=== PATIENT | male | born 1945 | race Caucasian/White ===

== ENCOUNTER → 2018-02-26 17:19 | Outpatient (CLI) | payer MEDICARE, BC, SELFPAY ==
[2018-02-26 18:00] LABS: Hematocrit 44.8 % (40-54); Hemoglobin 15.3 g/dl (13.0-16.5); Mean Corp Hgb Conc 34.2 g/gl (32-36); Mean Corpuscular Hgb 32.6 pg (27.0-32.0); Mean Corpuscular Volume 95.5 fL (80-94); Mean Platelet Vol. 9.7 fl (6.2-12.0); Platelet Count 192 K/mm3 (150-450); RBC Distribution Width CV 14.2 % (11.6-14.6); RBC Distribution Width SD 48.8 fl (35.1-43.9); Red Blood Count 4.69 M/mm3 (4.6-6.2); White Blood Count 5.7 K/mm3 (4.4-11.0)
[2018-02-26 18:30] LABS: Anion Gap 5 (5-15); BUN 16 mg/dL (7-18); BUN/Creat Ratio 15.5 RATIO (10-20); Calcium,Total 8.9 mg/dL (8.5-10.1); Chloride 107 mmol/L (98-107); Creatinine, Serum 1.03 mg/dL (0.70-1.30); EST Glomerular Filtration Rate 75 mL/min (>60); Est Glom Filt Rate - Afr Amer 91 mL/min (>60); Glucose 87 mg/dL (74-106); PSA,Total - Annual Screen 2.15 ng/mL (0.00-4.00); Potassium 4.1 mmol/L (3.5-5.1); Sodium Level 143 mmol/L (136-145); Thyroid Stim Hormone (TSH) 0.89 uIU/mL (0.358-3.74); Vitamin D,25 Hydroxy 30.8 ng/mL (29.95-100.01)
[2018-02-27 09:29] LABS: Absolute Lymphocyte Count 2.03 X10^3/ul (0.83-4.51); Absolute Neutrophil Count 2.9 X10^3/uL (2.0-7.7); Basophil# 0.07 X10^3/uL; Basophil% 1.2 % (0-1); Eosinophil# 0.24 X10^3/uL; Eosinophils% 4.1 % (0-5); Lymphocyte # 2.03 X10^3/ul (4.0); Lymphocyte % 34.9 % (19-41); Monocyte# 0.57 X10^3/uL; Monocyte% 9.8 % (0-10); Neutrophil # 2.89 X10^3/uL (2.7-7.7); Neutrophil % 49.7 % (47-70); POSITIVE COUNT NO; POSITIVE DIFFERENTIAL NO; POSITIVE MORPHOLOGY NO
[2018-02-27 09:38] LABS: ALB/GLOB Ratio 1.1 RATIO (0.9-2.4); AST(SGOT) 33 U/L (15-37); Alanine Aminotransfer ALT/SGPT 52 U/L (16-61); Alkaline Phosphatase 58 U/L (45-117); Globulin 3.5 g/dL (2.2-4.2); Protein, Total 7.5 g/dL (6.4-8.2)
[2018-02-28 11:33] LABS: Hep C Antibodies <0.1 s/co ratio (0.0-0.9)
== END ==
PROVIDERS: Family Provider Family Medicine Geriatric Medicine; PCP Family Medicine Geriatric Medicine; Visit Provider Family Medicine Geriatric Medicine
DX: E03.9 Hypothyroidism, unspecified (principal); E55.9 Vitamin D deficiency, unspecified; Z12.5 Encounter for screening for malignant neoplasm of prostate; Z13.89 Encounter for screening for other disorder
CPT/HCPCS: 36415; 80048; 82040; 82247; 82306; 84075; 84153; 84156; 84443; 84450; 84460; 85025; 85027; 86803; G0103

== ENCOUNTER → 2018-03-14 08:11 | Outpatient (CLI) | payer MEDICARE, BC, SELFPAY ==
--- NOTE | 2018-03-14 08:25 | AAAS_ITS ---
Reason For Study: AAA screening Aorta Measurements Aorta Doppler Measurements Proximal aorta measures2.1 x 2.2cm. in cross- Peak systolic flow velocities within the proximal sectional axis. aorta measure 85.7 cm/sec. Proximal aorta measures2.2cm. in longitudinal Peak systolic flow velocities within the mid axis. aorta measure 73.0 cm/sec. Mid aorta measures2.1 x 1.8cm. in cross-sectionalPeak systolic flow velocities within the distal axis. aorta measure 85.7 cm/sec. Mid aorta measures1.9cm. in longitudinal axis. Distal aorta measures1.5 x 1.7cm. in cross- sectional axis. Distal aorta measures1.7cm. in longitudinal axis. Left Iliac Artery Left iliac artery measures 1.1 cm. in the longitudinal axis. Left iliac artery measures 1.1 x 1.1 cm. in the cross-sectional axis. Peak systolic velocity in the left iliac artery measures 87.6 cm/sec. Right Iliac Artery Right iliac artery measures 1.1 cm. in the longitudinal axis. Right iliac artery measures 1.2 x 1.1 cm. in the cross-sectional axis. Peak systolic velocity in the right iliac artery measures 114.0 cm/sec. Procedure Aorta IVC Iliac vasculature or bypass grafts [id number]. Exam performed in department. Interpretation Summary The dimensions of the intra-abdominal aorta are normal, without evidence of aneurysmal dilatation. The iliac arteries are also normal in size bilaterally. The intra-abdominal aorta and iliac arteries are patent, demonstrating normal, pulsatile arterial flow and normal peak systolic velocities. Ordering Physician: Dany Flanagan Referring Physician: Dany Flanagan Chi Performed By: Lisha Rossi RVT
[2018-03-14 10:26] LABS: Follicle Stimulating Hormone 5.6 mIU/mL; Luteinizing Hormone 1.2 mIU/mL; Prolactin 16.2 ng/mL; T4 Free Direct 0.78 ng/dL (0.76-1.46); Thyroid Stim Hormone (TSH) 0.68 uIU/mL (0.358-3.74)
== END ==
PROVIDERS: Nurse Practitioner; Family Provider Family Medicine Geriatric Medicine; PCP Family Medicine Geriatric Medicine; Visit Provider Family Medicine Geriatric Medicine
DX: I71.4 Abdominal aortic aneurysm, without rupture (principal); E03.9 Hypothyroidism, unspecified; E23.7 Disorder of pituitary gland, unspecified
CPT/HCPCS: 36415; 76706; 83001; 83002; 84146; 84403; 84439; 84443; 84481

== ENCOUNTER → 2018-08-10 12:14 | Outpatient (CLI) | payer MEDICARE, BC, SELFPAY ==
[2018-08-10 12:42] LABS: Absolute Lymphocyte Count 1.72 X10^3/ul (0.83-4.51); Absolute Neutrophil Count 2.1 X10^3/uL (2.0-7.7); Basophil# 0.04 X10^3/uL; Basophil% 0.8 % (0-1); Eosinophil# 0.23 X10^3/uL; Eosinophils% 4.7 % (0-5); Hematocrit 44.2 % (40-54); Hemoglobin 14.7 g/dl (13.0-16.5); Lymphocyte # 1.72 X10^3/ul (4.0); Lymphocyte % 35.2 % (19-41); Mean Corp Hgb Conc 33.3 g/gl (32-36); Mean Corpuscular Hgb 32.7 pg (27.0-32.0); Mean Corpuscular Volume 98.4 fL (80-94); Mean Platelet Vol. 9.5 fl (6.2-12.0); Monocyte# 0.77 X10^3/uL; Monocyte% 15.8 % (0-10); Neutrophil # 2.11 X10^3/uL (2.7-7.7); Neutrophil % 43.3 % (47-70); Platelet Count 172 K/mm3 (150-450); RBC Distribution Width CV 14.5 % (11.6-14.6); RBC Distribution Width SD 52.1 fl (35.1-43.9); Red Blood Count 4.49 M/mm3 (4.6-6.2); White Blood Count 4.9 K/mm3 (4.4-11.0)
[2018-08-10 12:44] LABS: POSITIVE COUNT NO; POSITIVE DIFFERENTIAL NO; POSITIVE MORPHOLOGY NO
[2018-08-10 12:55] LABS: Anion Gap 3 (5-15); BUN 18 mg/dL (7-18); BUN/Creat Ratio 14.5 RATIO (10-20); Calcium,Total 8.5 mg/dL (8.5-10.1); Chloride 109 mmol/L (98-107); Creatinine, Serum 1.24 mg/dL (0.70-1.30); EST Glomerular Filtration Rate 61 mL/min (>60); Est Glom Filt Rate - Afr Amer 73 mL/min (>60); Glucose 88 mg/dL (74-106); Potassium 4.7 mmol/L (3.5-5.1); Sodium Level 141 mmol/L (136-145)
[2018-08-10 12:58] LABS: Lactic Acid 0.6 mmol/L (0.4-2.0)
== END ==
PROVIDERS: Family Provider Family Medicine Geriatric Medicine; PCP Family Medicine Geriatric Medicine; Referring Provider Family Medicine Geriatric Medicine; Visit Provider Family Medicine Geriatric Medicine
DX: A41.9 Sepsis, unspecified organism (principal)
CPT/HCPCS: 36415; 80048; 83605; 85025

== ENCOUNTER → 2018-10-04 14:46 | Outpatient (CLI) | payer MEDICARE, BC, SELFPAY ==
[2017-09-27 15:20] VITALS: BMI 31.0
[2018-10-04 16:21] LABS: Absolute Lymphocyte Count 2.03 X10^3/ul (0.83-4.51); Absolute Neutrophil Count 2.7 X10^3/uL (2.0-7.7); Basophil# 0.04 X10^3/uL; Basophil% 0.7 % (0-1); Eosinophil# 0.16 X10^3/uL; Hemoglobin 15.1 g/dl (13.0-16.5); Lymphocyte # 2.03 X10^3/ul (4.0); Lymphocyte % 37.9 % (19-41); Mean Corp Hgb Conc 33.6 g/gl (32-36); Mean Corpuscular Hgb 33.6 pg (27.0-32.0); Mean Corpuscular Volume 100.2 fL (80-94); Mean Platelet Vol. 10.1 fl (6.2-12.0); Monocyte# 0.43 X10^3/uL; Neutrophil # 2.68 X10^3/uL (2.7-7.7); Neutrophil % 50.2 % (47-70); Platelet Count 235 K/mm3 (150-450); RBC Distribution Width CV 14.9 % (11.6-14.6); RBC Distribution Width SD 53.9 fl (35.1-43.9); Red Blood Count 4.49 M/mm3 (4.6-6.2); White Blood Count 5.4 K/mm3 (4.4-11.0)
[2018-10-04 16:24] LABS: POSITIVE COUNT NO; POSITIVE DIFFERENTIAL NO; POSITIVE MORPHOLOGY NO
[2018-10-04 16:52] LABS: Vitamin D,25 Hydroxy 30.4 ng/mL (29.95-100.01)
[2018-10-04 16:54] LABS: ALB/GLOB Ratio 1.1 RATIO (0.9-2.4); AST(SGOT) 31 U/L (15-37); Alanine Aminotransfer ALT/SGPT 56 U/L (16-61); Albumin, Serum 3.8 g/dL (3.2-5.0); Alkaline Phosphatase 57 U/L (45-117); Anion Gap 7 (5-15); BUN 14 mg/dL (7-18); BUN/Creat Ratio 12.6 RATIO (10-20); Calcium,Total 8.4 mg/dL (8.5-10.1); Chloride 106 mmol/L (98-107); Creatinine, Serum 1.11 mg/dL (0.70-1.30); EST Glomerular Filtration Rate 69 mL/min (>60); Est Glom Filt Rate - Afr Amer 83 mL/min (>60); Globulin 3.4 g/dL (2.2-4.2); Glucose 63 mg/dL (74-106); Potassium 3.9 mmol/L (3.5-5.1); Protein, Total 7.2 g/dL (6.4-8.2); Sodium Level 145 mmol/L (136-145); Thyroid Stim Hormone (TSH) 0.79 uIU/mL (0.358-3.74)
--- OUTSIDE RECORDS SUMMARY | 2018-11-20 12:03 | XMS RPT_ITS ---
:1945 Author Organization [place] Care Team Providers Name Role Phone KETAN FOX MD Attending Unavailable KETAN FOX MD Primary Care Unavailable LAUREN LINDER Attending Unavailable JACINTO CARRION Referring Unavailable PEEREBOOMJACINTO Referring Unavailable PEERJACINTO OLIVEIRA Attending Unavailable PEERJACINTO OLIVEIRA Referring Unavailable PEERJACINTO OLIVEIRA Referring Unavailable PEERJACINTO OLIVEIRA Referring Unavailable PEERJACINTO OLIVEIRA Attending Unavailable PEEREBOOMJACINTO Referring Unavailable Panchito, Dany Chi Attending Unavailable Panchito, Dany Chi Primary Care Unavailable Panchito, Dany Chi Attending Unavailable Panchito, Dany Chi Referring Unavailable Panchito, Dany Chi Primary Care Unavailable Krissy Montiel RN LAB-Mig[facility] Attending Unavailable Ketan Fox Referring Unavailable Ketan Fox Primary Care Unavailable Panchito, Dany Chi Attending Unavailable Panchito, Dany Chi Referring Unavailable Panchito, Dany Chi Primary Care Unavailable Shook, Krissy J RN LAB-C Attending Unavailable Ketan Fox Referring Unavailable Panchito, Dany Chi Attending Unavailable Panchito, Dany Chi Referring Unavailable Panchito, Dany Chi Primary Care Unavailable Krissy Montiel Consulting Unavailable PROBLEMS PROBLEMS DATE TYPE CONDITION / CODE ATTENDING STATUS SOURCE 10/10/2018 Active Other non-follicular NA Active [place] lymphoma, Clinic Main unspecified site / [place] C83.80(ICD-10) Repository 08/10/2018 Unknown A41.9 - Sepsis, Panchito, Dany Chi Active [place] unspecified organism Community / A41.9(ICD-10) Hospital Repository 11/15/2017 Active Other specified NA Active [facility] types of non-hodgkin Clinic Main lymphoma, extranodal [place] and solid organ Repository sites / C85.89(ICD-10) 04/03/2018 Active Unknown / LYSMATHIEUDLAUREN D Active [facility] UNK(Unknown) Clinic Main [place] Repository 02/26/2018 Unknown E03.9 - Panchito, Dany Chi Active [facility] Hypothyroidism, Community unspecified / Hospital E03.9(ICD-10) Repository 02/26/2018 Unknown E55.9 - Vitamin D Panchito, Dany Chi Active [place] deficiency, Community unspecified / Hospital E55.9(ICD-10) Repository 02/26/2018 Unknown Z12.5 - Encounter Panchito, Dany Chi Active [facility] for screening for Community malignant neoplasm Hospital of prostate / Repository Z12.5(ICD-10) 02/26/2018 Unknown Z13.89 - Encounter Panchito, Dany Chi Active [place] for screening for Community other disorder / Hospital Z13.89(ICD-10) Repository 02/05/2018 Admitting Mixed hyperlipidemia DOMINIQUE KAUR, Active [facility] Diagnosis / E78.2(ICD-10) [facility]. [facility] Repository PROCEDURES PROCEDURES No Procedure Records FoundRESULTS RESULTS PROGRESS Observed: 10/11/2018 Status: COMPLETED Source: [place] 9:40 AM [facility] REPOSITORY HNO ID: [id number] Author: Jacinto Carrion Service: (none) Author Type: Physician Type: Progress Notes Filed: 10/13/2018 8:36 PM Note Text: [facility] CLINICAL NOTE [facility] Solid Tumor Oncology PATIENT NAME: Jae Rivers [facility] NO.: [id number] ATTENDING PHYSICIAN: Jacinto Carrion MD DATE OF SERVICE: October 11, 2018 DIAGNOSIS: Primary INSOLE COVERER lymphoma HISTORY OF PRESENT ILLNESS: Jan 2014: Developed trouble with blurry vision, CLAROS, trouble walking. MRI multiple enhancing lesions. Biopsy- diffuse large B-cell non-Hodgkins lymphoma. LP - WBC 94, Protein 352. Flow non-diagnostic. Testicular US negative. Slit lamp exam negative. Enrolled on RTOG 1114 A Phase II Randomized Study of Rituximab, Procarbazine, Methotrexate, Vincristine AND Cytarabine (R-MPV-C) With AND Without Low-Dose Whole-Brain Radiotherapy (WBRT) for Primary Central Nervous System Lymphoma. Randomized to R-MPV-C + WBRT arm Sep 2014: Completed all protocol therapy. CURRENT TREATMENT: RTOG 1114 A Phase II Randomized Study of Rituximab, Procarbazine, Methotrexate, Vincristine AND Cytarabine With AND Without Low-Dose Whole-Brain Radiotherapy (WBRT) for Primary Central Nervous System Lymphoma. Randomized to WBRT arm. s/p R-MPV-C and WBRT. SUBJECTIVE: February 13, 2014 - The patient reports resolution of CLAROS; worsening of cognition, gait problems, language deficit, poor memory, dizziness with mostly unsteadiness and smaller vertigo component, as well as blurry vision but no double vision. Patient denies weakness, numbness, difficulty using arms, syncope, seizures, speech difficulty, memory loss, vision difficulty March 18, 2014 - Here for cycle 2a. Mr. Arellano was in house for 4 weeks beginning with cycle 1a which was complicated by hydrocephalus with progressive obtundation requiring ventriculostomy, intubation after which he recovered and left the hospital after a stay in acute rehab. Feels a lot better. Getting around with walker. April 01, 2014 - Here for cycle 2B. His speech continues to improve, as has his double vision symptoms. He no longer has nausea and remains seizure free. He continues to have poor short term memory. His gait remains an issue. It is improved and he participated in physical therapy recently, but he still requires a walker. April 29, 2014 - Here for cycle 3B. Vision less blurry (compared to 2 weeks ago) when watching TV. Stopped using walker 2 weeks ago; stopped using cane 3 days ago. May 13, 2014 - Here for cycle 4A. Reports anxiety while in the hospital for chemotherapy which he attributes to having roommates that were awake at night. Reports improving blurry vision and stable short memory deficit. No nausea, no vomiting, no diarrhea, good appetite. No fever. May 27, 2014 - Here for cycle 4B. No new symptoms. Still somewhat unsteady on his feet. Seeing his PCP for anxiety/depression. June 10, 2014 - Here for f/u. Still has imbalance, short term memory loss and blurry vision. Vision precludes driving but otherwise does not interfere with function. August 12, 2014 - Here for cycle 1 of 2 consolidation cycles of cytarabine. He reports that he finished RT 06/24/2014 to 07/10/2014 with 2340 cGy in 13 fx of 180 cGy/fx were delivered with 6 MV photons via 2 lateral parallel opposed yancey prescribed to the midplane. He reports that his blurry vision is worse, with binocular feature, but denies diplopia. He was tried steroid on the third week of RT, with some improvement on day one, but worsened then, even if he was still on steroid. He has been tapered off decadron. He denies headache, nausea, vomiting, hemiparesis, seizure when he was on and off steroid. He was seen a logistics administrator who cleared refractive issue. September 08, 2014 - Here for cycle 2 of 2 consolidation cycles of cytarabine. No change in vision; got better after chemo but worse after RT Each eye has clear vision but together blurry but no diplopia. Tried to drive but veered off to right (also does this when walking). October 08, 2014 - Here for f/u. In midst of getting definitive repair of intermittent drainage from scalp wound. Also needs hernia repair.Vision is staying stable for now. 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 November - Doing a lot better, appetite significantly improved. No weight loss,fevers,chills or night sweats. Patient has bilateral blurring of vision and has seen opthalmology, no recent deterioration in vision. Has seen infectious diseases yesterday 12/01 and had MRI head for persistent incision site infection. Completed 10 days of oral antibiotics per patient. February 11, 2015 - Here for f/u. Vision unchanged and remains his main complaint. Vision is fine if he closes 1 eye and also if he keeps a plane between his eyes - e.g., with his hand outstretched between his eyes. Otherwise feels fine. Right leg slightly weak (as it has been). Short term memory loss. April 14, 2015 - Here for f/u. Vision unchanged. Went fishing in [place]. Some gait imbalance. short term memory loss - couldn't recall name of his granddaughter. June 11, 2015 - Here for f/u. He has less gait imbalance and has some improvement in memory. August 04, 2015 - Here for f/u. Doing well and states cognition is improving. 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 Having a grandchild in Nov 2015. Sep 28, 2015 - Here for f/up. Doing well and has no new symptoms since the last time he was here. December 01, 2015 - Here for follow up. Diplopia unchanged. His eyes do not track together and it creates gait imbalance for him. Has seen Dr. Stinson in the past but no obvious solution for this problem. February 03, 2016 - Here for follow up. Doing well. Vision unchanged. Balance still somewhat off and short term memory is still a bit off but he functions well per his . April 04, 2016 - Patient states he is doing well and [facility]. He has some chronic c/o visual acuity difficulty but states blurred vision not diplopia if not looking at certain distance when focus clear and continued RHH. He also has some continued balance difficulty and some RLE weakness/coornidation difficulty which is more pronounced with fatigue. He has some STM difficulty and his taste has been a little off since treatment and he has some fatigue and was looking to start low dose testosterone is not contraindicated by study protocol. 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 He presents today with his for f/u. April - Doing well. No complaints. July 05, 2016 - Feels quite well. Still has mild imbalance with some dragging on right side. He is starting PT tomorrow. August 29, 2016 - Still has diplopia but otherwise feeling well. They are going to [place], [place] ([place] [facility]) thru late Sep then back for [place] here with ~ 20 family members. October 13, 2016 - No changes since last visit. Diplopia unchanged. They are leaving for [place], [place] next week for 2-3 months. April 17, 2017 - More stamina and improved processing in conversation since last visit. Short term memory is stable. Has prism glasses which unfortunately have not provided substantial improvement in vision. April 17, 2018 - Feels well; active. October 11, 2018 - Here for follow up. Since ~ Jun 2018, has had confusion, urinary incontinence, difficulty reading/comprehending, word finding difficulty, trouble remembering names (e.g., grandchildren's names), gait imbalance with multiple falls. His primary physician started Aricept last week but took only 1 dose pending today's visit. He takes a 1-hour nap in afternoon with improvement in symptoms afterwards. PAST MEDICAL HISTORY Diagnosis Date - Abdominal pain - Brain lesion - Cancer (HCC) PCNS lymphoma - Elevated cholesterol - Hypothyroidism - Right inguinal hernia - Screening for malignant neoplasm of colon 06/08/2015 PAST SURGICAL HISTORY Procedure Laterality Date - COLONS W/REM POLYP HT BX 06/08/2015 Repeat 2018 - CT BRAIN BIOPSY W/O INPAT 03/05 - LAP REPAIR INTIAL INGUINAL HERNIA 05/16/12 left - LAP REPAIR INTIAL INGUINAL HERNIA 11/21/14 [facility] - PICC LINE INSERT/CONSULT 03/19/2014 - PICC LINE INSERT/CONSULT 04/01/2014 - PORTOCATH PLACEMENT 04/01 - GROOVER AND STRIPER OPERATOR SHUNT LIGATION/UNLIGATION 03/05 Current Outpatient Prescriptions: atorvastatin (LIPITOR) 10 mg tablet Take 10 mg by mouth once daily. Disp: Rfl: Cholecalciferol, Vitamin D3, (VITAMIN D-3) 2,000 unit cap Take 2,000 Units by mouth once daily. Disp: Rfl: FLUTICASONE PROPIONATE (FLONASE NASAL) Use 1 [place] in the nose. Disp: Rfl: GLYCOSAMINOGLYCANS,MIXED,BULK, MISC Disp: Rfl: LACTOBACILLUS ACIDOPHILUS (ACIDOPHILUS ORAL) Take by mouth once daily. Disp: Rfl: levothyroxine (SYNTHROID) 50 mcg tablet Take 1 tablet by mouth once daily. Disp: 30 tablet Rfl: 0 multivitamin tablet Take 1 tablet by mouth once daily. Disp: Rfl: [place]-3 Fatty Acids-Vitamin E (FISH OIL) 1,000 mg cap Take 1 capsule by mouth once daily. Disp: Rfl: sertraline (ZOLOFT) 25 mg tablet Take 25 mg by mouth once daily. Disp: Rfl: testosterone (AXIRON) 30 mg/actuation (1.5 mL) slpm APPLY 30 MG DIRECTED ONCE DAILY Disp: 1 Bottle Rfl: 5 vit A/vit C/vit E/zinc/copper (PRESERVISION AREDS ORAL) Take by mouth once daily. Disp: Rfl: VIT C/JESUS AC/LUT/COPPER/ZNOX (PRESERVISION LUTEIN ORAL) Take 1 capsule by mouth once daily. Disp: Rfl: donepezil (ARICEPT) 5 mg tablet Take 5 mg by mouth daily at bedtime. Disp: Rfl: 3 oxybutynin (DITROPAN) 5 mg tablet Take 5 mg by mouth twice daily. Disp: Rfl: 11 No current facility-administered medications for this visit. ALLERGIES No Known Allergies SOCIAL HISTORY: [place]: [place] Marital: Children: 3 Occupation: retired Accompanied today by: spouse, son Tobacco: former smoker, quit in 1984 Alcohol: social FAMILY HISTORY: No history of cancer in first degree relatives PHYSICAL EXAMINATION: Patient is in no distress. Sclerae and conjunctivae are clear. Oropharynx is normal. There is no cervical or supraclavicular lymphadenopathy. Heart is regular. Lungs are clear. Abdomen is soft and nontender. Extremities have no edema. Mental status: alert, engaged although speech output less than on prior visits Gait: steppage gait, wide based; tandem not tested Speech: fluent. Visual yancey: Left homonymous hemianopsia Cranial Nerves: 2-12 intact. Motor right: 5/5 deltoid, 5/5 handgrips, 5/5 psoas, 5/5 dorsiflexors left: 5/5 deltoid, 5/5 handgrips, 5/5 psoas, 5/5 dorsiflexors Sensation: normal to light touch Deep tendon reflexes: 1+ in the biceps and patellar deep tendons Rapid alternating movements: Rt: normal; Lt: normal Hyuypv-haoy-llygna: Rt: normal; Lt: normal Rapid finger movements: Rt: normal; Lt: normal IMAGING - MRI BRAIN: Stable with extensive, confluent increased T2 and FLAIR signal is present in the supratentorial white matter which is nonspecific but likely represents extensive chronic microvascular ischemia. 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 Recommend continued Aricept; neurocog rehab with speech therapy locally, PT/OT. PLAN (October 11, 2018): 1. F/U on RTOG 1114 A Phase II Randomized Study of Rituximab, Methotrexate, Vincristine AND Cytarabine With AND Without Low-Dose Whole-Brain Radiotherapy (WBRT) for Primary Central Nervous System Lymphoma in 6 months with a new MRI per protocol 2. F/U ophthalmology in [place] for monitoring of vitreous q6 months 3. Speech/cognitive rehab 4. [place] [id number] cc: Ketan Fox III, MD - Edy Gamboa MD - [place] [facility], Giacomo Banegas MD, PhD - [facility] CNOV Observed: 10/11/2018 Status: COMPLETED Source: [place] 9:40 AM [facility] REPOSITORY Office Visit (NSCAMN) JAE ARELLANO ([id number]) 1945 M Date Time Provider Department 10/11/18 9:40 AM [facility] During your visit today, we recorded the following information about you: Temperature Pulse Respiration Blood pressure 97.6 degrees 65/minute 18/minute 128/74 Weight Height 99.7 kg 1.81 m Jacinto Carrion MD 10/13/2018 8:36 PM Signed [facility] CLINICAL NOTE [facility] Solid Tumor Oncology PATIENT NAME: Jae Arellano [facility] NO.: [id number] ATTENDING PHYSICIAN: Jacinto Carrion MD DATE OF SERVICE: October 11, 2018 DIAGNOSIS: Primary INSOLE COVERER lymphoma HISTORY OF PRESENT ILLNESS: Jan 2014: Developed trouble with blurry vision, CLAROS, trouble walking. MRI multiple enhancing lesions. 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 LP - WBC 94, Protein 352. Flow non-diagnostic. Testicular US negative. Slit lamp exam negative. Enrolled on RTOG 1114 A Phase II Randomized Study of Rituximab, Procarbazine, Methotrexate, Vincristine AND Cytarabine (R-MPV-C) With AND Without Low-Dose Whole-Brain Radiotherapy (WBRT) for Primary Central Nervous System Lymphoma. Randomized to R-MPV-C + WBRT arm Sep 2014: Completed all protocol therapy. CURRENT TREATMENT: RTOG 1114 A Phase II Randomized Study of Rituximab, Procarbazine, Methotrexate, Vincristine AND Cytarabine With AND Without Low-Dose Whole-Brain Radiotherapy (WBRT) for Primary Central Nervous System Lymphoma. Randomized to WBRT arm. s/p R-MPV-C and WBRT. SUBJECTIVE: February 13, 2014 - The patient reports resolution of CLAROS; worsening of cognition, gait problems, language deficit, poor memory, dizziness with mostly unsteadiness and smaller vertigo component, as well as blurry vision but no double vision. Patient denies weakness, numbness, difficulty using arms, syncope, seizures, speech difficulty, memory loss, vision difficulty March 18, 2014 - Here for cycle 2a. Mr. Arellano was in house for 4 weeks beginning with cycle 1a which was complicated by hydrocephalus with progressive obtundation requiring ventriculostomy, intubation after which he recovered and left the hospital after a stay in acute rehab. Feels a lot better. Getting around with walker. April 01, 2014 - Here for cycle 2B. His speech continues to improve, as has his double vision symptoms. He no longer has nausea and remains seizure free. He continues to have poor short term memory. His gait remains an issue. It is improved and he participated in physical therapy recently, but he still requires a walker. April 29, 2014 - Here for cycle 3B. Vision less blurry (compared to 2 weeks ago) when watching TV. Stopped using walker 2 weeks ago; stopped using cane 3 days ago. May 13, 2014 - Here for cycle 4A. Reports anxiety while in the hospital for chemotherapy which he attributes to having roommates that were awake at night. Reports improving blurry vision and stable short memory deficit. No nausea, no vomiting, no diarrhea, good appetite. No fever. May 27, 2014 - Here for cycle 4B. No new symptoms. Still somewhat unsteady on his feet. Seeing his PCP for anxiety/depression. June 10, 2014 - Here for f/u. Still has imbalance, short term memory loss and blurry vision. Vision precludes driving but otherwise does not interfere with function. August 12, 2014 - Here for cycle 1 of 2 consolidation cycles of cytarabine. He reports that he finished RT 06/24/2014 to 07/10/2014 with 2340 cGy in 13 fx of 180 cGy/fx were delivered with 6 MV photons via 2 lateral parallel opposed yancey prescribed to the midplane. He reports that his blurry vision is worse, with binocular feature, but denies diplopia. He was tried steroid on the third week of RT, with some improvement on day one, but worsened then, even if he was still on steroid. He has been tapered off decadron. He denies headache, nausea, vomiting, hemiparesis, seizure when he was on and off steroid. He was seen a logistics administrator who cleared refractive issue. September 08, 2014 - Here for cycle 2 of 2 consolidation cycles of cytarabine. No change in vision; got better after chemo but worse after RT Each eye has clear vision but together blurry but no diplopia. Tried to drive but veered off to right (also does this when walking). October 08, 2014 - Here for f/u. In midst of getting definitive repair of intermittent drainage from scalp wound. Also needs hernia repair.Vision is staying stable for now. 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 November - Doing a lot better, appetite significantly improved. No weight loss,fevers,chills or night sweats. Patient has bilateral blurring of vision and has seen opthalmology, no recent deterioration in vision. Has seen infectious diseases yesterday 12/01 and had MRI head for persistent incision site infection. Completed 10 days of oral antibiotics per patient. February 11, 2015 - Here for f/u. Vision unchanged and remains his main complaint. Vision is fine if he closes 1 eye and also if he keeps a plane between his eyes - e.g., with his hand outstretched between his eyes. Otherwise feels fine. Right leg slightly weak (as it has been). Short term memory loss. April 14, 2015 - Here for f/u. Vision unchanged. Went fishing in [place]. Some gait imbalance. short term memory loss - couldn't recall name of his granddaughter. June 11, 2015 - Here for f/u. He has less gait imbalance and has some improvement in memory. August 04, 2015 - Here for f/u. Doing well and states cognition is improving. 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 Having a grandchild in Nov 2015. Sep 28, 2015 - Here for f/up. Doing well and has no new symptoms since the last time he was here. December 01, 2015 - Here for follow up. Diplopia unchanged. His eyes do not track together and it creates gait imbalance for him. Has seen Dr. Stinson in the past but no obvious solution for this problem. February 03, 2016 - Here for follow up. Doing well. Vision unchanged. Balance still somewhat off and short term memory is still a bit off but he functions well per his . April 04, 2016 - Patient states he is doing well and [facility]. He has some chronic c/o visual acuity difficulty but states blurred vision not diplopia if not looking at certain distance when focus clear and continued RHH. He also has some continued balance difficulty and some RLE weakness/coornidation difficulty which is more pronounced with fatigue. He has some STM difficulty and his taste has been a little off since treatment and he has some fatigue and was looking to start low dose testosterone is not contraindicated by study protocol. 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 He presents today with his for f/u. April - Doing well. No complaints. July 05, 2016 - Feels quite well. Still has mild imbalance with some dragging on right side. He is starting PT tomorrow. August 29, 2016 - Still has diplopia but otherwise feeling well. They are going to [place], [place] ([place] [facility]) thru late Sep then back for [place] here with ~ 20 family members. October 13, 2016 - No changes since last visit. Diplopia unchanged. They are leaving for [place], [place] next week for 2-3 months. April 17, 2017 - More stamina and improved processing in conversation since last visit. Short term memory is stable. Has prism glasses which unfortunately have not provided substantial improvement in vision. April 17, 2018 - Feels well; active. October 11, 2018 - Here for follow up. Since ~ Jun 2018, has had confusion, urinary incontinence, difficulty reading/comprehending, word finding difficulty, trouble remembering names (e.g., grandchildren's names), gait imbalance with multiple falls. His primary physician started Aricept last week but took only 1 dose pending today's visit. He takes a 1-hour nap in afternoon with improvement in symptoms afterwards. PAST MEDICAL HISTORY Diagnosis Date - Abdominal pain - Brain lesion - Cancer (HCC) PCNS lymphoma - Elevated cholesterol - Hypothyroidism - Right inguinal hernia - Screening for malignant neoplasm of colon 06/08/2015 PAST SURGICAL HISTORY Procedure Laterality Date - COLONS W/REM POLYP HT BX 06/08/2015 Repeat 2018 - CT BRAIN BIOPSY W/O INPAT 03/05 - LAP REPAIR INTIAL INGUINAL HERNIA 05/16/12 left - LAP REPAIR INTIAL INGUINAL HERNIA 11/21/14 [facility] - PICC LINE INSERT/CONSULT 03/19/2014 - PICC LINE INSERT/CONSULT 04/01/2014 - PORTOCATH PLACEMENT 04/01 - GROOVER AND STRIPER OPERATOR SHUNT LIGATION/UNLIGATION 03/05 Current Outpatient Prescriptions: atorvastatin (LIPITOR) 10 mg tablet Take 10 mg by mouth once daily. Disp: Rfl: Cholecalciferol, Vitamin D3, (VITAMIN D-3) 2,000 unit cap Take 2,000 Units by mouth once daily. Disp: Rfl: FLUTICASONE PROPIONATE (FLONASE NASAL) Use 1 [place] in the nose. Disp: Rfl: GLYCOSAMINOGLYCANS,MIXED,BULK, MISC Disp: Rfl: LACTOBACILLUS ACIDOPHILUS (ACIDOPHILUS ORAL) Take by mouth once daily. Disp: Rfl: levothyroxine (SYNTHROID) 50 mcg tablet Take 1 tablet by mouth once daily. Disp: 30 tablet Rfl: 0 multivitamin tablet Take 1 tablet by mouth once daily. Disp: Rfl: Clements-3 Fatty Acids-Vitamin E (FISH OIL) 1,000 mg cap Take 1 capsule by mouth once daily. Disp: Rfl: sertraline (ZOLOFT) 25 mg tablet Take 25 mg by mouth once daily. Disp: Rfl: testosterone (AXIRON) 30 mg/actuation (1.5 mL) slpm APPLY 30 MG DIRECTED ONCE DAILY Disp: 1 Bottle Rfl: 5 vit A/vit C/vit E/zinc/copper (PRESERVISION AREDS ORAL) Take by mouth once daily. Disp: Rfl: VIT C/JESUS AC/LUT/COPPER/ZNOX (PRESERVISION LUTEIN ORAL) Take 1 capsule by mouth once daily. Disp: Rfl: donepezil (ARICEPT) 5 mg tablet Take 5 mg by mouth daily at bedtime. Disp: Rfl: 3 oxybutynin (DITROPAN) 5 mg tablet Take 5 mg by mouth twice daily. Disp: Rfl: 11 No current facility-administered medications for this visit. ALLERGIES No Known Allergies SOCIAL HISTORY: [place]: [place] Marital: Children: 3 Occupation: retired Accompanied today by: spouse, son Tobacco: former smoker, quit in 1984 Alcohol: social FAMILY HISTORY: No history of cancer in first degree relatives PHYSICAL EXAMINATION: Patient is in no distress. Sclerae and conjunctivae are clear. Oropharynx is normal. There is no cervical or supraclavicular lymphadenopathy. Heart is regular. Lungs are clear. Abdomen is soft and nontender. Extremities have no edema. Mental status: alert, engaged although speech output less than on prior visits Gait: steppage gait, wide based; tandem not tested Speech: fluent. Visual yancey: Left homonymous hemianopsia Cranial Nerves: 2-12 intact. Motor right: 5/5 deltoid, 5/5 handgrips, 5/5 psoas, 5/5 dorsiflexors left: 5/5 deltoid, 5/5 handgrips, 5/5 psoas, 5/5 dorsiflexors Sensation: normal to light touch Deep tendon reflexes: 1+ in the biceps and patellar deep tendons Rapid alternating movements: Rt: normal; Lt: normal Rclbic-ahts-fdehvc: Rt: normal; Lt: normal Rapid finger movements: Rt: normal; Lt: normal IMAGING - MRI BRAIN: Stable with extensive, confluent increased T2 and FLAIR signal is present in the supratentorial white matter which is nonspecific but likely represents extensive chronic microvascular ischemia. 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 Recommend continued Aricept; neurocog rehab with speech therapy locally, PT/OT. PLAN (October 11, 2018): 1. F/U on RTOG 1114 A Phase II Randomized Study of Rituximab, Methotrexate, Vincristine AND Cytarabine With AND Without Low-Dose Whole- Brain Radiotherapy (WBRT) for Primary Central Nervous System Lymphoma in 6 months with a new MRI per protocol 2. F/U ophthalmology in [place] for monitoring of vitreous q6 months 3. Speech/cognitive rehab 4. [place] [id number] cc: Ketan Fox III, MD - Edy Gamboa MD - [facility], Giacomo Banegas MD, PhD - [facility] Glory Cardona Ma 10/11/2018 10:06 AM Signed Additional intake questions: Has the patient had nausea, vomiting, diarrhea, constipation, fatigue for > 1 week? None of the above Does the patient have a decreased appetite? No Does patient want to see a Novelty Printing Machine Operator? No (yes to any of above refer patient to schedulers for dietitian appointment) ) Does patient have any new or increased numbness or tingling of extremities? No Is patient interested in fertility information? No Does patient need any prescription refills? No Electronically Signed By: Glory Cardona Ma Referring Provider: JACINTO CARRION [[id number]] Allergies As of Date: 10/11/2018 (No Known Allergies) Date Reviewed: 04/17/2018 Reviewed by: Rachel (Rodney) RODNEY Funze - Fully Assessed Reason for Visit: Established Patient [175] Primary Visit Diagnosis:Primary INSOLE COVERER lymphoma (HCC) [C85.89] Prescriptions as of 10/11/2018 Sig: ATORVASTATIN 10 MG TABLET Take 10 mg by mouth once chel* CHOLECALCIFEROL (VITAMIN D3) * Take 2,000 Units by mouth onc* FLONASE NASAL Use 1 [place] in the nose. GLYCOSAMINOGLYCANS,MIXED(BULK* ACIDOPHILUS ORAL Take by mouth once daily. LEVOTHYROXINE 50 MCG TABLET Take 1 tablet by mouth once d* MULTIVITAMIN TABLET Take 1 tablet by mouth once d* OMEGA-3 FATTY ACIDS-VITAMIN E* Take 1 capsule by mouth once * SERTRALINE 25 MG TABLET Take 25 mg by mouth once chel* TESTOSTERONE 30 MG/ACTUATION * APPLY 30 MG DIRECTED ONCE * PRESERVISION AREDS ORAL Take by mouth once daily. PRESERVISION LUTEIN ORAL Take 1 capsule by mouth once * DONEPEZIL 5 MG TABLET Take 5 mg by mouth daily at b* OXYBUTYNIN CHLORIDE 5 MG TABL* Take 5 mg by mouth twice chel* Problem List As Of Date 10/11/2018 Noted Resolved Left inguinal hernia [K40.90] INVALID FOR* Nonexudative senile macular degeneration of ret*INVALID FOR*03/03/2017 INSOLE COVERER lymphoma ([facility]) [C85.89] INVALID FOR* More... SUMMARY [V999.95] INVALID FOR* More... More... DVT prophylaxis [NLC4306] INVALID FOR* More... More... More... Respiratory failure (HCC) [J96.90] INVALID FOR* More... Hyponatremia [E87.1] INVALID FOR* More... At risk for seizures [Z91.89] INVALID FOR* More... Hypothyroidism [E03.9] INVALID FOR* More... 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 None of the above Does the patient have a decreased appetite? No Does patient want to see a Novelty Printing Machine Operator? No (yes to any of above refer patient to schedulers for dietitian appointment) ) Does patient have any new or increased numbness or tingling of extremities? No Is patient interested in fertility information? No Does patient need any prescription refills? No Electronically Signed By: Glory Cardona Ma Medications Discontinued During This Encounter aspirin, enteric coated (ASPIRIN LOW* 10/11/2018 Class: Historical Med Route: ORAL Sig: Take 81 mg by mouth once daily. Disc: Reason for discontinue is not on file. glucosamine/chondr brown A sod (OSTEO B* 10/11/2018 Class: Historical Med Route: ORAL Sig: Take by mouth once daily. Disc: Reason for discontinue is not on file. senna-docusate 8.6-50 mg per tablet 60 t* 1 04/04/2014 10/11/2018 Class: Print RX Route: ORAL Sig: Take 1-2 tablets by mouth twice daily. Disc: Reason for discontinue is not on file. iv contrast (will be provided with r* 1 Ea* 0 08/16/2018 10/11/2018 Class: In Office Sig: MRI Brain Inject, intravenously, once for 1 dose.No IV access, insert saline lock prior to beginning of sedation, infusion, injection of imaging exam.Discontinue saline lock post exam. If Pt. has a central line or IVAD, may access for administration according to line specific nursing protocol.Once exam is complete flush line and de-access according to line specific nursing protocol in the MR contrast administration guidelines link Disc: Reason for discontinue is not on file. Follow-up and Disposition History Recorded Letter Text Jacinto Carroin M.D. credit cashier [facility] Brain Tumor AND Neuro-Oncology Department [place] [address] Office: [phone]; Appointments: [phone] or [phone] E-mail: [email or web address] October 11, 2018 Jae JOHNSON 1945 Diagnosis: Primary central nervous system lymphoma (PCNSL) and Leukoencephalopathy PT/OT Please evaluate and treat Jacinto Carrion MD Letter Text Jacinto Carrion M.D. credit cashier [facility] Brain Tumor AND Neuro-Oncology Department [place] [address] Office: [phone]; Appointments: [phone] or [phone] E-mail: October 11, 2018 Jae Arellano 1945 Diagnosis: Primary central nervous system lymphoma (PCNSL) and Leukoencephalopathy Cognitive Rehab Please evaluate and treat Jacinto Carrion MD Letter Text Jacinto Carrion M.D. credit cashier [facility] Brain Tumor AND Neuro-Oncology Department [place] [address] Office: [phone]; Appointments: [phone] or [phone] E-mail: [email or web address] October 11, 2018 Jae Arellano 1945 Diagnosis: Primary central nervous system lymphoma (PCNSL) and Leukoencephalopathy Speech therapy for cognitive rehab and word finding difficulty Please evaluate and treat Jacinto Carrion MD Letter Text Jacinto Carrion MD [address] [place] [address] October 13, 2018 Re: Jae Arellano : 1945 Thank you for the opportunity to participate in the care of your patient Jae Arellano, who I saw at [facility] on 10/11/2018. My Assessment and Plan are as follows: [facility] CLINICAL NOTE [facility] Tumor [facility] Neuro-On[facility] Center Solid Tumor Oncology PATIENT NAME: Jae Arellano CLINIC NO.: [id number] ATTENDING PHYSICIAN: Jacinto Carrion MD DATE OF SERVICE: October 11, 2018 DIAGNOSIS: Primary INSOLE COVERER lymphoma HISTORY OF PRESENT ILLNESS: Jan 2014: Developed trouble with blurry vision, CLAROS, trouble walking. MRI multiple enhancing lesions. Biopsy- diffuse large B-cell non-Hodgkins lymphoma. LP - WBC 94, Protein 352. Flow non-diagnostic. Testicular US negative. Slit lamp exam negative. Enrolled on RTOG 1114 A Phase II Randomized Study of Rituximab, Procarbazine, Methotrexate, Vincristine AND Cytarabine (R-MPV-C) With AND Without Low-Dose Whole-Brain Radiotherapy (WBRT) for Primary Central Nervous System Lymphoma. Randomized to R-MPV-C + WBRT arm Sep 2014: Completed all protocol therapy. CURRENT TREATMENT: RTOG 1114 A Phase II Randomized Study of Rituximab, Procarbazine, Methotrexate, Vincristine AND Cytarabine With AND Without Low-Dose Whole-Brain Radiotherapy (WBRT) for Primary Central Nervous System Lymphoma. Randomized to WBRT arm. s/p R-MPV-C and WBRT. SUBJECTIVE: February 13, 2014 - The patient reports resolution of CLAROS; worsening of cognition, gait problems, language deficit, poor memory, dizziness with mostly unsteadiness and smaller vertigo component, as well as blurry vision but no double vision. Patient denies weakness, numbness, difficulty using arms, syncope, seizures, speech difficulty, memory loss, vision difficulty March 18, 2014 - Here for cycle 2a. Mr. Arellano was in house for 4 weeks beginning with cycle 1a which was complicated by hydrocephalus with progressive obtundation requiring ventriculostomy, intubation after which he recovered and left the hospital after a stay in acute rehab. Feels a lot better. Getting around with walker. April 01, 2014 - Here for cycle 2B. His speech continues to improve, as has his double vision symptoms. He no longer has nausea and remains seizure free. He continues to have poor short term memory. His gait remains an issue. It is improved and he participated in physical therapy recently, but he still requires a walker. April 29, 2014 - Here for cycle 3B. Vision less blurry (compared to 2 weeks ago) when watching TV. Stopped using walker 2 weeks ago; stopped using cane 3 days ago. May 13, 2014 - Here for cycle 4A. Reports anxiety while in the hospital for chemotherapy which he attributes to having roommates that were awake at night. Reports improving blurry vision and stable short memory deficit. No nausea, no vomiting, no diarrhea, good appetite. No fever. May 27, 2014 - Here for cycle 4B. No new symptoms. Still somewhat unsteady on his feet. Seeing his PCP for anxiety/depression. June 10, 2014 - Here for f/u. Still has imbalance, short term memory loss and blurry vision. Vision precludes driving but otherwise does not interfere with function. August 12, 2014 - Here for cycle 1 of 2 consolidation cycles of cytarabine. He reports that he finished RT 06/24/2014 to 07/10/2014 with 2340 cGy in 13 fx of 180 cGy/fx were delivered with 6 MV photons via 2 lateral parallel opposed yancey prescribed to the midplane. He reports that his blurry vision is worse, with binocular feature, but denies diplopia. He was tried steroid on the third week of RT, with some improvement on day one, but worsened then, even if he was still on steroid. He has been tapered off decadron. He denies headache, nausea, vomiting, hemiparesis, seizure when he was on and off steroid. He was seen a logistics administrator who cleared refractive issue. September 08, 2014 - Here for cycle 2 of 2 consolidation cycles of cytarabine. No change in vision; got better after chemo but worse after RT Each eye has clear vision but together blurry but no diplopia. Tried to drive but veered off to right (also does this when walking). October 08, 2014 - Here for f/u. In midst of getting definitive repair of intermittent drainage from scalp wound. Also needs hernia repair.Vision is staying stable for now. 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 November - Doing a lot better, appetite significantly improved. No weight loss,fevers,chills or night sweats. Patient has bilateral blurring of vision and has seen opthalmology, no recent deterioration in vision. Has seen infectious diseases yesterday 12/01 and had MRI head for persistent incision site infection. Completed 10 days of oral antibiotics per patient. February 11, 2015 - Here for f/u. Vision unchanged and remains his main complaint. Vision is fine if he closes 1 eye and also if he keeps a plane between his eyes - e.g., with his hand outstretched between his eyes. Otherwise feels fine. Right leg slightly weak (as it has been). Short term memory loss. April 14, 2015 - Here for f/u. Vision unchanged. Went fishing in [place]. Some gait imbalance. short term memory loss - couldn't recall name of his granddaughter. June 11, 2015 - Here for f/u. He has less gait imbalance and has some improvement in memory. August 04, 2015 - Here for f/u. Doing well and states cognition is improving. 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 Having a grandchild in Nov 2015. Sep 28, 2015 - Here for f/up. Doing well and has no new symptoms since the last time he was here. December 01, 2015 - Here for follow up. Diplopia unchanged. His eyes do not track together and it creates gait imbalance for him. Has seen Dr. Stinson in the past but no obvious solution for this problem. February 03, 2016 - Here for follow up. Doing well. Vision unchanged. Balance still somewhat off and short term memory is still a bit off but he functions well per his . April 04, 2016 - Patient states he is doing well and [facility]. He has some chronic c/o visual acuity difficulty but states blurred vision not diplopia if not looking at certain distance when focus clear and continued RHH. He also has some continued balance difficulty and some RLE weakness/coornidation difficulty which is more pronounced with fatigue. He has some STM difficulty and his taste has been a little off since treatment and he has some fatigue and was looking to start low dose testosterone is not contraindicated by study protocol. 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 He presents today with his for f/u. April - Doing well. No complaints. July 05, 2016 - Feels quite well. Still has mild imbalance with some dragging on right side. He is starting PT tomorrow. August 29, 2016 - Still has diplopia but otherwise feeling well. They are going to [place], [place] ([place]) thru late Sep then back for [place] here with ~ 20 family members. October 13, 2016 - No changes since last visit. Diplopia unchanged. They are leaving for [place], [place] next week for 2-3 months. April 17, 2017 - More stamina and improved processing in conversation since last visit. Short term memory is stable. Has prism glasses which unfortunately have not provided substantial improvement in vision. April 17, 2018 - Feels well; active. October 11, 2018 - Here for follow up. Since ~ Jun 2018, has had confusion, urinary incontinence, difficulty reading/comprehending, word finding difficulty, trouble remembering names (e.g., grandchildren's names), gait imbalance with multiple falls. His primary physician started Aricept last week but took only 1 dose pending today's visit. He takes a 1-hour nap in afternoon with improvement in symptoms afterwards. PAST MEDICAL HISTORY Diagnosis Date - Abdominal pain - Brain lesion - Cancer (HCC) PCNS lymphoma - Elevated cholesterol - Hypothyroidism - Right inguinal hernia - Screening for malignant neoplasm of colon 06/08/2015 PAST SURGICAL HISTORY Procedure Laterality Date - COLONS W/REM POLYP HT BX 06/08/2015 Repeat 2018 - CT BRAIN BIOPSY W/O INPAT 03/05 - LAP REPAIR INTIAL INGUINAL HERNIA 05/16/12 left - LAP REPAIR INTIAL INGUINAL HERNIA 11/21/14 [facility] - PICC LINE INSERT/CONSULT 03/19/2014 - PICC LINE INSERT/CONSULT 04/01/2014 - PORTOCATH PLACEMENT 04/01 - GROOVER AND STRIPER OPERATOR SHUNT LIGATION/UNLIGATION 03/05 Current Outpatient Prescriptions: atorvastatin (LIPITOR) 10 mg tablet Take 10 mg by mouth once daily. Disp: Rfl: Cholecalciferol, Vitamin D3, (VITAMIN D-3) 2,000 unit cap Take 2,000 Units by mouth once daily. Disp: Rfl: FLUTICASONE PROPIONATE (FLONASE NASAL) Use 1 [place] in the nose. Disp: Rfl: GLYCOSAMINOGLYCANS,MIXED,BULK, MISC Disp: Rfl: LACTOBACILLUS ACIDOPHILUS (ACIDOPHILUS ORAL) Take by mouth once daily. Disp: Rfl: levothyroxine (SYNTHROID) 50 mcg tablet Take 1 tablet by mouth once daily. Disp: 30 tablet Rfl: 0 multivitamin tablet Take 1 tablet by mouth once daily. Disp: Rfl: Clements-3 Fatty Acids-Vitamin E (FISH OIL) 1,000 mg cap Take 1 capsule by mouth once daily. Disp: Rfl: sertraline (ZOLOFT) 25 mg tablet Take 25 mg by mouth once daily. Disp: Rfl: testosterone (AXIRON) 30 mg/actuation (1.5 mL) slpm APPLY 30 MG DIRECTED ONCE DAILY Disp: 1 Bottle Rfl: 5 vit A/vit C/vit E/zinc/copper (PRESERVISION AREDS ORAL) Take by mouth once daily. Disp: Rfl: VIT C/JESUS AC/LUT/COPPER/ZNOX (PRESERVISION LUTEIN ORAL) Take 1 capsule by mouth once daily. Disp: Rfl: donepezil (ARICEPT) 5 mg tablet Take 5 mg by mouth daily at bedtime. Disp: Rfl: 3 oxybutynin (DITROPAN) 5 mg tablet Take 5 mg by mouth twice daily. Disp: Rfl: 11 No current facility-administered medications for this visit. ALLERGIES No Known Allergies SOCIAL HISTORY: [place]: [place] Marital: Children: 3 Occupation: retired Accompanied today by: spouse, son Tobacco: former smoker, quit in 1984 Alcohol: social FAMILY HISTORY: No history of cancer in first degree relatives PHYSICAL EXAMINATION: Patient is in no distress. Sclerae and conjunctivae are clear. Oropharynx is normal. There is no cervical or supraclavicular lymphadenopathy. Heart is regular. Lungs are clear. Abdomen is soft and nontender. Extremities have no edema. Mental status: alert, engaged although speech output less than on prior visits Gait: steppage gait, wide based; tandem not tested Speech: fluent. Visual yancey: Left homonymous hemianopsia Cranial Nerves: 2-12 intact. Motor right: 5/5 deltoid, 5/5 handgrips, 5/5 psoas, 5/5 dorsiflexors left: 5/5 deltoid, 5/5 handgrips, 5/5 psoas, 5/5 dorsiflexors Sensation: normal to light touch Deep tendon reflexes: 1+ in the biceps and patellar deep tendons Rapid alternating movements: Rt: normal; Lt: normal Vunghy-ygrc-aavptx: Rt: normal; Lt: normal Rapid finger movements: Rt: normal; Lt: normal IMAGING - MRI BRAIN: Stable with extensive, confluent increased T2 and FLAIR signal is present in the supratentorial white matter which is nonspecific but likely represents extensive chronic microvascular ischemia. 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 Recommend continued Aricept; neurocog rehab with speech therapy locally, PT/OT. PLAN (October 11, 2018): F/U on RTOG 1114 A Phase II Randomized Study of Rituximab, Methotrexate, Vincristine AND Cytarabine With AND Without Low-Dose Whole- Brain Radiotherapy (WBRT) for Primary Central Nervous System Lymphoma in 6 months with a new MRI per protocol F/U ophthalmology in [place] for monitoring of vitreous q6 months Speech/cognitive rehab PT/[place] [id number] cc: Ketan Fox III, MD - Edy Gamboa MD - [facility], Giacomo Banegas MD, PhD - [facility] If you have any questions or need additional information, please feel free to contact me. Thanks again for your kind referral. Best regards, Jacinto Carrion MD If you would like your next patient report to be electronic, please consider signing up for [facility]'s [employer] service. This is a complimentary service that enables you to view real-time information about the treatment your patients receive while at [facility]. To register online to use [employer], simply log onto [facility] and click the register button to begin. If you need assistance, please contact [employer] customer support at [phone] or . Encounter Status:Closed by JACINTO CARRION MD on 10/13/18 MRI BRAIN WO/W Observed: 10/10/2018 Status: F Source: [place] [facility] 10:35 AM [facility] REPOSITORY * * *Final Report* * * DATE OF EXAM: Oct 10 2018 10:35AM [facility] 0295 - MRI BRAIN WO/W IVCON / PROCEDURE REASON: multiple diagnoses * * * * Physician Interpretation * * * * EXAMINATION: MRI BRAIN WO/W IVCON CLINICAL HISTORY: Nonfollicular lymphoma TECHNIQUE: Routine brain MRI protocol without and with contrast including diffusion images. MQ: [id number] Contrast: 20 mL Dotarem IV COMPARISON: 04/16/2018 RESULT: Left frontal and left parietal pallavi holes are again noted, unchanged. Acute Change: There is no evidence of restricted diffusion to suggest an acute infarct. Hemorrhage: No evidence of prior parenchymal hemorrhage on the gradient echo images. Mass Lesion/ Mass Effect: No evidence of an intracranial mass or extra-axial fluid collection. No abnormal parenchymal or leptomeningeal enhancement is noted following contrast administration. No significant mass effect. Chronic Change: Extensive, confluent increased T2 and FLAIR signal is present in the supratentorial white matter which is nonspecific but likely represents extensive chronic microvascular ischemia. Parenchyma: There is moderate generalized parenchymal volume loss. The brain parenchyma is otherwise within normal limits of signal intensity and morphology. Ventricles: Asymmetric dilatation of the temporal horn of left lateral ventricle is again noted, unchanged likely related to volume loss. Skull Base: Hypothalamic and pituitary region are grossly normal. Craniocervical junction is normal. No significant marrow replacement process. Vasculature: Major intracranial arterial structures, and dural venous sinuses show typical flow void, suggesting patency by spin echo criteria. Other: Mucous retention cyst or polyp is noted involving the left maxillary sinus. The orbits and extracranial soft tissues are unremarkable. IMPRESSION: No significant interval change Emergency Operator: [facility] Transcribe Date/Time: Oct 10 2018 10:55A Dictated by : GIACOMO SETHI MD This examination was interpreted and the report reviewed and electronically signed by: GIACOMO SETHI MD on Oct 10 2018 11:03AM EST [id number] PROGRESS Observed: 10/10/2018 Status: COMPLETED Source: [place] 10:20 AM [facility] REPOSITORY O ID: [id number] Author: Lauren (Rt) Robyn Ruiz Service: (none) Author Type: Rn Rehabilitation Type: Progress Notes Filed: 10/10/2018 10:20 AM Note Text: Radiology Service Progress Note PATIENT NAME: Jae Arellano DATE OF SERVICE: October 10, 2018 TIME: 10:20 AM PATIENT IDENTITY VERIFICATION COMPLETED USING TWO (2) METHODS: Patient confirmed name verbally and Date of . PATIENT GENDER DATA: Male PATIENT RELEVANT IMPLANT DATA REVIEWED: Yes CONTRAST INDUCED NEPHROPATHY RISK FACTORS: Patient age > 60 years CREATININE: Creatinine Date Value Ref Range Status 10/08/2018 1.06 0.73 - 1.22 mg/dL Final 10/06/2017 1.17 0.73 - 1.22 mg/dL Final 04/12/2017 1.20 0.73 - 1.22 mg/dL Final eGFR-All Other Races Date Value Ref Range Status 10/08/2018 >60 . Final Comment: eGFR (Estimated GFR) Units of measure: mL/min/1.73 meters squared eGFR is derived from the reexpressed MDRD Study equation using the following parameters: serum creatinine, age, gender and race. The creatinine assay has been calibrated to be traceable to IDMS. An eGFR <60 mL/min/1.73m2 for >3 months is consistent with chronic kidney disease. Refer to KDOQI guidelines for clinical interpretation. In patients with unstable renal function, e.g. those with acute kidney injury, the eGFR may not accurately reflect actual GFR. eGFR- Date Value Ref Range Status 10/08/2018 >60 Final P.O.C.T. RESULTS: POC done: Yes, See Lab Tab October 10, 2018 RADIOLOGIST NOTIFIED?: No ALLERGIES: Reviewed and unchanged CONTRAST ALLERGY: NO. PERIPHERAL IV ACCESS: Ambulatory: IV type: A peripheral IV was started in the Left antecubital site with a Angio cath: 22 gauge., Site assessment: Clean,Dry and Intact, Site disposition Discontinued RADIOLOGY DEPARTMENT: MR; Exam(s) Completed: Head: Routine Brain SIGNED BY: RT Rashel October 10, 2018 10:20 AM CREATININE Collected: 10/08/2018 Status: F Source: [place] 1:21 PM [facility] REPOSITORY TYPE CODE TESTS RESULT OUT OF REFERENCE UNITS RANGE LAB CRET 0.73-1.22 mg/dL Creatinine 1.06 LAB GFRAA eGFR- >60 Amer. LAB GFRNAA . eGFR-All Other Races >60 Result Comment: eGFR (Estimated GFR) Units of measure: mL/min/1.73 meters squared eGFR is derived from the reexpressed MDRD Study equation using the following parameters: serum creatinine, age, gender and race. The creatinine assay has been calibrated to be traceable to IDMS. An eGFR <60 mL/min/1.73m2 for >3 months is consistent with chronic kidney disease. Refer to KDOQI guidelines for clinical interpretation. In patients with unstable renal function, e.g. those with acute kidney injury, the eGFR may not accurately reflect actual GFR. CBC W/DIFF, AUTOMATED Collected: 10/04/2018 Status: F Source: [place] 2:49 PM [facility] REPOSITORY TYPE CODE TESTS RESULT OUT OF RANGE REFERENCE UNITS LAB L100.1000 4.4-11.0 K/mm3 Normal WBC 5.4 LAB L100.1200 4.6-6.2 M/mm3 Low RBC 4.49 LAB L100.1300 13.0-16.5 g/dl Normal HGB 15.1 LAB L100.1400 40-54 % Normal HCT 45.0 LAB L100.1500 80-94 fL High MCV 100.2 LAB L100.1600 27.0-32.0 pg High MCH 33.6 LAB L100.1700 32-36 g/gl Normal MCHC 33.6 LAB L100.1810 11.6-14.6 % High RDW CV 14.9 LAB L100.1820 35.1-43.9 fl High RDW SD 53.9 LAB L100.1900 150-450 K/mm3 Normal PLT 235 LAB L100.2000 6.2-12.0 fl Normal MPV 10.1 LAB L100.2100 47-70 % Normal NEUT% 50.2 LAB L100.2200 19-41 % Normal LY% 37.9 LAB L100.2300 0-10 % Normal MONO% 8.0 LAB L100.2400 0-5 % Normal EO% 3.0 LAB L100.2500 0-1 % Normal BASO% 0.7 LAB L100.2550 0.0-0.9 % Normal IM GRAN % 0.200 Result Comment: IG% - Immature Granulocytes (promyelocytes, myelocytes and metamyelocytes) > 1% indicates that a LEFT SHIFT is Present. LAB L100.2620 2.0-7.7 X10 3/uL Normal Absolute Neut 2.7 LAB L100.2720 0.83-4.51 X10 3/ul Normal Absolute Lymph 2.03 Performed By: #### L100.0100 #### [facility] [address] [place], [place], [address] VITAMIN D,25 HYDROXY Collected: 10/04/2018 Status: F Source: [place] 2:49 PM [facility] REPOSITORY TYPE CODE TESTS RESULT OUT OF RANGE REFERENCE UNITS LAB L506.1000 29.95-100.01 ng/mL Normal Vitamin D 30.4 25-OH Result Comment: Vitamin D 25(OH) Status Range Deficiency <20 ng/mL (50nmol/L) Insuffciency 20 - 30 ng/mL (50 - 75 nmol/L) Sufficiency 30 - 100 ng/mL (75 - 250 nmol/L) Toxicity >100 ng/mL (>250 nmol/L) Performed By: #### L506.1000, L509.3000 #### [facility] [address] [place], [address] TESTOSTERONE, SERUM TOTAL Collected: 10/04/2018 Status: F Source: [place] 2:49 PM [facility] REPOSITORY TYPE CODE TESTS RESULT OUT OF REFERENCE UNITS RANGE LAB L509.3000 ng/dL Testosterone Normal 266.37 Result Comment: NORMAL REFERENCE RANGES MALE AGE <50 123.06 - 813.86 ng/dL MALE AGE >50 89.98 - 780.10 ng/dL FEMALE PREMENOPAUSE AGE 21 - 60 9.01 - 47.94 ng/dL FEMALE POSTMENOPAUSE AGE 45 - 89 <7.00 - 45.62 ng/dL REFERENCE RANGE AND METHODOLOGY CHANGED 10/11/2017 Performed By: #### L506.1000, L509.3000 #### [facility] [address] [place], [address] COMPREHENSIVE METABOLIC Collected: 10/04/2018 Status: F Source: [facility] 2:49 PM [facility] REPOSITORY TYPE CODE TESTS RESULT OUT OF RANGE REFERENCE UNITS LAB L501.0100 74-106 mg/dL Low GLU 63 Result Comment: Please note revised GLUCOSE reference range effective 2017. LAB L501.1000 7-18 mg/dL Normal BUN 14 LAB L501.1100 0.70-1.30 mg/dL Normal CREAT,SERUM 1.11 Result Comment: The validity of the calculated GFR AND GFRAA in patients over 70 years has not been determined. Clinical correlation is essential. LAB L501.1110 >60 mL/min Normal EST GFR 69 Result Comment: Non- GFR Calc LAB L501.1115 >60 mL/min Normal EST GFR - AA 83 Result Comment: GFR Calc LAB L501.1300 10-20 RATIO Normal BUN/CRE 12.6 LAB L501.1500 6.4-8.2 g/dL T Normal PROT 7.2 LAB L501.1800 3.2-5.0 g/dL Normal ALB 3.8 LAB L501.1950 2.2-4.2 g/dL Normal GLOB 3.4 LAB L501.2000 0.9-2.4 RATIO Normal A/G 1.1 LAB L501.2200 8.5-10.1 mg/dL Low CA 8.4 LAB L501.4100 15-37 U/L Normal AST 31 LAB L501.4305 45-117 U/L Normal ALK P 57 LAB L501.4405 16-61 U/L Normal ALT 56 LAB L501.4600 0.20-1.00 mg/dL T Normal BILI 0.60 LAB L501.5300 136-145 mmol/L NA Normal 145 LAB L501.5600 3.5-5.1 mmol/L K Normal 3.9 LAB L501.5900 98-107 mmol/L CL Normal 106 LAB L501.6100 21.0-32.0 mmol/L Normal CO2 32.0 LAB L501.6200 5-15 Normal GAP 7 Performed By: #### L500.4050, L501.9520 #### [facility] [address] [place], [address] THYROID STIM HORMONE Collected: 10/04/2018 Status: F Source: [place] (TSH) 2:49 PM [facility] REPOSITORY TYPE CODE TESTS RESULT OUT OF RANGE REFERENCE UNITS LAB L501.9520 0.358-3.74 uIU/mL Normal TSH 0.79 Performed By: #### L500.4050, L501.9520 #### [facility] [address] [place], [address] CBC W/DIFF, AUTOMATED Collected: 08/10/2018 Status: F Source: [place] 12:20 PM [facility] REPOSITORY TYPE CODE TESTS RESULT OUT OF RANGE REFERENCE UNITS LAB L100.1000 4.4-11.0 K/mm3 Normal WBC 4.9 LAB L100.1200 4.6-6.2 M/mm3 Low RBC 4.49 LAB L100.1300 13.0-16.5 g/dl Normal HGB 14.7 LAB L100.1400 40-54 % Normal HCT 44.2 LAB L100.1500 80-94 fL High MCV 98.4 LAB L100.1600 27.0-32.0 pg High MCH 32.7 LAB L100.1700 32-36 g/gl Normal MCHC 33.3 LAB L100.1810 11.6-14.6 % Normal RDW CV 14.5 LAB L100.1820 35.1-43.9 fl High RDW SD 52.1 LAB L100.1900 150-450 K/mm3 Normal PLT 172 LAB L100.2000 6.2-12.0 fl Normal MPV 9.5 LAB L100.2100 47-70 % Low NEUT% 43.3 LAB L100.2200 19-41 % Normal LY% 35.2 LAB L100.2300 0-10 % High MONO% 15.8 LAB L100.2400 0-5 % Normal EO% 4.7 LAB L100.2500 0-1 % Normal BASO% 0.8 LAB L100.2550 0.0-0.9 % Normal IM GRAN % 0.200 Result Comment: IG% - Immature Granulocytes (promyelocytes, myelocytes and metamyelocytes) > 1% indicates that a LEFT SHIFT is Present. LAB L100.2620 2.0-7.7 X10 3/uL Normal Absolute Neut 2.1 LAB L100.2720 0.83-4.51 X10 3/ul Normal Absolute Lymph 1.72 Performed By: #### L100.0100 #### [facility] [address] [place], [place], [id number] BASIC METABOLIC Collected: 08/10/2018 Status: F Source: [place] PROFILE (BMP) 12:20 PM [facility] REPOSITORY TYPE CODE TESTS RESULT OUT OF RANGE REFERENCE UNITS LAB L501.0100 74-106 mg/dL Normal GLU 88 Result Comment: Please note revised GLUCOSE reference range effective 2017. LAB L501.1000 7-18 mg/dL Normal BUN 18 LAB L501.1100 0.70-1.30 mg/dL Normal CREAT,SERUM 1.24 Result Comment: The validity of the calculated GFR AND GFRAA in patients over 70 years has not been determined. Clinical correlation is essential. LAB L501.1110 >60 mL/min Normal EST GFR 61 Result Comment: Non- GFR Calc LAB L501.1115 >60 mL/min Normal EST GFR - AA 73 Result Comment: GFR Calc LAB L501.1300 10-20 RATIO Normal BUN/CRE 14.5 LAB L501.2200 8.5-10.1 mg/dL CA Normal 8.5 LAB L501.5300 136-145 mmol/L NA Normal 141 LAB L501.5600 3.5-5.1 mmol/L K Normal 4.7 LAB L501.5900 98-107 mmol/L High CL 109 LAB L501.6100 21.0-32.0 mmol/L Normal CO2 29.0 LAB L501.6200 5-15 Low GAP 3 Performed By: #### L500.2500 #### [facility] [address] [place], [address] LACTIC ACID Collected: 08/10/2018 Status: F Source: [place] 12:20 PM [facility] REPOSITORY Order Comment: Yes/No query for Sepsis Lactate Rule N TYPE CODE TESTS RESULT OUT OF RANGE REFERENCE UNITS LAB L503.6005 0.4-2.0 mmol/L Normal LACTIC ACID 0.6 Performed By: #### L503.6005 #### [facility] [address] [place], [address] OFFICE VISIT REPORT Observed: 04/27/2018 Status: F Source: [place] 7:46 AM [facility] REPOSITORY [facility] [address] 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 Accompanied by: Is patient in pain?: No Allergies No Known Allergies Allergy (Verified 04/26/18 16:17) Medications atorvastatin 10 mg tablet 10 mg PO QDAY 09/27/17 [History Confirmed 04/26/18] sertraline 25 mg tablet 25 mg PO QDAY 09/27/17 [History Confirmed 04/26/18] testosterone 30 mg/actuation (1.5 mL) transderm solution metered pump 30 mg TOPICAL ONCE #90 ml 10/12/17 [Rx Confirmed 04/26/18] levothyroxine 50 mcg tablet 50 mcg PO DAILY #30 tab 04/23/18 [Rx Confirmed 04/26/18] [facility] Medical History Headache (Acute) High cholesterol (Acute) High triglycerides (Acute) Migraine (Acute) Non-Hodgkins lymphoma (Acute) Thyroid disease (Acute) Vision problems (Acute) Surgical History Hx of hernia repair (Acute) Family History Mother High cholesterol Father Skin cancer Social History Smoking Status: Former smoker alcohol intake: current substance use type: does not use HPI HPI Details: Thyroid dysfunction: Details: JAE AERLLANO, is a 71 M who presents to the office today for consult of pituitary dysfunction, accompanied by his . Also know hx of Non Hodgkin lymphoma, hypothyroid, hyperlidemia,hypogonadism, and headaches. Presents today feeling well. Has copies of labs from 6 months ago. Takes levothyroxine as directe. Does not take within 4 hours of calcium, iron, or vitamins. Does know to make up missed doses. Severity, modifying factors, context, and associated signs and symptoms are as follows: Thyroid pain: No Energy: good Sleep: awakened refreshed Temp: No intolerance GI: Normal bowel Weight: Flucuates Eyes: No change in vision Memory: unchanged Diaphoresis: Not significant Skin: Dry Hair : Unchanged Neuro: No numbness, tingling or tremors Exam Const General: healthy appearing, comfortable, no acute distress HENMT Head: normal to inspection, atraumatic Mouth: oral mucosae normal, moist mucous membranes Eyes Conjunctivae: conjunctivae normal Sclera: sclerae normal Pupils: PERRL Neck Neck mass: No Thyroid: thyroid normal Chest Chest palpation AND inspection: deferred Resp Effort AND Inspection: normal respiratory effort, symmetric chest movement, able to speak in complete sentences Auscultation: Bilateral: Clear to Auscultation Cardio Rate: regular rate Rhythm: regular rhythm Heart Sounds: S1 normal, S2 normal, no murmurs, no rubs GI Inspection: normal to inspection Auscultation: normal bowel sounds Palpation: soft, no pulsatile masses, no guarding General: deferred Musc Musculoskeletal: No muscle weakness Skin General: no rashes or lesions noted Wounds: no wounds Neuro General: alert, oriented Motor: muscle tone normal throughout Extrem General: no pedal edema, normal to inspection, full ROM Psych Mental Status: mental status grossly normal Attitude: cooperative Judgment: judgment good Assessment AND Plan Problems 1. Hyperlipidemia with target LDL less than 100 E78.5 2. 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 Hypothyroidism (acquired) E03.9 Plan Continue current treatment plan. Plan Detail Additional Comments RTC 6 months with labs. Over 30 minutes spent with patient with greater than 50 % of time spent in counseling. Coding Level of Care Code Off vis,est,level 4 Diagnoses Hyperlipidemia with target LDL less than 100 E78.5 Pituitary dysfunction E23.7 Hypothyroidism (acquired) E03.9 Time Spent (min) 30 04/27/18 0746 <Electronically signed by Krissy FLORES> Date Krissy FLORES Cosigner Signature: Date (if applicable) CC: PROGRESS Observed: 04/17/2018 Status: COMPLETED Source: [place] 10:03 AM [facility] REPOSITORY HNO ID: [id number] Author: Jacinto Carrion Service: (none) Author Type: Physician Type: Progress Notes Filed: 04/17/2018 11:07 AM Note Text: [facility] CLINICAL NOTE [facility] Solid Tumor Oncology PATIENT NAME: Jae Rivers [facility] NO.: [id number] ATTENDING PHYSICIAN: Jacinto Carrion MD DATE OF SERVICE: April 17, 2017 DIAGNOSIS: Primary INSOLE COVERER lymphoma HISTORY OF PRESENT ILLNESS: Jan 2014: Developed trouble with blurry vision, CLAROS, trouble walking. MRI multiple enhancing lesions. Biopsy- diffuse large B-cell non-Hodgkins lymphoma. LP - WBC 94, Protein 352. Flow non-diagnostic. Testicular US negative. Slit lamp exam negative. Enrolled on RTOG 1114 A Phase II Randomized Study of Rituximab, Procarbazine, Methotrexate, Vincristine AND Cytarabine (R-MPV-C) With AND Without Low-Dose Whole-Brain Radiotherapy (WBRT) for Primary Central Nervous System Lymphoma. Randomized to R-MPV-C + WBRT arm Sep 2014: Completed all protocol therapy. CURRENT TREATMENT: RTOG 1114 A Phase II Randomized Study of Rituximab, Procarbazine, Methotrexate, Vincristine AND Cytarabine With AND Without Low-Dose Whole-Brain Radiotherapy (WBRT) for Primary Central Nervous System Lymphoma. Randomized to WBRT arm. s/p R-MPV-C and WBRT. SUBJECTIVE: February 13, 2014 - The patient reports resolution of CLAROS; worsening of cognition, gait problems, language deficit, poor memory, dizziness with mostly unsteadiness and smaller vertigo component, as well as blurry vision but no double vision. Patient denies weakness, numbness, difficulty using arms, syncope, seizures, speech difficulty, memory loss, vision difficulty March 18, 2014 - Here for cycle 2a. Mr. Arellano was in house for 4 weeks beginning with cycle 1a which was complicated by hydrocephalus with progressive obtundation requiring ventriculostomy, intubation after which he recovered and left the hospital after a stay in acute rehab. Feels a lot better. Getting around with walker. April 01, 2014 - Here for cycle 2B. His speech continues to improve, as has his double vision symptoms. He no longer has nausea and remains seizure free. He continues to have poor short term memory. His gait remains an issue. It is improved and he participated in physical therapy recently, but he still requires a walker. April 29, 2014 - Here for cycle 3B. Vision less blurry (compared to 2 weeks ago) when watching TV. Stopped using walker 2 weeks ago; stopped using cane 3 days ago. May 13, 2014 - Here for cycle 4A. Reports anxiety while in the hospital for chemotherapy which he attributes to having roommates that were awake at night. Reports improving blurry vision and stable short memory deficit. No nausea, no vomiting, no diarrhea, good appetite. No fever. May 27, 2014 - Here for cycle 4B. No new symptoms. Still somewhat unsteady on his feet. Seeing his PCP for anxiety/depression. June 10, 2014 - Here for f/u. Still has imbalance, short term memory loss and blurry vision. Vision precludes driving but otherwise does not interfere with function. August 12, 2014 - Here for cycle 1 of 2 consolidation cycles of cytarabine. He reports that he finished RT 06/24/2014 to 07/10/2014 with 2340 cGy in 13 fx of 180 cGy/fx were delivered with 6 MV photons via 2 lateral parallel opposed yancey prescribed to the midplane. He reports that his blurry vision is worse, with binocular feature, but denies diplopia. He was tried steroid on the third week of RT, with some improvement on day one, but worsened then, even if he was still on steroid. He has been tapered off decadron. He denies headache, nausea, vomiting, hemiparesis, seizure when he was on and off steroid. He was seen a logistics administrator who cleared refractive issue. September 08, 2014 - Here for cycle 2 of 2 consolidation cycles of cytarabine. No change in vision; got better after chemo but worse after RT Each eye has clear vision but together blurry but no diplopia. Tried to drive but veered off to right (also does this when walking). October 08, 2014 - Here for f/u. In midst of getting definitive repair of intermittent drainage from scalp wound. Also needs hernia repair.Vision is staying stable for now. 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 November - Doing a lot better, appetite significantly improved. No weight loss,fevers,chills or night sweats. Patient has bilateral blurring of vision and has seen opthalmology, no recent deterioration in vision. Has seen infectious diseases yesterday 12/01 and had MRI head for persistent incision site infection. Completed 10 days of oral antibiotics per patient. February 11, 2015 - Here for f/u. Vision unchanged and remains his main complaint. Vision is fine if he closes 1 eye and also if he keeps a plane between his eyes - e.g., with his hand outstretched between his eyes. Otherwise feels fine. Right leg slightly weak (as it has been). Short term memory loss. April 14, 2015 - Here for f/u. Vision unchanged. Went fishing in [place]. Some gait imbalance. short term memory loss - couldn't recall name of his granddaughter. June 11, 2015 - Here for f/u. He has less gait imbalance and has some improvement in memory. August 04, 2015 - Here for f/u. Doing well and states cognition is improving. 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 Having a grandchild in Nov 2015. Sep 28, 2015 - Here for f/up. Doing well and has no new symptoms since the last time he was here. December 01, 2015 - Here for follow up. Diplopia unchanged. His eyes do not track together and it creates gait imbalance for him. Has seen Dr. Stinson in the past but no obvious solution for this problem. February 03, 2016 - Here for follow up. Doing well. Vision unchanged. Balance still somewhat off and short term memory is still a bit off but he functions well per his . April 04, 2016 - Patient states he is doing well and [facility]. He has some chronic c/o visual acuity difficulty but states blurred vision not diplopia if not looking at certain distance when focus clear and continued RHH. He also has some continued balance difficulty and some RLE weakness/coornidation difficulty which is more pronounced with fatigue. He has some STM difficulty and his taste has been a little off since treatment and he has some fatigue and was looking to start low dose testosterone is not contraindicated by study protocol. 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 He presents today with his for f/u. April - Here for follow up. Doing well. No complaints. July 05, 2016 - Here for follow up. Feels quite well. Still has mild imbalance with some dragging on right side. He is starting PT tomorrow. August 29, 2016 - Here for follow up. Still has diplopia but otherwise feeling well. They are going to [place], [place] ([place]) thru late Sep then back for [place] here with ~ 20 family members. October 13, 2016 - Here for follow up. No changes since last visit. Diplopia unchanged. They are leaving for [place], [place] next week for 2-3 months. April 17, 2017 - Here for follow up. More stamina and improved processing in conversation since last visit. Short term memory is stable. Has prism glasses which unfortunately have not provided substantial improvement in vision. April 17, 2018 - Here for follow up. Feels well; active. 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 Disp: 30 tablet Rfl: 0 GLYCOSAMINOGLYCANS,MIXED,BULK, MISC Disp: Rfl: iv contrast (radiology procedure) MRI Brain Inject, intravenously, once for 1 dose.No IV access, insert saline lock prior to beginning of sedation, infusion, injection of imaging exam.Discontinue saline lock post exam. If Pt. has a central line or IVAD, may access for administration according to line specific nursing protocol.Once exam is complete flush line and de-access according to line specific nursing protocol in the MR contrast administration guidelines link (Patient not taking: Reported on 04/03/2018 ) Disp: 1 Each Rfl: 0 iv contrast (radiology procedure) MRI Brain Inject, intravenously, once for 1 dose.No IV access, insert saline lock prior to beginning of sedation, infusion, injection of imaging exam.Discontinue saline lock post exam. If Pt. has a central line or IVAD, may access for administration according to line specific nursing protocol.Once exam is complete flush line and de-access according to line specific nursing protocol in the MR contrast administration guidelines link (Patient not taking: Reported on 04/03/2018 ) Disp: 1 Each Rfl: 0 testosterone (AXIRON) 30 mg/actuation (1.5 mL) slpm APPLY 30 MG DIRECTED ONCE DAILY Disp: 1 Bottle Rfl: 5 iv contrast (radiology procedure) MRI Brain Inject, intravenously, once for 1 dose.No IV access, insert saline lock prior to beginning of sedation, infusion, injection of imaging exam.Discontinue saline lock post exam. If Pt. has a central line or IVAD, may access for administration according to line specific nursing protocol.Once exam is complete flush line and de-access according to line specific nursing protocol in the MR contrast administration guidelines link (Patient not taking: Reported on 04/03/2018 ) Disp: 1 Each Rfl: 0 sertraline (ZOLOFT) 25 mg tablet Take 25 mg by mouth once daily. Disp: Rfl: atorvastatin (LIPITOR) 10 mg tablet Take 10 mg by mouth once daily. Disp: Rfl: [place]-3 Fatty Acids-Vitamin E (FISH OIL) 1,000 mg cap Take 1 capsule by mouth once daily. Disp: Rfl: aspirin, enteric coated (ASPIRIN LOW DOSE) 81 mg EC tablet Take 81 mg by mouth once daily. Disp: Rfl: FLUTICASONE PROPIONATE (FLONASE NASAL) Use 1 [place] in the nose. Disp: Rfl: VIT C/JESUS AC/LUT/COPPER/ZNOX (PRESERVISION LUTEIN ORAL) Take 1 capsule by mouth once daily. Disp: Rfl: multivitamin tablet Take 1 tablet by mouth once daily. Disp: Rfl: LACTOBACILLUS ACIDOPHILUS (ACIDOPHILUS ORAL) Take by mouth once daily. Disp: Rfl: Cholecalciferol, Vitamin D3, (VITAMIN D-3) 2,000 unit cap Take 2,000 Units by mouth once daily. Disp: Rfl: senna-docusate 8.6-50 mg per tablet Take 1-2 tablets by mouth twice daily. (Patient not taking: Reported on 04/03/2018 ) Disp: 60 tablet Rfl: 1 No current facility-administered medications for this visit. ALLERGIES No Known Allergies SOCIAL HISTORY: [place]: [place] Marital: Children: 3 Occupation: retired Accompanied today by: spouse, son Tobacco: former smoker, quit in 1984 Alcohol: social FAMILY HISTORY: No history of cancer in first degree relatives PHYSICAL EXAMINATION: Patient is in no distress. Sclerae and conjunctivae are clear. Oropharynx is normal. There is no cervical or supraclavicular lymphadenopathy. Heart is regular. Lungs are clear. Abdomen is soft and nontender. Extremities have no edema. Mental status: clear Gait: steppage right, wide based; unstable tandem Speech: fluent. Visual yancey: normal Cranial Nerves: 2-12 intact. Motor right: 5/5 deltoid, 5/5 handgrips, 5/5 psoas, 5/5 dorsiflexors left: 5/5 deltoid, 5/5 handgrips, 5/5 psoas, 5/5 dorsiflexors Sensation: normal to light touch Deep tendon reflexes: 2+ in the biceps and patellar deep tendons Rapid alternating movements: Rt: normal; Lt: normal [id number]: Rt: normal; Lt: normal Rapid finger movements: Rt: normal; Lt: normal IMAGING - MRI BRAIN: Stable appearance of the brain since 08/26/2016. KPS: 80 IMPRESSION (April 17, 2018): Primary INSOLE COVERER lymphoma on RTOG 1114 A Phase II Randomized Study of Rituximab, Methotrexate, Vincristine AND Cytarabine With AND Without Low-Dose Whole-Brain Radiotherapy (WBRT) for Primary Central Nervous System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 others. I have seen and examined Jae Arellano. I have discussed the case and the management of this patient's care with the Resident/Fellow, if applicable. I also have reviewed and agree with the assessment and plan as stated above and agree with all of its relevant components.The nature of the patient's eye disease, its relationship to systemic health, and its prognosis have been explained to the patient/family. The treatment options/risks/benefits have been discussed. Questions answered. AAA SCREENING Observed: 03/14/2018 Status: F Source: [place] 4:54 PM [facility] REPOSITORY [facility] Cardiovascular [place] [address] AAA Screening 03/14/18 0830 MR#: [id number] Acct: [id number] Name: JAE ARELLANO Rep #: [id number] : 1945 72 From: Lb Sandra MD Attending Dr: Panchito KAUR,Dany Garsia Status: REG CLI Ordering Dr: Dany Flanagan MD Date: 03/14/18 Location: [facility] Sex: M C Admitted: Reason For Study: AAA screening Aorta Measurements Aorta Doppler Measurements Proximal aorta measures2.1 x 2.2cm. in cross- Peak systolic flow velocities within the proximal sectional axis. aorta measure 85.7 cm/sec. Proximal aorta measures2.2cm. in longitudinal Peak systolic flow velocities within the mid axis. aorta measure 73.0 cm/sec. Mid aorta measures2.1 x 1.8cm. in cross-sectionalPeak systolic flow velocities within the distal axis. aorta measure 85.7 cm/sec. Mid aorta measures1.9cm. in longitudinal axis. Distal aorta measures1.5 x 1.7cm. in cross- sectional axis. Distal aorta measures1.7cm. in longitudinal axis. Left Iliac Artery Left iliac artery measures 1.1 cm. in the longitudinal axis. Left iliac artery measures 1.1 x 1.1 cm. in the cross-sectional axis. Peak systolic velocity in the left iliac artery measures 87.6 cm/sec. Right Iliac Artery Right iliac artery measures 1.1 cm. in the longitudinal axis. Right iliac artery measures 1.2 x 1.1 cm. in the cross-sectional axis. Peak systolic velocity in the right iliac artery measures 114.0 cm/sec. Procedure Aorta IVC Iliac vasculature or bypass grafts 498[address]. Exam performed in department. Interpretation Summary The dimensions of the intra-abdominal aorta are normal, without evidence of aneurysmal dilatation. The iliac arteries are also normal in size bilaterally. The intra-abdominal aorta and iliac arteries are patent, demonstrating normal, pulsatile arterial flow and normal peak systolic velocities. Ordering Physician: Dany Flanagan Referring Physician: Dany Flanagan Chi Performed By: Lisha Rossi RVT 03/14/181653 Date Lb Sandra MD CC: Dany Flanagan MD Date Dictated: 03/14/18829 Date Transcribed: 03/14/181653 Emergency Operator: Signed FREE T3 Collected: 03/14/2018 Status: F Source: [place] 8:16 AM [facility] REPOSITORY TYPE CODE TESTS RESULT OUT OF RANGE REFERENCE UNITS LAB L501.19133 2.18-3.98 pg/mL Low FREE T3 2.0 Performed By: #### L501.00121, L501.9520, L506.0400, L3100.5055, L3100.5420 #### [facility] [address] [place] [address]. [place], [place], [address] THYROID STIM HORMONE Collected: 03/14/2018 Status: F Source: [place] (TSH) 8:16 AM [facility] REPOSITORY TYPE CODE TESTS RESULT OUT OF RANGE REFERENCE UNITS LAB L501.9520 0.358-3.74 uIU/mL Normal TSH 0.68 Performed By: #### L501.21848, L501.9520, L506.0400, L3100.5055, L3100.5420 #### [facility] [address] [place], [address] T4 FREE DIRECT Collected: 03/14/2018 Status: F Source: [place] 8:16 AM [facility] REPOSITORY TYPE CODE TESTS RESULT OUT OF RANGE REFERENCE UNITS LAB L506.0400 0.76-1.46 ng/dL Normal T4 FREE 0.78 DIRECT Performed By: #### L501.67010, L501.9520, L506.0400, L3100.5055, L3100.5420 #### [facility] [address] [place], [place], [id number] FSH AND LH Collected: 03/14/2018 Status: F Source: [place] 8:16 AM [facility] REPOSITORY TYPE CODE TESTS RESULT OUT OF RANGE REFERENCE UNITS LAB L3100.5125 mIU/mL Normal FSH 5.6 Result Comment: NORMAL REFERENCE RANGES FEMALE FOLLICULAR 2.3 - 12.6 mIU/mL MID-CYCLE PEAK 5.2 - 17.5 mIU/mL LUTEAL 1.7 - 12.9 mIU/mL POST-MENOPAUSAL ON MHT 5.9 - 72.8 mIU/mL NOT ON MHT 12.7 - 132.2 mlU/mL MALE 0.7 - 10.8 mIU/mL NEW TEST METHOD AND REFERENCE RANGES MARCH 12, 2012 LAB L3100.5170 mIU/mL Normal 1.2 LH Result Comment: NORMAL REFERENCE RANGES FEMALE FOLLICULAR 1.9 - 26.2 mIU/mL MID-CYCLE PEAK 22.8 - 76.1 mIU/mL LUTEAL 0.6 - 16.6 mIU/mL POST-MENOPAUSAL ON MHT 1.1 - 52.4 mIU/mL NOT ON MHT 8.6 - 61.8 mIU/mL MALE 1.2 - 10.6 mIU/mL NEW TEST METHOD AND REFERENCE RANGES MARCH 12, 2012 Performed By: #### L501.95978, L501.9520, L506.0400, L3100.5055, L3100.5420 #### [facility] [address] [facility] [facility] [place], [place], [id number] PROLACTIN Collected: 03/14/2018 Status: F Source: [place] 8:16 AM [facility] REPOSITORY TYPE CODE TESTS RESULT OUT OF RANGE REFERENCE UNITS LAB L3100.5420 ng/mL Normal PROLACTIN 16.2 Result Comment: NORMAL REFERENCE RANGES FEMALE NON- 2.2 - 30.3 ng/mL 8.1 - 347.6 ng/mL POST-MENOPAUSAL 0.7 - 31.5 ng/mL MALE 2.5 - 17.4 ng/mL NEW TEST METHOD AND REFERENCE RANGES MARCH 12, 2012 Performed By: #### L501.32169, L501.9520, L506.0400, L3100.5055, L3100.5420 #### [facility] [address] [place], [address] TESTOSTERONE, SERUM TOTAL Collected: 03/14/2018 Status: F Source: [place] 8:16 AM [facility] REPOSITORY TYPE CODE TESTS RESULT OUT OF REFERENCE UNITS RANGE LAB L509.3000 ng/dL Testosterone Normal 272.95 Result Comment: NORMAL REFERENCE RANGES MALE AGE <50 123.06 - 813.86 ng/dL MALE AGE >50 89.98 - 780.10 ng/dL FEMALE PREMENOPAUSE AGE 21 - 60 9.01 - 47.94 ng/dL FEMALE POSTMENOPAUSE AGE 45 - 89 <7.00 - 45.62 ng/dL REFERENCE RANGE AND METHODOLOGY CHANGED 10/11/2017 Performed By: #### L509.3000 #### [facility] [address] [place], [address] CBC-COMPLETE BLOOD CNT Collected: 02/26/2018 Status: F Source: [place] NO DIFF 5:32 PM [facility] REPOSITORY TYPE CODE TESTS RESULT OUT OF RANGE REFERENCE UNITS LAB L100.1000 4.4-11.0 K/mm3 Normal WBC 5.7 LAB L100.1200 4.6-6.2 M/mm3 Normal RBC 4.69 LAB L100.1300 13.0-16.5 g/dl Normal HGB 15.3 LAB L100.1400 40-54 % Normal HCT 44.8 LAB L100.1500 80-94 fL High MCV 95.5 LAB L100.1600 27.0-32.0 pg High MCH 32.6 LAB L100.1700 32-36 g/gl Normal MCHC 34.2 LAB L100.1810 11.6-14.6 % Normal RDW CV 14.2 LAB L100.1820 35.1-43.9 fl High RDW SD 48.8 LAB L100.1900 150-450 K/mm3 Normal PLT 192 LAB L100.2000 6.2-12.0 fl Normal MPV 9.7 Performed By: #### L100.0500, L100.0100 #### [facility] [place], [place], [id number] CBC W/DIFF, AUTOMATED Collected: 02/26/2018 Status: F Source: [place] 5:32 PM [facility] REPOSITORY Order Comment: PLEASE ADD DIFF TO CBC FROM 02-26-18 TYPE CODE TESTS RESULT OUT OF RANGE REFERENCE UNITS LAB L100.1000 4.4-11.0 K/mm3 Normal WBC 5.7 LAB L100.1200 4.6-6.2 M/mm3 Normal RBC 4.69 LAB L100.1300 13.0-16.5 g/dl Normal HGB 15.3 LAB L100.1400 40-54 % Normal HCT 44.8 LAB L100.1500 80-94 fL High MCV 95.5 LAB L100.1600 27.0-32.0 pg High MCH 32.6 LAB L100.1700 32-36 g/gl Normal MCHC 34.2 LAB L100.1810 11.6-14.6 % Normal RDW CV 14.2 LAB L100.1820 35.1-43.9 fl High RDW SD 48.8 LAB L100.1900 150-450 K/mm3 Normal PLT 192 LAB L100.2000 6.2-12.0 fl Normal MPV 9.7 LAB L100.2100 47-70 % Normal NEUT% 49.7 LAB L100.2200 19-41 % Normal LY% 34.9 LAB L100.2300 0-10 % Normal MONO% 9.8 LAB L100.2400 0-5 % Normal EO% 4.1 LAB L100.2500 0-1 % High BASO% 1.2 LAB L100.2550 0.0-0.9 % Normal IM GRAN % 0.300 Result Comment: IG% - Immature Granulocytes (promyelocytes, myelocytes and metamyelocytes) > 1% indicates that a LEFT SHIFT is Present. LAB L100.2620 2.0-7.7 X10 3/uL Normal Absolute Neut 2.9 LAB L100.2720 0.83-4.51 X10 3/ul Normal Absolute Lymph 2.03 Performed By: #### L100.0500, L100.0100 #### [facility] [address] [place], [address] VITAMIN D,25 HYDROXY Collected: 02/26/2018 Status: F Source: [place] 5:32 PM [facility] REPOSITORY TYPE CODE TESTS RESULT OUT OF RANGE REFERENCE UNITS LAB L506.1000 29.95-100.01 ng/mL Normal Vitamin D 30.8 25-OH Result Comment: Vitamin D 25(OH) Status Range Deficiency <20 ng/mL (50nmol/L) Insuffciency 20 - 30 ng/mL (50 - 75 nmol/L) Sufficiency 30 - 100 ng/mL (75 - 250 nmol/L) Toxicity >100 ng/mL (>250 nmol/L) Performed By: #### L506.1000 #### [facility] [address] [place], [address] BASIC METABOLIC Collected: 02/26/2018 Status: F Source: [place] PROFILE (BMP) 5:32 PM [facility] REPOSITORY Order Comment: PLEASE ADD ALB ALK AST ALT TBIL TP TO BLOOD FROM 02-26-18 TYPE CODE TESTS RESULT OUT OF RANGE REFERENCE UNITS LAB L501.0100 74-106 mg/dL Normal GLU 87 Result Comment: Please note revised GLUCOSE reference range effective 2017. LAB L501.1000 7-18 mg/dL Normal BUN 16 LAB L501.1100 0.70-1.30 mg/dL Normal CREAT,SERUM 1.03 Result Comment: The validity of the calculated GFR AND GFRAA in patients over 70 years has not been determined. Clinical correlation is essential. LAB L501.1110 >60 mL/min Normal EST GFR 75 Result Comment: Non- GFR Calc LAB L501.1115 >60 mL/min Normal EST GFR - AA 91 Result Comment: GFR Calc LAB L501.1300 10-20 RATIO Normal BUN/CRE 15.5 LAB L501.2200 8.5-10.1 mg/dL CA Normal 8.9 LAB L501.5300 136-145 mmol/L NA Normal 143 LAB L501.5600 3.5-5.1 mmol/L K Normal 4.1 LAB L501.5900 98-107 mmol/L CL Normal 107 LAB L501.6100 21.0-32.0 mmol/L Normal CO2 31.0 LAB L501.6200 5-15 Normal GAP 5 Performed By: #### L500.2500, L501.9520, L501.9910, L001.0705, L501.1800, L501.4100, L501.4305, L501.4405, L501.4600 #### [facility] [address] [place], [address] THYROID STIM HORMONE Collected: 02/26/2018 Status: F Source: [place] (TSH) 5:32 PM [facility] REPOSITORY Order Comment: PLEASE ADD ALB ALK AST ALT TBIL TP TO BLOOD FROM 02-26-18 TYPE CODE TESTS RESULT OUT OF RANGE REFERENCE UNITS LAB L501.9520 0.358-3.74 uIU/mL Normal TSH 0.89 Performed By: #### L500.2500, L501.9520, L501.9910, L001.0705, L501.1800, L501.4100, L501.4305, L501.4405, L501.4600 #### [facility] [address] [place], [place], [address] PSA,TOTAL - ANNUAL Collected: 02/26/2018 Status: F Source: [place] SCREEN 5:32 PM [facility] REPOSITORY Order Comment: PLEASE ADD ALB ALK AST ALT TBIL TP TO BLOOD FROM 02-26-18 TYPE CODE TESTS RESULT OUT OF RANGE REFERENCE UNITS LAB L501.9910 0.00-4.00 ng/mL Normal PSA,TOT 2.15 SCREEN Result Comment: This test was performed using the TPSA assay method for the [employer] chemistry system. Values obtained with different assay methods cannot be used interchangably. When changing PSA assays in the course of monitoring a patient, additional sequential testing should be carried out to confirm baseline values. Performed By: #### L500.2500, L501.9520, L501.9910, L001.0705, L501.1800, L501.4100, L501.4305, L501.4405, L501.4600 #### [facility] [address] [place], [place], [address] PROTEIN, TOTAL Collected: 02/26/2018 Status: F Source: [place] 5:32 PM [facility] REPOSITORY Order Comment: PLEASE ADD ALB ALK AST ALT TBIL TP TO BLOOD FROM 02-26-18 TYPE CODE TESTS RESULT OUT OF RANGE REFERENCE UNITS LAB L501.1500 6.4-8.2 g/dL Normal T PROT 7.5 LAB L501.1950 2.2-4.2 g/dL Normal GLOB 3.5 LAB L501.2000 0.9-2.4 RATIO Normal A/G 1.1 Performed By: #### L500.2500, L501.9520, L501.9910, L001.0705, L501.1800, L501.4100, L501.4305, L501.4405, L501.4600 #### [facility] [address] [place], [place], [id number] ALBUMIN, SERUM Collected: 02/26/2018 Status: F Source: [place] 5:32 PM [facility] REPOSITORY Order Comment: PLEASE ADD ALB ALK AST ALT TBIL TP TO BLOOD FROM 02-26-18 TYPE CODE TESTS RESULT OUT OF RANGE REFERENCE UNITS LAB L501.1800 3.2-5.0 g/dL Normal ALB 4.0 Performed By: #### L500.2500, L501.9520, L501.9910, L001.0705, L501.1800, L501.4100, L501.4305, L501.4405, L501.4600 #### [facility] [address] [place], [place], [address] [phone](SGOT) Collected: 02/26/2018 Status: F Source: [place] 5:32 PM [facility] REPOSITORY Order Comment: PLEASE ADD ALB ALK AST ALT TBIL TP TO BLOOD FROM 02-26-18 TYPE CODE TESTS RESULT OUT OF RANGE REFERENCE UNITS LAB L501.4100 15-37 U/L Normal AST 33 Performed By: #### L500.2500, L501.9520, L501.9910, L001.0705, L501.1800, L501.4100, L501.4305, L501.4405, L501.4600 #### [facility] [address] [place], [place], [id number] ALKALINE PHOSPHATASE Collected: 02/26/2018 Status: F Source: [place] 5:32 PM [facility] REPOSITORY Order Comment: PLEASE ADD ALB ALK AST ALT TBIL TP TO BLOOD FROM 02-26-18 TYPE CODE TESTS RESULT OUT OF RANGE REFERENCE UNITS LAB L501.4305 45-117 U/L Normal ALK P 58 Performed By: #### L500.2500, L501.9520, L501.9910, L001.0705, L501.1800, L501.4100, L501.4305, L501.4405, L501.4600 #### [facility] [address] [place], [place], [id number] ALANINE AMINOTRANSFERAS Collected: 02/26/2018 Status: F Source: [place] (SGPT) 5:32 PM [facility] REPOSITORY Order Comment: PLEASE ADD ALB ALK AST ALT TBIL TP TO BLOOD FROM 02-26-18 TYPE CODE TESTS RESULT OUT OF RANGE REFERENCE UNITS LAB L501.4405 16-61 U/L Normal ALT 52 Performed By: #### L500.2500, L501.9520, L501.9910, L001.0705, L501.1800, L501.4100, L501.4305, L501.4405, L501.4600 #### [facility] [address] [place], [place], [id number] BILIRUBIN, TOTAL Collected: 02/26/2018 Status: F Source: [place] 5:32 PM [facility] REPOSITORY Order Comment: PLEASE ADD ALB ALK AST ALT TBIL TP TO BLOOD FROM 02-26-18 TYPE CODE TESTS RESULT OUT OF RANGE REFERENCE UNITS LAB L501.4600 0.20-1.00 mg/dL Normal T BILI 0.30 Performed By: #### L500.2500, L501.9520, L501.9910, L001.0705, L501.1800, L501.4100, L501.4305, L501.4405, L501.4600 #### [facility] [address] [place], [address] HEPATITIS C ANTIBODIES Collected: 02/26/2018 Status: F Source: [place] 5:32 PM [facility] REPOSITORY TYPE CODE TESTS RESULT OUT OF RANGE REFERENCE UNITS LAB L3100.0650 0.0-0.9 s/co ratio Normal HEP C AB <0.1 Result Comment: Negative: < 0.8 Indeterminate: 0.8 - 0.9 Positive: > 0.9 The CDC recommends that a positive HCV antibody result be followed up with a HCV Nucleic Acid Amplification test (400942). Performed at: [facility] [id number] Composition Siding Worker: Lane Moss PhD, Phone: [phone] Performed By: #### L3100.0625 #### [facility] (refer to report for specific site) refer to report for address and phone number AST Collected: 02/05/2018 Status: F Source: [email or web address] 8:05 AM [facility] REPOSITORY TYPE CODE TESTS RESULT OUT OF RANGE REFERENCE UNITS LAB AST(LOINC) 10-40 IU/L AST/SGOT 25 Performed By: #### AST, LIPID #### [address] [address] LIPID Collected: 02/05/2018 Status: F Source: [email or web address] 8:05 AM [facility] REPOSITORY TYPE CODE TESTS RESULT OUT OF REFERENCE UNITS RANGE LAB CHOL(LOINC 131-200 mg/dL ) Cholesterol 148 Result Comment: Cholesterol Reference Interval: Less than 200 Desirable 200-239 Borderline high risk 240 and above High risk LAB TRIG(LOINC) 40-150 mg/dL Triglycerides High 220 Result Comment: Triglyceride Reference Interval: Less than 150 Normal 150-199 Borderline high risk 200-499 High risk 500 or higher Very high risk LAB HD(LOINC) 35-90 mg/dL HDL Low Cholesterol 30 Result Comment: HDL Reference Interval: Less than 40 Low - high risk 60 or above Optimal/lowers risk LAB LDL(LOINC) 0-130 mg/dL LDL Cholesterol 74 Result Comment: LDL is a calculated result and requires a 12-hr fast. LDL Reference Interval: Less than 100 Optimal 100-129 Near or above optimal 130-159 Borderline high risk 160-189 High risk 190 and above Very high risk Performed By: #### AST, LIPID #### [facility] [address] [place], [place] [address] OFFICE VISIT REPORT Observed: 11/15/2017 Status: F Source: [place] 12:18 PM [facility] [address] [address] OFFICE VISIT Date of Service: 09/27/17 MR#: [id number] Acct: [id number] Patient: JAE ARELLANO Rep #: [id number] : 1945 Provider: Krissy Montiel NP Age/Sex: 71/M [place] [facility] [place] Signed Intake Vital Signs09/27/17 Height 5 ft 11 in 09/27/17 Weight: 222 lb 8 oz 09/27/17 Body Mass Index (BMI) 31.0 09/27/17 Blood Pressure 144/80 Intake Visit 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 Accompanied by: Is patient in pain?: No Allergies No Known Allergies Allergy (Verified 09/27/17 15:18) Medications Levothyroxine [Synthroid] 50 mcg PO DAILY 11/18/14 [History Confirmed 09/27/17] atorvastatin 10 mg tablet 10 mg PO QDAY 09/27/17 [History Confirmed 09/27/17] sertraline 25 mg tablet 25 mg PO QDAY 09/27/17 [History Confirmed 09/27/17] testosterone 30 mg/actuation (1.5 mL) transderm solution metered pump 30 mg TOPICAL QDAY #90 ml 10/06/17 [Rx] PFSH Medical History Headache (Acute) High cholesterol (Acute) High triglycerides (Acute) Migraine (Acute) Non-Hodgkins lymphoma (Acute) Thyroid disease (Acute) Vision problems (Acute) Surgical History Hx of hernia repair (Acute) Family History Mother High cholesterol Father Skin cancer Social History Smoking Status: Former smoker alcohol intake: current substance use type: does not use HPI Thyroid dysfunction: Details: JAE ARELLANO, is a 71 M who presents to the office today for consult of pituitary dysfunction, accompanied by his . Also know hx of Non Hodgkin lymphoma, hypothyroid, hyperlidemia,hypogonadism, and headaches. Presnt today feeling well. [facility] copies of labs from 6 months ago. ROS Const Constitutional: No anorexia, body ache, chills, excessive sweating, fatigue, fever(s), frequent falls, decreased energy, malaise, night sweats, weakness, weight change, sleep problems, abnormal sleep pattern, change in appetite, headache(s), snoring or other Eyes Eyes: No blurry vision, change in vision, double vision, discharge, dry eyes, bulging eyes, floaters, visual disturbances, eye pain, light sensitivity, spots in vision, tunnel vision or other ENT ENT: No abnormal hearing, ear pain, ear discharge, ear pressure, hearing loss, tinnitus, dizziness/vertigo, balance problems, nosebleed/epistaxis, nasal congestion, nasal obstruction, nose pain, sinus pressure, sinus pain, nasal discharge, post nasal drip, headache(s), facial pain, dental pain, dry mouth, bad breath, hoarseness, lip swelling, mouth lesions, mouth pain, sore throat, tongue swelling, throat swelling, difficulty swallowing, neck pain or other Resp Respiratory: No cough, change in phlegm color, chest congestion, excessive phlegm production, hemoptysis, pain on inspiration, shortness of breath, pain with cough, snoring, stridor, wheezing or other Cardio Cardiology: No excessive sweating or other Gastro GI: No abdominal pain, belching, bloating, change in bowel habits, change in stool character, coffee ground emesis, constipation, cramping, diarrhea, heartburn, difficulty swallowing, feeling full early, excessive flatus, incontinent of stools, Vomiting blood/hematemesis, blood in stool, loose stools, Black,tarry stools, nausea/dyspepsia, pain with swallowing, vomiting or other Genitourinary: Positive for urinary urgency; no difficulty urinating, burning urination, painful urination, urinary incontinence, urinary frequency, urinary hesitancy, urinary retention, blood in urine, Frequent nighttime urination/ nocturia, post void dribbling, suprapubic fullness, side pain, sexual problems, genital lesions, genital itching, hot flashes, abnormal periods, abnormal vaginal bleeding, absent period, painful periods, light periods, heavy periods, difficulty getting , painful intercourse, pelvic pain, vaginal dryness, vaginal odor, vaginal itching, erectile dysfunction, penile discharge, difficulty with ejaculations, blood in semen, scrotal swelling, testicle lump, testicle pain or other Musc Musculoskeletal: No abnormal walking, joint pain, back pain, deformity, joint swelling, limited range of motion, loss of height, muscle cramps, muscle weakness, decreased muscle mass, body aches, neck pain, numbness, radiating pain into limb, stiffness, tingling or other Skin Skin: No other Neuro Neurology: No frequent falls, weakness, visual disturbances, abnormal hearing, headache(s), abnormal walking, numbness, tingling or other Psych Psychiatric: No abnormal sleep pattern, No change in appetite, No other Endo Endocrine: No excessive sweating, fatigue or other Aller/Imm Allergy/Immunologic: No lip swelling, tongue swelling, throat swelling, wheezing or other Perry/Lymp Hematologic/Lymphatic: No other Exam Const General: healthy appearing, comfortable, no acute distress HENMT Head: normal to inspection, atraumatic Mouth: oral mucosae normal, moist mucous membranes Eyes Conjunctivae: conjunctivae normal Sclera: sclerae normal Pupils: PERRL Neck Neck mass: No Thyroid: thyroid normal Chest Chest palpation AND inspection: deferred Resp Effort AND Inspection: normal respiratory effort, symmetric chest movement, able to speak in complete sentences Auscultation: Bilateral: Clear to Auscultation Cardio Rate: regular rate Rhythm: regular rhythm Heart Sounds: S1 normal, S2 normal, no murmurs, no rubs GI Inspection: normal to inspection Auscultation: normal bowel sounds Palpation: soft, no pulsatile masses, no guarding General: deferred Musc Musculoskeletal: No muscle weakness Skin General: no rashes or lesions noted Wounds: no wounds Neuro General: alert, oriented Motor: muscle tone normal throughout Extrem General: no pedal edema, normal to inspection, full ROM Psych Mental Status: mental status grossly normal Attitude: cooperative Judgment: judgment good Assessment AND Plan 1. Thyroid dysfunction E07.9 2. 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 3. Hypothyroidism (acquired) E03.9 Plan Continues on levothyroxine. Takes as directed. Lab values TSH 0.85 in 03/2016Recheck lab 4. Hyperlipidemia with target LDL less than 100 E78.5 Plan Continues on statin daily. No side effects noted. No lab values. Managed by PCP Plan Detail Other Medications Discontinued: hydrocodone-acetaminophen 5-325 mg Discontinued Reason:1 - 2 tabs PO Q4H PRN PRN Pain Pt no longer taking Additional Comments Continue current regimen. Recheck lab values. 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 Hypothyroidism (acquired) E03.9 Hyperlipidemia with target LDL less than 100 E78.5 Time Spent (min) 60 10/10/17 1919 <Electronically signed by Krissy FLORES> Date Krissy FLORES Cosigner Signature: Date (if applicable) CC: ALLERGIES ALLERGIES DATE TYPE / CODE NAME / CODE REACTION SEVERITY SOURCE 04/26/2018 Drug No Known Unknown [facility] Allergy/416 Allergies/X80135 Hospital 743253(SNOM 0388(RXNORM) Repository ED CT) Drug NO KNOWN [facility] Class/19441 ALLERGIES [address] [place] 1003(SNOMED Repository CT) ENCOUNTERS ENCOUNTERS ADMIT/DISCHARGE ACCOUNT NUMBER ADMITTING ENCOUNTER LOCATION SOURCE CLASS 10/11/2018/10/17/[id number] Repository 10/10/2018/10/15/[id number] Repository 10/08/2018/10/15/[id number] Repository 10/04/2018 [id number] [facility] ding:POLAB3 Repository 08/10/2018 [id number] [facility] ding:LAB Repository 04/17/2018/04/18/[id number] Repository 04/16/2018/04/18/20 [id number] Ambulatory [address] Repository 04/09/2018/04/11/20 [id number] Ambulatory [address] Repository 04/03/2018/04/17/20 [id number] Ambulatory [address] Repository 03/29/2018/03/29/20 [id number] Ambulatory BMSBuilding: Yobani 18 BMS.[facility] Repository 03/14/2018 [id number] [facility] [facility] 02/26/2018 [id number] Ambulatory [place] [facility] ding:LAB Repository 02/05/2018/02/10/20 [id number] Ambulatory [address] ding:[facility] Repository 09/27/2017/09/27/20 [id number] Ambulatory BMSBuilding: [place] 17 BMS.[facility] Repository PAYERS PAYERS ENCOUNTER GUARANTOR PAYER SUBSCRIBER SOURCE 10/04/2018 JAE P REENAERSTEFANIA Primary JAE P [place] BOX Insurance:MEDICARE TUCKERDOB: [address] [id number] [facility] [place] [address]Rvt: Number: Repository [id number] (HP) Date:2018-10-04 10/04/2018 Secondary JAE P [place] Insurance:ANTHEMPolic TUCKERDOB: [facility] y Number: [id number] Hospital [id number] Repository Date:[id number] [address]OR: 10/04/2018 Tertiary NOT GIVENUNK [place]ani Insurance:SELF PAY [facility] Number: Effective Repository Date:2018-10-04 08/10/2018 JAE P TUKALINERPO Primary JAE P [place] BOX Insurance:MEDICARE TUCKERDOB: [address] [id number] [address]Rcn: Number: Repository [id number] (HP) Date:2018-08-10 08/10/2018 Secondary JAE P [place] Insurance:ANTHEMPolic TUCKERDOB: Community y Number: [id number] [facility] [id number] Repository Date:[id number] [address], [place] [address]XS: 08/10/2018 Tertiary NOT GIVENUNK [place]ani Insurance:SELF PAY [facility] Number: Effective Repository Date:2018-08-10 03/29/2018 Jae P TuckerPo Primary Jae P [place] Box Insurance:MEDICARE TuckerDOB: [address] PART A [facility] [address] [id number] [address]Gne: Number: Repository [id number] (HP) Date:2017-09-27 03/29/2018 Secondary Jae P [place] Insurance:ANTHEMPolic TuckerDOB: Community y Number: [id number] Hospital [id number] Repository Date:[id number], [place] [address]EG: 03/29/2018 Tertiary NOT GIVENUNK [place] Insurance:SELF PAY [facility] Number: Effective Repository Date:2018-04-05 03/14/2018 Jae P TuckerPo Primary Jae P [place] Box Insurance:MEDICARE TuckerDOB: [address] A [facility] [address] [id number] Health Center [address]Pcp: Number: Repository [id number] (HP) Date:2018-02-26 03/14/2018 Secondary Jae P [place] Insurance:ANTHEMPolic TuckerDOB: Community y Number: [id number] [facility] [id number] Repository Date:[id number] [address], [place] [address]SG: 03/14/2018 Tertiary NOT GIVENUNK [place] Insurance:SELF PAY [facility] Number: Effective Repository Date:2018-02-26 02/26/2018 Jae P TuckerPo Primary Jae P [place] Box Insurance:MEDICARE TuckerDOB: [address] A [facility] [address] [id number] Health Center [address]Pzh: Number: Repository [id number] (HP) Date:2018-02-26 02/26/2018 Secondary Jae P [place] Insurance:ANTHEMPolic TuckerDOB: Community y Number: [id number] Hospital [id number] Repository Date:8389-76-89CA [address]X, [place] [address]AS: 02/26/2018 Tertiary NOT GIVENUNK [place] Insurance:SELF PAY [facility] Number: Effective Repository Date:2018-02-26 02/05/2018 JAE P [facility] Insurance:MEDICARE TUCKERDOB: [facility] [id number] BOX PART olic Number: [id number] Repository [address] [place] [address] [id number] BOX [place] Date:2018-02-[address] [place] [address], [id number]@ [id number] [place] [address]Wjc: GMAIL.REENAel: Name:PCGS Administrators LLCPO (HP)Tel: (000) (HP)Tel: [phone]) [address]Qkrlutlpo, [phone] (WP) [phone] (WP) [place] [address]HE: 02/05/2018 Secondary JAE P [facility] [id number] Repository Number: [address]OX [id number] [address] [place] [address], Date:2018-02-05 - [place] [address]Kuz: [id number] Name:RPO Box (HP)Tel: [phone], [place] [phone] (WP) [address]IJ: 09/27/2017 JAE P TUCKERPO Primary JAE P [place] B[address] Insurance:MEDICARE TUERDOB: [address], PART A [facility] [address] [id number] [place] [address]Ika: Number: Repository [id number] (HP) Date:2017-09-23 09/27/2017 Secondary JAE [place] Insurance:[facility]: [facility] y Number: [id number] [id number] Repository Date:7733-09-32TO [place] [address]GBGFB, [place] [address]OH: 09/27/2017 Tertiary NOT GIVENSTEFANI [place] Insurance:SELF PAY [facility] Number: Effective Repository Date:2017-09-23
== END ==
PROVIDERS: Family Provider Family Medicine Geriatric Medicine; PCP Family Medicine Geriatric Medicine; Visit Provider Family Medicine Geriatric Medicine
DX: E23.6 Other disorders of pituitary gland (principal); E55.9 Vitamin D deficiency, unspecified; R53.83 Other fatigue
CPT/HCPCS: 36415; 80053; 82306; 84403; 84443; 85025

== ENCOUNTER → 2019-01-24 13:56 | Outpatient (CLI) | payer MEDICARE, BC, SELFPAY ==
[2017-09-27 15:20] VITALS: BMI 31.0
[2019-01-24 14:30] LABS: Absolute Lymphocyte Count 2.06 X10^3/ul (0.83-4.51); Absolute Neutrophil Count 2.7 X10^3/uL (2.0-7.7); Basophil# 0.03 X10^3/uL; Basophil% 0.5 % (0-1); Eosinophil# 0.15 X10^3/uL; Eosinophils% 2.6 % (0-5); Hematocrit 42.6 % (40-54); Hemoglobin 13.9 g/dl (13.0-16.5); Lymphocyte # 2.06 X10^3/ul (4.0); Lymphocyte % 36.3 % (19-41); Mean Corp Hgb Conc 32.6 g/gl (32-36); Mean Corpuscular Hgb 33.1 pg (27.0-32.0); Mean Corpuscular Volume 101.4 fL (80-94); Mean Platelet Vol. 10.1 fl (6.2-12.0); Monocyte# 0.68 X10^3/uL; Neutrophil # 2.74 X10^3/uL (2.7-7.7); Neutrophil % 48.2 % (47-70); Platelet Count 220 K/mm3 (150-450); RBC Distribution Width CV 15.7 % (11.6-14.6); RBC Distribution Width SD 57.5 fl (35.1-43.9); White Blood Count 5.7 K/mm3 (4.4-11.0)
[2019-01-24 14:33] LABS: POSITIVE COUNT NO; POSITIVE DIFFERENTIAL NO; POSITIVE MORPHOLOGY NO
[2019-01-24 15:03] LABS: Vitamin B12 689 pg/mL (211-911); Vitamin D,25 Hydroxy 49.1 ng/mL (29.95-100.01)
[2019-01-24 15:06] LABS: ALB/GLOB Ratio 1.2 RATIO (0.9-2.4); AST(SGOT) 34 U/L (15-37); Alanine Aminotransfer ALT/SGPT 49 U/L (16-61); Albumin, Serum 3.9 g/dL (3.2-5.0); Alkaline Phosphatase 60 U/L (45-117); Anion Gap 7 (5-15); BUN 14 mg/dL (7-18); BUN/Creat Ratio 13.2 RATIO (10-20); Calcium,Total 8.4 mg/dL (8.5-10.1); Chloride 108 mmol/L (98-107); Creatinine, Serum 1.06 mg/dL (0.70-1.30); EST Glomerular Filtration Rate 73 mL/min (>60); Est Glom Filt Rate - Afr Amer 88 mL/min (>60); Globulin 3.3 g/dL (2.2-4.2); Glucose 83 mg/dL (74-106); Potassium 4.1 mmol/L (3.5-5.1); Protein, Total 7.2 g/dL (6.4-8.2); Sodium Level 145 mmol/L (136-145); Thyroid Stim Hormone (TSH) 0.59 uIU/mL (0.358-3.74)
== END ==
PROVIDERS: Family Provider Family Medicine Geriatric Medicine; PCP Family Medicine Geriatric Medicine; Visit Provider Family Medicine Geriatric Medicine
DX: E23.6 Other disorders of pituitary gland (principal); E55.9 Vitamin D deficiency, unspecified; R53.83 Other fatigue
CPT/HCPCS: 36415; 80053; 82306; 82607; 84403; 84443; 85025

== ENCOUNTER → 2019-05-15 | Outpatient (CLI) | payer MEDICARE, BC, SELFPAY ==
[2017-09-27 15:20] VITALS: BMI 31.0
[2019-05-15 11:28] LABS: Absolute Lymphocyte Count 2.18 X10^3/uL (0.83-4.51); Absolute Neutrophil Count 2.7 X10^3/uL (2.0-7.7); Basophil# 0.04 X10^3/uL; Basophil% 0.7 % (0-1); Eosinophils% 1.7 % (0-5); Hematocrit 42.5 % (40-54); Hemoglobin 14.2 g/dL (13.0-16.5); Lymphocyte # 2.18 X10^3/ul (4.0); Lymphocyte % 37.8 % (19-41); Mean Corp Hgb Conc 33.4 g/dL (32-36); Mean Corpuscular Hgb 34.4 pg (27.0-32.0); Mean Corpuscular Volume 102.9 fL (80-94); Mean Platelet Vol. 9.7 fl (6.2-12.0); Monocyte# 0.69 X10^3/uL; NRBC Flagged by Analyzer 0 % (0-5); Neutrophil # 2.69 X10^3/uL (2.7-7.7); Neutrophil % 46.6 % (47-70); Platelet Count 243 K/mm3 (150-450); RBC Distribution Width CV 15.3 % (11.6-14.6); RBC Distribution Width SD 57.4 fl (35.1-43.9); Red Blood Count 4.13 M/mm3 (4.6-6.2); White Blood Count 5.8 K/mm3 (4.4-11.0)
[2019-05-15 11:48] LABS: Vitamin D,25 Hydroxy 32.1 ng/mL (29.95-100.01)
[2019-05-15 11:49] LABS: AST(SGOT) 40 U/L (15-37); Alanine Aminotransfer ALT/SGPT 66 U/L (16-61); Albumin, Serum 3.7 g/dL (3.2-5.0); Alkaline Phosphatase 61 U/L (45-117); Anion Gap 3 (5-15); BUN 12 mg/dL (7-18); BUN/Creat Ratio 11.1 RATIO (10-20); Calcium,Total 8.5 mg/dL (8.5-10.1); Chloride 106 mmol/L (98-107); Creatinine, Serum 1.08 mg/dL (0.70-1.30); EST Glomerular Filtration Rate 71 mL/min (>60); Est Glom Filt Rate - Afr Amer 86 mL/min (>60); Globulin 3.8 g/dL (2.2-4.2); Glucose 81 mg/dL (74-106); Potassium 4.2 mmol/L (3.5-5.1); Protein, Total 7.5 g/dL (6.4-8.2); Sodium Level 140 mmol/L (136-145)
== END | disposition home or self-care (01) ==
LOC: POLAB3 10:34
PROVIDERS: Family Provider Family Medicine Geriatric Medicine; PCP Family Medicine Geriatric Medicine; Visit Provider Family Medicine Geriatric Medicine
DX: E55.9 Vitamin D deficiency, unspecified (principal); R53.83 Other fatigue
CPT/HCPCS: 36415; 80053; 82306; 84443; 85025

== ENCOUNTER → 2019-10-10 15:19 | Outpatient (CLI) | payer MEDICARE, BC, SELFPAY ==
[2017-09-27 15:20] VITALS: BMI 31.0
[2019-10-10 16:57] LABS: Absolute Lymphocyte Count 2.75 X10^3/uL (0.83-4.51); Absolute Neutrophil Count 3.1 X10^3/uL (2.0-7.7); Basophil# 0.04 X10^3/uL; Basophil% 0.6 % (0-1); Eosinophils% 1.4 % (0-5); Hematocrit 41.2 % (40-54); Lymphocyte # 2.75 X10^3/ul (4.0); Lymphocyte % 39.2 % (19-41); Mean Corpuscular Hgb 35.9 pg (27.0-32.0); Mean Corpuscular Volume 105.6 fL (80-94); Mean Platelet Vol. 10.3 fl (6.2-12.0); Monocyte# 0.89 X10^3/uL; Monocyte% 12.7 % (0-10); NRBC Flagged by Analyzer 0 % (0-5); Neutrophil # 3.12 X10^3/uL (2.7-7.7); Neutrophil % 44.4 % (47-70); POSITIVE MORPHOLOGY YES; Platelet Count 330 K/mm3 (150-450); RBC Distribution Width CV 16.9 % (11.6-14.6); RBC Distribution Width SD 65.1 fl (35.1-43.9)
[2019-10-10 17:06] LABS: Vitamin D,25 Hydroxy 27.2 ng/mL (29.95-100.01)
[2019-10-10 17:09] LABS: Differential Indicated SCAN CRITERIA MET
[2019-10-10 18:28] LABS: AST(SGOT) 38 U/L (15-37); Alanine Aminotransfer ALT/SGPT 49 U/L (16-61); Albumin, Serum 3.8 g/dL (3.2-5.0); Alkaline Phosphatase 59 U/L (45-117); Anion Gap 4 (5-15); BUN 14 mg/dL (7-18); BUN/Creat Ratio 11.7 RATIO (10-20); Chloride 106 mmol/L (98-107); EST Glomerular Filtration Rate 63 mL/min (>60); Est Glom Filt Rate - Afr Amer 76 mL/min (>60); Globulin 3.7 g/dL (2.2-4.2); Glucose 103 mg/dL (74-106); Potassium 4.2 mmol/L (3.5-5.1); Protein, Total 7.5 g/dL (6.4-8.2); Sodium Level 141 mmol/L (136-145)
[2019-10-10 19:02] LABS: Anisocytosis 2+; Platelet Estimate ADEQUATE (ADEQ); Red Cell Morphology N CHROM NORMAL (NORM C&C)
== END ==
PROVIDERS: Family Provider Family Medicine Geriatric Medicine; PCP Family Medicine Geriatric Medicine; Visit Provider Family Medicine Geriatric Medicine
DX: E23.6 Other disorders of pituitary gland (principal); E55.9 Vitamin D deficiency, unspecified; R53.83 Other fatigue
CPT/HCPCS: 36415; 80053; 82306; 84403; 84443; 85025

== ENCOUNTER → 2020-03-02 15:59 | Outpatient (CLI) | payer MEDICARE, BC, SELFPAY ==
--- NOTE | 2020-03-02 16:03 | VDLE_ITS ---
Reason For Study: Edema RIGHT LEFT CFV is compressible, spontaneous, phasic, GSV is normal. competent and demonstrates normal CFV is compressible, spontaneous, phasic, augmentation. competent, and demonstrates normal Procedure augmentation. Exam performed in department. FV is compressible, spontaneous, phasic, A preliminary report was called and/or faxed competent and demonstrates normal to Gloria. augmentation. POP V is compressible, spontaneous, phasic, competent and demonstrates normal augmentation. T/P Trunk is compressible. LT PerV is compressible. Acute deep vein thrombosis is noted in the left PTV from mid to distal calf. Interpretation Summary Acute deep vein thrombosis is noted in the left posterior tibial vein. The remainder of the left lower extremity deep venous system is patent and compressible. Valvular competence appears intact within the proximal deep venous system on the left . The left great saphenous vein appears patent and compressible segmentally. Ordering Physician: Dany Flanagan Referring Physician: Dany Flanagan Chi Performed By: Vanessa Garcia RVT
== END ==
PROVIDERS: PCP Family Medicine Geriatric Medicine; Visit Provider Family Medicine Geriatric Medicine
DX: R60.0 Localized edema (principal)
CPT/HCPCS: 93971

== ENCOUNTER → 2020-05-20 15:29 | Outpatient (CLI) | payer MEDICARE, BC, SELFPAY ==
[2017-09-27 15:20] VITALS: BMI 31.0
[2020-05-20 16:38] LABS: Absolute Lymphocyte Count 2.88 X10^3/uL (0.83-4.51); Absolute Neutrophil Count 3.5 X10^3/uL (2.0-7.7); Basophil# 0.02 X10^3/uL; Basophil% 0.3 % (0-1); Eosinophil# 0.09 X10^3/uL; Eosinophils% 1.2 % (0-5); Hematocrit 44.3 % (40-54); Hemoglobin 14.5 g/dL (13.0-16.5); Lymphocyte # 2.88 X10^3/ul (4.0); Lymphocyte % 36.9 % (19-41); Mean Corp Hgb Conc 32.7 g/dL (32-36); Mean Corpuscular Hgb 34.4 pg (27.0-32.0); Mean Corpuscular Volume 105.2 fL (80-94); Mean Platelet Vol. 10.5 fl (6.2-12.0); Monocyte# 1.22 X10^3/uL; Monocyte% 15.6 % (0-10); NRBC Flagged by Analyzer 0 % (0-5); Neutrophil # 3.49 X10^3/uL (2.7-7.7); Neutrophil % 44.6 % (47-70); POSITIVE MORPHOLOGY YES; Platelet Count 436 K/mm3 (150-450); RBC Distribution Width CV 17.8 % (11.6-14.6); RBC Distribution Width SD 68.4 fl (35.1-43.9); Red Blood Count 4.21 M/mm3 (4.6-6.2); White Blood Count 7.8 K/mm3 (4.4-11.0)
[2020-05-20 16:48] LABS: Differential Indicated SCAN CRITERIA MET
[2020-05-20 16:53] LABS: Vitamin D,25 Hydroxy 36.9 ng/mL
[2020-05-20 16:57] LABS: AST(SGOT) 35 U/L (15-37); Alanine Aminotransfer ALT/SGPT 46 U/L (16-61); Albumin, Serum 3.8 g/dL (3.2-5.0); Alkaline Phosphatase 61 U/L (45-117); Anion Gap 3 (5-15); BUN 15 mg/dL (7-18); BUN/Creat Ratio 13.4 RATIO (10-20); Calcium,Total 8.3 mg/dL (8.5-10.1); Chloride 111 mmol/L (98-107); Creatinine, Serum 1.12 mg/dL (0.70-1.30); EST Glomerular Filtration Rate 68 mL/min (>60); Est Glom Filt Rate - Afr Amer 82 mL/min (>60); Globulin 3.8 g/dL (2.2-4.2); Glucose 81 mg/dL (74-106); Potassium 4.1 mmol/L (3.5-5.1); Protein, Total 7.6 g/dL (6.4-8.2); Sodium Level 142 mmol/L (136-145); Thyroid Stim Hormone (TSH) 1.03 uIU/mL (0.358-3.74)
[2020-05-20 17:04] LABS: Anisocytosis 2+; Platelet Estimate ADEQUATE (ADEQ); Red Cell Morphology N CHROM NORMAL (NORM C&C)
== END ==
PROVIDERS: PCP Family Medicine Geriatric Medicine; Visit Provider Family Medicine Geriatric Medicine
DX: E23.6 Other disorders of pituitary gland (principal); E55.9 Vitamin D deficiency, unspecified; R53.83 Other fatigue
CPT/HCPCS: 36415; 80053; 82306; 84403; 84443; 85025

== ENCOUNTER 2020-07-02 11:51 | Observation (INO) | payer MEDICARE, BC, SELFPAY ==
[2020-07-02] VITALS (9 sets, daily range): BP systolic 129–145; BP diastolic 72–89; PULSE 84–144; RESP 17–20; TEMP 36.1–36.9; O2SAT 94–95; BMI 29.2; BMI 29.7; BMI 29.8
--- NOTE | 2020-07-02 11:54 | NURSING ---
NO OLD EKGS
--- NOTE | 2020-07-02 12:03 | EKG12_ITS ---
Test Reason : REPEAT Blood Pressure : / mmHG Vent. Rate : 142 BPM Atrial Rate : 119 BPM P-R Int : 000 ms QRS Dur : 084 ms QT Int : 344 ms P-R-T Axes : 000 034 037 degrees QTc Int : 529 ms Supraventricular tachycardia Possible Inferior infarct , age undetermined Cannot rule out Anteroseptal infarct , age undetermined Abnormal ECG Confirmed by ADONAY KAUR, JUANITA ([id number]), editor magazine SHERIN ZEPEDA ([id number]) on 07/06/2020 12:54:45 PM Referred By: TOM Confirmed By:JUANITA URIAS MD
--- NOTE | 2020-07-02 12:04 | CT_ITS ---
STUDY: CTA CHEST REASON FOR EXAM: Male, 74 years old. RIGHT SIDE CHEST PAIN, SHORT OF BREATH, PAIN BELOW ARMPIT, NO RECENT TRAVEL OR SURG RADIATION DOSAGE (If Supplied By Facility): CTDIvol = ( 11.81 ) mGy, DLP = ( 430.17 ) mGycm TECHNIQUE: The examination was performed with the intravenous administration of IV 100mL Isovue-370. Post-processing of the angiographic images was performed, with multiplanar reformation and 3D reconstruction. Individualized dose optimization techniques were used for this CT. COMPARISON: None. FINDINGS: There are multiple intraluminal filling defects seen in both right and left pulmonary arterial branches involving the upper and lower lobes. Intraluminal filling defect is also seen in the distal aspect of the left main pulmonary artery with extension to the left intermediate stem pulmonary artery and left upper lobe pulmonary artery. Normal thoracic aorta and visualized great vessels. There is no demonstrated aortic dissection. There are calcifications of the coronary arteries. Normal mediastinum. Normal hilar regions. Normal visualized trachea and bronchi. The lungs are well expanded. Normal pulmonary parenchyma. Normal pleura. Normal chest wall structures. There are degenerative changes of thoracic spine. Normal visualized upper abdomen. CT/CTA Chest W/WO Contrast IMPRESSION: Extensive bilateral pulmonary emboli involving branches of both the right and left pulmonary arteries in both upper and lower lobes. Electronically Signed: Steven Bruce, at 13:26 EDT , Service support ,
--- NOTE | 2020-07-02 12:05 | EKG12_ITS ---
Test Reason : CP Blood Pressure : / mmHG Vent. Rate : 091 BPM Atrial Rate : 091 BPM P-R Int : 180 ms QRS Dur : 084 ms QT Int : 398 ms P-R-T Axes : 049 021 071 degrees QTc Int : 489 ms Normal sinus rhythm Prolonged QT Abnormal ECG Confirmed by ADONAY KAUR, JUANITA ([id number]), online content editor RONALD OTOOLE ([id number]) on 07/06/2020 2:07:55 PM Referred By: Confirmed By:JUANITA URIAS MD
--- NOTE | 2020-07-02 12:09 | ED.DCSUM_ITS ---
History of Present Illness Chief Complaint: Chest Pain Informant: Patient, Family Onset: Days Context: Gradual Onset Timing: Continuous Current Severity: Moderate Maximum Severity: Moderate Narrative: Patient is a 74-year-old male with medical history significant for prior pituitary tumor status post chemo and radiation, non-Hodgkin's lymphoma, and recent DVT that he just finished treatment for about a month ago. The patient presents with pain in his right upper lung. It started on Monday. He denies any injury. He states that throughout the week, it has worsened. He states if he takes a deep breath, the pain is increased. He is had a scant cough without sputum. He denies any fevers or chills. The pain is nonradiating. He has no history of coronary vascular disease. Prior similar symptoms: No Recent Illness/Hospitalization: Yes Past Medical History - Allergies and Home Meds Allergies/Adverse Reactions: Allergies No Known Allergies Allergy (Verified 07/02/20 11:56) Prior records reviewed: Yes Past Medical History: - - Non-Hodgkin's lymphoma, hyperlipidemia, prior pituitary tumor Surgical History: noncontributory Smoking Status: Former smoker Review of Systems General: Denies: Chills, Fever, Sweats Eyes: Denies: Visual changes - bilaterally, Diplopia ENT: Denies: Rhinorrhea, Sore throat Cardiovascular: Reports: Chest pain. Denies: Palpitations Respiratory: Reports: Dyspnea. Denies: Cough, Dyspnea on exertion Gastrointestinal: Denies: Abdominal pain, Nausea, Vomiting, Diarrhea, Melena, Hematochezia Genitourinary: Denies: Dysuria, Hematuria, Frequency Musculoskeletal: Denies: Back pain, Extremity Pain Skin: Denies: Rash, Wounds Neurological: Denies: Headache, Weakness, Numbness Physical Exam Vital Signs/Narrative: Vital Signs Temp Pulse Resp BP Pulse Ox 07/02/20 11:59 96.9 F L 100 18 129/72 H 95 07/02/20 11:53 96.9 F L 100 18 129/72 H 95 Inital Vital Signs reviewed: Yes General: Well nourished, Well developed, No Acute Distress Head: Normocephalic, Atraumatic Eyes: Perrl, EOMI ENT: Moist mucous membranes, No rhinorrhea Neck: Supple, Nontender Cardiovascular: Regular rate, Regular rhythm, No murmurs Respiratory: No distress, CTA bilaterally, Chest nontender Abdomen: Soft, Nontender, Nondistended, Normal bowel sounds Back: Nontender, Normal Inspection Extremities: Nontender, No edema Skin: Normal color, No rash Neurological: Alert, Oriented x3, Cranial nerves II-XII grossly intact, Normal Strength, Normal Sensation Psychological: Normal affect, Normal Mood Diagnostic/Tx/Re-eval Abnormal Lab Results 07/02/20 07/02/20 07/02/20 12:10 12:10 12:10 WBC 12.6 H RBC 4.39 L Hgb 15.3 Hct 45.0 MCV 102.5 H MCH 34.9 H MCHC 34.0 RDW Std Deviation 66.1 H RDW Coeff of Driss 18.1 H Plt Count 329 MPV 10.0 Immature Gran % (Auto) 1.200 H Neut % (Auto) 50.2 Lymph % (Auto) 22.7 [place] % (Auto) 24.1 H Eos % (Auto) 1.5 Baso % (Auto) 0.3 Absolute Neuts (auto) 6.3 Absolute Lymphs (auto) 2.87 Nucleated RBC % 0.6 PT 15.0 H INR 1.2 APTT 33.7 Sodium 141 Potassium 4.1 Chloride 108 H Carbon Dioxide 28.0 Anion Gap 5 BUN 15 Creatinine 1.18 Estim Creat Clear Calc 59.37 Est GFR (MDRD) Af Amer 77 Est GFR (MDRD) Non-Af 64 BUN/Creatinine Ratio 12.7 Glucose 92 Calcium 8.8 Total Bilirubin 0.90 AST 27 ALT 32 Alkaline Phosphatase 76 Troponin I < 0.015 Total Protein 8.3 H Albumin 3.8 Globulin 4.5 H Albumin/Globulin Ratio 0.8 L Clinical Impression(s) from Imaging Studies Chest CTA 07/02/20 12:04 IMPRESSION: Extensive bilateral pulmonary emboli involving branches of both the right and left pulmonary arteries in both upper and lower lobes. Electronically Signed: Steven Bruce, at 13:26 EDT , Service support , - Rhythm Strip Rhythm Strip: Sinus Rhythm Rate: 80 Ectopy: None - EKG Initial EKG Interpretation: Sinus Rhythm, No Acute Injury Pattern Prior: Unchanged Follow-up EKG Interpretation: Atrial Flutter, Non-Specific ST Changes Prior: Changed - Medical Decision Making The patient presents the emergency department with right-sided upper chest pain and dyspnea. Initially, he was not tachycardic on arrival. EKG was obtained which was sinus rhythm with mildly prolonged QT but no acute ischemic change. On the monitor, the patient had spontaneous increase in heart rate to a rate of 142 with little variability. EKG was repeated and read as SVT, but I do have suspicion this may be flutter with underlying 2-1 conduction. Prior to having any intervention, the patient spontaneously converted back to a sinus rhythm. Screening labs were obtained were unremarkable. Patient underwent CTA especially given his history. There was significant clot burden throughout. At this point, given the patient's intermittent arrhythmia and significant clot burden, I do feel that he would benefit from admission. The patient was discussed with the hospitalist who agrees with plan of care. Impression 1. Multiple bilateral pulmonary emboli 2. Atrial flutter-resolved 3. Exertional dyspnea 4. History of non-Hodgkin's lymphoma ED Disposition - Plan for ED Patient:
--- NOTE | 2020-07-02 12:15 | ED.RN ---
dr. otoole aware of hr elevated in 140's . ekg ordered.
[2020-07-02 12:22] LABS: Absolute Lymphocyte Count 2.87 X10^3/uL (0.83-4.51); Absolute Neutrophil Count 6.3 X10^3/uL (2.0-7.7); Basophil# 0.04 X10^3/uL; Basophil% 0.3 % (0-1); Eosinophil# 0.19 X10^3/uL; Eosinophils% 1.5 % (0-5); Hemoglobin 15.3 g/dL (13.0-16.5); Lymphocyte # 2.87 X10^3/ul (4.0); Lymphocyte % 22.7 % (19-41); Mean Corpuscular Hgb 34.9 pg (27.0-32.0); Mean Corpuscular Volume 102.5 fL (80-94); Monocyte# 3.04 X10^3/uL; Monocyte% 24.1 % (0-10); NRBC Flagged by Analyzer 0.6 % (0-5); Neutrophil # 6.34 X10^3/uL (2.7-7.7); Neutrophil % 50.2 % (47-70); POSITIVE DIFFERENTIAL YES; POSITIVE MORPHOLOGY YES; Platelet Count 329 K/mm3 (150-450); RBC Distribution Width CV 18.1 % (11.6-14.6); RBC Distribution Width SD 66.1 fl (35.1-43.9); Red Blood Count 4.39 M/mm3 (4.6-6.2); White Blood Count 12.6 K/mm3 (4.4-11.0)
[2020-07-02 12:29] LABS: Differential Indicated SCAN CRITERIA MET
[2020-07-02 12:34] LABS: International Normalized Ratio 1.2
[2020-07-02 12:35] LABS: Partial Thromboplast Time 33.7 Seconds (24.1-36.2)
[2020-07-02 12:39] LABS: ALB/GLOB Ratio 0.8 RATIO (0.9-2.4); AST(SGOT) 27 U/L (15-37); Alanine Aminotransfer ALT/SGPT 32 U/L (16-61); Albumin, Serum 3.8 g/dL (3.2-5.0); Alkaline Phosphatase 76 U/L (45-117); Anion Gap 5 (5-15); BUN 15 mg/dL (7-18); BUN/Creat Ratio 12.7 RATIO (10-20); Calcium,Total 8.8 mg/dL (8.5-10.1); Chloride 108 mmol/L (98-107); Creatinine, Serum 1.18 mg/dL (0.70-1.30); EST Glomerular Filtration Rate 64 mL/min (>60); Est Glom Filt Rate - Afr Amer 77 mL/min (>60); Estimated Creatinine Clearance 59.37 ml/min; Globulin 4.5 g/dL (2.2-4.2); Glucose 92 mg/dL (74-106); Potassium 4.1 mmol/L (3.5-5.1); Protein, Total 8.3 g/dL (6.4-8.2); Sodium Level 141 mmol/L (136-145)
[2020-07-02] MEDS: Contrast Allergy Safety Check IV (13:06)
--- NOTE | 2020-07-02 13:14 | NURSING ---
DR SPEARS FOR DR HUNT
[2020-07-02 13:25] LABS: Anisocytosis 1+; Platelet Morphology LARGE; Polychromasia 1+
--- NOTE | 2020-07-02 13:30 | NURSING ---
PCU OBS TERELETSKY PE, ATRIAL FLUTTER
[2020-07-02] MEDS: Rivaroxaban 15 MG Tablet PO ×2 (13:39→20:40)
--- NOTE | 2020-07-02 14:25 | ECHOD_ITS ---
Reason For Study: Afib, Aflutter, PE Procedure This was a 2D Doppler, Color Flow transthoracic echocardiogram. Exam performed portable in patient room. Left Ventricle Normal LV size. The estimated ejection fraction is 65 %. No evidence for diastolic dysfunction. No regional wall motion abnormalities noted. Right Ventricle Normal RV size. Normal systolic function. Atria Normal left atrium. Normal right atrium. No doppler evidence for ASD. Mitral Valve There is no mitral valve stenosis. No mitral valve insufficiency. Tricuspid Valve There is no tricuspid stenosis. Mild tricuspid valve insufficiency. Pulmonary artery systolic pressure is 50 mmHg. Aortic Valve There is no aortic stenosis. Mild (1+) aortic valve insufficiency. Pulmonic Valve There is no pulmonic valvular stenosis. Mild (1+) pulmonic valve insufficiency. Great Vessels Normal aortic root. Pericardium/Pleural No pericardial effusion. MMode/2D Measurements & Calculations LVIDd: 3.7 cm IVSd: 1.3 cm Ao root diam: 3.4 cm LVIDs: 2.3 cm LVPWd: 1.4 cm RVDd: 3.2 cm FS: 37.8 % LAV(MOD-bp): 41.2 ml LA A4 area: 15.7 cm2 LA dimension(2D): 3.8 cm LAV(MOD-bp) Indexed: 19.0 ml/m2 LAV(MOD-sp2): 47.1 ml LAV(MOD-sp4): 35.1 ml RA A4 area: 14.5 cm2 Doppler Measurements & Calculations MV E max wade: 47.0 cm/sec Lat Peak E' Wade: 7.8 cm/sec Med Peak E' Wade: 6.6 cm/sec MV A max wade: 81.1 cm/sec E/E' lat: 6.0 E/E' med: 7.1 MV E/A: 0.58 Ao V2 max: 117.8 cm/sec AI max wade: 410.5 cm/sec LV V1 max: 105.7 cm/sec Ao max P.5 mmHg AI max P.4 mmHg LV V1 max P.5 mmHg Ao V2 mean: 87.0 cm/sec AI dec slope: 240.4 cm/sec2 Ao mean P.2 mmHg AI P1/2t: 500.1 msec Ao V2 VTI: 19.9 cm PA V2 max: 95.1 cm/sec TR max wade: 340.8 cm/sec TR max P.4 mmHg Interpretation Summary The estimated ejection fraction is 65 %. No evidence for diastolic dysfunction. Pulmonary artery systolic pressure is 50 mmHg. Mild (1+) aortic valve insufficiency. Mild (1+) pulmonic valve insufficiency. Mild tricuspid valve insufficiency. Ordering Physician: Alon Jiang Referring Physician: Dany Flanagan Chi Performed By: Eunice Chavarria TAMMYCS, RVT
--- NOTE | 2020-07-02 14:47 | HP.PCM_ITS ---
Problem List (1) Right-sided chest wall pain Status: Acute (2) Shortness of breath Status: Acute History of Present Illness Date of Admission: 07/02/20 Chief Complaint: Shortness of breath x4 days, right-sided chest pain The patient is a 74 year old M who was seen in the emergency room at [facility] with complaints of shortness of breath over the last 4 days along with right sided chest wall pain which started today and is located near his right axillary area-he describes the pain as sharp in nature and not associated with activity.. Patient denies any nausea, vomiting, pain in the neck area or arms. Patient was treated last year for a DVT to his leg and was taken off Xarelto after completing 4 months of treatment approximately a month ago. Work-up in the emergency room included labs were remarkable for a white blood cell count of 12.6, patient's troponin was normal. EKG showed no evidence of ischemic change. CTA of the chest showed evidence of multiple pulmonary emboli bilaterally. Patient's pulse ox was above 90 on room air, he did not appear dyspneic. During the time the patient was in the emergency room, he had a episode of what appeared to be atrial flutter with a rate of approximately 145 that lasted for a few minutes and resolved on its own. No treatment was given for this. Patient will be placed into observation status on PCU, he will undergo an echocardiogram and he will be monitored on telemetry, his Xarelto will be started back up, he had his first dose ordered in the emergency room I will give the second dose tonight at 10 PM. Some of the patient's home medications will be held due to the fact he will most likely be discharged home tomorrow. Past Medical History Past Medical History (Chronic Problems): Chronic Problems (Last Reviewed 04/26/18 @ 16:17 by Trish Cronin) Hypothyroidism (acquired) (Chronic) TSH 0.68 Dose appropriate. No adjustment. Pituitary dysfunction (Chronic) Currently on thyroid replacement and testosterone replacement. labs rechecked. Prolactin level 16.2 which has decreased. Labs in 03/2017 notes testosterone level 180, currently 272.95. Hyperlipidemia with target LDL less than 100 (Chronic) On statin. No muscle aches or joint pain. Taking as directed. Managed by PCP. No labs in my chart for review Medical History: Medical History (Last Reviewed 04/26/18 @ 16:17 by Trish Cronin) Headache R51 High cholesterol E78.00 High triglycerides E78.1 Migraine G43.909 Non-Hodgkins lymphoma C85.90 Thyroid disease Vision problems H54.7 Allergies No Known Allergies Allergy (Verified 07/02/20 11:56) Home Medications: Ambulatory Orders Medication Instructions Recorded sertraline 25 mg tablet 25 mg PO DAILY 09/27/17 Cholecalciferol (Vitamin D3) 2,000 unit PO BID 07/02/20 [Vitamin D3] Ciclopirox Olamine [Ciclopirox] 1 applic TP DAILY 07/02/20 Cyanocobalamin [Vitamin B12] 500 mcg PO DAILY 07/02/20 Donepezil HCl 5 mg PO DAILY 07/02/20 Fluticasone 0.05% [Flonase Nasal 2 spray NASAL DAILY PRN PRN 07/02/20 [facility]] Folic Acid 0.8 mg PO DAILY 07/02/20 Levothyroxine [Synthroid] 50 mcg PO DAILY 07/02/20 Multivitamin 1 ea PO DAILY 07/02/20 [place]-3 Fatty Acids [Fish Oil] 1,000 mg PO BID 07/02/20 Vit A/Vit C/Vit E/Zinc/Copper 1 ea PO BID 07/02/20 [Preservision Areds Tablet] Surgical History: Surgical History (Last Reviewed 04/26/18 @ 16:17 by Trish Cronin) Hx of hernia repair Z98.890, Z87.19 Surgical History: herniorrhaphy, - - Mediport placement Psychiatric History: No pertinent psych hx Lives: Spouse/ Significant Other Smoking Status: Former smoker Tobacco Use: Non-smoker Alcohol: Occasional Drugs: None - *Family History Maternal Family History: Family History (Last Reviewed 04/26/18 @ 16:17 by Trish Cronin) Mother High cholesterol Father Skin cancer History Items: No pertinent history Paternal Family History: Family History (Last Reviewed 04/26/18 @ 16:17 by Trish Cronin) Mother High cholesterol Father Skin cancer History Items: Dementia Review of Systems Constitutional: Denies: Anorexia, Chills, Fever, Night Sweats, Malaise, Weakness, Weight Change Eyes: Denies: Cataracts, Conjunctivae Inflammation, Double vision, Drainage, Redness, Vision Change HEENT: Denies: Difficulty Swallowing, Dysphasia, Ear Pain, Eye Pain, Hearing Changes, Nasal bleeding, Nasal Congestion, Post Nasal Drip Cardiovascular: Reports: Chest Pain. Denies: Claudication, Chest Pressure, Chest Tightness, Edema, Orthopnea, Palpitations, Paroxysmal Noc. Dyspnea Respiratory: Reports: Shortness of Breath, Shortness of breath upon exertion. Denies: Cough, Hemoptysis, Shortness of breath at rest Gastrointestinal: Denies: Abdominal Pain, Constipation, Diarrhea, Hematemesis, Hematochezia, Nausea, Melena, Vomiting Genitourinary: Denies: Dysuria, Frequency, Hematuria, Hesitancy, Nocturia, Retention, Urgency Musculoskeletal: Denies: Back Pain, Foot Pain, Hand Pain, Joint Pain, Joint stiffness, Joint swelling, Joint Tenderness, Leg Pain Skin: Denies: Dryness, Jaundice, Pruritis, Rash Neurological: Denies: Blurred vision, Double vision, Slurred speech, Difficulty swallowing, Focal weakness, Headaches, Incoordination, Numbness, Tingling Psychiatric: Denies: Anxiety, Depression, Homicidal Ideations, Suicidal Ideations Endocrine: Denies: Change in Body Habitus, Heat/ Cold Intolerance, Polydipsia, Polyuria Hematologic/ Lymphatic: Denies: Adenopathy, Anemia, Easy Bruising, Easy Bleeding, Petechiae, Purpura VTE Information - Inpt Only VTE Present on Admission: Yes VTE Mechan Device Prophylaxis: None VTE Pharm Prophylaxis ordered?: No Reason prophylaxis not ordered:: Treatment Not Indicated - patient has PE Patient Problems: Active and Suspected Problems (Last Reviewed 04/26/18 @ 16:17 by Trish Cronin) Right-sided chest wall pain (Acute) Shortness of breath (Acute) - Physical Exam Vitals/I&O's: Vital Signs Temp Pulse Resp BP Pulse Ox 97.7 F L 85 18 138/89 H 95 07/02/20 14:08 07/02/20 14:08 07/02/20 14:08 07/02/20 14:08 07/02/20 14:08 Oxygen Delivery Method Room Air Weight: 96.842 kg Body Mass Index (BMI) 29.7 Intake and Output for Last 24 Hours 06/30/20 07/01/20 07/02/20 23:59 23:59 23:59 Intake Total 500 / 500 Balance 500 / 500 General: Alert, Oriented x3, Cooperative, No apparent distress, Well developed, Well nourished, - - poor informant HEENT: Atraumatic, PERRLA, EOMI, Normocephalic Oral: Moist Mucosa Neck: Supple, No JVD, Negative Carotid Bruits, Trachea Midline, Thyroid Normal Size and Texture Lungs: Clear to auscultation, Normal air movement, No rhonchi, No wheeze, No rales Cardiovascular: Regular rate, Regular Rhythm, Normal S1, Normal S2, No murmurs, PMI Normal, No rub noted, No Gallop Abdomen: Bowel Sounds Present, Soft, Non Tender, Non-Distended Extremities: No clubbing, No cyanosis, No edema, Capillary Refill Less than 3 Seconds Skin: No rashes, No breakdown Musculoskeletal: No Tenderness to Palpation of Joints or Extremities Neurological: Cranial nerves II-XII grossly intact, Neuro grossly intact, Sensory exam intact to light touch and pain, Coordination normal Psych/Mental Status: Normal Affect, Appropriate, Alert and oriented to time, place, person, mood and affect Laboratory Results 07/02/20 12:10: WBC 12.6 H, RBC 4.39 L, Hgb 15.3, Hct 45.0, MCV 102.5 H, MCH 34.9 H, MCHC 34.0, RDW Std Deviation 66.1 H, RDW Coeff of Driss 18.1 H, Plt Count 329, MPV 10.0, Immature Gran % (Auto) 1.200 H, Neut % (Auto) 50.2, Lymph % (Auto) 22.7, [place] % (Auto) 24.1 H, Eos % (Auto) 1.5, Baso % (Auto) 0.3, Absolute Neuts (auto) 6.3, Absolute Lymphs (auto) 2.87, Nucleated RBC % 0.6, Diff Path Review May foll, Plt Morphology Comment LARGE, Polychromasia 1+, Anisocytosis 1+ 07/02/20 12:10: PT 15.0 H, INR 1.2, APTT 33.7 07/02/20 12:10: Sodium 141, Potassium 4.1, Chloride 108 H, Carbon Dioxide 28.0, Anion Gap 5, BUN 15, Creatinine 1.18, Estim Creat Clear Calc 59.37, Est GFR (MDRD) Af Amer 77, Est GFR (MDRD) Non-Af 64, BUN/Creatinine Ratio 12.7, Glucose 92, Calcium 8.8, Total Bilirubin 0.90, AST 27, ALT 32, Alkaline Phosphatase 76, Troponin I < 0.015, Total Protein 8.3 H, Albumin 3.8, Globulin 4.5 H, Albumin/Globulin Ratio 0.8 L Current Medications Acetaminophen (Tylenol) 650 mg PO Q6H PRN PRN PRN Reason: Pain Score 1-10/Temp > 100.7 F Rivaroxaban (Xarelto) 15 mg PO BIDCM [facility] Assessment/Plan All Active Problems (Last Reviewed 04/26/18 @ 16:17 by Trish Cronin) Right-sided chest wall pain (Acute) Shortness of breath (Acute) Non-Hodgkin's lymphoma in adult (Acute) #1 acute bilateral pulmonary emboli-most likely from venous thromboembolus of the extremity-patient will be placed in observation status on PCU, he will be placed back on Xarelto, echocardiogram will be obtained and he will be monitored on telemetry. #2 brief episode of atrial flutter noted in the emergency room-resolved without medication-patient will be monitored on telemetry and have an echocardiogram performed tomorrow #3 past history of non-Hodgkin's lymphoma detected in his pituitary gland- patient's 5-year anniversary was September 2019, he is no longer on treatment #4 mild cognitive impairment-etiology unclear-possibly secondary to previous brain surgery, it appears patient takes Aricept at home #5 hypothyroidism #6 past history of pituitary tumor (non-Hodgkin's lymphoma) with radiation and chemotherapy OBSV E&M: 78035 Initial observation care L3
[2020-07-03] VITALS (7 sets, daily range): BP systolic 140–151; BP diastolic 76–88; PULSE 76–83; RESP 20; TEMP 36.8–37; O2SAT 90–95
[2020-07-03] MEDS: Rivaroxaban 15 MG Tablet PO (09:13)
--- NOTE | 2020-07-03 11:00 | CASEMGMT ---
Addendum entered by Byron Arevalo 07/03/20 12:49: Cost for Xarelto @ patient's pharmacy is $31.33. Derick GUILLEN Original Note: MARLENA LAL Note: Call to [facility] to check on Xarelto portillo. Patient has been on this medication prior and had copay per . Attempted x2, was on hold with no pickup for extended time. Derick RODRIGUEZM
--- NOTE | 2020-07-03 11:55 | PCM.DC ---
- Discharge Diagnoses Current Active Problems: Current Active and Chronic Problems (Last Reviewed 04/26/18 @ 16:17 by Trish Cronin) Right-sided chest wall pain (Acute) Shortness of breath (Acute) You will use the following diet at home:: Cardiac Discharge Activity: Return to Normal Activity Call your doctor if you observe: Shortness of breath, Dizziness, Fainting spells, Chest pain Allergies/Adverse Reactions: Allergies No Known Allergies Allergy (Verified 07/02/20 11:56) Medications to take at Discharge sertraline 25 mg tablet 25 mg PO DAILY 09/27/17 Cholecalciferol (Vitamin D3) [Vitamin D3] 2,000 unit PO BID 07/02/20 Ciclopirox Olamine [Ciclopirox] 1 applic TP DAILY 07/02/20 Cyanocobalamin [Vitamin B12] 500 mcg PO DAILY 07/02/20 Donepezil HCl 5 mg PO DAILY 07/02/20 Fluticasone 0.05% [Flonase Nasal [place]] 2 spray NASAL DAILY PRN PRN 07/02/20 Folic Acid 0.8 mg PO DAILY 07/02/20 Levothyroxine [Synthroid] 50 mcg PO DAILY 07/02/20 Multivitamin 1 ea PO DAILY 07/02/20 [place]-3 Fatty Acids [Fish Oil] 1,000 mg PO BID 07/02/20 Vit A/Vit C/Vit E/Zinc/Copper [Preservision Areds Tablet] 1 ea PO BID 07/02/20 Rivaroxaban [Xarelto] 15 mg PO BIDCM #40 tab 07/03/20 The following prescriptions were given: Rivaroxaban [Xarelto] 15 mg PO BIDCM #40 tab Transmission Status: Pending to [facility]/pharmacy #[id number] Primary Care Physician: Dany Flanagan Chi, MD [Primary Care Provider] - Please follow up with your Primary Care Physician in: 1 Week Test Results: Test results from this visit will be discussed in further detail at your follow-up appointment, if applicable. Please Follow Up With: Ingrid Hu MD When: 4 weeks, hematology Proposed Discharge Date: 07/03/20
[2020-07-03 12:12] LABS: Pathologist Review Reviewed
--- NOTE | 2020-07-03 12:16 | PHA.DC.MR ---
Pharmacy Service has performed discharge medication reconciliation for this patient. The patient's discharge medication list was reviewed for discrepancies and discrepancies were resolved. Home Medications sertraline 25 mg tablet 25 mg PO DAILY 09/27/17 Cholecalciferol (Vitamin D3) [Vitamin D3] 2,000 unit PO BID 07/02/20 Ciclopirox Olamine [Ciclopirox] 1 applic TP DAILY 07/02/20 Cyanocobalamin [Vitamin B12] 500 mcg PO DAILY 07/02/20 Donepezil HCl 5 mg PO DAILY 07/02/20 Fluticasone 0.05% [Flonase Nasal [place]] 2 spray NASAL DAILY PRN PRN 07/02/20 Folic Acid 0.8 mg PO DAILY 07/02/20 Levothyroxine [Synthroid] 50 mcg PO DAILY 07/02/20 Multivitamin 1 ea PO DAILY 07/02/20 [place]-3 Fatty Acids [Fish Oil] 1,000 mg PO BID 07/02/20 Vit A/Vit C/Vit E/Zinc/Copper [Preservision Areds Tablet] 1 ea PO BID 07/02/20 Rivaroxaban [Xarelto] 15 mg PO BIDCM #40 tab 07/03/20
--- NOTE | 2020-07-03 13:33 | PCM.DC.SUM ---
<WillMag EMERGENCY REGISTRAR - Last Filed: 07/03/20 13:41> Discharge Date and Diagnosis Date of Admission: 07/02/20 Date of Discharge: 07/03/20 - Primary Discharge Diagnosis Acute Problems: Active Problems (Last Reviewed 04/26/18 @ 16:17 by Trish Cronin) 1. Acute bilateral PE 2. Transient episode of atrial flutter 3. History of non-Hodgkin's lymphoma with history of pituitary tumor status post resection 4. Mild cognitive impairment 5. Hypothyroidism - Secondary Discharge Diagnosis Chronic Problems: Chronic Problems (Last Reviewed 04/26/18 @ 16:17 by Trish Cronin) Hypothyroidism (acquired) (Chronic) TSH 0.68 Dose appropriate. No adjustment. Pituitary dysfunction (Chronic) Currently on thyroid replacement and testosterone replacement. labs rechecked. Prolactin level 16.2 which has decreased. Labs in 03/2017 notes testosterone level 180, currently 272.95. Hyperlipidemia with target LDL less than 100 (Chronic) On statin. No muscle aches or joint pain. Taking as directed. Managed by PCP. No labs in my chart for review Hospital Course and Treatment Imaging Results: Diagnostic Data Chest CTA 07/02/20 12:04 IMPRESSION: Extensive bilateral pulmonary emboli involving branches of both the right and left pulmonary arteries in both upper and lower lobes. Electronically Signed: Steven Bruce, at 13:26 EDT , Service support , Operations: None Procedures: 2-D Echocardiogram Summary of Care Provided: The patient is a 74 year old M admitted 07/02/2020 due to shortness of breath. 1. Acute bilateral PE-CTA at admission demonstrates extensive bilateral PE involving the branches of both the right and left pulmonary arteries in both upper and lower lobes. Patient has history of DVT and was taken off of Xarelto approximately 1 month ago. reports additional episode of DVT in patient's past as well. Patient restarted on Xarelto 15 mg twice daily for 21 days and will then transition to Xarelto 20 mg daily. Anticipate patient will need to be on anticoagulation indefinitely. Referred to hematology as outpatient for further evaluation. Echocardiogram demonstrates an EF of 65%, no evidence of diastolic dysfunction, pulmonary artery systolic pressure 50 mmHg, mild aortic valve insufficiency, mild pulmonic valve insufficiency. Follow-up with primary care provider in 1 week. 2. Transient episode of atrial flutter-no further episodes during admission. On Xarelto as noted above. Echocardiogram as noted above. Troponin negative. 3. History of non-Hodgkin's lymphoma with history of pituitary tumor status post resection-in remission for approximately 5 years. Continue outpatient follow-up. 4. Mild cognitive impairment-on donepezil. 5. Hypothyroidism-continue Synthroid regimen. Patient seen and examined prior to discharge. Physical assessment as noted below. Patient is stable for discharge with follow up recommendations as noted above. This patient was seen by SANDRA Uriarte under the supervision of Dr. Maurice. - Physical Exam Vitals/I&O's: Vital Signs Temp Pulse Resp BP Pulse Ox 98.2 F 77 20 H 143/78 H 95 07/03/20 07:47 07/03/20 07:49 07/03/20 07:47 07/03/20 07:47 07/03/20 07:47 Oxygen Flow Rate (L/min) 2 Oxygen Delivery Method Nasal Cannula Weight: 213 lb 8 oz Body Mass Index (BMI) 29.7 Intake and Output for Last 24 Hours 07/01/20 07/02/20 07/03/20 23:59 23:59 23:59 Intake Total 650 / 650 100 / 100 Output Total 200 / 200 Balance 650 / 650 -100 / -100 General: Alert, Oriented x3, Cooperative HEENT: Atraumatic, PERRLA, EOMI, Normocephalic Neck: Supple, No JVD, Negative Carotid Bruits Lungs: Clear to auscultation, Normal air movement Cardiovascular: Regular rate, No murmurs Abdomen: Bowel Sounds Present, Soft, Non Tender, Non-Distended Extremities: No clubbing, No cyanosis, No edema, Capillary Refill Less than 3 Seconds Skin: No rashes, No breakdown Musculoskeletal: No Tenderness to Palpation of Joints or Extremities Neurological: Cranial nerves II-XII grossly intact, Neuro grossly intact Psych/Mental Status: Normal Affect, Appropriate Laboratory Results 07/02/20 12:10: Diff Path Review Reviewed Current Medications Acetaminophen (Tylenol) 650 mg PO Q6H PRN PRN PRN Reason: Pain Score 1-10/Temp > 100.7 F Rivaroxaban (Xarelto) 15 mg PO BIDCM DANIEL Last Admin: 07/03/20 09:13 Dose: 15 mg Documented by: Sodium Chloride () 10 - 40 ml IV UD PRN PRN Reason: SALINE FLUSH Discharge Diet: No Restrictions Discharge Activity: Return to Normal Activity Call your doctor if you observe: Shortness of breath, Dizziness, Fainting spells, Chest pain Home Medications: Medications to take at Discharge sertraline 25 mg tablet 25 mg PO DAILY 09/27/17 Cholecalciferol (Vitamin D3) [Vitamin D3] 2,000 unit PO BID 07/02/20 Ciclopirox Olamine [Ciclopirox] 1 applic TP DAILY 07/02/20 Cyanocobalamin [Vitamin B12] 500 mcg PO DAILY 07/02/20 Donepezil HCl 5 mg PO DAILY 07/02/20 Fluticasone 0.05% [Flonase Nasal [place]] 2 spray NASAL DAILY PRN PRN 07/02/20 Folic Acid 0.8 mg PO DAILY 07/02/20 Levothyroxine [Synthroid] 50 mcg PO DAILY 07/02/20 Multivitamin 1 ea PO DAILY 07/02/20 [place]-3 Fatty Acids [Fish Oil] 1,000 mg PO BID 07/02/20 Vit A/Vit C/Vit E/Zinc/Copper [Preservision Areds Tablet] 1 ea PO BID 07/02/20 Rivaroxaban [Xarelto] 15 mg PO BIDCM #40 tab 07/03/20 Following Prescriptions Were Given to Patient: Rivaroxaban [Xarelto] 15 mg PO BIDCM #40 tab Transmission Status: Received by [facility]/pharmacy #[id number] Primary Care Physician: Dany Flanagan Chi, MD [Primary Care Provider] - Please follow up with your Primary Care Physician in: 1 Week Please Follow Up With: Ingrid Hu MD When: 4 weeks, hematology Disposition: Home Minutes spent on discharge:: 35 Patient Condition:: Stable Medical Necessity - Tobacco Use Smoking Status: Former smoker Tobacco Use: Non-smoker Meaningful Use Info Meaningful Use Diagnoses (Choose all that apply): VTE - VTE Anticoag overlap given w/in hospital stay or rx'd at dc?: Yes Pt receive overlap for 5 days?: Yes <Tj Maurice - Last Filed: 07/03/20 14:58> Discharge Date and Diagnosis - Secondary Discharge Diagnosis Chronic Problems: Chronic Problems (Last Reviewed 04/26/18 @ 16:17 by Trish Cronin) Hypothyroidism (acquired) (Chronic) TSH 0.68 Dose appropriate. No adjustment. Pituitary dysfunction (Chronic) Currently on thyroid replacement and testosterone replacement. labs rechecked. Prolactin level 16.2 which has decreased. Labs in 03/2017 notes testosterone level 180, currently 272.95. Hyperlipidemia with target LDL less than 100 (Chronic) On statin. No muscle aches or joint pain. Taking as directed. Managed by PCP. No labs in my chart for review Hospital Course and Treatment Summary of Care Provided: This patient was seen in conjunction with Mag JENSEN. I have independently interviewed and examined the patient and reviewed pertinent history, examination findings, laboratory and plan of management. I have reviewed the note and agree with the documented findings with the few additional points. In brief, patient is admitted for Right-sided chest pain and shortness of breath secondary to acute multiple bilateral PE. Patient was on Xarelto and he did overall good therefore was put on therapeutic pulmonary embolism dose of Xarelto 15 mg twice daily. 2D echo was done. Shows normal RV size and systolic function. EF 65%. RVSP 50 with mild TR suggestive of moderate pulmonary hypertension. Troponin normal. Patient also has transient episode of atrial flutter in ER but it has resolved after 10 mg of IV Cardizem given in ED. Patient follows [facility] oncologist with history of non-Hodgkin's lymphoma and is in remission for last 5 years. There are multiple comorbidities as mentioned Discharge medication reconciliation done. Discharge follow-up instructions completed. Discharge process discussed with the patient and all questions were answered to patient's satisfaction. Total time spent, exact 35 minutes on discharge meds reconciliation, examination, coordination of care with nurses and ancillary staff, review of imaging and blood test and discussion with the patient on follow-up instructions I have discussed my assessment with Mag JENSEN and orders have been reviewed. Objective: Seen and examined. Patient shortness of breath chest pain has improved. Patient felt mild short of breath but that improved by noon. He has history of DVT and completed 4 months of Xarelto and was discontinued a month prior to this episode of PE. Patient also has history of non-Hodgkin's lymphoma for which he has gamma knife radiosurgery in [facility]. Physical exam General: Alert, Oriented x3, Cooperative HEENT: Atraumatic, PERRLA, EOMI, Normocephalic Oral: No Gingival or Mucosal Lesions/ Ulcerations Neck: Supple, No JVD, Negative Carotid Bruits Lungs: Air entry diminished in bilateral lung bases. No crepitation/rhonchi. No hypoxia. Cardiovascular: Regular rate, Regular Rhythm, Normal S1, Normal S2, No murmurs Abdomen: Bowel Sounds Present, Soft, Non Tender, Non-Distended : No renal angle tenderness. No suprapubic tenderness. Extremities: No edema, Capillary Refill Less than 3 Seconds Skin: No rashes, No breakdown Musculoskeletal: No Tenderness to Palpation of Joints or Extremities Neurological: Cranial nerves II-XII grossly intact, Deep Tendon Reflexes 2+/4 and Symmetrical, Neuro grossly intact Psych/Mental Status: Normal Affect, Appropriate. - Physical Exam Vitals/I&O's: Vital Signs Temp Pulse Resp BP Pulse Ox 98.2 F 76 20 H 143/78 H 90 07/03/20 07:47 07/03/20 12:14 07/03/20 07:47 07/03/20 07:47 07/03/20 11:58 Oxygen Flow Rate (L/min) 2 Oxygen Delivery Method Nasal Cannula Weight: 213 lb 8 oz Body Mass Index (BMI) 29.7 Intake and Output for Last 24 Hours 07/01/20 07/02/20 07/03/20 23:59 23:59 23:59 Intake Total 650 / 650 340 / 340 Output Total 200 / 200 Balance 650 / 650 140 / 140 Laboratory Results 07/02/20 12:10: Diff Path Review Reviewed OBSV E&M: [id number] Observation care discharge
== END 2020-07-03 11:56 | disposition home or self-care (01) ==
LOC: ED 13:09 → PCU 14:20
PROVIDERS: Admitting Provider Internal Medicine; Emergency Provider Emergency Medicine; PCP Family Medicine Geriatric Medicine; Visit Provider Internal Medicine
DX: I26.99 Other pulmonary embolism without acute cor pulmonale (principal); I48.92 Unspecified atrial flutter; E03.9 Hypothyroidism, unspecified; G31.84 Mild cognitive impairment of uncertain or unknown etiology; I08.2 Rheumatic disorders of both aortic and tricuspid valves; E78.5 Hyperlipidemia, unspecified; Z79.899 Other long term (current) drug therapy; Z85.72 Personal history of non-Hodgkin lymphomas; Z92.3 Personal history of irradiation; Z86.718 Personal history of other venous thrombosis and embolism; Z87.891 Personal history of nicotine dependence; I47.1 Supraventricular tachycardia
CPT/HCPCS: 71275; 80053; 84484; 85025; 85610; 85730; 93005; 93306; 96360; 97802; 99218; 99285; J7030; Q9957; Q9967; G0378

== ENCOUNTER → 2020-07-10 11:35 | Outpatient (CLI) | payer MEDICARE, BC, SELFPAY ==
[2020-07-02 14:06] VITALS: BMI 29.7
--- NOTE | 2020-07-10 11:50 | RAD_ITS ---
STUDY: X-RAY - LEFT KNEE REASON FOR EXAM: Male, 74 years old. Chronic knee pain TECHNIQUE: 4 view(s) of the knee. COMPARISON: None. FINDINGS: Normal visualized distal femur. Normal visualized proximal tibia and fibula. Normal proximal tibiofibular articulation. Normal medial femorotibial compartment. There is severe degenerative arthrosis of the lateral femorotibial compartment with severe joint space narrowing. There is mild degenerative arthrosis of the patellofemoral articulation. Small joint effusion. RAD/Knee 4 or More Views IMPRESSION: Degenerative arthrosis. Small joint effusion. Electronically Signed: Steven Bruce, at 13:48 EDT , Service support ,
== END ==
PROVIDERS: PCP Family Medicine Geriatric Medicine; Referring Provider Family Medicine Geriatric Medicine; Visit Provider Family Medicine Geriatric Medicine
DX: M25.562 Pain in left knee (principal)
CPT/HCPCS: 73564

== ENCOUNTER → 2020-10-28 11:02 | Outpatient (CLI) | payer MEDICARE, BC, SELFPAY ==
[2020-07-02 14:06] VITALS: BMI 29.7
[2020-10-28 12:45] LABS: Absolute Lymphocyte Count 3.28 X10^3/uL (0.83-4.51); Basophil# 0.03 X10^3/uL; Basophil% 0.3 % (0-1); Eosinophil# 0.13 X10^3/uL; Eosinophils% 1.2 % (0-5); Hematocrit 46.7 % (40-54); Hemoglobin 15.1 g/dL (13.0-16.5); Lymphocyte # 3.28 X10^3/ul (4.0); Lymphocyte % 31.5 % (19-41); Mean Corp Hgb Conc 32.3 g/dL (32-36); Mean Corpuscular Hgb 33.4 pg (27.0-32.0); Mean Corpuscular Volume 103.3 fL (80-94); Mean Platelet Vol. 10.1 fl (6.2-12.0); Monocyte% 17.3 % (0-10); NRBC Flagged by Analyzer 0.6 % (0-5); Neutrophil # 5.01 X10^3/uL (2.7-7.7); Neutrophil % 48.2 % (47-70); POSITIVE DIFFERENTIAL YES; POSITIVE MORPHOLOGY YES; Platelet Count 473 K/mm3 (150-450); RBC Distribution Width CV 17.9 % (11.6-14.6); RBC Distribution Width SD 68.3 fl (35.1-43.9); Red Blood Count 4.52 M/mm3 (4.6-6.2); White Blood Count 10.4 K/mm3 (4.4-11.0)
[2020-10-28 12:59] LABS: Differential Indicated SCAN CRITERIA MET
[2020-10-28 13:22] LABS: ALB/GLOB Ratio 0.9 RATIO (0.9-2.4); AST(SGOT) 33 U/L (15-37); Alanine Aminotransfer ALT/SGPT 47 U/L (16-61); Albumin, Serum 3.8 g/dL (3.2-5.0); Alkaline Phosphatase 64 U/L (45-117); Anion Gap 6 (5-15); BUN 18 mg/dL (7-18); BUN/Creat Ratio 14.9 RATIO (10-20); Calcium,Total 9.1 mg/dL (8.5-10.1); Chloride 106 mmol/L (98-107); Creatinine, Serum 1.21 mg/dL (0.70-1.30); EST Glomerular Filtration Rate 62 mL/min (>60); Est Glom Filt Rate - Afr Amer 75 mL/min (>60); Globulin 4.1 g/dL (2.2-4.2); Glucose 84 mg/dL (74-106); Potassium 5.2 mmol/L (3.5-5.1); Protein, Total 7.9 g/dL (6.4-8.2); Sodium Level 140 mmol/L (136-145); Thyroid Stim Hormone (TSH) 1.24 uIU/mL (0.358-3.74)
[2020-10-28 14:33] LABS: Anisocytosis 1+; Platelet Estimate ADEQUATE (ADEQ); Red Cell Morphology N CHROM NORMAL (NORM C&C)
== END ==
PROVIDERS: PCP Family Medicine Geriatric Medicine; Visit Provider Family Medicine Geriatric Medicine
DX: E23.6 Other disorders of pituitary gland (principal); E55.9 Vitamin D deficiency, unspecified; R53.83 Other fatigue
CPT/HCPCS: 36415; 80053; 82306; 84403; 84443; 85025

== ENCOUNTER → 2020-12-09 11:03 | Outpatient (CLI) | payer MEDICARE, BC, SELFPAY ==
[2020-07-02 14:06] VITALS: BMI 29.7
[2020-12-09 12:20] LABS: Anion Gap 4 (5-15); BUN 14 mg/dL (7-18); BUN/Creat Ratio 12.5 RATIO (10-20); Calcium,Total 8.7 mg/dL (8.5-10.1); Chloride 106 mmol/L (98-107); Creatinine, Serum 1.12 mg/dL (0.70-1.30); EST Glomerular Filtration Rate 68 mL/min (>60); Est Glom Filt Rate - Afr Amer 82 mL/min (>60); Glucose 85 mg/dL (74-106); Potassium 4.1 mmol/L (3.5-5.1); Sodium Level 140 mmol/L (136-145)
== END ==
PROVIDERS: PCP Family Medicine Geriatric Medicine; Referring Provider Family Medicine Geriatric Medicine; Visit Provider Family Medicine Geriatric Medicine
DX: E87.6 Hypokalemia (principal)
CPT/HCPCS: 36415; 80048

== ENCOUNTER → 2021-01-05 14:01 | Outpatient (CLI) | payer MEDICARE, BC, SELFPAY ==
[2020-07-02 14:06] VITALS: BMI 29.7
[2021-01-05 17:05] LABS: Absolute Lymphocyte Count 2.99 X10^3/uL (0.83-4.51); Absolute Neutrophil Count 5.2 X10^3/uL (2.0-7.7); Basophil# 0.03 X10^3/uL; Basophil% 0.3 % (0-1); Eosinophil# 0.11 X10^3/uL; Eosinophils% 1.1 % (0-5); Hematocrit 50.6 % (40-54); Hemoglobin 15.8 g/dL (13.0-16.5); Lymphocyte # 2.99 X10^3/ul (4.0); Lymphocyte % 30.8 % (19-41); Mean Corp Hgb Conc 31.2 g/dL (32-36); Mean Corpuscular Hgb 33.5 pg (27.0-32.0); Mean Corpuscular Volume 107.2 fL (80-94); Mean Platelet Vol. 10.3 fl (6.2-12.0); Monocyte# 1.18 X10^3/uL; Monocyte% 12.2 % (0-10); NRBC Flagged by Analyzer 0.5 % (0-5); Neutrophil # 5.21 X10^3/uL (2.7-7.7); Neutrophil % 53.6 % (47-70); POSITIVE MORPHOLOGY YES; Platelet Count 675 K/mm3 (150-450); RBC Distribution Width SD 74.6 fl (35.1-43.9); Red Blood Count 4.72 M/mm3 (4.6-6.2); White Blood Count 9.7 K/mm3 (4.4-11.0)
[2021-01-05 17:11] LABS: Differential Indicated SCAN CRITERIA MET
[2021-01-05 17:23] LABS: Anion Gap 7 (5-15); BUN 15 mg/dL (7-18); BUN/Creat Ratio 11.4 RATIO (10-20); Calcium,Total 9.4 mg/dL (8.5-10.1); Chloride 106 mmol/L (98-107); Creatinine, Serum 1.32 mg/dL (0.70-1.30); EST Glomerular Filtration Rate 56 mL/min (>60); Est Glom Filt Rate - Afr Amer 68 mL/min (>60); Glucose 91 mg/dL (74-106); Potassium 4.7 mmol/L (3.5-5.1); Sodium Level 139 mmol/L (136-145)
[2021-01-05 17:36] LABS: Anisocytosis 1+; Differential Comment SCANNED
== END ==
PROVIDERS: PCP Family Medicine Geriatric Medicine; Visit Provider Family Medicine Geriatric Medicine
DX: E86.0 Dehydration (principal)
CPT/HCPCS: 36415; 80048; 85025

== ENCOUNTER → 2021-02-04 10:55 | Outpatient (CLI) | payer MEDICARE, BC, SELFPAY ==
[2020-07-02 14:06] VITALS: BMI 29.7
[2021-02-04 11:26] LABS: Absolute Lymphocyte Count 2.91 X10^3/uL (0.83-4.51); Absolute Neutrophil Count 5.8 X10^3/uL (2.0-7.7); Basophil# 0.02 X10^3/uL; Basophil% 0.2 % (0-1); Eosinophil# 0.09 X10^3/uL; Eosinophils% 0.8 % (0-5); Hematocrit 45.6 % (40-54); Hemoglobin 14.9 g/dL (13.0-16.5); Lymphocyte # 2.91 X10^3/ul (0.83-4.51); Lymphocyte % 26.9 % (19-41); Mean Corp Hgb Conc 32.7 g/dL (32-36); Mean Corpuscular Hgb 32.5 pg (27.0-32.0); Mean Corpuscular Volume 99.6 fL (80-94); Mean Platelet Vol. 10.1 fl (6.2-12.0); Monocyte# 1.82 X10^3/uL; Monocyte% 16.9 % (0-10); NRBC Flagged by Analyzer 0.4 % (0-5); Neutrophil # 5.83 X10^3/uL (2.7-7.7); POSITIVE DIFFERENTIAL YES; POSITIVE MORPHOLOGY YES; Platelet Count 512 K/mm3 (150-450); RBC Distribution Width CV 17.9 % (11.6-14.6); RBC Distribution Width SD 65.1 fl (35.1-43.9); Red Blood Count 4.58 M/mm3 (4.6-6.2); White Blood Count 10.8 K/mm3 (4.4-11.0)
[2021-02-04 11:27] LABS: Differential Indicated SCAN CRITERIA MET
[2021-02-04 11:43] LABS: ALB/GLOB Ratio 0.9 RATIO (0.9-2.4); AST(SGOT) 28 U/L (15-37); Alanine Aminotransfer ALT/SGPT 45 U/L (16-61); Albumin, Serum 3.9 g/dL (3.2-5.0); Alkaline Phosphatase 74 U/L (45-117); Anion Gap 4 (5-15); BUN 13 mg/dL (7-18); BUN/Creat Ratio 12.6 RATIO (10-20); Calcium,Total 8.8 mg/dL (8.5-10.1); Chloride 106 mmol/L (98-107); Creatinine, Serum 1.03 mg/dL (0.70-1.30); EST Glomerular Filtration Rate 75 mL/min (>60); Est Glom Filt Rate - Afr Amer 90 mL/min (>60); Globulin 4.2 g/dL (2.2-4.2); Glucose 80 mg/dL (74-106); Potassium 4.1 mmol/L (3.5-5.1); Protein, Total 8.1 g/dL (6.4-8.2); Sodium Level 138 mmol/L (136-145)
[2021-02-04 11:52] LABS: Anisocytosis 2+; Differential Comment SCANNED; Macrocytosis 1+; Red Cell Morphology N CHROM NORMAL (NORM C&C)
== END ==
PROVIDERS: PCP Family Medicine Geriatric Medicine; Visit Provider Family Medicine Geriatric Medicine
DX: N39.0 Urinary tract infection, site not specified (principal); R45.1 Restlessness and agitation; K56.41 Fecal impaction; R41.82 Altered mental status, unspecified
CPT/HCPCS: 36415; 70450; 74019; 80053; 83605; 85025; 87086

== ENCOUNTER → 2021-02-04 13:33 | Outpatient (CLI) | payer MEDICARE, BC, SELFPAY ==
[2020-07-02 14:06] VITALS: BMI 29.7
--- NOTE | 2021-02-04 13:35 | CT_ITS ---
STUDY: CT BRAIN WITHOUT CONTRAST REASON FOR EXAM: Male, 75 years old. ALTERED MENTAL STATUS RADIATION DOSAGE (If Supplied By Facility): CTDIvol = ( 44.99 ) mGy, DLP = ( 829.85 ) mGycm TECHNIQUE: Transaxial CT imaging of the brain was performed without administration of intravenous contrast material. Individualized dose optimization techniques were used for this CT. COMPARISON: No relevant priors. FINDINGS: Normal soft tissue structures. Normal calvarium. There is disproportionate enlargement of the lateral and third ventricles, as compared to the extra-axial spaces. The findings suggest normal pressure hydrocephalus (NPH). There are areas of decreased attenuation within the white matter tracts of the supratentorial brain, consistent with microvascular disease changes. Normal basal ganglia and thalami. Normal brainstem. There is mild cerebellar atrophy. There is no intracranial hemorrhage. There are no findings of an acute ischemic infarction. Atherosclerotic calcification of the cavernous portions of the internal carotid arteries bilaterally. Normal visualized paranasal sinuses. CT/Brain/Head without Contrast IMPRESSION: Chronic involutional changes of the brain. Findings suggestive of normal pressure hydrocephalus. Electronically Signed: Steven Bruce MD at 14:23 EDT , Service support ,
--- NOTE | 2021-02-04 14:00 | RAD_ITS ---
STUDY: X-RAY - ABDOMEN/PELVIS REASON FOR EXAM: Male, 75 years old. FECAL IMPACTION TECHNIQUE: AP supine and upright views of the abdomen and pelvis. COMPARISON: None. FINDINGS: Normal visualized lung bases. There is an abundance of fecal material throughout the colon. There is no demonstrated free abdominal air. Evidence of prior bilateral inguinal hernia repair. Normal soft tissue structures. There are diffuse degenerative changes of the visualized lumbar spine. RAD/Abd Inc Decub and/or Erect IMPRESSION: Large amount of fecal material is seen in the colon. Electronically Signed: Steven Bruce MD at 15:10 EDT , Service support ,
== END ==
PROVIDERS: PCP Family Medicine Geriatric Medicine; Referring Provider Family Medicine Geriatric Medicine; Visit Provider Family Medicine Geriatric Medicine
DX: K56.41 Fecal impaction (principal); R41.82 Altered mental status, unspecified; R45.1 Restlessness and agitation
CPT/HCPCS: 70450; 74019

== ENCOUNTER → 2021-03-01 10:21 | Outpatient (CLI) | payer MEDICARE, BC, SELFPAY ==
[2020-07-02 14:06] VITALS: BMI 29.7
--- NOTE | 2021-03-01 | CYSPIN_PTH ---
PATIENT: JAE STUART LOC: [facility] U#:[id number] AGE/SX: 79/M ROOM: RE03/01/[address]: Dr. Mariann Jackson MD : 1945 BED: DIS: SPEC #: [id number] RECD: 03/01/21 13:17 STATUS: RUPALI REDelores #: [id number] VANIA: 03/01/21 00:[address]: aMriann Jackson DEPT: CYTOLOGY RECD BY: Roque Browne ENTERED: 03/01/21 13:17 SP TYPE: CYSPIN FL OTHR DR: Dr. 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 See comment. ALBAN:santos 03/02/2021 COMMENT The specimen consists of a few lymphocytes and monocytes. Clinical correlation and appropriate follow up are necessary. CYTOLOGY STUDY Slides are reviewed. CYTOLOGY GROSS Received is 3 ml of clear colorless fluid labeled with the patient's name and and designated per the requisition as CSF. Submitted for cytology preparation. / santos 03/01/2021 TC:5 CPT: 25114
[2021-03-01 10:28] VITALS: BP 133/73; PULSE 70; RESP 14; TEMP 36.7; O2SAT 97; BMI 28.5
--- NOTE | 2021-03-01 10:55 | RAD_ITS ---
PROCEDURE: Fluoroscopic guided Lumbar Puncture. DATE: 03/12/2021. CLINICAL INDICATION: Patient has a history of lymphoma. PHYSICIAN: Steven Bruce M.D. MEDICATIONS: 1% lidocaine administered subcutaneously for local anesthesia. ACCESS SITE: Lower posterior back. NEEDLE: 22-gauge spinal needle. SPECIMEN: Approximately 12.5 mL clear]CSF fluid. FLUOROSCOPY TIME (if supplied): (0:29) minutes/seconds. No images were obtained. COMPLICATIONS: None immediate. The risks, benefits, and alternatives to the procedure were explained to the patient. The specific risks of bleeding, infection, and neurovascular injury were detailed and accepted. Witnessed informed consent was obtained. The patient was placed on the fluoroscopic table in the prone position. The level for needle entry was determined and marked. The overlying skin was cleaned and prepped in the usual sterile fashion. 2% lidocaine was administered subcutaneously for local anesthesia. Under fluoroscopic guidance a 22-gauge spinal needle was advanced. The thecal sac was entered at the L3- L4 vertebral level. The inner stylet was removed. There was spontaneous flow of clear CSF fluid. The patient was placed in a reversed Trendelenburg position. Approximately 12.5 mL of cerebrospinal fluid was collected using gravity. The specimen was collected and submitted to the laboratory for further evaluation. The needle was withdrawn,. Hemostasis was achieved and a sterile dressing placed. The patient tolerated the procedure well without any immediate complications. The patient was placed supine with head elevated and returned to the floor in stable condition. RAD/Fluoro Guided Lumbar Puncture IMPRESSION: Successful fluoroscopic-guided lumbar puncture. Electronically Signed: Steven Bruce MD at 11:53 EDT , Service support ,
[2021-03-01 11:35] VITALS: BP 142/83; PULSE 66; RESP 14; O2SAT 95
[2021-03-01 11:52] LABS: Cytology, Body Fluid / CSF SEE PATHOLOGY REPORT
[2021-03-01 12:05] VITALS: BP 130/87; PULSE 64; RESP 16; O2SAT 96
[2021-03-01 12:16] LABS: Glucose Spinal Fluid 61 mg/dL (40-75)
[2021-03-01 12:33] LABS: Appearance CSF (character) CLEAR (Clear); CSF Color COLORLESS (Colorless); Tested Tube # 3
[2021-03-01 12:38] LABS: RBC Count, Spinal Fluid 0 /mm-3 (None seen); White Count, CSF 0 /mm-3 (0 - 5)
[2021-03-01 12:56] LABS: Lymphocytes,CSF 100 % (40 - 80)
[2021-03-01 12:57] LABS: Body Fluid QC Type(s) BF1Q
[2021-03-02 14:24] LABS: Pathologist Review Reviewed
== END ==
PROVIDERS: PCP Family Medicine Geriatric Medicine; Referring Provider Neurological Surgery; Visit Provider Neurological Surgery
DX: C85.89 Other specified types of non-Hodgkin lymphoma, extranodal and solid organ sites (principal); G91.2 (Idiopathic) normal pressure hydrocephalus
CPT/HCPCS: 62270; 77003; 82945; 84157; 87070; 87205; 88108; 88313; 89050; 89051

== ENCOUNTER → 2021-03-16 16:50 | Outpatient (CLI) | payer MEDICARE, BC, SELFPAY ==
[2021-03-01 10:28] VITALS: BMI 28.5
[2021-03-16 17:13] LABS: Absolute Lymphocyte Count 3.42 X10^3/uL (0.83-4.51); Absolute Neutrophil Count 6.8 X10^3/uL (2.0-7.7); Basophil# 0.04 X10^3/uL; Basophil% 0.3 % (0-1); Eosinophil# 0.09 X10^3/uL; Eosinophils% 0.7 % (0-5); Hematocrit 46.1 % (40-54); Hemoglobin 15.3 g/dL (13.0-16.5); Lymphocyte # 3.42 X10^3/ul (0.83-4.51); Lymphocyte % 26.7 % (19-41); Mean Corp Hgb Conc 33.2 g/dL (32-36); Mean Corpuscular Volume 99.6 fL (80-94); Mean Platelet Vol. 9.9 fl (6.2-12.0); Monocyte# 2.27 X10^3/uL; Monocyte% 17.7 % (0-10); NRBC Flagged by Analyzer 0.3 % (0-5); Neutrophil # 6.83 X10^3/uL (2.7-7.7); Neutrophil % 53.2 % (47-70); POSITIVE DIFFERENTIAL YES; Platelet Count 592 K/mm3 (150-450); RBC Distribution Width CV 17.6 % (11.6-14.6); RBC Distribution Width SD 63.7 fl (35.1-43.9); Red Blood Count 4.63 M/mm3 (4.6-6.2); White Blood Count 12.8 K/mm3 (4.4-11.0)
[2021-03-16 17:14] LABS: Differential Indicated SCAN CRITERIA MET
[2021-03-16 17:22] LABS: International Normalized Ratio 1.2; Prothrombin Time (Protime)PT. 14.6 SECONDS (11.7-14.9)
[2021-03-16 17:58] LABS: Anion Gap 7 (5-15); BUN 15 mg/dL (7-18); BUN/Creat Ratio 13.5 RATIO (10-20); Calcium,Total 8.7 mg/dL (8.5-10.1); Chloride 104 mmol/L (98-107); Creatinine, Serum 1.11 mg/dL (0.70-1.30); EST Glomerular Filtration Rate 68 mL/min (>60); Est Glom Filt Rate - Afr Amer 83 mL/min (>60); Glucose 90 mg/dL (74-106); Potassium 4.1 mmol/L (3.5-5.1); Sodium Level 141 mmol/L (136-145)
[2021-03-17 13:28] LABS: Pathologist Review Reviewed
== END ==
PROVIDERS: PCP Family Medicine Geriatric Medicine; Visit Provider Family Medicine Geriatric Medicine
DX: Z01.818 Encounter for other preprocedural examination (principal)
CPT/HCPCS: 36415; 80048; 85025; 85610

== ENCOUNTER → 2021-05-25 08:58 | Outpatient (CLI) | payer MEDICARE, BC, SELFPAY ==
[2021-03-01 10:28] VITALS: BMI 28.5
[2021-05-25 12:36] LABS: Absolute Lymphocyte Count 3.14 X10^3/uL (0.83-4.51); Absolute Neutrophil Count 6.7 X10^3/uL (2.0-7.7); Basophil# 0.04 X10^3/uL; Basophil% 0.3 % (0-1); Eosinophil# 0.11 X10^3/uL; Eosinophils% 0.9 % (0-5); Hematocrit 45.6 % (40-54); Hemoglobin 14.2 g/dL (13.0-16.5); Lymphocyte # 3.14 X10^3/ul (0.83-4.51); Lymphocyte % 26.5 % (19-41); Mean Corp Hgb Conc 31.1 g/dL (32-36); Mean Corpuscular Hgb 31.8 pg (27.0-32.0); Mean Platelet Vol. 10.1 fl (6.2-12.0); Monocyte# 1.62 X10^3/uL; Monocyte% 13.7 % (0-10); NRBC Flagged by Analyzer 0.8 % (0-5); Neutrophil % 56.7 % (47-70); POSITIVE DIFFERENTIAL YES; POSITIVE MORPHOLOGY YES; Platelet Count 448 K/mm3 (150-450); RBC Distribution Width CV 20.9 % (11.6-14.6); RBC Distribution Width SD 76.3 fl (35.1-43.9); Red Blood Count 4.47 M/mm3 (4.6-6.2); White Blood Count 11.8 K/mm3 (4.4-11.0)
[2021-05-25 12:38] LABS: Differential Indicated SCAN CRITERIA MET
[2021-05-25 12:55] LABS: Vitamin D,25 Hydroxy 36.4 ng/mL
[2021-05-25 13:03] LABS: ALB/GLOB Ratio 0.8 RATIO (0.9-2.4); AST(SGOT) 27 U/L (15-37); Alanine Aminotransfer ALT/SGPT 36 U/L (16-61); Albumin, Serum 3.5 g/dL (3.2-5.0); Alkaline Phosphatase 73 U/L (45-117); Anion Gap 6 (5-15); BUN 14 mg/dL (7-18); BUN/Creat Ratio 14.6 RATIO (10-20); Calcium,Total 8.7 mg/dL (8.5-10.1); Chloride 107 mmol/L (98-107); Creatinine, Serum 0.96 mg/dL (0.70-1.30); EST Glomerular Filtration Rate 81 mL/min (>60); Est Glom Filt Rate - Afr Amer 98 mL/min (>60); Globulin 4.2 g/dL (2.2-4.2); Glucose 79 mg/dL (74-106); Potassium 4.1 mmol/L (3.5-5.1); Protein, Total 7.7 g/dL (6.4-8.2); Sodium Level 140 mmol/L (136-145); Thyroid Stim Hormone (TSH) 0.89 uIU/mL (0.358-3.74)
[2021-05-25 13:22] LABS: Anisocytosis 1+; Reactive Lymphocyte 1+
[2021-05-26 12:35] LABS: Pathologist Review Reviewed
== END ==
PROVIDERS: PCP Family Medicine Geriatric Medicine; Visit Provider Family Medicine Geriatric Medicine
DX: E23.6 Other disorders of pituitary gland (principal); E55.9 Vitamin D deficiency, unspecified; R53.83 Other fatigue
CPT/HCPCS: 36415; 80053; 82306; 84403; 84443; 85025

== ENCOUNTER → 2021-07-28 14:15 | Outpatient (CLI) | payer MEDICARE, BC, SELFPAY ==
[2021-07-28 15:46] LABS: Absolute Lymphocyte Count 2.08 X10^3/uL (0.83-4.51); Absolute Neutrophil Count 5.3 X10^3/uL (2.0-7.7); Basophil# 0.03 X10^3/uL; Basophil% 0.4 % (0-1); Color, Urine Yellow (Yellow); Eosinophil# 0.03 X10^3/uL; Eosinophils% 0.4 % (0-5); Glucose, Dipstick Normal (Normal); Hematocrit 53.7 % (40-54); Hemoglobin 16.9 g/dL (13.0-16.5); Ketone-Dipstick Negative (Negative); Leukocyte Esterase-Dipstick Negative /ul (Negative); Lymphocyte # 2.08 X10^3/ul (0.83-4.51); Lymphocyte % 24.8 % (19-41); Mean Corp Hgb Conc 31.5 g/dL (32-36); Mean Corpuscular Hgb 30.8 pg (27.0-32.0); Mean Platelet Vol. 9.7 fl (6.2-12.0); Monocyte# 0.79 X10^3/uL; Monocyte% 9.4 % (0-10); NRBC Flagged by Analyzer 0 % (0-5); Neutrophil # 5.32 X10^3/uL (2.7-7.7); Neutrophil % 63.3 % (47-70); Nitrite-Dipstick Negative (Negative); Occult Blood-Urine Negative /ul (Negative); POSITIVE MORPHOLOGY YES; Platelet Count 487 K/mm3 (150-450); Protein-Dipstick 15 mg/dl (Negative); RBC Distribution Width CV 18.7 % (11.6-14.6); RBC Distribution Width SD 66.7 fl (35.1-43.9); Red Blood Count 5.48 M/mm3 (4.6-6.2); Urine Bilirubin Dipstick Negative (Negative); Urine Clarity Clear (Clear); Urine Urobilinogen Normal (Normal); White Blood Count 8.4 K/mm3 (4.4-11.0)
[2021-07-28 15:55] LABS: Differential Indicated SCAN CRITERIA MET
[2021-07-28 16:14] LABS: ALB/GLOB Ratio 0.9 RATIO (0.9-2.4); AST(SGOT) 23 U/L (15-37); Alanine Aminotransfer ALT/SGPT 32 U/L (16-61); Albumin, Serum 3.7 g/dL (3.2-5.0); Alkaline Phosphatase 69 U/L (45-117); Anion Gap 7 (5-15); BUN 12 mg/dL (7-18); BUN/Creat Ratio 11.1 RATIO (10-20); Calcium,Total 8.7 mg/dL (8.5-10.1); Chloride 106 mmol/L (98-107); Creatinine, Serum 1.08 mg/dL (0.70-1.30); EST Glomerular Filtration Rate 71 mL/min (>60); Est Glom Filt Rate - Afr Amer 85 mL/min (>60); Globulin 4.3 g/dL (2.2-4.2); Glucose 121 mg/dL (74-106); Potassium 3.4 mmol/L (3.5-5.1); Sodium Level 140 mmol/L (136-145)
[2021-07-28 16:39] LABS: Erythrocyte Sedimentation Rate 12 mm/hr (0-20)
[2021-07-28 17:03] LABS: Anisocytosis 1+; Platelet Estimate ADEQUATE (ADEQ); Red Cell Morphology N CHROM NORMAL (NORM C&C)
== END ==
PROVIDERS: PCP Internal Medicine; Referring Provider Internal Medicine; Visit Provider Internal Medicine
DX: R44.1 Visual hallucinations (principal)
CPT/HCPCS: 36415; 80053; 81002; 85025; 85652; 87040

== ENCOUNTER 2021-07-31 13:07 | Inpatient (IN) | payer MEDICARE, BC, SELFPAY ==
[2021-07-31] VITALS (13 sets, daily range): BP systolic 171–188; BP diastolic 81–110; PULSE 89–121; RESP 16–22; TEMP 36.5–37.4; O2SAT 92–99; BMI 28.9; BMI 27.8
--- NOTE | 2021-07-31 13:10 | CT_ITS ---
We are attempting to reach an attending provider to discuss findings. An addendum with communication details will be sent when the communication is complete. STUDY: CT HEAD STROKE PROTOCOL W/O CONTRAST INJECTION REASON FOR EXAM: Male, 75 years old. Neuro deficit, acute, stroke suspected TECHNIQUE: Transaxial CT imaging of the brain was performed without administration of intravenous contrast material. Individualized dose optimization techniques were used for this CT. COMPARISON: No relevant priors. FINDINGS: Normal soft tissue structures. There is a ventricular shunt catheter via right posterior parietal approach which enters into the right occipital horn and traverses to the mid left lateral ventricle. Ventricular size is mildly prominent but consistent with degree of brain volume loss. There is moderate cerebral atrophy with widening of the extra-axial spaces and ventricular dilatation. There are areas of decreased attenuation within the white matter tracts of the supratentorial brain, consistent with microvascular disease changes. This appears to be moderately severe in degree and more prominent in association with the subcortical white matter of the superior aspect of the temporal lobe but this may be chronic. No significant mass effect and no gyral enlargement. Normal basal ganglia and thalami. Normal brainstem. Normal cerebellum. There is no intracranial hemorrhage. I do not see evidence of acute superimposed infarct. Prominent mucoperiosteal thickening of the left maxillary antrum noted. CT/STROKE Brain/Head without Cont IMPRESSION: Chronic involutional changes of the brain noted of a moderately severe degree. There is a ventricular shunt catheter. Ventricular size is mildly prominent but this may associate with degree of volume loss. There is prominent periventricular white matter lucency consistent with that of underlying small vessel disease, this appears to be chronic. Note that I have no comparison. Electronically Signed: Jaz Case MD at 13:39 EDT , Service support ,
--- NOTE | 2021-07-31 13:10 | EKG12_ITS ---
Test Reason : Blood Pressure : / mmHG Vent. Rate : 101 BPM Atrial Rate : 101 BPM P-R Int : 204 ms QRS Dur : 070 ms QT Int : 346 ms P-R-T Axes : 057 069 073 degrees QTc Int : 448 ms Sinus tachycardia Septal infarct , age undetermined Inferior injury pattern Consider right ventricular involvement in acute inferior infarct Abnormal ECG Confirmed by ADONAY KAUR, JUANITA ([id number]), news assignment editor SHERIN ZEPEDA ([id number]) on 08/03/2021 9:37:37 AM Referred By: AINSLEY Confirmed By:JUANITA URIAS MD
--- NOTE | 2021-07-31 13:11 | CT_ITS ---
We are attempting to reach an attending provider to discuss findings. An addendum with communication details will be sent when the communication is complete. STUDY: CTA HEAD AND NECK WITH CONTRAST REASON FOR EXAM: Male, 75 years old. Neuro deficit, acute, stroke suspected RADIATION DOSAGE (If Supplied By Facility): CTDIvol = ( 24.8 ) mGy, DLP = ( 672.62 ) mGycm TECHNIQUE: CT angiography was performed with a multi-detector CT scanner. Data acquisition was obtained from the skull base through the vertex following intravenous administration of . MIP images were reconstructed from the axial data set. Post-processing of the angiographic images was performed, with multiplanar reformation and 3D reconstruction. Note that there is some venous contrast associated with visualization of the neck. Individualized dose optimization techniques were used for this CT. COMPARISON: No relevant priors. FINDINGS: Normal bilateral petrous carotid arteries. Normal right cavernous carotid artery with a normal supraclinoid bifurcation. Normal left cavernous carotid artery with a normal supraclinoid bifurcation. There is hypoplastic development of the right A1 segment of the anterior cerebral arteries with an atretic but intact artery. Normal left A1 segments of the anterior cerebral artery. Normal intact anterior communicating artery (ACOM). Normal bilateral A2 segments of the anterior cerebral arteries. Normal right M1 and M2 segments of the middle cerebral arteries, with a normal M1 bifurcation. Normal left M1 and M2 segments of the middle cerebral arteries, with a normal M1 bifurcation. Normal right posterior communicating artery (PCOM). There is non-visualization of the left posterior communicating artery (PCOM). Normal bilateral vertebral arteries. Dominant left vertebral artery. Normal basilar artery with a normal basilar bifurcation. The visualized bilateral superior cerebellar (SCA) arteries are normal. Normal bilateral P1, P2 and visualized P3 segments of the posterior cerebral arteries. There is no demonstrated aneurysm of the [place]. There is no demonstrated abnormality of the visualized brain. AORTIC ARCH: Normal visualized aortic arch. Normal origins of the brachiocephalic, left common carotid, and left subclavian arteries. RIGHT CAROTID ARTERIES: Normal right common carotid artery (CCA). Normal right common carotid bulb. There is minimal atherosclerotic plaque. No significant stenosis. Normal origin of the right internal carotid (ICA) artery without a hemodynamically significant stenosis. Normal visualized cervical portion of the right internal carotid artery. Normal origin of the right external carotid artery (ECA). LEFT CAROTID ARTERIES: Normal left common carotid artery (CCA). Normal left common carotid bulb. Normal origin of the left internal carotid (ICA) artery without a hemodynamically significant stenosis. . Normal visualized cervical portion of the left internal carotid artery. Tortuosity noted. Normal origin of the left external carotid artery (ECA). VERTEBRAL ARTERIES: Normal bilateral vertebral arteries. CT/STROKE CTA Head AND Neck W/Con IMPRESSION: Normal CTA Head and neck with contrast. No evidence of significant stenosis. No occlusion. Electronically Signed: Jaz Case MD at 13:44 EDT , Service support ,
[2021-07-31 13:26] LABS: Absolute Neutrophil Count 8.7 X10^3/uL (2.0-7.7); Basophil# 0.04 X10^3/uL; Basophil% 0.3 % (0-1); Eosinophil# 0.03 X10^3/uL; Eosinophils% 0.2 % (0-5); Hematocrit 51.8 % (40-54); Hemoglobin 17.6 g/dL (13.0-16.5); Lymphocyte % 21.1 % (19-41); Mean Corpuscular Hgb 30.9 pg (27.0-32.0); Mean Corpuscular Volume 90.9 fL (80-94); Mean Platelet Vol. 9.3 fl (6.2-12.0); Monocyte% 16.2 % (0-10); NRBC Flagged by Analyzer 0 % (0-5); Neutrophil # 8.67 X10^3/uL (2.7-7.7); Neutrophil % 61.1 % (47-70); POSITIVE DIFFERENTIAL YES; Platelet Count 544 K/mm3 (150-450); RBC Distribution Width CV 17.5 % (11.6-14.6); White Blood Count 14.2 K/mm3 (4.4-11.0)
[2021-07-31 13:28] LABS: Differential Indicated SCAN CRITERIA MET
--- NOTE | 2021-07-31 13:31 | NURSING ---
BLUE TOP NEEDS REDRAWN
[2021-07-31 13:45] LABS: Anion Gap 6 (5-15); BUN 10 mg/dL (7-18); BUN/Creat Ratio 10.2 RATIO (10-20); Chloride 102 mmol/L (98-107); Creatinine, Serum 0.98 mg/dL (0.70-1.30); EST Glomerular Filtration Rate 79 mL/min (>60); Est Glom Filt Rate - Afr Amer 95 mL/min (>60); Estimated Creatinine Clearance 70.39 ml/min; Glucose 111 mg/dL (74-106); Potassium 3.9 mmol/L (3.5-5.1); Sodium Level 136 mmol/L (136-145); Troponin-I HS 12 pg/mL (3.0-78.0)
[2021-07-31 13:56] LABS: International Normalized Ratio 1.4; Prothrombin Time (Protime)PT. 16.6 SECONDS (11.7-14.9)
[2021-07-31 14:05] LABS: Platelet Estimate MOD INC (ADEQ); Reactive Lymphocyte RARE
--- NOTE | 2021-07-31 14:22 | ED.RN ---
1410 Dr. roberts discontinued neuro checks
[2021-07-31 14:28] LABS: Bacteria 0 SEEN /hpf (None Seen); Mucous, Urine 0 SEEN /hpf (<or=2+); Squamous Epithelial Cells - UA 0 SEEN /hpf (0-5); White Blood Cells 0 SEEN /hpf (0-5)
[2021-07-31 14:29] LABS: Color, Urine Yellow (Yellow); Glucose, Dipstick Normal (Normal); Ketone-Dipstick Negative (Negative); Leukocyte Esterase-Dipstick Negative /ul (Negative); Nitrite-Dipstick Negative (Negative); Occult Blood-Urine 10 /ul (Negative); Protein-Dipstick 15 mg/dl (Negative); Urine Bilirubin Dipstick Negative (Negative); Urine Clarity Clear (Clear); Urine Urobilinogen Normal (Normal)
[2021-07-31 14:35] LABS: Red Blood Cells-Urine 0-5 SEEN /hpf (0-5)
--- NOTE | 2021-07-31 15:04 | EDS_ITS ---
HPI History of Present Illness Chief Complaint: Neuro S/Sx Informant: spouse/S.O. and EMS Onset/Context/Timing Onset: Today Context: Sudden Onset Timing: Continuous Quality and Location: Positive for Right Facial Droop Onset: Aphasia Narrative Narrative: Patient presents as a stroke alert. Patient's last known well was 8 PM last night. Patient was fine when he went to bed last night around 8 PM. When the patient woke up today, he was nonverbal. There is a right facial droop. He was not following any commands. He was not moving his arms or or legs bilaterally. states that the patient has had similar episodes in the past that have been the result of an infection or fatigue. states that the patient's temperature at home today was between 99 and 100. Patient did receive his flu vaccine yesterday. Patient is seen his neurosurgeon recently who examined his shunt and did not feel there was an infection at that time. [facility] Medical History Headache High cholesterol High triglycerides Hydrocephalus Migraine Non-Hodgkins lymphoma Thyroid disease Vision problems Home Medications sertraline 25 mg tablet 25 mg PO DAILY 09/27/17 [History Last Taken 07/02/20] cholecalciferol (vitamin D3) 1,000 unit PO BID 07/02/20 [History Last Taken 07/02/20] cyanocobalamin (vitamin B-12) 500 mcg PO DAILY 07/02/20 [History Last Taken Unknown] donepezil 5 mg PO DAILY 07/02/20 [History Last Taken 07/01/20] folic acid 0.8 mg PO DAILY 07/02/20 [History Last Taken Unknown] levothyroxine 50 mcg PO DAILY 07/02/20 [History Last Taken 07/02/20] multivitamin 1 ea PO DAILY 07/02/20 [History Last Taken 07/02/20] vitamins A,C,V-ebwp-etwaxd 1 ea PO BID 07/02/20 [History Last Taken 02/26/21] rivaroxaban 20 mg PO DAILY 07/31/21 [History Last Taken Unknown] Allergy/AdvReac Type Severity Reaction Status Date / Time No Known Allergies Allergy Verified 07/31/21 13:23 Family History Mother High cholesterol Father Skin cancer Surgical History Hx of hernia repair Social History Smoking Status: Former smoker alcohol intake: current substance use type: does not use ROS ROS ED Review of Systems ROS Unobtainable: due to mental status EXAM Physical Exam Const Vital Signs: 07/31/21 13:26 07/31/21 13:41 07/31/21 13:45 Temperature 98.8 F 98.0 F Temperature Source Temporal Temporal Pulse Rate 105 H Respiratory Rate 18 Blood Pressure 188/110 H Blood Pressure Mean 136 Pulse Ox 92 Oxygen Delivery Method Room Air Room Air 07/31/21 13:56 07/31/21 15:31 Temperature Temperature Source Pulse Rate 94 89 Respiratory Rate 18 18 Blood Pressure 174/94 H 171/81 H Blood Pressure Mean 120 111 Pulse Ox 99 95 Oxygen Delivery Method Room Air Room Air Positive well nourished and well developed General Appearance ED: well developed HEENT Reports moist mucous membranes Eyes PERRL and EOMs intact bilaterally Neck supple Resp normal respiratory effort and clear to auscultation bilaterally Cardio Rate: regular rate Rhythm: regular rhythm GI normal to inspection, nondistended, normoactive bowel sounds, soft to palpation and non-tender Extremity General Extremety ED: Negative for deformity or edema General Extremity: Negative for deformity or edema Neuro Neuro Narrative: Patient is awake and responsive to verbal stimuli. Patient is nonverbal. There is right facial weakness. There is some weakness of his right upper and lower extremities. There is also some weakness of his left upper and lower extremities but he is able to move his left upper and lower extremities. Patient does not follow commands. [place] Coma Scale: document GCS findings Spontaneous Localizes to Pain None 10 STROKE Vital Signs/Narrative: Vital Signs Temp Pulse Resp BP Pulse Ox 07/31/21 15:31 89 18 171/81 H 95 07/31/21 13:56 94 18 174/94 H 99 07/31/21 13:45 98.0 F 07/31/21 13:26 98.8 F 105 H 18 188/110 H 92 MDM MDM MDM Narrative Medical decision making narrative: Stroke alert was called prehospital. CT scan of the brain was obtained. There is a shunt noted. There is no acute change in the hydrocephalus from previous CT scan. There is no acute stroke noted. There is no acute bleed noted. This was interpreted by the radiologist and reviewed by myself. CTA of the head neck was obtained. There is no large vessel occlu jarett. There is no peripheral arterial disease noted. This was also interpreted by the radiologist and reviewed by myself. EKG was obtained. On my interpretation, it shows a normal sinus rhythm with a rate of 101. There are no acute ST or T wave changes. Portable 1 view chest x-ray was obtained. On my interpretation, lung yancey are clear. There is normal cardiac silhouette. Bony thorax is normal. There is no acute process noted. Radiologist also interpreted the x-ray and agrees. CBC shows a leukocytosis of 14.2. This was increased from previous result from yesterday. Basic metabolic profile was within normal limits. High-sensitivity troponin was normal. PT was slightly elevated at 16.6. INR is 1.4. PTT was slightly elevated at 46. Urinalysis was obtained. There is no evidence of urinary tract infection. Patient was evaluated by stroke neurologist from [facility]. Patient is not a candidate for TPA therapy due to the time window as well as being on an anticoagulant. He stated that since the CTA of the head neck was negative, he would recommend treating the patient for seizure. Patient was started on Keppra here. Case was discussed with the hospitalist. She will admit the patient to PCU. understood and was agreeable with the plan. All questions were answered. Lab Data Attestation: I reviewed the patient's lab results. Labs: Laboratory Results - last 24 hr 07/31/21 07/31/21 07/31/21 13:17 13:17 13:17 WBC 14.2 H RBC 5.70 Hgb 17.6 H Hct 51.8 MCV 90.9 D MCH 30.9 MCHC 34.0 D RDW Std Deviation 57.0 H RDW Coeff of [place] 17.5 H Plt Count 544 H MPV 9.3 Immature Gran % (Auto) 1.100 H Neut % (Auto) 61.1 Lymph % (Auto) 21.1 [place] % (Auto) 16.2 H Eos % (Auto) 0.2 Baso % (Auto) 0.3 Absolute Neuts (auto) 8.7 H Absolute Lymphs (auto) 3.00 Nucleated RBC % 0 Diff Path Review May foll Reactive Lymphocytes RARE Platelet Estimate MOD INC PT Cancelled INR Cancelled APTT Cancelled Sodium 136 Potassium 3.9 Chloride 102 Carbon Dioxide 28.0 Anion Gap 6 BUN 10 Creatinine 0.98 Estim Creat Clear Calc 70.39 Est GFR (MDRD) Af Amer 95 Est GFR (MDRD) Non-Af 79 BUN/Creatinine Ratio 10.2 Glucose 111 H Calcium 9.0 Troponin I High Sens 12 Urine Color Urine Clarity Urine pH Ur Specific [place] Urine Protein Urine Glucose (UA) Urine Ketones Urine Occult Blood Urine Nitrite Urine Bilirubin Urine Urobilinogen Ur Leukocyte Esterase Urine RBC Urine WBC Ur Squamous Epith Cells Urine Bacteria Urine Mucus 07/31/21 07/31/21 07/31/21 13:37 14:00 15:25 WBC RBC Hgb Hct MCV MCH MCHC RDW Std Deviation RDW Coeff of [place] Plt Count MPV Immature Gran % (Auto) Neut % (Auto) Lymph % (Auto) [place] % (Auto) Eos % (Auto) Baso % (Auto) Absolute Neuts (auto) Absolute Lymphs (auto) Nucleated RBC % Diff Path Review Reactive Lymphocytes Platelet Estimate PT 16.6 H INR 1.4 APTT 46.0 H Sodium Potassium Chloride Carbon Dioxide Anion Gap BUN Creatinine Estim Creat Clear Calc Est GFR (MDRD) Af Amer Est GFR (MDRD) Non-Af BUN/Creatinine Ratio Glucose Calcium Troponin I High Sens 10 Urine Color Yellow Urine Clarity Clear Urine pH 8.0 Ur Specific [place] 1.010 Urine Protein 15 H Urine Glucose (UA) Normal Urine Ketones Negative Urine Occult Blood 10 H Urine Nitrite Negative Urine Bilirubin Negative Urine Urobilinogen Normal Ur Leukocyte Esterase Negative Urine RBC 0-5 SEEN Urine WBC 0 SEEN Ur Squamous Epith Cells 0 SEEN Urine Bacteria 0 SEEN Urine Mucus 0 SEEN Radiography Diagnostic Testing: Clinical Impression(s) from Imaging Studies Brain CT 07/31/21 13:10 IMPRESSION: Chronic involutional changes of the brain noted of a moderately severe degree. There is a ventricular shunt catheter. Ventricular size is mildly prominent but this may associate with degree of volume loss. There is prominent periventricular white matter lucency consistent with that of underlying small vessel disease, this appears to be chronic. Note that I have no comparison. Electronically Signed: Jaz Case MD at 13:39 EDT , Service support , ADDENDUM: 07/31/21 1353 ADDENDUM: 07/31/21 1356 Head/Neck CTA 07/31/21 13:11 IMPRESSION: Normal CTA Head and neck with contrast. No evidence of significant stenosis. No occlusion. Electronically Signed: Jaz Case MD at 13:44 EDT , Service support , ADDENDUM: 07/31/21 1355 IMPRESSION: Normal CTA Head and neck with contrast. No evidence of significant stenosis. No occlusion. N.B. : The above Results were Read Back by Jaz Case MD to Andrew Pemberton DO, and understanding confirmed on 07/31/2021 13:49:03 (ET). Electronically Signed: Jaz Case MD at 13:44 EDT , Service support , Chest X-Ray 07/31/21 15:20 IMPRESSION: No radiographic evidence of acute cardiopulmonary disease. at 1550 Reported and signed by: Reinaldo Avery MD Electronically Signed: Reinaldo Avery MD at 15:49 EDT Tel , Service support , Treatment and Re-Evaluation Vital Sign Attestation:: Vital signs reviewed prior to admission. They are stable. Stroke Documentation Questions Stroke Team Activated: Yes Reviewed Inclusion/Exclusion criteria: Yes Was Patient considered for Endovascular Intervention?: No IV Alteplase (t-PA) Administered: No No contraindications for IV Alteplase (t-PA) administration.: No Discharge Plan Dx/Rx/DC Orders Clinical Impression: Altered mental status Disposition Disposition: Acute Care Hospital [facility]
--- NOTE | 2021-07-31 15:20 | RAD_ITS ---
HISTORY: Neuro deficit, acute, stroke suspected EXAMINATION/TECHNIQUE: XR Chest 1 View: 1 view COMPARISON: Chest CT 07/02/20 FINDINGS: LINES/DEVICES: Subcutaneous catheter passes from the right side of the neck over the right side of the chest and upper abdomen. LUNGS: No consolidation, edema or effusion. No pneumothorax. MEDIASTINUM AND CARDIOVASCULAR STRUCTURES: Cardiac silhouette not enlarged. Central airways and mediastinal contour are unremarkable. BONES AND SOFT TISSUES: No acute bony abnormalities. RAD/Chest 1 View IMPRESSION: No radiographic evidence of acute cardiopulmonary disease. at 1550 Reported and signed by: Reinaldo Avery MD Electronically Signed: Reinaldo Avery MD at 15:49 EDT Tel , Service support ,
[2021-07-31 15:57] LABS: Troponin-I HS 10 pg/mL (3.0-78.0)
--- NOTE | 2021-07-31 15:59 | HP.PCM.HOS_ITS ---
Documented by User: Mag Solis NP, CRIMINOLOGY PROFESSOR-C 07/31/21 16:42 HPI - General General Date of Admission: 07/31/21 HPI Narrative JAE STUART, is a 75 M who presents to the emergency room due to altered mental status. Patient unable to participate in HPI as he is lethargic and unable to follow commands. at bedside states that patient was in normal health y esterday and when he went to bed last night. She states when he woke up today he was unable to communicate, had noted right facial droop and was unable to ambulate or follow commands. states this has happened twice since his shunt was placed in April. He recently followed with neurosurgery who stated these episodes are not related to an issue with his shunt. She reports episodes typically last 2 days and then he comes out of it. She states patient has had a wet cough, she is concerned he has had difficulty swallowing. She also reports fever of 100 ?F this morning. She states he did receive his flu shot yesterday. Otherwise no recent illness. He has a past medical history of non- Hodgkin's lymphoma with history of pituitary tumor, MEDICAL PRACTICE ADMINISTRATOR shunt placement April 2021, mild cognitive impairment, hypothyroidism, history of PE. [facility] Medical History (Updated 07/31/21 @ 16:25 by Martha Mcallister) Dementia Depression DVT (deep venous thrombosis) Former smoker Headache High cholesterol High triglycerides Hydrocephalus Migraine Non-Hodgkins lymphoma Thyroid disease Vision problems Home Medications sertraline 25 mg tablet 25 mg PO DAILY 09/27/17 [History Last Taken 07/30/21] cholecalciferol (vitamin D3) 1,000 unit PO BID 07/02/20 [History Last Taken 07/30/21] cyanocobalamin (vitamin B-12) 500 mcg PO DAILY 07/02/20 [History Last Taken 07/30/21] donepezil 5 mg PO DAILY 07/02/20 [History Last Taken 07/30/21] folic acid 0.8 mg PO DAILY 07/02/20 [History Last Taken 07/30/21] levothyroxine 50 mcg PO DAILY 07/02/20 [History Last Taken 07/30/21] multivitamin 1 ea PO DAILY 07/02/20 [History Last Taken 07/30/21] vitamins A,C,M-vmhm-rjqfei 1 ea PO BID 07/02/20 [History Last Taken 07/30/21] rivaroxaban 20 mg PO DAILY 07/31/21 [History Last Taken 07/30/21] testosterone 2 pump TOPICAL DAILY 07/31/21 [History Last Taken Unknown] Allergy/AdvReac Type Severity Reaction Status Date / Time No Known Allergies Allergy Verified 07/31/21 13:23 Family History Mother High cholesterol Father Skin cancer Surgical History (Updated 07/31/21 @ 16:31 by Mag Solis NP, CRIMINOLOGY PROFESSOR-C) Hx of hernia repair S/P hernia surgery S/P MEDICAL PRACTICE ADMINISTRATOR shunt Social History Smoking Status: Former smoker alcohol intake: current substance use type: does not use ROS ROS Narrative Unable to obtain due to altered mental status. Review of Systems ROS Unobtainable: due to encephalopathy and due to mental status Vital Signs Vital Signs Vital Signs: 07/31/21 13:26 07/31/21 13:41 07/31/21 13:45 Temperature 98.8 F 98.0 F Temperature Source Temporal Temporal Pulse Rate 105 H Respiratory Rate 18 Blood Pressure 188/110 H Blood Pressure Mean 136 Pulse Ox 92 Oxygen Delivery Method Room Air Room Air 07/31/21 13:56 07/31/21 15:31 Temperature Temperature Source Pulse Rate 94 89 Respiratory Rate 18 18 Blood Pressure 174/94 H 171/81 H Blood Pressure Mean 120 111 Pulse Ox 99 95 Oxygen Delivery Method Room Air Room Air Weight Weight: 213 lb 2.992 oz Body Mass Index (BMI) 28.9 Physical Exam Const no apparent distress Constitutional Narrative: Lethargic, nonverbal, mildly restless HEENT normocephalic Mouth: dry mucous membranes Eyes PERRL, EOMs intact bilaterally and conjunctivae normal Eyes Narrative: Left gaze, unable to track Neck no lymphadenopathy Resp clear to auscultation bilaterally Auscultation: diminished lung sounds Cardio regular rate, regular rhythm and no murmurs Peripheral Pulses: pulses 2+ throughout GI normal to inspection, nondistended, normoactive bowel sounds, non-tender and non-distended Extremity normal to inspection Skin no rashes or lesions noted Lesions: no lesions Rashes: no rashes Trauma: no lacerations or abrasions Neuro CN's II-XII intact bilaterally, no focal motor deficits, no sensory deficits noted and deep tendon reflexes 2+ bilaterally Neuro Narrative: Patient unable to follow commands, left gaze Psych mental status grossly normal and affect normal Results Lab / Micro Data Result Diagrams: 07/31/21 13:17 07/31/21 13:17 Labs: Laboratory Results - last 24 hr 07/31/21 13:17: WBC 14.2 H, RBC 5.70, Hgb 17.6 H, Hct 51.8, MCV 90.9 D, MCH 30.9, MCHC 34.0 D, RDW Std Deviation 57.0 H, RDW Coeff of Driss 17.5 H, Plt Count 544 H, MPV 9.3, Immature Gran % (Auto) 1.100 H, Neut % (Auto) 61.1, Lymph % (Auto) 21.1, Corson % (Auto) 16.2 H, Eos % (Auto) 0.2, Baso % (Auto) 0.3, Absolute Neuts (auto) 8.7 H, Absolute Lymphs (auto) 3.00, Nucleated RBC % 0, Diff Path Review May foll, Reactive Lymphocytes RARE, Platelet Estimate MOD INC 07/31/21 13:17: PT Cancelled, INR Cancelled, APTT Cancelled 07/31/21 13:17: Sodium 136, Potassium 3.9, Chloride 102, Carbon Dioxide 28.0, Anion Gap 6, BUN 10, Creatinine 0.98, Estim Creat Clear Calc 70.39, Est GFR (MDRD) Af Amer 95, Est GFR (MDRD) Non-Af 79, BUN/Creatinine Ratio 10.2, Glucose 111 H, Calcium 9.0, Troponin I High Sens 12 07/31/21 13:37: PT 16.6 H, INR 1.4, APTT 46.0 H 07/31/21 14:00: Urine Color Yellow, Urine Clarity Clear, Urine pH 8.0, Ur Specific Bernard 1.010, Urine Protein 15 H, Urine Glucose (UA) Normal, Urine Ketones Negative, Urine Occult Blood 10 H, Urine Nitrite Negative, Urine Bilirubin Negative, Urine Urobilinogen Normal, Ur Leukocyte Esterase Negative, Urine RBC 0-5 SEEN, Urine WBC 0 SEEN, Ur Squamous Epith Cells 0 SEEN, Urine Bacteria 0 SEEN, Urine Mucus 0 SEEN 07/31/21 15:25: Troponin I High Sens [address] 07/31/21 13:10 IMPRESSION: Chronic involutional changes of the brain noted of a moderately severe degree. There is a ventricular shunt catheter. Ventricular size is mildly prominent but this may associate with degree of volume loss. There is prominent periventricular white matter lucency consistent with that of underlying small vessel disease, this appears to be chronic. Note that I have no comparison. Electronically Signed: Jaz Case MD at 13:39 EDT , Service support , ADDENDUM: 07/31/21 1353 ADDENDUM: 07/31/21 1356 Head/Neck CTA 07/31/21 13:11 IMPRESSION: Normal CTA Head and neck with contrast. No evidence of significant stenosis. No occlusion. Electronically Signed: Jaz Case MD at 13:44 EDT , Service support , ADDENDUM: 07/31/21 1355 IMPRESSION: Normal CTA Head and neck with contrast. No evidence of significant stenosis. No occlusion. N.B. : The above Results were Read Back by Jaz Case MD to Andrew Pemberton DO, and understanding confirmed on 07/31/2021 13:49:03 (ET). Electronically Signed: Jaz Case MD at 13:44 EDT , Service support , Chest X-Ray 07/31/21 15:20 IMPRESSION: No radiographic evidence of acute cardiopulmonary disease. at 1550 Reported and signed by: Reinaldo Avery MD Electronically Signed: Reinaldo Avery MD at 15:49 EDT Tel , Service support , Assessment & Plan Assessment/Plan (1) Altered mental status: PLAN: 1. Altered mental status- possible new onset seizure. Brain CT with chronic changes. Ventricular shunt catheter in place. Normal CTA of head and neck. Obtain EEG. MRI of brain. Obtain [facility] neurology consult pending further work-up. N.p.o. pending speech eval. PT/OT. 2. Leukocytosis-possibly reactive? UA unremarkable. Chest x-ray unremarkable. Repeat chest x-ray following hydration. 3. Elevated blood pressure without history of hypertension-as needed IV hydralazine given NPO. 4. History of PE-on Xarelto, held due to altered mental status. Therapeutic Lovenox. 5. History of non-Hodgkin's lymphoma with history of pituitary tumor-in remission. 6. History of MEDICAL PRACTICE ADMINISTRATOR shunt April 2021-recent follow-up with neurosurgery, stable. 7. Mild cognitive impairment-on donepezil. 8. Hypothyroidism-on Synthroid. 9. Depression- on sertraline. DVT Prophylaxis-Lovenox subcu CODE STATUS: Discussed in length with who is healthcare power of managing attorney. DNR CCA no intubation. This patient was seen by SANDRA Uriarte under the supervision of Dr. Zamarripa. Documented by User: Dr. Elena Zamarripa MD 07/31/21 16:43 HPI - General General Date of Admission: 07/31/21 [facility] Medical History (Updated 07/31/21 @ 16:25 by Martha Mcallister) Dementia Depression DVT (deep venous thrombosis) Former smoker Headache High cholesterol High triglycerides Hydrocephalus Migraine Non-Hodgkins lymphoma Thyroid disease Vision problems Home Medications sertraline 25 mg tablet 25 mg PO DAILY 09/27/17 [History Last Taken 07/30/21] cholecalciferol (vitamin D3) 1,000 unit PO BID 07/02/20 [History Last Taken 07/30/21] cyanocobalamin (vitamin B-12) 500 mcg PO DAILY 07/02/20 [History Last Taken 07/30/21] donepezil 5 mg PO DAILY 07/02/20 [History Last Taken 07/30/21] folic acid 0.8 mg PO DAILY 07/02/20 [History Last Taken 07/30/21] levothyroxine 50 mcg PO DAILY 07/02/20 [History Last Taken 07/30/21] multivitamin 1 ea PO DAILY 07/02/20 [History Last Taken 07/30/21] vitamins A,C,B-zxeg-sehxql 1 ea PO BID 07/02/20 [History Last Taken 07/30/21] rivaroxaban 20 mg PO DAILY 07/31/21 [History Last Taken 07/30/21] testosterone 2 pump TOPICAL DAILY 07/31/21 [History Last Taken Unknown] Allergy/AdvReac Type Severity Reaction Status Date / Time No Known Allergies Allergy Verified 07/31/21 13:23 Family History Mother High cholesterol Father Skin cancer Surgical History (Updated 07/31/21 @ 16:31 by Mag Solis NP, CRIMINOLOGY PROFESSOR-C) Hx of hernia repair S/P hernia surgery S/P MEDICAL PRACTICE ADMINISTRATOR shunt Social History Smoking Status: Former smoker alcohol intake: current substance use type: does not use Results Lab / Micro Data Result Diagrams: 07/31/21 13:17 07/31/21 13:17
[2021-07-31] MEDS: levETIRAcetam IV 1,000 MG/100 ML BAG 400 MG IV (16:18)
--- NOTE | 2021-07-31 16:20 | NURSING ---
109 OBS WHITE ALTERED MENTAL STATUS
--- NOTE | 2021-07-31 16:31 | PCS.PANDOC ---
PANDEMIC DOCUMENTATION INITIATED: Date: 06/07/2021 Time: 190
--- NOTE | 2021-07-31 17:06 | ECHOCS_ITS ---
Reason For Study: CVA Procedure This was a 2D Doppler, Color Flow transthoracic echocardiogram. Exam performed in department. Left Ventricle Normal LV size. Moderate concentric left ventricular hypertrophy. Left ventricular systolic function is hyperdynamic. Stage 1 diastolic dysfunction. Right Ventricle Normal RV size. Normal systolic function. Mitral Valve Normal mitral valve. Tricuspid Valve Normal tricuspid valve. Aortic Valve The aortic valve is not well visualized. Great Vessels Normal aortic root. The pulmonary artery is normal size. Normal inferior vena cava. Pericardium/Pleural No pericardial effusion. Medication Performed a rapid injection of agitated mix of 9 cc saline and 1cc air to assess for atrial septal defect. Diluted definity 2.5ml given slow IV push to enhance endocardial definition. MMode/2D Measurements & Calculations LVIDd: 4.5 cm IVSd: 1.6 cm Ao root diam: 2.9 cm LVIDs: 2.3 cm LVPWd: 1.5 cm RVDd: 3.2 cm FS: 50.1 % LAV(MOD-bp): 43.2 ml LVAd ap4: 25.7 cm2 SV(MOD-sp4): 51.0 ml LAV(MOD-bp) Indexed: 19.8 ml/m2 LVLd ap4: 7.2 cm LAV(MOD-sp2): 44.1 ml EDV(MOD-sp4): 75.3 ml LAV(MOD-sp4): 37.9 ml EDV(sp4-el): 77.6 ml LVAs ap4: 12.6 cm2 LVLs ap4: 5.7 cm ESV(MOD-sp4): 24.3 ml ESV(sp4-el): 23.7 ml EF(MOD-sp4): 67.7 % EF(sp4-el): 69.5 % SV(sp4-el): 53.9 ml LA dimension(2D): 2.9 cm LA A4 area: 16.8 cm2 RA A4 area: 11.8 cm2 Doppler Measurements & Calculations MV E max wade: 52.6 cm/sec Lat Peak E' Wade: 9.9 cm/sec Med Peak E' Wade: 5.6 cm/sec MV A max wade: 88.5 cm/sec E/E' lat: 5.3 E/E' med: 9.4 MV E/A: 0.59 Ao V2 max: 141.2 cm/sec LV V1 max: 108.8 cm/sec PA V2 max: 102.2 cm/sec Ao max P.0 mmHg LV V1 max P.7 mmHg Ao V2 mean: 103.3 cm/sec Ao mean P.6 mmHg Ao V2 VTI: 24.4 cm ECHO/Echo Complete W/ Contrast Interpretation Summary Normal LV size. Moderate concentric left ventricular hypertrophy. Left ventricular systolic function is hyperdynamic. Stage 1 diastolic dysfunction. Contrast injection was performed. Ordering Physician: Elena Zamarripa Referring Physician: Zoya Mason Performed By: Eunice Chavarria, DARION, RVT
[2021-07-31] MEDS: 0.9% Normal Saline 1,000 ML 100 ML IV (17:56)
[2021-07-31] MEDS: Enoxaparin 100 MG/ML Syringe SC (18:38)
[2021-07-31 20:20] LABS: Magnesium 2.1 mg/dL (1.6-2.6)
--- NOTE | 2021-07-31 21:01 | NURSING ---
Dr. Mason called is her patient states he walked into her office yesterday.
[2021-07-31 21:23] LABS: Procalcitonin < 0.04 ng/mL (0.00-0.09)
[2021-07-31] MEDS: 0.9% Saline Lock 10 ML Syringe IV (21:38)
[2021-07-31] MEDS: hydrALAZINE 20 MG/ML Vial 10 MG IV (21:38)
--- NOTE | 2021-07-31 21:40 | RAD_ITS ---
HISTORY: tachypnea EXAMINATION/TECHNIQUE: XR Chest 1 View: Portable upright AP chest x-ray COMPARISON: 07/31/21 at 3:12 PM FINDINGS: LINES/DEVICES: Stable right-sided shunt catheter. LUNGS: No consolidation, edema or effusion. No pneumothorax. MEDIASTINUM AND CARDIOVASCULAR STRUCTURES: Cardiac silhouette not enlarged. Central airways and mediastinal contour are unremarkable. BONES AND SOFT TISSUES: No acute bony abnormalities. RAD/Chest 1 View (Portable) IMPRESSION: No radiographic evidence of acute cardiopulmonary disease. at 0024 Reported and signed by: Reinaldo Avery MD Electronically Signed: Reinaldo Avery MD at 0:22 EDT Tel , Service support ,
[2021-08-01] VITALS (17 sets, daily range): BP systolic 132–163; BP diastolic 69–99; PULSE 87–120; RESP 18–24; TEMP 36.6–37.6; O2SAT 92–97; BMI 27.8
[2021-08-01] MEDS: 0.9% Normal Saline 1,000 ML 100 ML IV (03:39)
[2021-08-01] MEDS: Enoxaparin 100 MG/ML Syringe SC ×2 (05:21→18:45)
[2021-08-01 05:40] LABS: Absolute Lymphocyte Count 2.63 X10^3/uL (0.83-4.51); Absolute Neutrophil Count 9.3 X10^3/uL (2.0-7.7); Basophil# 0.01 X10^3/uL; Basophil% 0.1 % (0-1); Eosinophil# 0.01 X10^3/uL; Eosinophils% 0.1 % (0-5); Hematocrit 50.2 % (40-54); Hemoglobin 16.7 g/dL (13.0-16.5); Lymphocyte # 2.63 X10^3/ul (0.83-4.51); Lymphocyte % 16.5 % (19-41); Mean Corp Hgb Conc 33.3 g/dL (32-36); Mean Corpuscular Hgb 31.2 pg (27.0-32.0); Mean Corpuscular Volume 93.7 fL (80-94); Mean Platelet Vol. 10.1 fl (6.2-12.0); Monocyte# 3.84 X10^3/uL; NRBC Flagged by Analyzer 0.1 % (0-5); Neutrophil # 9.32 X10^3/uL (2.7-7.7); Neutrophil % 58.3 % (47-70); POSITIVE DIFFERENTIAL YES; Platelet Count 544 K/mm3 (150-450); RBC Distribution Width SD 60.6 fl (35.1-43.9); Red Blood Count 5.36 M/mm3 (4.6-6.2)
--- NOTE | 2021-08-01 05:55 | RAD_ITS ---
STUDY: X-RAY CHEST REASON FOR EXAM: Male, 75 years old. ? Fever, aspiration potential TECHNIQUE: Single AP portable view of the chest. COMPARISON: 07/31/2021 FINDINGS: Right-sided ventricular peritoneal shunt. Poor inspiration with some bibasilar atelectasis. There is no demonstrated pleural abnormality. Normal size heart. Normal mediastinum and issa. Normal visualized pulmonary arteries. Normal visualized aortic arch and descending thoracic aorta. Normal visualized thoracic spine. Normal visualized ribs, clavicles, and shoulders. There is no demonstrated abnormality of the visualized soft tissue structures of the upper abdomen. RAD/Chest 1 View (Portable) IMPRESSION: Poor inspiration with some bibasilar atelectasis. Electronically Signed: Luis F Mccarthy MD at 7:56 EDT Tel , Service support ,
[2021-08-01 06:29] LABS: Differential Indicated SCAN CRITERIA MET
[2021-08-01 06:30] LABS: ALB/GLOB Ratio 0.8 RATIO (0.9-2.4); AST(SGOT) 18 U/L (15-37); Alanine Aminotransfer ALT/SGPT 24 U/L (16-61); Albumin, Serum 3.4 g/dL (3.2-5.0); Alkaline Phosphatase 72 U/L (45-117); Anion Gap 11 (5-15); BUN 12 mg/dL (7-18); BUN/Creat Ratio 11.4 RATIO (10-20); Calcium,Total 8.4 mg/dL (8.5-10.1); Chloride 103 mmol/L (98-107); Cholesterol 189 mg/dL (200); Creatinine, Serum 1.05 mg/dL (0.70-1.30); EST Glomerular Filtration Rate 73 mL/min (>60); Est Glom Filt Rate - Afr Amer 88 mL/min (>60); Estimated Creatinine Clearance 65.69 ml/min; Globulin 4.4 g/dL (2.2-4.2); Glucose 124 mg/dL (74-106); High Density Lipoprotein 27 mg/dL; Potassium 3.8 mmol/L (3.5-5.1); Protein, Total 7.8 g/dL (6.4-8.2); Sodium Level 136 mmol/L (136-145); T4 Free Direct 0.83 ng/dL (0.76-1.46); Thyroid Stim Hormone (TSH) 0.46 uIU/mL (0.358-3.74); Triglycerides 222 mg/dL; Very Low Density Lipoprotein 44 mg/dL (5-40)
--- NOTE | 2021-08-01 07:25 | NURSING ---
Bedside rounds w/off-going RN Dora. Pt asleep with snorous respirations. Arousable to painful stimuli. Per report this is how pt has been since admission. VSS.
[2021-08-01 09:16] LABS: Hemoglobin A1c 4.6 % (3.8-5.6)
[2021-08-01 11:23] LABS: Amphetamine Urine VISTA NEGATIVE (<1000 ng/mL); Barbiturate Urine VISTA NEGATIVE (< 200 ng/mL); Benzodiazepine Urine VISTA NEGATIVE (< 200 ng/mL); Cocaine Urine VISTA NEGATIVE (< 300 ng/mL); Ecstacy Urine VISTA NEGATIVE (< 500 ng/mL); Methadone Urine VISTA NEGATIVE (< 300 ng/mL); PCP Urine VISTA NEGATIVE (< 25 ng/mL); THC Urine VISTA NEGATIVE (< 50 ng/mL); Vista UDS pH Range 7
--- NOTE | 2021-08-01 11:40 | TELEMED_ITS ---
[facility] Telemed has confirmed receipt of a request for visit. This document confirms receipt of the order initiating the consult. To find the results of the consultation, please view the patient's reports for the scanned Telemed Consult.
--- NOTE | 2021-08-01 12:55 | PN.HOSP_ITS ---
Documented by User: Mag Solis TIER IN, TIER IN-C 08/01/21 13:09 Subjective Subjective Patient seen and examined. Remains lethargic, nonverbal. Increased upper airway secretions. Undergoing EEG. at bedside, discussed plan. Objective Data Objective Data Vital Signs: Vital Signs Temp Pulse Resp BP Pulse Ox 98.2 F 107 H 22 H 132/97 H 93 08/01/21 07:27 08/01/21 07:27 08/01/21 07:27 08/01/21 07:27 08/01/21 07:59 Oxygen Flow Rate (L/min) 2 Oxygen Delivery Method Nasal Cannula Weight: 206 lb 9.17 oz Body Mass Index (BMI) 27.8 Intake & Output: Intake and Output for Last 24 Hours 07/30/21 07/31/21 08/01/21 23:59 23:59 23:59 Intake Total 528.33 / 528.33 595 / 595 Output Total 400 / 400 Balance 528.33 / 528.33 195 / 195 Lab / Micro Data Result Diagrams: 08/01/21 04:35 08/01/21 04:35 Labs: Laboratory Results - last 24 hr 07/31/21 13:17: WBC 14.2 H, RBC 5.70, Hgb 17.6 H, Hct 51.8, MCV 90.9 D, MCH 30.9, MCHC 34.0 D, RDW Std Deviation 57.0 H, RDW Coeff of Driss 17.5 H, Plt Count 544 H, MPV 9.3, Immature Gran % (Auto) 1.100 H, Neut % (Auto) 61.1, Lymph % (Auto) 21.1, [facility] % (Auto) 16.2 H, Eos % (Auto) 0.2, Baso % (Auto) 0.3, Absolute Neuts (auto) 8.7 H, Absolute Lymphs (auto) 3.00, Nucleated RBC % 0, Diff Path Review May foll, Reactive Lymphocytes RARE, Platelet Estimate MOD INC 07/31/21 13:17: PT Cancelled, INR Cancelled, APTT Cancelled 07/31/21 13:17: Sodium 136, Potassium 3.9, Chloride 102, Carbon Dioxide 28.0, Anion Gap 6, BUN 10, Creatinine 0.98, Estim Creat Clear Calc 70.39, Est GFR (MDRD) Af Amer 95, Est GFR (MDRD) Non-Af 79, BUN/Creatinine Ratio 10.2, Glucose 111 H, Calcium 9.0, Troponin I High Sens 12 07/31/21 13:37: PT 16.6 H, INR 1.4, APTT 46.0 H 07/31/21 14:00: Urine Color Yellow, Urine Clarity Clear, Urine pH 8.0, Ur Specific [place]y 1.010, Urine Protein 15 H, Urine Glucose (UA) Normal, Urine Ketones Negative, Urine Occult Blood 10 H, Urine Nitrite Negative, Urine Bilirubin Negative, Urine Urobilinogen Normal, Ur Leukocyte Esterase Negative, Urine RBC 0-5 SEEN, Urine WBC 0 SEEN, Ur Squamous Epith Cells 0 SEEN, Urine Bacteria 0 SEEN, Urine Mucus 0 SEEN 07/31/21 14:00: Urine Opiates Screen NEGATIVE, Urine Methadone Screen NEGATIVE, Ur Barbiturates Screen NEGATIVE, Ur Phencyclidine Scrn NEGATIVE, Ur Amphetamines Screen NEGATIVE, U Methamphetamin-MDMA NEGATIVE, U Benzodiazepines Scrn NEGATI VE, Urine Cocaine Screen NEGATIVE, U Cannabinoids Screen NEGATIVE, Ur Drug Screen Comment 07/31/21 15:25: Troponin I High Sens 10 07/31/21 15:25: Magnesium 2.1 07/31/21 15:25: Procalcitonin < 0.04 08/01/21 04:35: WBC 16.0 H, RBC 5.36, Hgb 16.7 H, Hct 50.2, MCV 93.7, MCH 31.2, MCHC 33.3, RDW Std Deviation 60.6 H, RDW Coeff of Driss 18.0 H, Plt Count 544 H, MPV 10.1, Immature Gran % (Auto) 1.000 H, Neut % (Auto) 58.3, Lymph % (Auto) 16.5 L, [facility] % (Auto) 24.0 H, Eos % (Auto) 0.1, Baso % (Auto) 0.1, Absolute Neuts (auto) 9.3 H, Absolute Lymphs (auto) 2.63, Nucleated RBC % 0.1, Diff Path Review February08/01/21 04:35: Sodium 136, Potassium 3.8, Chloride 103, Carbon Dioxide 22.0, Anion Gap 11, BUN 12, Creatinine 1.05, Estim Creat Clear Calc 65.69, Est GFR (MDRD) Af Amer 88, Est GFR (MDRD) Non-Af 73, BUN/Creatinine Ratio 11.4, Glucose 124 H, Calcium 8.4 L, Total Bilirubin 0.90, AST 18, ALT 24, Alkaline Phosphatase 72, Total Protein 7.8, Albumin 3.4, Globulin 4.4 H, Albumin/Globulin Ratio 0.8 L , Triglycerides 222 H, Cholesterol 189, LDL Cholesterol 118, VLDL Cholesterol 44 H, HDL Cholesterol 27 L, TSH 0.46, Free T4 0.83 08/01/21 04:35: Hemoglobin A1c 4.6 Radiography Diagnostic Testing: Radiology Impression Brain CT 07/31/21 13:10 IMPRESSION: Chronic involutional changes of the brain noted of a moderately severe degree. There is a ventricular shunt catheter. Ventricular size is mildly prominent but this may associate with degree of volume loss. There is prominent periventricular white matter lucency consistent with that of underlying small vessel disease, this appears to be chronic. Note that I have no comparison. Electronically Signed: Jaz Case MD at 13:39 EDT , Service support , ADDENDUM: 07/31/21 1353 ADDENDUM: 07/31/21 1356 Head/Neck CTA 07/31/21 13:11 IMPRESSION: Normal CTA Head and neck with contrast. No evidence of significant stenosis. No occlusion. Electronically Signed: Jaz Case MD at 13:44 EDT , Service support , ADDENDUM: 07/31/21 1355 IMPRESSION: Normal CTA Head and neck with contrast. No evidence of significant stenosis. No occlusion. N.B. : The above Results were Read Back by Jaz Case MD to Andrew Pemberton DO, and understanding confirmed on 07/31/2021 13:49:03 (ET). Electronically Signed: Jaz Case MD at 13:44 EDT , Service support , Chest X-Ray 07/31/21 15:20 IMPRESSION: No radiographic evidence of acute cardiopulmonary disease. at 1550 Reported and signed by: Reinaldo Avery MD Electronically Signed: Reinaldo Avery MD at 15:49 EDT Tel , Service support , Chest X-Ray 07/31/21 21:40 IMPRESSION: No radiographic evidence of acute cardiopulmonary disease. at 0024 Reported and signed by: Reinaldo Avery MD Electronically Signed: Reinaldo Avery MD at 0:22 EDT Tel , Service support , Chest X-Ray 08/01/21 05:55 IMPRESSION: Poor inspiration with some bibasilar atelectasis. Electronically Signed: Luis F Mccarthy MD at 7:56 EDT Tel , Service support , Physical Exam Const Constitutional Narrative: Lethargic, significant upper airway secretions however no notable distress HEENT normocephalic Mouth: dry mucous membranes Eyes PERRL, EOMs intact bilaterally and conjunctivae normal Eyes Narrative: Left gaze, does not track Neck no lymphadenopathy Resp clear to auscultation bilaterally Auscultation: diminished lung sounds Cardio regular rate, regular rhythm and no murmurs Peripheral Pulses: pulses 2+ throughout GI normal to inspection, nondistended, normoactive bowel sounds, non-tender and non-distended Extremity normal to inspection Skin no rashes or lesions noted Lesions: no lesions Rashes: no rashes Trauma: no lacerations or abrasions Neuro CN's II-XII intact bilaterally, no focal motor deficits, no sensory deficits noted and deep tendon reflexes 2+ bilaterally Neuro Narrative: Difficult to assess neurologic status as patient is unable to follow commands, lethargic Psych mental status grossly normal and affect normal Assessment & Plan Assessment/Plan (1) Altered mental status: PLAN: 1. Altered mental status- possible new onset seizure. Brain CT with chronic changes. Ventricular shunt catheter in place. Normal CTA of head and neck. EEG completed, report pending. MRI of brain ordered. Obtain SOC n eurology consult pending further work-up. PT/OT/ST. Continue neurochecks. IV Keppra. 2. Leukocytosis-concern for aspiration. UA unremarkable. Chest x-ray with atelectasis. Low-grade fever, increasing WBC. Patient with notable upper airway secretions requiring suctioning. Begin IV Zosyn empirically. Speech therapy eval. 3. Elevated blood pressure without history of hypertension-as needed IV hydralazine given NPO. 4. History of PE-on Xarelto, held due to altered mental status. Therapeutic Lovenox. 5. History of non-Hodgkin's lymphoma with history of pituitary tumor-in remission. 6. History of TECHNICAL SUPPORT COORDINATOR shunt April 2021-recent follow-up with neurosurgery, stable. 7. Mild cognitive impairment-on donepezil. 8. Hypothyroidism-on Synthroid. 9. Depression- on sertraline. DVT Prophylaxis-Lovenox subcu This patient was seen by SANDRA Uriarte under the supervision of Dr. Fernanda horowitz. Documented by User: Dr. Ava Nunes MD 08/01/21 13:47 Objective Data Lab / Micro Data Result Diagrams: 08/01/21 04:35 08/01/21 04:35 Charges/Coding Addendum Addendum: Patient seen by Mag FLORES under my supervision Patient was admitted via the ED on 07/31/2021 with a complaint of altered mental status. He was admitted with a complaint of altered mental status. He had a pituitary tumor and is s/p surgery and placement of TECHNICAL SUPPORT COORDINATOR shunt. noted that he has had these episodes of aphasia and right facial droop. Inability to ambulate or follow commands about twice since his shunt was placed in April 2021. He has followed up with neurosurgery who did not think that his symptoms were related to the surgery of the shunt. He subsequently recovered from these episodes after about 2 to 3 days. He also concerns about swallowing and possible aspiration. Patient seen today. He was quite obtunded. was by his bedside. Unable to do review of systems as patient was not responsive. He was having EEG at time of review. had no complaints either. O/E: Const Constitutional Narrative: Lethargic, obtunded, normocephalic Mouth: dry mucous membranes Eyes PERRL, EOMs intact bilaterally and conjunctivae normal Neck no lymphadenopathy Resp coarse crackles in all lung yancey anteriorly, tachypneic, on 2L of oxygen. Cardio regular rate, regular rhythm and no murmurs Peripheral Pulses: pulses 2+ throughout GI normal to inspection, nondistended, normoactive bowel sounds, non-tender and non-distended Extremity normal to inspection Skin no rashes or lesions noted Lesions: no lesions Rashes: no rashes Trauma: no lacerations or abrasions Neuro Neuro Narrative: unable to follow commands, very lethargic Patient is having EEG. He remains tachypneic and tachycardic. He is on 2 L of oxygen and also has leukocytosis of 16 which is trended up from 14 yesterday. I do think patient has been aspirating for probable aspiration pneumonia. Chest x-ray today showed poor inspiration with some bibasilar atelectasis. On IV zosyn for probable aspiration pneumonia. Will need speech therapy evaluation once he is more alert and responsive. Keep NPO for now. Also on keppra for presumed seizures. Awaiting neurology evaluation. Rest as per Mag Solis TIER IN-C under my supervision. Visit Charges Inpatient E&M: 63709 Subs Hosp L3
--- NOTE | 2021-08-01 14:55 | NURSING ---
Pt unable to follow any commands. Unable to perform NIHSS. During NT suctioning pt did lift his left arm up towards his face. He also blinked his eyes a few times this AM. Other than that, there have been no movement with his extremities. At times tries to open his eyes when name is called.
[2021-08-01] MEDS: 0.9% Normal Saline 1,000 ML 65 ML IV (15:43)
--- NOTE | 2021-08-01 18:54 | NURSING ---
Unable to assess NIHSS due pt's inability to follow commands.
[2021-08-02] VITALS (18 sets, daily range): BP systolic 112–152; BP diastolic 69–84; PULSE 74–93; RESP 14–21; TEMP 36.3–37.1; O2SAT 90–97; BMI 27.8
[2021-08-02] MEDS: Enoxaparin 100 MG/ML Syringe SC ×2 (05:20→21:59)
[2021-08-02 07:25] LABS: Absolute Lymphocyte Count 2.58 X10^3/uL (0.83-4.51); Absolute Neutrophil Count 16.2 X10^3/uL (2.0-7.7); Basophil# 0.06 X10^3/uL; Basophil% 0.2 % (0-1); Eosinophil# 0.06 X10^3/uL; Eosinophils% 0.2 % (0-5); Hematocrit 46.6 % (40-54); Hemoglobin 15.6 g/dL (13.0-16.5); Lymphocyte # 2.58 X10^3/ul (0.83-4.51); Lymphocyte % 9.5 % (19-41); Mean Corp Hgb Conc 33.5 g/dL (32-36); Mean Corpuscular Hgb 31.7 pg (27.0-32.0); Mean Corpuscular Volume 94.7 fL (80-94); Mean Platelet Vol. 10.1 fl (6.2-12.0); Monocyte# 8.07 X10^3/uL; Monocyte% 29.7 % (0-10); NRBC Flagged by Analyzer 0.1 % (0-5); Neutrophil # 16.17 X10^3/uL (2.7-7.7); Neutrophil % 59.7 % (47-70); POSITIVE DIFFERENTIAL YES; Platelet Count 471 K/mm3 (150-450); RBC Distribution Width CV 17.8 % (11.6-14.6); RBC Distribution Width SD 59.9 fl (35.1-43.9); Red Blood Count 4.92 M/mm3 (4.6-6.2); White Blood Count 27.1 K/mm3 (4.4-11.0)
[2021-08-02 07:29] LABS: Differential Indicated SCAN CRITERIA MET
[2021-08-02 08:00] LABS: Anion Gap 10 (5-15); BUN 19 mg/dL (7-18); BUN/Creat Ratio 16.7 RATIO (10-20); Calcium,Total 8.1 mg/dL (8.5-10.1); Chloride 106 mmol/L (98-107); Creatinine, Serum 1.14 mg/dL (0.70-1.30); EST Glomerular Filtration Rate 66 mL/min (>60); Est Glom Filt Rate - Afr Amer 80 mL/min (>60); Estimated Creatinine Clearance 60.51 ml/min; Glucose 118 mg/dL (74-106); Potassium 3.4 mmol/L (3.5-5.1); Sodium Level 139 mmol/L (136-145)
--- NOTE | 2021-08-02 09:22 | CASEMGMT ---
PHQ-9 will not be completed due to patient condition and inability to participate. GIBRAN Cooney
--- NOTE | 2021-08-02 10:00 | MRI_ITS ---
STUDY: MRI BRAIN WITH AND WITHOUT CONTRAST REASON FOR EXAM: Male, 75 years old. Seizure, history of brain tumor -NON HODKINS LYMPHOMA, LETHARGIC, RT FACIAL DROOP TECHNIQUE: Standardized multiplanar fat and water weighted pulse sequences were obtained. IV 19ml Dotarem was administered for the contrast portion of the examination. COMPARISON: Head CT dated July 31, 2021 FINDINGS: A small acute infarct is present in the posterior aspect of the left occipital lobe. A tiny acute cortical infarct is also seen at the junction of the left frontal and parietal lobes superiorly. Reidentification of the SIDE SEAM MACHINE OPERATOR shunt catheter via the right parietal craniotomy defect terminating just over the midline of the lateral ventricles. A second pallavi hole is seen at the superior and posterior aspect of the left parietal bone. There is mild cerebral atrophy with widening of the extra-axial spaces and ventricular dilatation. There are multiple confluent white matter hyperintensities, distributed throughout the deep white matter tracts of the cerebral hemispheres, consistent with severe chronic white matter ischemic changes. Normal T2* images of the brain without demonstrated susceptibility artifact. There is no demonstrated hemosiderin stain. A small 6.5 mm peripherally enhancing dural based lesion is seen at the apex of the left frontal lobe on image 23/25 series 10 that corresponds to an overlying radiata knee or biopsy or treatment related defect in the skull. There is also focal volume loss and hypodensity in the superior aspect of the left frontal lobe beneath this dural and skull defect which may be related to the reported history of the brain tumor/non-Hodgkin''s lymphoma. This area does not measuring any enhancement on the postcontrast study. A 3.3 mm peripherally enhancing subcortical nodule is present in the posterior aspect of the right temporal lobe (see image #12/25 series 10). There is also mild diffuse thickening and enhancement of the dura without a focal lesion or definitive evidence of carcinomatosis. Correlation with nuclear medicine PET scan for the possibility of malignant uptake is recommended. Enhancing arachnoid granulation seen in the craniotomy defect in the posterior superior aspect of the left parietal lobe. Normal bilateral basal ganglia. Normal thalami. There is no extra-axial fluid accumulation. Normal flow voids within the major intracranial circulation suggesting patency by spin echo criteria. Normal sella turcica, pituitary gland, infundibular stalk, optic chiasm and hypothalamus. Normal tectal plate and pineal gland. Normal midbrain, tesha and medulla. Normal cerebellum. Normal basal cisterns. Normal bilateral temporal bones. Normal bilateral internal auditory canals. No demonstrated orbital abnormality, within the constraints of a routine brain study. Normal visualized paranasal sinuses. Normal visualized soft tissue structures. Normal visualized upper cervical spine. MRI/Brain W/WO Contrast IMPRESSION: 1. Small acute infarcts of the left occipital lobe and cortex in the superior aspect of the left frontal and parietal lobes. 2. A small 6.5 mm peripherally enhancing dural based lesion is seen at the apex of the left frontal lobe on image 23/25 series 10 that corresponds to an overlying radiata knee or biopsy or treatment related defect in the skull. There is also focal volume loss and hypodensity in the superior aspect of the left frontal lobe beneath this dural and skull defect which may be related to the reported history of the brain tumor/non-Hodgkin''s lymphoma. This area does not measuring any enhancement on the postcontrast study. 3. . A 3.3 mm peripherally enhancing subcortical nodule is present in the posterior aspect of the right temporal lobe (see image #12/25 series 10). 4. There is also mild diffuse thickening and enhancement of the dura without a focal lesion or definitive evidence of carcinomatosis. 5. Correlation with nuclear medicine PET scan for the possibility of malignant uptake is recommended. N.B. : The above Results were Read Back by Justo Reich MD to Petros Raines RN, and understanding confirmed on 08/02/2021 17:05:52 (ET). Electronically Signed: Justo Reich MD at 17:06 EDT , Service support ,
--- NOTE | 2021-08-02 11:04 | PN.HOSP_ITS ---
Documented by User: Mag Solis NP, [facility]-C 08/02/21 11:29 Subjective Subjective Patient seen and examined. at bedside. Patient continues to be nonverbal, lethargic. Awaiting MRI. Objective Data Objective Data Vital Signs: Vital Signs Temp Pulse Resp BP Pulse Ox 97.4 F L 84 18 131/69 H 93 08/02/21 10:25 08/02/21 10:25 08/02/21 10:25 08/02/21 10:25 08/02/21 10:25 Oxygen Flow Rate (L/min) 1 Oxygen Delivery Method Nasal Cannula Weight: 204 lb 12.951 oz Body Mass Index (BMI) 27.8 Intake & Output: Intake and Output for Last 24 Hours 07/31/21 08/01/21 08/02/21 23:59 23:59 23:59 Intake Total 528.33 / 528.33 1855 / 1855 1098.75 / 1098.75 Output Total 600 / 600 500 / 500 Balance 528.33 / 528.33 1255 / 1255 598.75 / 598.75 Lab / Micro Data Result Diagrams: 08/02/21 06:54 08/02/21 06:54 Labs: Laboratory Results - last 24 hr 07/31/21 14:00: Urine Opiates Screen NEGATIVE, Urine Methadone Screen NEGATIVE, Ur Barbiturates Screen NEGATIVE, Ur Phencyclidine Scrn NEGATIVE, Ur Amphetamines Screen NEGATIVE, U Methamphetamin-MDMA NEGATIVE, U Benzodiazepines Scrn NEGATIVE, Urine Cocaine Screen NEGATIVE, U Cannabinoids Screen NEGATIVE 08/02/21 06:54: WBC 27.1 H, RBC 4.92, Hgb 15.6, Hct 46.6, MCV 94.7 H, MCH 31.7, MCHC 33.5, RDW Std Deviation 59.9 H, RDW Coeff of Driss 17.8 H, Plt Count 471 H, MPV 10.1, Immature Gran % (Auto) 0.700, Neut % (Auto) 59.7, Lymph % (Auto) 9.5 L , [place] % (Auto) 29.7 H, Eos % (Auto) 0.2, Baso % (Auto) 0.2, Absolute Neuts (auto) 16.2 H, Absolute Lymphs (auto) 2.58, Nucleated RBC % 0.1, Diff Path Review February08/02/21 06:54: Sodium 139, Potassium 3.4 L, Chloride 106, Carbon Dioxide 23.0, Anion Gap 10, BUN 19 H, Creatinine 1.14, Estim Creat Clear Calc 60.51, Est GFR (MDRD) Af Amer 80, Est GFR (MDRD) Non-Af 66, BUN/Creatinine Ratio 16.7, Glucose 118 H, Calcium 8.1 L Physical Exam Const Constitutional Narrative: significant upper airway secretions however no notable distress Orientation / Consciousness: lethargic HEENT normocephalic Mouth: dry mucous membranes Eyes PERRL, EOMs intact bilaterally and conjunctivae normal Eyes Narrative: Left gaze, does not track Neck no lymphadenopathy Resp Auscultation: crackles bilateral base and diminished lung sounds Cardio regular rate, regular rhythm and no murmurs Peripheral Pulses: pulses 2+ throughout GI normal to inspection, nondistended, normoactive bowel sounds, non-tender and non-distended Extremity normal to inspection Skin no rashes or lesions noted Lesions: no lesions Rashes: no rashes Trauma: no lacerations or abrasions Neuro CN's II-XII intact bilaterally, no focal motor deficits, no sensory deficits noted and deep tendon reflexes 2+ bilaterally Neuro Narrative: Difficult to assess neurologic status as patient is unable to follow commands, lethargic. Psych mental status grossly normal and affect normal Assessment & Plan Assessment/Plan (1) Altered mental status: PLAN: 1. Altered mental status- possible new onset seizure. Brain CT with chronic changes. Ventricular shunt catheter in place. Normal CTA of head and neck. EEG completed, demonstrated persistent background slowing and disorganization, nonspecific finding, no epileptiform changes. MRI of brain ordered. Obtain SOC neurology consult pending MRI completion. PT/OT/ST. Continue neurochecks. IV Keppra. 2. Leukocytosis-concern for aspiration. UA unremarkable. Chest x-ray with a telectasis. Intermittent low-grade fever, increasing WBC. Patient with notable upper airway secretions requiring suctioning. Begin IV Zosyn empirically. Speech therapy eval. 3. Elevated blood pressure without history of hypertension-as needed IV hydralazine given NPO. 4. History of PE-on Xarelto, held due to lethargy. Therapeutic Lovenox. 5. History of non-Hodgkin's lymphoma with history of pituitary tumor-in remission. 6. History of DIGITAL INTERN shunt April 2021-recent follow-up with neurosurgery, reported stable. MRI pending as noted above. 7. Mild cognitive impairment-on donepezil. 8. Hypothyroidism-on Synthroid. 9. Depression- on sertraline. DVT Prophylaxis-Lovenox subcu This patient was seen by SANDRA Uriarte under the supervision of Dr. Lakhani. Documented by User: Dr. Shanon Lakhani MD 08/02/21 17:49 Objective Data Lab / Micro Data Result Diagrams: 08/02/21 06:54 08/02/21 06:54 Physical Exam Const no apparent distress Constitutional Narrative: significant upper airway secretions however no notable distress Orientation / Consciousness: lethargic HEENT normocephalic Eyes PERRL, EOMs intact bilaterally and conjunctivae normal Eyes Narrative: Left gaze, does not track Neck no lymphadenopathy Resp clear to auscultation bilaterally Auscultation: crackles bilateral base and diminished lung sounds Cardio regular rate, regular rhythm and no murmurs Peripheral Pulses: pulses 2+ throughout GI normal to inspection, nondistended, normoactive bowel sounds, non-tender and non-distended Extremity normal to inspection Skin no rashes or lesions noted Lesions: no lesions Rashes: no rashes Trauma: no lacerations or abrasions Neuro CN's II-XII intact bilaterally, no focal motor deficits, no sensory deficits noted and deep tendon reflexes 2+ bilaterally Neuro Narrative: Difficult to assess neurologic status as patient is unable to follow commands, lethargic. Psych mental status grossly normal and affect normal Charges/Coding Addendum Addendum: This patient was seen in conjunction with Mag Solis. I have independently interviewed and examined the patient and reviewed pertinent historical, laboratory, and other data. I have reviewed her note and concur with her documentation Patient was seen and examined. was at the bedside. Patient appeared very lethargic. Physical Exam: Gen: Lethargic, opens eyes to command, not pale, not jaundiced CVS:HS I +II, regular, no murmurs RESP: Diminished at lung bases GI: BS present and normal, soft, nontender, no palpable organs EXT: Bilateral leg edema +1 ASSESSMENT: 1. Acute stroke -multiple left occipital lobe and cortex in the superior aspect of the left frontal and parietal lobes 2. Probable aspiration pneumonia 3. Uncontrolled hypertension 4. History of PE 5. History of non-Hodgkin's lymphoma Plan: Continue Lovenox, aspirin, statin, Keppra, IV Zosyn ID/SOC consult Visit Charges Inpatient E&M: 72790 Subs Hosp L3
[2021-08-02] MEDS: Potassium Chloride 10mEq/100mL 10 MEQ/100 ML IV.SOLN. 100 MEQ IV BOLUS ×2 (11:54→13:26)
[2021-08-02 12:50] LABS: Pathologist Review Reviewed
[2021-08-02 13:06] LABS: Pathologist Review Reviewed
[2021-08-02 13:20] LABS: Pathologist Review Reviewed
--- NOTE | 2021-08-02 14:46 | NURSING ---
This RN reviewed SN charting
--- NOTE | 2021-08-02 15:02 | PCM.CONS.GEN ---
Assessment & Plan Assessment/Plan (1) Non-Hodgkin's lymphoma in adult: (2) Altered mental status: PLAN: Mental status slowly starting to improve. Shunt in place. MRI pending. If not much improved by tomorrow, would do LP. Cont zosyn for aspiration coverage. Rising wbc, procal neg on admit. Is covid vaccinated, no sick contacts. Did get flu shot 07/30. Will follow, thank you, d/w Dr. Lakhani. HPI Consult Data Date of Consult: 08/02/21 HPI Narrative HPI Narrative: JAE STUART, is a 75 M who presented 07/31 with new altered mental status, facial droop. Has DUAL RATE SUPERVISOR shunt in place. No issues at the site. Covid vaccinated. Got flu shot 07/30. Was fine when went to bed. Unresponsive in AM. Similar episodes 2-3 times prior. Came to ED, zosyn added 08/01 for possible aspiration. reports mental status slowly recovering, similar to previous times. Opens eyes some. ROS unobtainable due to mental status. [facility] Medical History Dementia Depression DVT (deep venous thrombosis) Former smoker Headache High cholesterol High triglycerides Hydrocephalus Migraine Non-Hodgkins lymphoma Thyroid disease Vision problems Home Medications sertraline 25 mg tablet 25 mg PO DAILY 09/27/17 [History Last Taken 07/30/21] cholecalciferol (vitamin D3) 1,000 unit PO BID 07/02/20 [History Last Taken 07/30/21] cyanocobalamin (vitamin B-12) 500 mcg PO DAILY 07/02/20 [History Last Taken 07/30/21] donepezil 5 mg PO DAILY 07/02/20 [History Last Taken 07/30/21] folic acid 0.8 mg PO DAILY 07/02/20 [History Last Taken 07/30/21] levothyroxine 50 mcg PO DAILY 07/02/20 [History Last Taken 07/30/21] multivitamin 1 ea PO DAILY 07/02/20 [History Last Taken 07/30/21] vitamins A,C,G-xgsw-gjfgbs 1 ea PO BID 07/02/20 [History Last Taken 07/30/21] rivaroxaban 20 mg PO DAILY 07/31/21 [History Last Taken 07/30/21] testosterone 2 pump TOPICAL DAILY 07/31/21 [History Last Taken Unknown] Allergy/AdvReac Type Severity Reaction Status Date / Time No Known Allergies Allergy Verified 07/31/21 13:23 Family History Mother High cholesterol Father Skin cancer Surgical History (Updated 07/31/21 @ 16:31 by Mag Solis NP, CLINICAL TRIAL DATA MANAGER-C) Hx of hernia repair S/P hernia surgery S/P MOLD CAR 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 shunt Social History Smoking Status: Unknown if ever smoked alcohol intake: current substance use type: does not use Physical Exam Const Constitutional Narrative: opens eyes to voice, does not follow commands Exam Limitations: altered mental status HEENT normocephalic and head/scalp atraumatic Eyes PERRL Neck supple and No nodes Resp Auscultation: rhonchi Cardio regular rate and regular rhythm GI normal to inspection, nondistended, normoactive bowel sounds Extremity no clubbing, cyanosis or edema Skin no rashes or lesions noted Lab / Micro Data Result Diagrams: 08/02/21 06:54 08/02/21 06:54 Labs: Laboratory Results - last 24 hr 07/31/21 13:17: Diff Path Review Reviewed 08/01/21 04:35: Diff Path Review Reviewed 08/02/21 06:54: WBC 27.1 H, RBC 4.92, Hgb 15.6, Hct 46.6, MCV 94.7 H, MCH 31.7, MCHC 33.5, RDW Std Deviation 59.9 H, RDW Coeff of Driss 17.8 H, Plt Count 471 H, MPV 10.1, Immature Gran % (Auto) 0.700, Neut % (Auto) 59.7, Lymph % (Auto) 9.5 L, [place] % (Auto) 29.7 H, Eos % (Auto) 0.2, Baso % (Auto) 0.2, Absolute Neuts (auto) 16.2 H, Absolute Lymphs (auto) 2.58, Nucleated RBC % 0.1, Diff Path Review Reviewed 08/02/21 06:54: Sodium 139, Potassium 3.4 L, Chloride 106, Carbon Dioxide 23.0, Anion Gap 10, BUN 19 H, Creatinine 1.14, Estim Creat Clear Calc 60.51, Est GFR (MDRD) Af Amer 80, Est GFR (MDRD) Non-Af 66, BUN/Creatinine Ratio 16.7, Glucose 118 H, Calcium 8.1 L
--- NOTE | 2021-08-02 15:15 | CASEMGMT ---
MARLENA LAL assessment: Initial transition planning/care coordination assessment. RN HALI introduced self and role at [facility], voices understanding and consents to assessment. Pt is on his way out of room to MRI and has been non-verbal/lethargic. willing to complete assessment with MARLENA LAL. is A/Ox4 and answers questions appropriately. Care providers, pharmacy, and demographics verified. Presentation: Pt found nonverbal upon waking. Admitting dx: CVA/TIA vs seizure PCP: Marlon Specialists: [facility]; Niraj neuro in [place]; krystal Jerez Preferred Pharmacy: [facility] Insurance: MCR A/B, [place] Prescription Benefit: MCR D Living Will/HPOA: Pt has LW/HPOA and is aware that they are not on file at [facility]. has AD's with her and they are copied to place on chart and given back to . LNOK: Shala Arellano, Living Arrangements: Pt lives with in 1 story home with 2 steps in and states no concerns at home. has been assisting pt with ADL's. Transportation: drives and states no transportation concerns. DME/HHC: Pt has the following DME: cane, BSC, shower chair, walker, and rollator. states she has been looking into getting w/c for pt. states pt has had [facility] s/p shunt placement 04/2021 but has not been to SNF. Pt also had OP therapy at [facility]. states no concerns with taking pt home at time of discharge. Pt is retired. Pt states does not smoke cigarettes or drink ETOH. states no further concerns/needs. CM to follow for PT/OT notes, MRI results, and any further discharge planning/needs. Advised to ask for CM if any further questions/concerns/needs arise, voices understanding. Pt Goal: Home Plan: Home, pending MRI results and therapy notes. [place] MARLENA LAL
--- NOTE | 2021-08-02 16:15 | NURSING ---
report called to MARLENA Johnson. Pt transported back to PCU from MRI by director of archives x2. Alex aware will need SERVICE COUNTER CASHIER to suction on arrival.
--- NOTE | 2021-08-02 21:00 | PCM.HOSP.N ---
Hospitalist Note With Dr. Mike Reed from [facility] a teleneurology regarding patient. Per Dr. Reed's recommendations we will continue subcu Lovenox, discontinue Keppra as he has a low suspicion for seizure, order ammonia level, and order JUANJO to rule out endocarditis. Case discussed with Dr. Serrano who was agreeable to plan of care.
--- NOTE | 2021-08-02 21:04 | ECHOTEE_ITS ---
Medication JUANJO probe 6VT-D (SN [id number]) passed without difficulty. No complications were noted. Cetacaine Topical [place] given X3 orally. Versed 2 mg given slow IVP. Fentanyl 25 mcg given slow IVP. Performed a rapid injection of agitated mix of 9 cc saline and 1cc air to assess for atrial septal defect. Left Ventricle Mild concentric left ventricular hypertrophy. The estimated ejection fraction is EF 55-60 %. Right Ventricle Normal right ventricle. Normal systolic function. Atria Aneurysmal atrial septum. Saline contrast study demonstrates small right to left interatrial shunt. Normal left atrium. Normal right atrium. Mitral Valve The mitral valve is structurally normal. No prolapse or stenosis seen. No mitral valve insufficiency. Tricuspid Valve Normal tricuspid valve. Mild tricuspid valve insufficiency. Aortic Valve Normal aortic valve. Mild (1+) aortic valve insufficiency. Pulmonic Valve The pulmonic valve is not well visualized. ECHO/Echo Transesophageal (JUANJO) Interpretation Summary JUANJO findings: The estimated ejection fraction is EF 55-60 % Normal LV systolic functhion with Mild LVH No Valvular Vegetation MONICA no thrombus IAS aneurysmal with R to L shunt,Positive buble study consistent with small PFO Descending Aorta well visualized with Grade #1 Plaque. Ordering Physician: Cici Marina Referring Physician: Angela Bansal MD Performed By: Glenna Pringle, TAINA
[2021-08-02] MEDS: Aspirin 300 MG Suppository RC (22:00)
[2021-08-03] VITALS (13 sets, daily range): BP systolic 133–156; BP diastolic 77–83; PULSE 82–97; RESP 16–18; TEMP 36.4–37.1; O2SAT 92–94; BMI 27.8
[2021-08-03 05:17] LABS: Absolute Lymphocyte Count 2.18 X10^3/uL (0.83-4.51); Absolute Neutrophil Count 14.7 X10^3/uL (2.0-7.7); Basophil# 0.04 X10^3/uL; Basophil% 0.2 % (0-1); Eosinophil# 0.14 X10^3/uL; Eosinophils% 0.6 % (0-5); Hematocrit 48.5 % (40-54); Hemoglobin 15.2 g/dL (13.0-16.5); Lymphocyte # 2.18 X10^3/ul (0.83-4.51); Lymphocyte % 9.5 % (19-41); Mean Corp Hgb Conc 31.3 g/dL (32-36); Mean Corpuscular Hgb 30.7 pg (27.0-32.0); Mean Platelet Vol. 10.4 fl (6.2-12.0); Monocyte# 5.76 X10^3/uL; NRBC Flagged by Analyzer 0.1 % (0-5); Neutrophil # 14.65 X10^3/uL (2.7-7.7); Neutrophil % 63.7 % (47-70); POSITIVE DIFFERENTIAL YES; Platelet Count 451 K/mm3 (150-450); RBC Distribution Width CV 17.4 % (11.6-14.6); RBC Distribution Width SD 62.4 fl (35.1-43.9); Red Blood Count 4.95 M/mm3 (4.6-6.2)
[2021-08-03 05:21] LABS: Differential Indicated SCAN CRITERIA MET
[2021-08-03] MEDS: 0.9% Normal Saline 1,000 ML 65 ML IV (05:31)
[2021-08-03 05:34] LABS: Anion Gap 8 (5-15); BUN 19 mg/dL (7-18); BUN/Creat Ratio 18.6 RATIO (10-20); Chloride 108 mmol/L (98-107); Cholesterol 182 mg/dL (200); Creatinine, Serum 1.02 mg/dL (0.70-1.30); EST Glomerular Filtration Rate 75 mL/min (>60); Est Glom Filt Rate - Afr Amer 91 mL/min (>60); Estimated Creatinine Clearance 67.63 ml/min; Glucose 95 mg/dL (74-106); High Density Lipoprotein 24 mg/dL; Potassium 3.6 mmol/L (3.5-5.1); Sodium Level 141 mmol/L (136-145); Triglycerides 206 mg/dL; Very Low Density Lipoprotein 41 mg/dL (5-40)
[2021-08-03 05:36] LABS: Differential Comment SCANNED
[2021-08-03] MEDS: Enoxaparin 100 MG/ML Syringe SC ×2 (05:36→17:42)
[2021-08-03] MEDS: Aspirin 300 MG Suppository RC (11:00)
--- NOTE | 2021-08-03 11:10 | NURSING ---
Pt off floor for testing, [facility] late, completed upon return to floor.
[2021-08-03 13:26] LABS: Pathologist Review Reviewed
--- NOTE | 2021-08-03 13:31 | PCM.PN.HOSP ---
Documented by User: Mag Solis CAPITAL CAMPAIGN FUNDRAISER, CAPITAL CAMPAIGN FUNDRAISER-C 08/03/21 13:47 Subjective Subjective Patient seen and examined. More alert today. Remains confused. No family at bedside during evaluation. Which demonstrated no thrombus. Objective Data Objective Data Vital Signs: Vital Signs Temp Pulse Resp BP Pulse Ox 97.9 F 91 18 148/77 H 94 08/03/21 11:00 08/03/21 11:00 08/03/21 11:00 08/03/21 11:00 08/03/21 11:00 Oxygen Flow Rate (L/min) 2 Oxygen Delivery Method Nasal Cannula Weight: 205 lb 4.006 oz Body Mass Index (BMI) 27.8 Intake & Output: Intake and Output for Last 24 Hours 08/01/21 08/02/21 08/03/21 23:59 23:59 23:59 Intake Total 1855 / 1855 1455.00 / 1455.00 107.58 / 107.58 Output Total 600 / 600 500 / 500 700 / 700 Balance 1255 / 1255 955.00 / 955.00 -592.42 / -592.42 Lab / Micro Data Result Diagrams: 08/03/21 05:00 08/03/21 05:00 Labs: Laboratory Results - last 24 hr 08/02/21 21:35: Ammonia 16.0 08/03/21 05:00: WBC 23.0 H, RBC 4.95, Hgb 15.2, Hct 48.5, MCV 98.0 H, MCH 30.7, MCHC 31.3 L D, RDW Std Deviation 62.4 H, RDW Coeff of Driss 17.4 H, Plt Count 451 H, MPV 10.4, Immature Gran % (Auto) 1.000 H, Neut % (Auto) 63.7, Lymph % (Auto) 9.5 L, [place] % (Auto) 25.0 H, Eos % (Auto) 0.6, Baso % (Auto) 0.2, Absolute Neuts (auto) 14.7 H, Absolute Lymphs (auto) 2.18, Nucleated RBC % 0.1, Differential Comment SCANNED, Diff Path Review Reviewed 08/03/21 05:00: Sodium 141, Potassium 3.6, Chloride 108 H, Carbon Dioxide 25.0, Anion Gap 8, BUN 19 H, Creatinine 1.02, Estim Creat Clear Calc 67.63, Est GFR (MDRD) Af Amer 91, Est GFR (MDRD) Non-Af 75, BUN/Creatinine Ratio 18.6, Glucose 95, Calcium 8.0 L, Triglycerides 206 H, Cholesterol 182, LDL Cholesterol 117, VLDL Cholesterol 41 H, HDL Cholesterol 24 L Radiography Diagnostic Testing: Radiology Impression Echocardiogram 07/31/21 17:06 Interpretation Summary Normal LV size. Moderate concentric left ventricular hypertrophy. Left ventricular systolic function is hyperdynamic. Stage 1 diastolic dysfunction. Contrast injection was performed. Ordering Physician: Elena Zamarripa Referring Physician: Zoya Mason Performed By: Eunice Chavarria, DARION, RVT Brain MRI 08/02/21 10:00 IMPRESSION: 1. Small acute infarcts of the left occipital lobe and cortex in the superior aspect of the left frontal and parietal lobes. 2. A small 6.5 mm peripherally enhancing dural based lesion is seen at the apex of the left frontal lobe on image 23/25 series 10 that corresponds to an overlying radiata knee or biopsy or treatment related defect in the skull. There is also focal volume loss and hypodensity in the superior aspect of the left frontal lobe beneath this dural and skull defect which may be related to the reported history of the brain tumor/non-Hodgkin''s lymphoma. This area does not measuring any enhancement on the postcontrast study. 3. . A 3.3 mm peripherally enhancing subcortical nodule is present in the posterior aspect of the right temporal lobe (see image #12/25 series 10). 4. There is also mild diffuse thickening and enhancement of the dura without a focal lesion or definitive evidence of carcinomatosis. 5. Correlation with nuclear medicine PET scan for the possibility of malignant uptake is recommended. N.B. : The above Results were Read Back by Justo Reich MD to Petros Raines RN, and understanding confirmed on 08/02/2021 17:05:52 (ET). Electronically Signed: Justo Reich MD at 17:06 EDT , Service support , ADDENDUM: 08/02/21 1713 IMPRESSION: 1. Small acute infarcts of the left occipital lobe and cortex in the superior aspect of the left frontal and parietal lobes. 2. A small 6.5 mm peripherally enhancing dural based lesion is seen at the apex of the left frontal lobe on image 23/25 series 10 that corresponds to an overlying radiata knee or biopsy or treatment related defect in the skull. There is also focal volume loss and hypodensity in the superior aspect of the left frontal lobe beneath this dural and skull defect which may be related to the reported history of the brain tumor/non-Hodgkin''s lymphoma. This area does not measuring any enhancement on the postcontrast study. 3. . A 3.3 mm peripherally enhancing subcortical nodule is present in the posterior aspect of the right temporal lobe (see image #12/25 series 10). 4. There is also mild diffuse thickening and enhancement of the dura without a focal lesion or definitive evidence of carcinomatosis. 5. Correlation with nuclear medicine PET scan for the possibility of malignant uptake is recommended. N.B. : The above Results were Read Back by Justo Reich MD to Petros Raines RN, and understanding confirmed on 08/02/2021 17:05:52 (ET). Electronically Signed: Justo Reich MD at 17:06 EDT , Service support , Transesophageal Echocardiogram 08/02/21 21:04 Interpretation Summary JUANJO findings: The estimated ejection fraction is EF 55-60 % Normal LV systolic functhion with Mild LVH No Valvular Vegetation MONICA no thrombus IAS aneurysmal with R to L shunt,Positive buble study consistent with small PFO Descending Aorta well visualized with Grade #1 Plaque. Ordering Physician: Cici Marina Referring Physician: Angela Bansal MD Performed By: Glenna Pringle RDCS Physical Exam Const alert Orientation / Consciousness: awake HEENT normocephalic Mouth: dry mucous membranes Eyes PERRL, EOMs intact bilaterally and conjunctivae normal Neck no lymphadenopathy Resp normal respiratory effort and clear to auscultation bilaterally Cardio regular rate, regular rhythm and no murmurs Peripheral Pulses: pulses 2+ throughout GI normal to inspection, nondistended, normoactive bowel sounds, non-tender and non-distended Extremity normal to inspection Skin no rashes or lesions noted Lesions: no lesions Rashes: no rashes Trauma: no lacerations or abrasions Neuro CN's II-XII intact bilaterally, no focal motor deficits, no sensory deficits noted and deep tendon reflexes 2+ bilaterally Psych mental status grossly normal and affect normal Assessment & Plan Assessment/Plan (1) CVA (cerebral vascular accident): PLAN: 1. Acute CVA-initially suspected seizure, EEG with no epileptiform changes, background slowing. Brain CT with chronic changes. Ventricular shunt catheter in place. Normal CTA of head and neck. MRI of brain demonstrated small acute infarcts of the left occipital lobe and cortex to the superior aspect of the left frontal and parietal lobes. Subcortical nodule in the posterior aspect of the right temporal lobe, recommended PET scan. PT/OT/ST. Aspirin, statin. Therapeutic Lovenox. Patient on Xarelto at baseline which will need resumed when approved for oral intake. JUANJO showed no valvular vegetation, no thrombus, positive bubble study with [id number] shunt consistent with small PFO. Patient will likely need rehab at discharge. Case management following. 2. Leukocytosis-concern for aspiration. UA unremarkable. Chest x-ray with atelectasis. WBC trending down. Continue IV Zosyn. Speech therapy consulted. ID following. 3. Elevated blood pressure without history of hypertension-as needed IV hydralazine given NPO. If remains above goal, will initiate oral regimen when ok for oral intake. 4. History of PE-on Xarelto, held due to lethargy. Therapeutic Lovenox, resume xarelto when able approved for oral intake. 5. History of non-Hodgkin's lymphoma with history of pituitary tumor-in remission. 6. 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 7. Mild cognitive impairment-on donepezil. 8. Hypothyroidism-on Synthroid. 9. Depression- on sertraline. DVT Prophylaxis-Lovenox subcu Discharge planning: Will likely need rehab at [place]. Case management following. This patient was seen by SANDRA Uriarte under the supervision of Dr. Lakhani. Documented by User: Dr. Shanon Lakhani MD 08/03/21 15:53 Objective Data Lab / Micro Data Result Diagrams: 08/03/21 05:00 08/03/21 05:00 Charges/Coding Addendum Addendum: This patient was seen in conjunction with Mag Solis. I have independently interviewed and examined the patient and reviewed pertinent historical, laboratory, and other data. I have reviewed her note and concur with her documentation Patient was seen and examined. He is much awake. He underwent JUANJO this morning. No valvular vegetation. Physical Exam: Gen: Alert oriented x1, not pale, not jaundiced CVS:HS I +II, regular, no murmurs RESP: Diminished at lung bases GI: BS present and normal, soft, nontender, no palpable organs EXT: Bilateral leg edema +1 ASSESSMENT: 1. Acute stroke -multiple left occipital lobe and cortex in the superior aspect of the left frontal and parietal lobes 2. Probable aspiration pneumonia 3. Uncontrolled hypertension 4. History of PE 5. History of non-Hodgkin's lymphoma Plan: We will switch back to Lovenox, aspirin, statin, Keppra, IV Zosyn Follow-up on speech therapy Discharge planning to shelter facility Visit Charges Inpatient E&M: 50762 Subs Hosp L2
--- NOTE | 2021-08-03 13:47 | VDLE_ITS ---
Reason For Study: Pain RIGHT LEFT GSV is normal. GSV is normal. CFV is compressible, spontaneous, phasic, CFV is compressible, spontaneous, phasic, competent and demonstrates normal competent, and demonstrates normal augmentation. augmentation. FV is compressible, spontaneous, phasic, FV is compressible, spontaneous, phasic, competent and demonstrates normal competent and demonstrates normal augmentation. augmentation. POP V is compressible, spontaneous, phasic, POP V is compressible, spontaneous, phasic, competent and demonstrates normal competent and demonstrates normal augmentation. augmentation. T/P Trunk is compressible. T/P Trunk is compressible. PTV is compressible. PTV is compressible. RT PerV is compressible. LT PerV is compressible. Procedure This is a venous duplex using B-mode, color flow and spectral Doppler. Exam performed portable in patient room. A preliminary report was called and/or faxed to [facility]. VL/Venous Duplex US - [facility] Extrem Interpretation Summary No evidence for acute deep venous thrombosis bilateral lower extremities with p atent and compressible bilateral great saphenous veins. Ordering Physician: Mag Solis Referring Physician: Zoya Mason M.D. Performed By: Vanessa Garcia RVT
--- NOTE | 2021-08-03 14:32 | CASEMGMT ---
Mag JENSEN said patient's agrees he will need rehab. SW met with patient's . Introduced self and role at [facility]. SW provided Patient's with a list of SNF providers including quality and resource use data and consistent with the patient?s preferred geographic region, medical needs, and insurance network. SW explained that we ask that she pick 2-3 options. SW will check back with her tomorrow. Plan: d/c to SNF pending patient's picking a facility. [address]
--- NOTE | 2021-08-03 15:59 | RAD_ITS ---
STUDY: X-RAY - SKULL REASON FOR EXAM: Male, 75 years old. 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 COMPARISON: None. FINDINGS: A shunt tube is seen. There is a 3.2 cm gap between the visualized intracerebral shunt tube and a clip overlying the occipital bone. There is evidence of pallavi holes. RAD/Skull less than 4 Views IMPRESSION: There is a 3.2 cm gap between the visualized intracerebral shunt tube and the metallic clip overlying the occipital bone. Electronically Signed: Steven Bruce MD at 10:17 EDT , Service support ,
[2021-08-04] VITALS (12 sets, daily range): BP systolic 135–174; BP diastolic 78–96; PULSE 80–92; RESP 18; TEMP 36.6–37.4; O2SAT 93–98; BMI 27.8
[2021-08-04] MEDS: Enoxaparin 100 MG/ML Syringe SC ×2 (05:01→17:47)
[2021-08-04 06:49] LABS: Absolute Lymphocyte Count 2.89 X10^3/uL (0.83-4.51); Absolute Neutrophil Count 12.7 X10^3/uL (2.0-7.7); Basophil# 0.05 X10^3/uL; Basophil% 0.3 % (0-1); Eosinophil# 0.17 X10^3/uL; Eosinophils% 0.9 % (0-5); Hematocrit 48.5 % (40-54); Hemoglobin 15.8 g/dL (13.0-16.5); Lymphocyte # 2.89 X10^3/ul (0.83-4.51); Mean Corp Hgb Conc 32.6 g/dL (32-36); Mean Corpuscular Volume 95.3 fL (80-94); Mean Platelet Vol. 9.7 fl (6.2-12.0); Monocyte# 3.35 X10^3/uL; Monocyte% 17.3 % (0-10); NRBC Flagged by Analyzer 0.3 % (0-5); Neutrophil # 12.66 X10^3/uL (2.7-7.7); Neutrophil % 65.5 % (47-70); POSITIVE DIFFERENTIAL YES; Platelet Count 439 K/mm3 (150-450); RBC Distribution Width CV 17.6 % (11.6-14.6); RBC Distribution Width SD 60.4 fl (35.1-43.9); Red Blood Count 5.09 M/mm3 (4.6-6.2); White Blood Count 19.3 K/mm3 (4.4-11.0)
[2021-08-04 07:00] LABS: Differential Indicated SCAN CRITERIA MET
[2021-08-04] MEDS: 0.9% Normal Saline 1,000 ML 65 ML IV ×2 (07:03→22:04)
[2021-08-04 07:27] LABS: Anion Gap 10 (5-15); BUN 15 mg/dL (7-18); BUN/Creat Ratio 19.1 RATIO (10-20); Chloride 112 mmol/L (98-107); Creatinine, Serum 0.79 mg/dL (0.70-1.30); EST Glomerular Filtration Rate 102 mL/min (>60); Est Glom Filt Rate - Afr Amer 123 mL/min (>60); Estimated Creatinine Clearance 68.98 ml/min; Glucose 80 mg/dL (74-106); Potassium 3.6 mmol/L (3.5-5.1); Sodium Level 139 mmol/L (136-145)
[2021-08-04 07:30] LABS: Differential Comment SCANNED
[2021-08-04] MEDS: Aspirin 300 MG Suppository RC (08:00)
--- NOTE | 2021-08-04 12:32 | CASEMGMT ---
BETH spoke with patient's this am. Their first choice would be [facility]. BETH told them SW will check to see if they have availability. BETH called Luz Elena with TCU and they can take patient. BETH let patient's know this information. BETH also told her about Medicare coverage for SNF. Patient is vaccinated so BETH told her he will be able to have visitors while in TCU. BETH told her if she has any other questions she can always ask for SW. Plan: d/c to [facility] when medically ready. [address]
--- NOTE | 2021-08-04 12:53 | PN.HOSP_ITS ---
Documented by User: Mag Solis RODDING MACHINE TENDER, RODDING MACHINE TENDER-C 08/04/21 13:04 Subjective Subjective Patient seen and examined. Remains more alert today, participating in conversation. Intermittently restless and confused. Remains n.p.o. per speech therapy recommendations. Discussed with at bedside, requesting TCU at discharge. Objective Data Objective Data Vital Signs: Vital Signs Temp Pulse Resp BP Pulse Ox 97.8 F 85 18 168/96 H 94 08/04/21 12:08 08/04/21 12:08 08/04/21 12:08 08/04/21 12:08 08/04/21 12:08 Oxygen Flow Rate (L/min) 2 Oxygen Delivery Method Room Air Weight: 207 lb 7.28 oz Body Mass Index (BMI) 27.8 Intake & Output: Intake and Output for Last 24 Hours 08/02/21 08/03/21 08/04/21 23:59 23:59 23:59 Intake Total 1455.00 / 1455.00 261.58 / 261.58 100 / 100 Output Total 500 / 500 700 / 700 Balance 955.00 / 955.00 -438.42 / -438.42 100 / 100 Lab / Micro Data Result Diagrams: 08/04/21 06:40 08/04/21 06:40 Labs: Laboratory Results - last 24 hr 08/03/21 05:00: Diff Path Review Reviewed 08/04/21 06:40: WBC 19.3 H, RBC 5.09, Hgb 15.8, Hct 48.5, MCV 95.3 H, MCH 31.0, MCHC 32.6, RDW Std Deviation 60.4 H, RDW Coeff of Driss 17.6 H, Plt Count 439, MPV 9.7, Immature Gran % (Auto) 1.000 H, Neut % (Auto) 65.5, Lymph % (Auto) 15.0 L, [place] % (Auto) 17.3 H, Eos % (Auto) 0.9, Baso % (Auto) 0.3, Absolute Neuts (auto) 12.7 H, Absolute Lymphs (auto) 2.89, Nucleated RBC % 0.3, Differential Comment SCANNED, Diff Path Review February08/04/21 06:40: Sodium 139, Potassium 3.6, Chloride 112 H, Carbon Dioxide 17.0 L , Anion Gap 10, BUN 15, Creatinine 0.79, Estim Creat Clear Calc 68.98, Est GFR (MDRD) Af Amer 123, Est GFR (MDRD) Non-Af 102, BUN/Creatinine Ratio 19.1, Glucose 80, Calcium 8.0 L Radiography Diagnostic Testing: Radiology Impression Venous Doppler Study 08/03/21 13:47 Interpretation Summary No evidence for acute deep venous thrombosis bilateral lower extremities with patent and compressible bilateral great saphenous veins. Ordering Physician: Mag Solis Referring Physician: Zoya Mason M.D. Performed By: Vanessa Garcia, T Skull X-Ray 08/03/21 15:59 IMPRESSION: There is a 3.2 cm gap between the visualized intracerebral shunt tube and the metallic clip overlying the occipital bone. Electronically Signed: Steven Bruce MD at 10:17 EDT , Service support , Physical Exam Const alert and no apparent distress Orientation / Consciousness: awake and oriented to person HEENT normocephalic Mouth: dry mucous membranes Eyes PERRL, EOMs intact bilaterally and conjunctivae normal Neck no lymphadenopathy Resp clear to auscultation bilaterally Auscultation: diminished lung sounds Cardio regular rate, regular rhythm and no murmurs Peripheral Pulses: pulses 2+ throughout GI normal to inspection, nondistended, normoactive bowel sounds, non-tender and non-distended Extremity normal to inspection Skin no rashes or lesions noted Lesions: no lesions Rashes: no rashes Trauma: no lacerations or abrasions Neuro CN's II-XII intact bilaterally, no focal motor deficits, no sensory deficits noted and deep tendon reflexes 2+ bilaterally Psych mental status grossly normal and affect normal Assessment & Plan Assessment/Plan (1) CVA (cerebral vascular accident): PLAN: 1. Acute CVA-initially suspected seizure, EEG with no epileptiform changes, background slowing. Brain CT with chronic changes. Ventricular shunt catheter in place. Normal CTA of head and neck. MRI of brain demonstrated small acute infarcts of the left occipital lobe and cortex to the superior aspect of the left frontal and parietal lobes. Subcortical nodule in the posterior aspect of the right temporal lobe, recommended PET scan. PT/OT/ST. Aspirin, statin. Therapeutic Lovenox. Patient on Xarelto at baseline which will need resumed when approved for oral intake. JUANJO showed no valvular vegetation, no thrombus, positive bubble study with [id number] shunt consistent with small PFO. TCU at discharge for rehab pending repeat speech therapy eval. neurology recommending discontinuing testosterone at discharge. 2. Leukocytosis-concern for aspiration. UA unremarkable. Chest x-ray with atelectasis. WBC trending down. Continue IV Zosyn to complete course. Speech therapy consulted. ID following. 3. Elevated blood pressure without history of hypertension-as needed IV hydralazine given NPO. If remains above goal, will initiate oral regimen when ok for oral intake. 4. History of PE-on Xarelto, held due to lethargy. Therapeutic Lovenox, resume Xarelto when able approved for oral intake. 5. History of non-Hodgkin's lymphoma with history of pituitary tumor-in remission. 6. 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 7. Mild cognitive impairment-on donepezil. 8. Hypothyroidism-on Synthroid. 9. Depression- on sertraline. DVT Prophylaxis-Lovenox subcu Discharge planning: TCU when medically stable, pending repeat speech therapy eval. This patient was seen by SANDRA Uriarte under the supervision of Dr. Lakhani. Documented by User: Dr. Shanon Lakhani MD 08/04/21 16:51 Objective Data Lab / Micro Data Result Diagrams: 08/04/21 06:40 08/04/21 06:40 Charges/Coding Addendum Addendum: This patient was seen in conjunction with Mag Solis. I have independently interviewed and examined the patient and reviewed pertinent historical, laboratory, and other data. I have reviewed her note and concur with her documentation Patient was seen and examined. He is alert oriented x3. He is more more cough. at the bedside. He still kept n.p.o. Speech therapy on board. Modified barium swallow planned. Physical Exam: Gen: Alert oriented x1, not pale, not jaundiced CVS:HS I +II, regular, no murmurs RESP: Diminished at lung bases GI: BS present and normal, soft, nontender, no palpable organs EXT: Bilateral leg edema +1 ASSESSMENT: 1. Acute stroke -multiple left occipital lobe and cortex in the superior aspect of the left frontal and parietal lobes 2. Acute dysphagia 3. Probable aspiration pneumonia 4. Uncontrolled hypertension 5. History of PE 6. History of non-Hodgkin's lymphoma Plan: Continue on Lovenox, aspirin, statin, Keppra, IV Zosyn Follow-up on speech therapy Discharge planning to residential facility Visit Charges Inpatient E&M: 41098 Subs Hosp L2
--- NOTE | 2021-08-04 13:06 | NURSING ---
Images of skull xray sent to [facility] to Dr. Mariann Jackson.
--- NOTE | 2021-08-04 15:50 | PCM.PN.ID ---
Physical Exam Narrative Mental status improving, no fever Const no apparent distress General Appearance: cooperative Resp normal air movement and clear to auscultation bilaterally Cardio regular rate and regular rhythm GI normal to inspection, nondistended, normoactive bowel sounds Skin no rashes or lesions noted ID ID: Route of nutrition/ use of supplements: [] Nutritional Intake: [] IV Site: [] Espitia Catheter: [] Assessment & Plan Assessment/Plan (1) Non-Hodgkin's lymphoma in adult: (2) Altered mental status: PLAN: Mental status slowly starting to improve. Shunt in place. MRI showed stroke. No veg on JUANJO, bcx neg. Is covid vaccinated, no sick contacts. Did get flu shot 07/30. On zosyn since 08/01, plan on 6 days total of abx. Change to po augmentin to complete course if he is able to swallow. Will follow
[2021-08-05] VITALS (15 sets, daily range): BP systolic 158–180; BP diastolic 87–115; PULSE 75–110; RESP 16–18; TEMP 36.5–36.8; O2SAT 94–96; BMI 27.8
[2021-08-05] MEDS: hydrALAZINE 20 MG/ML Vial 10 MG IV ×2 (04:09→17:16)
[2021-08-05] MEDS: Enoxaparin 100 MG/ML Syringe SC ×2 (05:29→17:18)
[2021-08-05 05:39] LABS: Absolute Lymphocyte Count 3.14 X10^3/uL (0.83-4.51); Absolute Neutrophil Count 10.3 X10^3/uL (2.0-7.7); Basophil# 0.04 X10^3/uL; Basophil% 0.2 % (0-1); Eosinophil# 0.11 X10^3/uL; Eosinophils% 0.7 % (0-5); Hematocrit 49.9 % (40-54); Hemoglobin 16.8 g/dL (13.0-16.5); Lymphocyte # 3.14 X10^3/ul (0.83-4.51); Lymphocyte % 19.3 % (19-41); Mean Corp Hgb Conc 33.7 g/dL (32-36); Mean Corpuscular Hgb 31.5 pg (27.0-32.0); Mean Corpuscular Volume 93.4 fL (80-94); Mean Platelet Vol. 10.2 fl (6.2-12.0); Monocyte# 2.42 X10^3/uL; Monocyte% 14.9 % (0-10); NRBC Flagged by Analyzer 0.5 % (0-5); Neutrophil # 10.34 X10^3/uL (2.7-7.7); Neutrophil % 63.4 % (47-70); POSITIVE DIFFERENTIAL YES; Platelet Count 484 K/mm3 (150-450); RBC Distribution Width CV 18.2 % (11.6-14.6); RBC Distribution Width SD 59.6 fl (35.1-43.9); Red Blood Count 5.34 M/mm3 (4.6-6.2); White Blood Count 16.3 K/mm3 (4.4-11.0)
[2021-08-05 05:49] LABS: Differential Indicated SCAN CRITERIA MET
[2021-08-05 06:00] LABS: Anion Gap 11 (5-15); BUN 12 mg/dL (7-18); BUN/Creat Ratio 17.1 RATIO (10-20); Calcium,Total 8.2 mg/dL (8.5-10.1); Chloride 107 mmol/L (98-107); EST Glomerular Filtration Rate 116 mL/min (>60); Est Glom Filt Rate - Afr Amer 140 mL/min (>60); Estimated Creatinine Clearance 68.98 ml/min; Glucose 83 mg/dL (74-106); Sodium Level 139 mmol/L (136-145)
[2021-08-05 06:12] LABS: Differential Comment SCANNED
[2021-08-05] MEDS: Aspirin 300 MG Suppository RC (08:10)
[2021-08-05] MEDS: 0.9% Saline Lock 10 ML Syringe IV (08:51)
[2021-08-05] MEDS: 0.9% Normal Saline 1,000 ML 65 ML IV (10:35)
--- NOTE | 2021-08-05 10:41 | PCM.PN.HOSP ---
Documented by User: Cici Marina NP-Miguelito 08/05/21 10:56 Subjective Subjective Patient seen and examined. Patient at bedside, concerned about patient's restlessness and that patient is not sleeping. Patient's reports that patient takes melatonin at home. Objective Data Objective Data Vital Signs: Vital Signs Temp Pulse Resp BP Pulse Ox 97.7 F L 92 18 169/94 H 94 08/05/21 08:10 08/05/21 08:10 08/05/21 08:10 08/05/21 08:10 08/05/21 08:10 Oxygen Flow Rate (L/min) 2 Oxygen Delivery Method Room Air Weight: 203 lb 7.787 oz Body Mass Index (BMI) 27.8 Intake & Output: Intake and Output for Last 24 Hours 08/03/21 08/04/21 08/05/21 23:59 23:59 23:59 Intake Total 261.58 / 261.58 1126.08 / 1126.08 50 / 50 Output Total 700 / 700 200 / 200 Balance -438.42 / -438.42 1126.08 / 1126.08 -150 / -150 Lab / Micro Data Result Diagrams: 08/05/21 05:00 08/05/21 05:00 Labs: Laboratory Results - last 24 hr 08/05/21 05:00: WBC 16.3 H, RBC 5.34, Hgb 16.8 H, Hct 49.9, MCV 93.4, MCH 31.5, MCHC 33.7, RDW Std Deviation 59.6 H, RDW Coeff of Driss 18.2 H, Plt Count 484 H, MPV 10.2, Immature Gran % (Auto) 1.500 H, Neut % (Auto) 63.4, Lymph % (Auto) 19.3, [place] % (Auto) 14.9 H, Eos % (Auto) 0.7, Baso % (Auto) 0.2, Absolute Neuts (auto) 10.3 H, Absolute Lymphs (auto) 3.14, Nucleated RBC % 0.5, Differential Comment SCANNED, Diff Path Review February08/05/21 05:00: Sodium 139, Potassium 3.0 L, Chloride 107, Carbon Dioxide 21.0, Anion Gap 11, BUN 12, Creatinine 0.70, Estim Creat Clear Calc 68.98, Est GFR (MDRD) Af Amer 140, Est GFR (MDRD) Non-Af 116, BUN/Creatinine Ratio 17.1, Glucose 83, Calcium 8.2 L Physical Exam Const alert and no apparent distress Orientation / Consciousness: awake, oriented to person, confused and lethargic HEENT normocephalic Eyes EOMs intact bilaterally and conjunctivae normal Eyes Narrative: Left gaze, does not track Neck no lymphadenopathy and supple General: trachea midline Resp normal respiratory effort and clear to auscultation bilaterally Auscultation: crackles bilateral base and diminished lung sounds Cardio regular rate, regular rhythm, S1 normal heart sound, S2 normal heart sound and no murmurs Peripheral Pulses: pulses 2+ throughout GI normal to inspection, nondistended, normoactive bowel sounds, non-tender and non-distended Extremity normal to inspection and no clubbing, cyanosis or edema Peripheral Pulses: Yes pulses 2+ throughout Skin no rashes or lesions noted Lesions: no lesions Rashes: no rashes Trauma: no lacerations or abrasions Neuro moves all extremities, no focal motor deficits, no sensory deficits noted and deep tendon reflexes 2+ bilaterally Neuro Narrative: Difficult to assess neurologic status as patient is unable to follow commands, lethargic. Sensorium / Orientation: awake Psych mental status grossly normal and affect normal Assessment & Plan Assessment/Plan (1) CVA (cerebral vascular accident): PLAN: 1. Acute CVA -MRI brain demonstrated small acute infarcts of the left occipital lobe and cortex to the superior aspect of the left frontal and parietal lobes. Subcortical nodule in the posterior aspect of the right temporal lobe, recommend PET scan. -PT/OT/ST -Continue aspirin and statin -Continue therapeutic Lovenox, will reinitiate Xarelto when patient able to take p.o. -JUANJO negative for valvular vegetation or thrombus, positive bubble study with right to left shunt consistent with small PFO -TCU at discharge -Neurology recommending discontinuing testosterone at discharge 2. Leukocytosis -Improving -Concern for aspiration, chest x-ray shows atelectasis -Continue IV Zosyn, ID following 3. Elevated blood pressure without history of hypertension -As needed IV hydralazine -When patient is okay for oral intake will transition to p.o. regimen 4. History of PE -We will resume Xarelto when okay for oral intake 5. History of non-Hodgkin's lymphoma with history of pituitary tumor-in remission 6. 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 Lakhani. Documented by User: Dr. Shanon Lakhani MD 08/05/21 16:47 Objective Data Lab / Micro Data Result Diagrams: 08/05/21 05:00 08/05/21 05:00 Charges/Coding Addendum Addendum: This patient was seen in conjunction with Cici Marina. I have independently interviewed and examined the patient and reviewed pertinent historical, laboratory, and other data. I have reviewed her note and concur with her documentation Patient was seen and examined. He is alert oriented x3. He is waiting on modified barium swallow today. Physical Exam: Gen: Alert oriented x1, not pale, not jaundiced CVS:HS I +II, regular, no murmurs RESP: Diminished at lung bases GI: BS present and normal, soft, nontender, no palpable organs EXT: Bilateral leg edema +1 ASSESSMENT: 1. Acute stroke -multiple left occipital lobe and cortex in the superior aspect of the left frontal and parietal lobes 2. Acute dysphagia 3. Probable aspiration pneumonia 4. Uncontrolled hypertension 5. History of PE 6. History of non-Hodgkin's lymphoma Plan: Continue on Lovenox, aspirin, statin, Keppra, IV Zosyn Follow-up on speech therapy Discharge planning to long-term facility Visit Charges Inpatient E&M: 78792 Subs Hosp L2
--- NOTE | 2021-08-05 16:52 | ST.MBS ---
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 states this has happened twice since his shunt was placed in April. He recently followed with neurosurgery who stated these episodes are not related to an issue with his shunt. She reports episodes typically last 2 days and then he comes out of it. She states patient has had a wet cough, she is concerned he has had difficulty swallowing. 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 A tiny acute cortical infarct is also seen at the junction of the left frontal and parietal lobes superiorly. Mental Status: Impaired - difficulty following commands for participation in MBS Respiratory Status: Oxygenating on Room Air - Penetration-Aspiration Scale Penetration-Aspiration Scale: OBJECTIVE ASSESSMENT OF SWALLOW FUNCTION (QUANTITATIVE ? PER TRIAL): PENETRATION / ASPIRATION SCALE ([place]): 1 = does not enter airway 2 = enters airway/above vocal folds/ejected 3 = enters airway/above vocal folds/not ejected 4 = enters airway/contacts vocal folds/ejected 5 = enters airway/contacts vocal folds/not ejected 6 = enters airway/below vocal folds/ejected 7 = enters airway/below vocal folds/not ejected despite effort 8 = enters airway/below vocal folds/no effort - Penetration-Aspiration Scale Score Thin Liquid via teaspoon Result: 3= enters airways/above vocal folds/not ejected Thin Liquid via teaspoon Trial 2 Result: 2= enter airway/above vocal folds/ejected Pudding Result: 2= enter airway/above vocal folds/ejected Thin Liquid via single sip from straw Result: 3= enters airways/above vocal folds/not ejected Thin Liquid via single sip from straw Trial 2 Result: 7= enters airways/below vocal folds/not ejected despite effort - Oral Phase Labial Seal: Interlabial escape, no progression to anterior lip Tongue Control During Bolus Hold: Cohesive bolus between tongue to palatal seal Bolus Transport/Lingual Motion: Repetitive/disorganized tongue motion - Pharyngeal Phase Initiation of Pharyngeal Swallow: Bolus head in pyriforms Soft Palate Elevation: Escape to nasal cavity Laryngeal Elevation: Partial superior movement thyroid cart/partial apprx aryt-epig petiole Anterior Hyoid Excursion: No anterior movement Epiglottic Movement: Partial inversion Laryngeal Vestibule Closure at Height of Swallow: Incomplete; narrow column of air/contrast in laryngeal vestibule Pharyngeal Stripping Wave: Absent Pharyngoesophageal Segment Opening: Minimal distension and minimal duration; marked obstruction of flow Tongue Base Retraction: Narrow column of contrast between tongue base & post. pharyngeal wall Pharyngeal Residue: Majority of contrast within or on pharyngeal structures - Esophageal Phase Esophageal Clearance: Esophageal retention - Diagnosis/Impression Diagnosis: severe oropharyngeal dysphagia Impression: Swallow function is characterized by: oral phase swallow onset delay w/ disorganized oral preparation resulting in premature bolus loss oral holding w/ swishing of bolus; impaired oral control/coordination resulted in bolus loss w/ pre-prandial penetration/aspiration of liquid delayed pharyngeal swallow onset timing resulting in suboptimal bolus location upon swallow onset poor pharyngeal motility attributed to absent pharyngeal stripping wave significant pharyngeal residue retention d/t lack of anterior hyoid movement resulting in insufficient epiglottic inversion reduced PES distention/duration w/ marked obstruction of bolus resulting in pharyngeal residue retention w/in the pyriforms w/ spillage into the laryngeal vestibule impaired velopharyngeal port closure w/ thin liquid penetrating into the nasal cavity Poor oral control, delayed pharyngeal swallow onset, reduced hyolaryngeal excursion/pharyngeal contraction/PES distention and marked post-prandial pharyngeal residue retention place this patient at high risk for aspiration w/ all PO intake at this time. Swallow function is negatively impacted by reduced alertness and ability to follow commands Diet Recommended: NPO; frequent oral hygiene; OK for ice chips sparingly following oral hygiene if alert/awake and seated upright Repeat MBS: Yes - repeat MBS 08/09/21 if alertness has improved Additional Speech Therapy Services Recommended Targeting: ongoing assessment of swallow function w/ repeat MBS if/when appropriate patient and caregiver education regarding dysphagia, aspiration risk, plan of care - Status Active ST Patient: Active - Contact Information [facility] Speech Therapy:: Ana Richards M.A., [facility] [address] [place] [address] x [phone] [email or web address] 08/05/21 18:13
[2021-08-05 19:16] LABS: KEPPRA (LEVETIRACETAM) 12.7 ug/mL (10.0-40.0)
[2021-08-06] VITALS (21 sets, daily range): BP systolic 102–175; BP diastolic 62–102; PULSE 91–122; RESP 16–20; TEMP 36.1–36.9; O2SAT 92–98; BMI 27.8; BMI 28.0
[2021-08-06] MEDS: hydrALAZINE 20 MG/ML Vial 10 MG IV (00:22)
[2021-08-06] MEDS: 0.9% Saline Lock 10 ML Syringe IV (00:23)
[2021-08-06] MEDS: 0.9% Normal Saline 1,000 ML 65 ML IV (02:33)
[2021-08-06] MEDS: Enoxaparin 100 MG/ML Syringe SC (05:26)
[2021-08-06 05:36] LABS: Absolute Neutrophil Count 9.7 X10^3/uL (2.0-7.7); Basophil# 0.05 X10^3/uL; Basophil% 0.3 % (0-1); Eosinophil# 0.16 X10^3/uL; Hematocrit 50.9 % (40-54); Hemoglobin 17.1 g/dL (13.0-16.5); Mean Corp Hgb Conc 33.6 g/dL (32-36); Mean Corpuscular Hgb 30.7 pg (27.0-32.0); Mean Corpuscular Volume 91.4 fL (80-94); Mean Platelet Vol. 10.3 fl (6.2-12.0); Monocyte# 2.94 X10^3/uL; NRBC Flagged by Analyzer 0.6 % (0-5); Neutrophil # 9.72 X10^3/uL (2.7-7.7); Neutrophil % 59.4 % (47-70); POSITIVE DIFFERENTIAL YES; Platelet Count 618 K/mm3 (150-450); RBC Distribution Width SD 58.6 fl (35.1-43.9); Red Blood Count 5.57 M/mm3 (4.6-6.2); White Blood Count 16.4 K/mm3 (4.4-11.0)
[2021-08-06 05:48] LABS: Differential Indicated SCAN CRITERIA MET
[2021-08-06 05:55] LABS: Anion Gap 9 (5-15); BUN 12 mg/dL (7-18); BUN/Creat Ratio 15.7 RATIO (10-20); Calcium,Total 8.8 mg/dL (8.5-10.1); Chloride 110 mmol/L (98-107); Creatinine, Serum 0.77 mg/dL (0.70-1.30); EST Glomerular Filtration Rate 105 mL/min (>60); Est Glom Filt Rate - Afr Amer 127 mL/min (>60); Estimated Creatinine Clearance 68.98 ml/min; Glucose 99 mg/dL (74-106); Potassium 3.1 mmol/L (3.5-5.1); Sodium Level 138 mmol/L (136-145)
[2021-08-06 06:19] LABS: Differential Comment SCANNED
[2021-08-06] MEDS: Aspirin 300 MG Suppository RC (08:54)
[2021-08-06 09:33] LABS: Pathologist Review Reviewed
[2021-08-06 09:47] LABS: Pathologist Review Reviewed
--- NOTE | 2021-08-06 09:55 | CASEMGMT ---
Per Dr. Lakhani, she would like palliative c/s for pt. Pt does meet [facility] palliative screening tool criteria and order placed for palliative. Referral faxed to palliative care. Niraj MENDIOLA CM
--- NOTE | 2021-08-06 11:26 | PN.HOSP_ITS ---
Subjective Subjective Patient seen and examined. Patient more alert today however still confused and lethargic. at bedside. Discussed with potential for patient to receive PEG tube due to continued n.p.o. status and failed modified barium swallow yesterday. Patient was amenable to this and surgery consulted. Plan is for patient to go for PEG tube later this afternoon with Dr. Topete who will speak to at that time. 's questions answered voiced understanding. Objective Data Objective Data Vital Signs: Vital Signs Temp Pulse Resp BP Pulse Ox 97.2 F L 105 H 18 137/102 H 98 08/06/21 08:10 08/06/21 08:10 08/06/21 08:10 08/06/21 08:10 08/06/21 10:23 Oxygen Flow Rate (L/min) 2 Oxygen Delivery Method Room Air Weight: 206 lb 12.697 oz Body Mass Index (BMI) 27.8 Intake & Output: Intake and Output for Last 24 Hours 08/04/21 08/05/21 08/06/21 23:59 23:59 23:59 Intake Total 1126.08 / 1126.08 963.58 / 963.58 1353.5 / 1353.5 Output Total 1000 / 1000 Balance 1126.08 / 1126.08 -36.42 / -36.42 1353.5 / 1353.5 Lab / Micro Data Result Diagrams: 08/06/21 05:15 08/06/21 05:15 Labs: Laboratory Results - last 24 hr 08/02/21 14:46: Levetiracetam 12.7 08/04/21 06:40: Diff Path Review Reviewed 08/05/21 05:00: Diff Path Review Reviewed 08/06/21 05:15: WBC 16.4 H, RBC 5.57, Hgb 17.1 H, Hct 50.9, MCV 91.4, MCH 30.7, MCHC 33.6, RDW Std Deviation 58.6 H, RDW Coeff of Driss 18.0 H, Plt Count 618 H, MPV 10.3, Immature Gran % (Auto) 2.300 H, Neut % (Auto) 59.4, Lymph % (Auto) 19.0, [place] % (Auto) 18.0 H, Eos % (Auto) 1.0, Baso % (Auto) 0.3, Absolute Neuts (auto) 9.7 H, Absolute Lymphs (auto) 3.10, Nucleated RBC % 0.6, Differential Comment SCANNED, Diff Path Review February08/06/21 05:15: Sodium 138, Potassium 3.1 L, Chloride 110 H, Carbon Dioxide 19.0 L, Anion Gap 9, BUN 12, Creatinine 0.77, Estim Creat Clear Calc 68.98, Est GFR (MDRD) Af Amer 127, Est GFR (MDRD) Non-Af 105, BUN/Creatinine Ratio 15.7, Glucose 99, Calcium 8.8 Physical Exam Const alert and no apparent distress Constitutional Narrative: significant upper airway secretions however no notable distress Orientation / Consciousness: awake, oriented to person, confused and lethargic HEENT normocephalic and head/scalp atraumatic Head and Scalp: normocephalic Eyes conjunctivae normal and no scleral icterus Eyes Narrative: Left gaze, does not track Neck full ROM, no lymphadenopathy and supple General: trachea midline Resp normal respiratory effort and normal air movement Auscultation: crackles bilateral base and diminished lung sounds Cardio regular rate, regular rhythm, S1 normal heart sound, S2 normal heart sound and no murmurs Peripheral Pulses: pulses 2+ throughout GI normal to inspection, nondistended, normoactive bowel sounds, non-tender and non-distended Extremity normal to inspection and no clubbing, cyanosis or edema Peripheral Pulses: Yes pulses 2+ throughout Skin no rashes or lesions noted, no wounds and skin turgor normal Lesions: no lesions Rashes: no rashes Trauma: no lacerations or abrasions Neuro moves all extremities, no focal motor deficits, no sensory deficits noted and deep tendon reflexes 2+ bilaterally Neuro Narrative: Difficult to assess neurologic status as patient is unable to follow commands, lethargic. Sensorium / Orientation: awake Psych mental status grossly normal and affect normal Assessment & Plan Assessment/Plan (1) CVA (cerebral vascular accident): PLAN: 1. Acute CVA -MRI brain demonstrated small acute infarcts of the left occipital lobe and cortex to the superior aspect of the left frontal and parietal lobes. Sub cortical nodule in the posterior aspect of the right temporal lobe, recommend PET scan. -PT/OT/ST -Continue aspirin and statin -Continue therapeutic Lovenox, will reinitiate Xarelto when patient able to take p.o. -JUANJO negative for valvular vegetation or thrombus, positive bubble study with right to left shunt consistent with small PFO -TCU at discharge -Neurology recommending discontinuing testosterone at discharge -PO Seroquel started -Patient failed modified barium swallow yesterday, will go for PEG tube placement with Dr. Topete today. 2. Leukocytosis -Improving -Concern for aspiration, chest x-ray shows atelectasis -Continue IV Zosyn, ID following 3. Hypokalemia -Potassium chloride 40 mEq IV x1 ordered -Daily BMP ordered 4. Elevated blood pressure without history of hypertension -As needed IV hydralazine -When patient is okay for oral intake will transition to p.o. regimen 5. History of PE -We will resume Xarelto when okay for oral intake 6. History of non-Hodgkin's lymphoma with history of pituitary tumor-in remission 7. History of DISPERSION MIXER shunt-recent follow-up with neurosurgery April 2021, reported stable DVT prophylaxis-subcu Lovenox Discharge planning-plan for patient to go to TCU upon discharge. This patient was seen by SANDRA Burnett under the supervision of Dr. Lakhani.
--- NOTE | 2021-08-06 12:48 | CON.PCM.SX_ITS ---
Assessment & Plan Assessment/Plan (1) Altered mental status: QUALIFIERS: Altered mental status type: unspecified Qualified Code(s): R41.82 - Altered mental status, unspecified PLAN: Patient frequently has altered mental status due to off-and-on functionality of his CONT[employer]ING [employer]UCATION SPECIALIST shunt. I discussed PEG tube placement and EGD with the patient's . I discussed the procedure in detail as well as the increased risks of bleeding, infection, injury to surrounding organs. Patient understands risks as well to proceed. Patient's Lovenox was given this morning. I explained endoscopy in detail to the patient. I explained the risks including but not limited to stroke or heart attack with anesthesia, perforation of the GI tract, bleeding, infection. I explained that any of these could necessitate further emergency surgery. The patient understands and all questions were answered sufficiently. The patient wishes to proceed with procedure. Rodrigue Topete MD Pager: [facility] [address] [place] [address], [address] [place] [address] Office: HPI Consult Data Date of Consult: 08/06/21 HPI Narrative HPI Narrative: JAE STUART, is a 75 M who presents with confusion. Patient has a CONTINUING EDUCATION SPECIALIST shunt placed on the patient's family reports that every time the CONTINUING EDUCATION SPECIALIST shunt malfunctions he starts to have difficulty swallowing and is unable to have nutrition. I was consulted for PEG tube placement. [facility] Medical History Dementia Depression DVT (deep venous thrombosis) Former smoker Headache High cholesterol High triglycerides Hydrocephalus Migraine Non-Hodgkins lymphoma Thyroid disease Vision problems Home Medications sertraline 25 mg tablet 25 mg PO DAILY 09/27/17 [History Last Taken 07/30/21] cholecalciferol (vitamin D3) 1,000 unit PO BID 07/02/20 [History Last Taken 07/30/21] cyanocobalamin (vitamin B-12) 500 mcg PO DAILY 07/02/20 [History Last Taken 07/30/21] donepezil 5 mg PO DAILY 07/02/20 [History Last Taken 07/30/21] folic acid 0.8 mg PO DAILY 07/02/20 [History Last Taken 07/30/21] levothyroxine 50 mcg PO DAILY 07/02/20 [History Last Taken 07/30/21] multivitamin 1 ea PO DAILY 07/02/20 [History Last Taken 07/30/21] vitamins A,C,M-ymyl-ktivoe 1 ea PO BID 07/02/20 [History Last Taken 07/30/21] rivaroxaban 20 mg PO DAILY 07/31/21 [History Last Taken 07/30/21] testosterone 2 pump TOPICAL DAILY 07/31/21 [History Last Taken Unknown] Allergy/AdvReac Type Severity Reaction Status Date / Time No Known Allergies Allergy Verified 07/31/21 13:23 Family History Mother High cholesterol Father Skin cancer Surgical History (Updated 07/31/21 @ 16:31 by Mag Solis COAL TRAMMER, COAL TRAMMER-C) Hx of hernia repair S/P hernia surgery S/P CONTINUING EDUCATION SPECIALIST shunt Social History Smoking Status: Unknown if ever smoked alcohol intake: current substance use type: does not use ROS Review of Systems ROS Unobtainable: due to mental status Physical Exam Const Orientation / Consciousness: confused Eyes PERRL Resp normal respiratory effort Cardio Rate: regular rate GI soft to palpation, non-tender and non-distended Lab / Micro Data Result Diagrams: 08/06/21 05:15 08/06/21 05:15 Labs: Laboratory Results - last 24 hr 08/02/21 14:46: Levetiracetam 12.7 08/04/21 06:40: Diff Path Review Reviewed 08/05/21 05:00: Diff Path Review Reviewed 08/06/21 05:15: WBC 16.4 H, RBC 5.57, Hgb 17.1 H, Hct 50.9, MCV 91.4, MCH 30.7, MCHC 33.6, RDW Std Deviation 58.6 H, RDW Coeff of Driss 18.0 H, Plt Count 618 H, MPV 10.3, Immature Gran % (Auto) 2.300 H, Neut % (Auto) 59.4, Lymph % (Auto) 19.0, Rolette % (Auto) 18.0 H, Eos % (Auto) 1.0, Baso % (Auto) 0.3, Absolute Neuts (auto) 9.7 H, Absolute Lymphs (auto) 3.10, Nucleated RBC % 0.6, Differential Comment SCANNED, Diff Path Review February08/06/21 05:15: Sodium 138, Potassium 3.1 L, Chloride 110 H, Carbon Dioxide 19.0 L, Anion Gap 9, BUN 12, Creatinine 0.77, Estim Creat Clear Calc 68.98, Est GFR (MDRD) Af Amer 127, Est GFR (MDRD) Non-Af 105, BUN/Creatinine Ratio 15.7, Glucose 99, Calcium 8.8
--- NOTE | 2021-08-06 13:29 | CASEMGMT ---
Patient is getting a peg tube today and could possibly discharge to TCU over the weekend. SW notified Luz Elena with TCU. Green sheet on patient chart with instructions. Plan: d/c to [facility] TCU under skilled level of care. Flavia LANE
--- NOTE | 2021-08-06 13:40 | OP.CCLET_ITS ---
08/06/2021 Zoya Mason Re : Upper GI endoscopy procedure for Bossman Flores Marlon This procedure was performed on Friday, August 06, 2021. My impressions and recommendations are as follows: Impressions : - Normal esophagus. - Normal stomach. - Normal examined duodenum. - An externally removable PEG placement was successfully completed. - No specimens collected. Recommendations : - [facility]. - Please follow the post-PEG recommendations including: external bolster 1 cm from abdominal wall, change dressing once per day, may use PEG tomorrow for feedings, check site for bleeding q 4 hrs and clean site with soap and water daily and dry thoroughly. - Continue present medications. My findings are described in the full procedure note, which is enclosed. If I can be of further assistance, please feel free to contact me at Doctor phone number(s): , Work: . Sincerely, Rodrigue Topete MD 08/06/2021 1:39:37 PM This report has been signed electronically.
--- NOTE | 2021-08-06 13:40 | OP.EGD_ITS ---
Patient Name: Bossman Arellano Procedure Date: 08/06/2021 1:15 PM Date of : 1945 Age: 75 Procedure: Upper GI endoscopy Indications: Dysphagia Providers: Rodrigue Topete MD Medicines: Monitored Anesthesia Care Patient Profile: This is a 75 year old male. Refer to note in patient chart for documentation of history and physical. Complications: No immediate complications. Procedure: Pre-Anesthesia Assessment: - Prior to the procedure, a History and Physical was performed, and patient medications and allergies were reviewed. The patient's tolerance of previous anesthesia was also reviewed. The risks and benefits of the procedure and the sedation options and risks were discussed with the patient. All questions were answered, and informed consent was obtained. Prior Anticoagulants: The patient has taken Lovenox (enoxaparin), last dose was day of procedure. After reviewing the risks and benefits, the patient was deemed in satisfactory condition to undergo the procedure. After obtaining informed consent, the endoscope was passed under direct vision. Throughout the procedure, the patient's blood pressure, pulse, and oxygen saturations were monitored continuously. The Endoscope was introduced through the mouth, and advanced to the second part of duodenum. The upper GI endoscopy was accomplished without difficulty. The patient tolerated the procedure well. Scope In: 1:25:54 PM Scope Out: 1:34:21 PM Total Procedure Duration Time 0 hours 8 minutes 27 seconds Findings: The patient was placed in the supine position for PEG placement. The stomach was insufflated to appose gastric and abdominal crane. A site was located in the antrum of the stomach with good transillumination and manual external pressure for placement. The abdominal wall was marked and prepped in a sterile manner. The area was anesthetized with 4 mL of 0.5% lidocaine. The trocar needle was introduced through the abdominal wall and into the stomach under direct endoscopic view. A snare was introduced through the endoscope and opened in the gastric lumen. The guide wire was passed through the trocar and into the open snare. The snare was closed around the guide wire. The endoscope and snare were removed, pulling the wire out through the mouth. A skin incision was made at the site of needle insertion. The externally removable 20 Fr EndoVive Safety gastrostomy tube was lubricated. The G-tube was tied to the guide wire and pulled through the mouth and into the stomach. The trocar needle was removed, and the gastrostomy tube was pulled out from the stomach through the skin. The external bumper was attached to the gastrostomy tube, and the tube was cut to remove the guide wire. The final position of the gastrostomy tube was confirmed by relook endoscopy, and skin marking noted to be 4 cm at the external bumper. The final tension and compression of the abdominal wall by the PEG tube and external bumper were checked and revealed that the bumper was loose and lightly touching the skin and that the PEG balloon was loose and lightly touching the stomach. The feeding tube was capped, and the tube site cleaned and dressed. The esophagus was normal. The stomach was normal. The examined duodenum was normal. Impression: - Normal esophagus. - Normal stomach. - Normal examined duodenum. - An externally removable PEG placement was successfully completed. - No specimens collected. Recommendation: - [facility]. - Please follow the post-PEG recommendations including: external bolster 1 cm from abdominal wall, change dressing once per day, may use PEG tomorrow for feedings, check site for bleeding q 4 hrs and clean site with soap and water daily and dry thoroughly. - Continue present medications. Procedure Code(s): --- Professional --- 56836, Esophagogastroduodenoscopy, flexible, transoral; with directed placement of percutaneous gastrostomy tube Diagnosis Code(s): --- Professional --- R13.10, Dysphagia, unspecified CPT copyright 2017 [employer]. All rights reserved. The codes documented in this report are preliminary and upon wool hanker review may be revised to meet current compliance requirements. Rodrigue Topete MD 08/06/2021 1:39:37 PM This report has been signed electronically. Number of Addenda: 0 Note Initiated On: 08/06/2021 1:15 PM
--- NOTE | 2021-08-06 14:36 | SUR.PHASEI ---
ARRIVED TO PACU WITH LEFT FOREARM IV INFILTRATED, LARGE AMOUNT EDEMA NOTED JUST PROXIMAL TO IV SITE WHICH HAD BEEN WRAPPED IN TINA BANDANGE. D/C IV, ELEVATE, WARM COMPRESS APPLIED.
[2021-08-06] MEDS: Potassium Chloride 10mEq/100mL 10 MEQ/100 ML IV.SOLN. 100 MEQ IV BOLUS ×4 (14:57→18:19)
[2021-08-07] VITALS (8 sets, daily range): BP systolic 92–116; BP diastolic 45–58; PULSE 106–114; RESP 16–20; TEMP 35.7–36.6; O2SAT 92–94
[2021-08-07] MEDS: 0.9% Normal Saline 1,000 ML 65 ML IV (04:31)
[2021-08-07] MEDS: 0.9% Normal Saline 1,000 ML 250 ML IV (04:47)
[2021-08-07 06:45] LABS: Absolute Lymphocyte Count 2.44 X10^3/uL (0.83-4.51); Absolute Neutrophil Count 14.3 X10^3/uL (2.0-7.7); Basophil# 0.05 X10^3/uL; Basophil% 0.2 % (0-1); Eosinophil# 0.03 X10^3/uL; Eosinophils% 0.1 % (0-5); Hemoglobin 13.1 g/dL (13.0-16.5); Lymphocyte # 2.44 X10^3/ul (0.83-4.51); Lymphocyte % 11.1 % (19-41); Mean Corpuscular Hgb 31.1 pg (27.0-32.0); Mean Corpuscular Volume 97.4 fL (80-94); Mean Platelet Vol. 10.5 fl (6.2-12.0); Monocyte# 4.66 X10^3/uL; Monocyte% 21.1 % (0-10); NRBC Flagged by Analyzer 0.5 % (0-5); Neutrophil # 14.28 X10^3/uL (2.7-7.7); Neutrophil % 64.7 % (47-70); POSITIVE DIFFERENTIAL YES; POSITIVE MORPHOLOGY YES; Platelet Count 655 K/mm3 (150-450); RBC Distribution Width CV 18.7 % (11.6-14.6); RBC Distribution Width SD 65.8 fl (35.1-43.9); Red Blood Count 4.21 M/mm3 (4.6-6.2); White Blood Count 22.1 K/mm3 (4.4-11.0)
[2021-08-07 06:55] LABS: Differential Indicated SCAN CRITERIA MET
[2021-08-07 07:19] LABS: ALB/GLOB Ratio 0.6 RATIO (0.9-2.4); AST(SGOT) 28 U/L (15-37); Alanine Aminotransfer ALT/SGPT 26 U/L (16-61); Albumin, Serum 2.5 g/dL (3.2-5.0); Alkaline Phosphatase 57 U/L (45-117); Anion Gap 10 (5-15); BUN 76 mg/dL (7-18); BUN/Creat Ratio 38.2 RATIO (10-20); Calcium,Total 8.2 mg/dL (8.5-10.1); Chloride 117 mmol/L (98-107); Creatinine, Serum 1.99 mg/dL (0.70-1.30); EST Glomerular Filtration Rate 35 mL/min (>60); Est Glom Filt Rate - Afr Amer 42 mL/min (>60); Estimated Creatinine Clearance 34.66 ml/min; Globulin 3.9 g/dL (2.2-4.2); Glucose 118 mg/dL (74-106); Potassium 3.9 mmol/L (3.5-5.1); Protein, Total 6.4 g/dL (6.4-8.2); Sodium Level 146 mmol/L (136-145)
[2021-08-07 07:28] LABS: Anisocytosis 2+; Platelet Estimate MOD INC (ADEQ); Platelet Morphology LARGE
--- NOTE | 2021-08-07 08:12 | CPS ---
upon entering room pt had nasal cannula out of nose. saturation 92% on the room air. nurse aware of change.
[2021-08-07] MEDS: Aspirin 300 MG Suppository RC (08:45)
[2021-08-07] MEDS: Menthol/Lanolin/Calamine/Znox 113 GM Tube 1 APPLIC TOPICAL ×2 (08:45→14:02)
--- NOTE | 2021-08-07 11:58 | TREXTCAR_ITS ---
Diet 07/31/21 17:06 Diet: Nothing Per Oral Diet Comments: STRICT NPO, no PO meds, HOB raised always - suspect aspirating secretions Tube Feed: 140ml Vital Q4H x4 feeding then increase to 280ml Q4H. 120ml water flush Q4 Routine Orders/Code Status Enema Type: Fleetz Enema Frequency: Daily PRN Suppository Type: Dulcolax 10mg Suppository Frequency: Daily PRN Routine Lab Work: BMP Code Status: Full Code Wound(s) ABDOMEN: Wound Type: Surgical Incision Suggestions for Active Care Change Position every (hours): 2 Hours to sit in a chair: 2 Times a day to sit in chair: 2 Therapies Weight Bearing: Full weight bearing Physical Therapy: Eval and Treat Occupational Therapy: Eval and Treat Problem/Diagnosis (1) Altered mental status: Status: Acute Allergies/Procedures Done in Hospital Allergies No Known Allergies Allergy (Verified 07/31/21 13:23) Procedures: 2-D Echocardiogram, Peg tube placement, Transesophageal Echo and - ([facility] [place]) Type of Care/Length of Stay Estimated LOS: Convalescent Care Less Than 30 days Type of Care Needed: Skilled Rehab Potential: Fair Prognosis: Fair Additional Orders/Day of Discharge Additional Orders: RN CM made a referral to [facility] Day of Discharge: 08/07/21 Dietary and Speech Recommendations Dietitian Recommendations/Changes: 1.) Pt will remain NPO and TF will meet~100% estimated nutrition needs. 2.) Will order TF: Vital AF 1.2 Mathew 280 ml bolus Q 4 hours w/ 120 ml water flush Q feed. Rec start bolus TF's with 140ml Vital AF 1.2 Mathew for first 2-4 feedings and increase to goal of 280ml bolus as tolerated. TF at goal bolus feedings of 280ml Vital AF 1.2 Mathew Q 4 hours w/ 120ml water flush Q feed will provide 2016 kcal, 126 gm protein and 2082 ml free water per day. 3.) Daily weights as TF tolerance established. 4.) Will monitor TF tolerance as established, weights, labs and adjust TF as needed to optimize nutrition. Discharge Plan Admission Admit Date/Time: 07/31/21 15:45 Primary Reason for Your Visit: CVA Attending Provider: Shanon Lakhani Primary Care Provider: Zoya Mason Consulting Providers: Willie Barrientos Discharge Orders/Prescriptions Prescriptions: New atorvastatin 80 mg Tablet 80 mg PO QHS Qty: 0 RF: 0 quetiapine 25 mg Tablet 12.5 mg PO QHS Qty: 0 RF: 0 Vital AF 1.2 Mathew 0.08 gram- 1.2 kcal/mL Liquid 280 ml G-tube Q4 Qty: 0 RF: 0 Changed multivitamin 1 EACH tablet 1 ea feeding tube DAILY Qty: 0 RF: 0 donepezil 5 MG tablet 5 mg feeding tube DAILY Qty: 0 RF: 0 cyanocobalamin (vitamin B-12) 500 MCG tablet 500 mcg feeding tube DAILY Qty: 0 RF: 0 levothyroxine 50 MCG tablet 50 mcg feeding tube DAILY Qty: 0 RF: 0 sertraline 25 mg tablet 25 mg feeding tube DAILY Qty: 0 RF: 0 folic acid 0.8 MG tablet 0.8 mg feeding tube DAILY Qty: 0 RF: 0 cholecalciferol (vitamin D3) 2,000 UNIT capsule 1,000 unit feeding tube BID Qty: 0 RF: 0 vitamins A,C,V-[id number]-yaqkkt 1 EACH tablet 1 ea feeding tube BID Qty: 0 RF: 0 rivaroxaban 15 MG tablet 20 mg G-tube DAILY Qty: 0 RF: 0 Discontinued testosterone 12.5 mg/ 1.25 gram (1 %) gel in metered-dose pump 2 pump topical DAILY RF: 0 Referrals / Follow Up: Zoya Mason MD [Primary Care Provider] - Disposition Disposition (needs filled in before D/C Order can be placed): Residential Facility
--- NOTE | 2021-08-07 12:15 | PCM.DC.SUM ---
Documented by User: SANDRA Burnett 08/07/21 12:29 Providers Date of Admission: 07/31/21 Primary Care Physician: Dr. 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 EMERGENT Consult: No MD Notified: Yes Date Notified: 08/02/21 Time Notified: 15:03 Method of Notification: Verbal Reason For Visit: ACUTE TIA/CVA VERSUS POSSIBLE SEIZURE Diagnosis Discharge Diagnosis (1) Altered mental status: Status: Acute Code(s): R41.82 - Altered mental status, unspecified Qualifiers: Altered mental status type: unspecified Qualified Code(s): R41.82 - Altered mental status, unspecified Medications at Discharge Home Medications atorvastatin 80 mg PO QHS 08/07/21 cholecalciferol (vitamin D3) 1,000 unit FEEDING TUBE BID #0 cap 08/07/21 cyanocobalamin (vitamin B-12) 500 mcg FEEDING TUBE DAILY #0 tab 08/07/21 donepezil 5 mg FEEDING TUBE DAILY #0 tab 08/07/21 folic acid 0.8 mg FEEDING TUBE DAILY #0 tab 08/07/21 levothyroxine 50 mcg FEEDING TUBE DAILY #0 tab 08/07/21 multivitamin 1 ea FEEDING TUBE DAILY #0 tab 08/07/21 nut.tx.impaired dige fxn-fiber [Vital AF 1.2 Mathew] 280 ml G-TUBE Q4 08/07/21 quetiapine 12.5 mg PO QHS 08/07/21 rivaroxaban 20 mg G-TUBE DAILY 08/07/21 sertraline 25 mg FEEDING TUBE DAILY #0 tab 08/07/21 vitamins A,C,H-tfsn-ypswwb 1 ea FEEDING TUBE BID #0 tab 08/07/21 Hospital Course Operations None Procedures 2-D Echocardiogram, EKG, Peg tube placement and Transesophageal Echo Summary of Care Provided Minutes Spent on Discharge: 35 Hospital Course: Patient is a 75-year-old male who presented to the ER with stroke symptoms. Patient was diagnosed as having a CVA and has continued to have difficulty swallowing and speaking. Patient was kept n.p.o. from admission date of 08/01/2021 until 08/06/2021. 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 Patient underwent modified barium swallow and was kept n.p.o. on 08/06 patient underwent PEG tube placement with Dr. Topete. Patient will initiate tube feedings and med administration through the PEG tube is Dr. Topete to give the okay to use PEG tube. JUANJO completed on 08/03/2021 demonstrates EF 55 to 60% no valvular vegetation no thrombus, positive bubble study consistent with small PFO right to left shunt. Patient completed a 6-day course of IV Zosyn which per ID note is a complete course. Patient will not be discharged with any antibiotics. Was hypokalemic for 2 days during admission, has resolved. Physical Exam Const alert and no apparent distress Orientation / Consciousness: awake, oriented to person, confused and lethargic HEENT normocephalic and head/scalp atraumatic Eyes conjunctivae normal and no scleral icterus Eyes Narrative: Left gaze, does not track Neck full ROM, no lymphadenopathy and supple General: trachea midline Resp normal respiratory effort and normal air movement Auscultation: crackles bilateral base and diminished lung sounds Cardio regular rate, regular rhythm, S1 normal heart sound, S2 normal heart sound and no murmurs Peripheral Pulses: pulses 2+ throughout GI normal to inspection, nondistended, normoactive bowel sounds, non-tender and non-distended Extremity normal to inspection and no clubbing, cyanosis or edema Skin no rashes or lesions noted, no wounds and skin turgor normal Lesions: no lesions Rashes: no rashes Trauma: no lacerations or abrasions Neuro moves all extremities, no focal motor deficits, no sensory deficits noted and deep tendon reflexes 2+ bilaterally Neuro Narrative: Difficult to assess neurologic status as patient is unable to follow commands, lethargic. Sensorium / Orientation: awake Motor Exam: general weakness Psych mental status grossly normal and affect normal Weight / BMI Weight Weight: 205 lb 7.533 oz Body Mass Index (BMI) 28.0 ABG / Lab / Microbiology Data Result Diagrams: 08/07/21 05:55 08/07/21 05:55 Laboratory: Laboratory Results - last 24 hr 08/07/21 05:55: WBC 22.1 H, RBC 4.21 L, Hgb 13.1, Hct 41.0, MCV 97.4 H D, MCH 31.1, MCHC 32.0, RDW Std Deviation 65.8 H, RDW Coeff of Driss 18.7 H, Plt Count 655 H, MPV 10.5, Immature Gran % (Auto) 2.800 H, Neut % (Auto) 64.7, Lymph % (Auto) 11.1 L, Gilchrist % (Auto) 21.1 H, Eos % (Auto) 0.1, Baso % (Auto) 0.2, Absolute Neuts (auto) 14.3 H, Absolute Lymphs (auto) 2.44, Nucleated RBC % 0.5, Diff Path Review May foll, Platelet Estimate MOD INC, Plt Morphology Comment LARGE, Anisocytosis 2+ 08/07/21 05:55: Sodium 146 H, Potassium 3.9, Chloride 117 H, Carbon Dioxide 19.0 L, Anion Gap 10, BUN 76 H, Creatinine 1.99 H, Estim Creat Clear Calc 34.66, Est GFR (MDRD) Af Amer 42 L, Est GFR (MDRD) Non-Af 35 L, BUN/Creatinine Ratio 38.2 H, Glucose 118 H, Calcium 8.2 L, Total Bilirubin 0.60, AST 28, ALT 26, Alkaline Phosphatase 57, Total Protein 6.4, Albumin 2.5 L, Globulin 3.9, Albumin/Globulin Ratio 0.6 L D/C Instructions Discharge Diet: - (NPO) Discharge Activity: Return to Normal Activity Call your doctor if you observe: Numbness or Tingling and Fainting spells Meaningful Use Info Meaningful Use Diagnoses (Choose all that apply): Ischemic CVA CVA Therapy Assessed for PT,OT and/or ST?: Yes Ischemic Stroke Antithrombotic order at d/c?: Yes Dx of Atrial fib/flutter?: No Anticoagulant at discharge?: Yes Statins at discharge?: Yes Primary Dx Acute Ischemic CVA?: Yes IV tPA ordered during stay?: No Reason IV t-PA not ordered: Medical Contraindication Discharge Plan Admission Admit Date/Time: 07/31/21 15:45 Primary Reason for Your Visit: CVA Attending Provider: Shanon Lakhani Primary Care Provider: Zoya Mason Consulting Providers: Willie Barrientos Discharge Orders/Prescriptions Prescriptions: Changed multivitamin 1 EACH tablet 1 ea feeding tube DAILY Qty: 0 RF: 0 donepezil 5 MG tablet 5 mg feeding tube DAILY Qty: 0 RF: 0 cyanocobalamin (vitamin B-12) 500 MCG tablet 500 mcg feeding tube DAILY Qty: 0 RF: 0 levothyroxine 50 MCG tablet 50 mcg feeding tube DAILY Qty: 0 RF: 0 sertraline 25 mg tablet 25 mg feeding tube DAILY Qty: 0 RF: 0 folic acid 0.8 MG tablet 0.8 mg feeding tube DAILY Qty: 0 RF: 0 cholecalciferol (vitamin D3) 2,000 UNIT capsule 1,000 unit feeding tube BID Qty: 0 RF: 0 vitamins A,C,R-fzpv-vwqsmi 1 EACH tablet 1 ea feeding tube BID Qty: 0 RF: 0 Discontinued rivaroxaban 15 MG tablet 20 mg PO DAILY RF: 0 testosterone 12.5 mg/ 1.25 gram (1 %) gel in metered-dose pump 2 pump topical DAILY RF: 0 No Action atorvastatin 80 mg tablet 80 mg PO QHS RF: 0 Vital AF 1.2 Mathew 0.08 gram- 1.2 kcal/mL liquid 280 ml G-tube Q4 RF: 0 rivaroxaban 15 MG tablet 20 mg G-tube DAILY RF: 0 quetiapine 25 mg Tablet 12.5 mg PO QHS RF: 0 Referrals / Follow Up: Zoya Mason MD [Primary Care Provider] - Disposition Disposition (needs filled in before D/C Order can be placed): Shelter Facility Documented by User: Dr. Shanon Lakhani MD 08/08/21 17:04 Providers Date of Admission: 07/31/21 Reason For Visit: ACUTE TIA/CVA VERSUS POSSIBLE SEIZURE Medications at Discharge Home Medications atorvastatin 80 mg PO QHS 08/07/21 cholecalciferol (vitamin D3) 1,000 unit FEEDING TUBE BID #0 cap 08/07/21 cyanocobalamin (vitamin B-12) 500 mcg FEEDING TUBE DAILY #0 tab 08/07/21 donepezil 5 mg FEEDING TUBE DAILY #0 tab 08/07/21 folic acid 0.8 mg FEEDING TUBE DAILY #0 tab 08/07/21 levothyroxine 50 mcg FEEDING TUBE DAILY #0 tab 08/07/21 multivitamin 1 ea FEEDING TUBE DAILY #0 tab 08/07/21 nut.tx.impaired dige fxn-fiber [Vital AF 1.2 Mathew] 280 ml G-TUBE Q4 08/07/21 quetiapine 12.5 mg PO QHS 08/07/21 rivaroxaban 20 mg G-TUBE DAILY 08/07/21 sertraline 25 mg FEEDING TUBE DAILY #0 tab 08/07/21 vitamins A,C,C-qydc-fkqhrd 1 ea FEEDING TUBE BID #0 tab 08/07/21 ABG / Lab / Microbiology Data Result Diagrams: 08/07/21 05:55 08/07/21 05:55 Discharge Plan Admission Admit Date/Time: 07/31/21 15:45 Primary Reason for Your Visit: CVA Attending Provider: Shanon Lakhani Primary Care Provider: Zoya Mason Consulting Providers: Willie Barrientos Discharge Orders/Prescriptions Prescriptions: Changed multivitamin 1 EACH tablet 1 ea feeding tube DAILY Qty: 0 RF: 0 donepezil 5 MG tablet 5 mg feeding tube DAILY Qty: 0 RF: 0 cyanocobalamin (vitamin B-12) 500 MCG tablet 500 mcg feeding tube DAILY Qty: 0 RF: 0 levothyroxine 50 MCG tablet 50 mcg feeding tube DAILY Qty: 0 RF: 0 sertraline 25 mg tablet 25 mg feeding tube DAILY Qty: 0 RF: 0 folic acid 0.8 MG tablet 0.8 mg feeding tube DAILY Qty: 0 RF: 0 cholecalciferol (vitamin D3) 2,000 UNIT capsule 1,000 unit feeding tube BID Qty: 0 RF: 0 vitamins A,C,D-ytxo-bmylzt 1 EACH tablet 1 ea feeding tube BID Qty: 0 RF: 0 Discontinued rivaroxaban 15 MG tablet 20 mg PO DAILY RF: 0 testosterone 12.5 mg/ 1.25 gram (1 %) gel in metered-dose pump 2 pump topical DAILY RF: 0 No Action atorvastatin 80 mg tablet 80 mg PO QHS RF: 0 Vital AF 1.2 Mathew 0.08 gram- 1.2 kcal/mL liquid 280 ml G-tube Q4 RF: 0 rivaroxaban 15 MG tablet 20 mg G-tube DAILY RF: 0 quetiapine 25 mg Tablet 12.5 mg PO QHS RF: 0 Referrals / Follow Up: Zoya Mason MD [Primary Care Provider] - Disposition Disposition (needs filled in before D/C Order can be placed): Shelter Facility Charges/Coding Addendum Addendum: This patient was seen in conjunction with Cici Marina. I have independently interviewed and examined the patient and reviewed pertinent historical, laboratory, and other data. 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 Patient was initially admitted for stroke work-up. MRI of the brain showed small acute infarct of the left occipital lobe and cortex. Patient also underwent JUANJO that was negative for acute vegetations. Patient was lethargic and failed his bedside swallow eval. Speech therapy was consulted. He also failed his modified barium swallow eval. General surgery was consulted and put in a PEG tube. Patient was seen by PT and OT and skilled for discharge to [facility] facility. On the day of discharge, patient was seen and examined. Discussed at the bedside with his . understands that this might be his new normal. Physical Exam: Gen: Alert oriented x1, not pale, not jaundiced CVS:HS I +II, regular, no murmurs RESP: Diminished at lung bases GI: BS present and normal, soft, nontender, no palpable organs EXT: Bilateral leg edema +1 Visit Charges Inpatient E&M: 33623 Disch Hosp
--- NOTE | 2021-08-07 14:10 | NURSING ---
Report called to MARLENA Brannon on TCU.
[2021-08-07] MEDS: Vital AF 1.2 Cal Liq 1,500 ML 280 ML GT (15:03)
[2021-08-09 09:22] LABS: Pathologist Review Reviewed
[2021-08-09 15:38] LABS: Pathologist Review Reviewed
== END 2021-08-07 15:40 | disposition skilled nursing facility (03) | DRG 64 ==
LOC: ED 16:00 → PCU 18:44
PROVIDERS: Nurse Practitioner Family; Surgery; Admitting Provider Family Medicine; Emergency Provider Emergency Medicine; PCP Internal Medicine; Visit Provider Internal Medicine
PROC: 0DJ08ZZ Inspection of Upper Intestinal Tract, Via Natural or Artificial Opening Endoscopic (ICD-10-PCS; CPT 43235; principal; 2021-08-06 12:55)
DX: I63.9 Cerebral infarction, unspecified (principal); J69.0 Pneumonitis due to inhalation of food and vomit; G91.9 Hydrocephalus, unspecified; J98.11 Atelectasis; G81.91 Hemiplegia, unspecified affecting right dominant side; Q21.1 Atrial septal defect; R29.716 NIHSS score 16; R29.810 Facial weakness; R47.01 Aphasia; I16.0 Hypertensive urgency; R13.10 Dysphagia, unspecified; E03.9 Hypothyroidism, unspecified; E23.7 Disorder of pituitary gland, unspecified; E78.00 Pure hypercholesterolemia, unspecified; E78.1 Pure hyperglyceridemia; E78.5 Hyperlipidemia, unspecified; F03.90 Unspecified dementia, unspecified severity, without behavioral disturbance, psychotic disturbance, mood disturbance, and anxiety; F32.A Depression, unspecified; F41.9 Anxiety disorder, unspecified; J30.9 Allergic rhinitis, unspecified; G43.909 Migraine, unspecified, not intractable, without status migrainosus; Z66 Do not resuscitate; Z98.2 Presence of cerebrospinal fluid drainage device; Z86.73 Personal history of transient ischemic attack (TIA), and cerebral infarction without residual deficits; Z85.72 Personal history of non-Hodgkin lymphomas; Z86.711 Personal history of pulmonary embolism; Z86.718 Personal history of other venous thrombosis and embolism; Z79.01 Long term (current) use of anticoagulants; Z79.899 Other long term (current) drug therapy; Z87.891 Personal history of nicotine dependence
CPT/HCPCS: 31720; 36415; 70250; 70450; 70496; 70498; 70553; 71045; 74230; 80048; 80053; 80061; 80177; 80307; 81001; 81002; 82140; 83036; 83735; 84145; 84439; 84443; 84484; 85025; 85610; 85652; 85730; 87040; 87426; 92507; 92526; 92610; 92611; 93005; 93306; 93312; 93320; 93325; 93970; 94762; 95819; 97112; 97162; 97166; 97530; 97535; 97802; 97803; 99285; A9575; J7030; J7040; Q9957; Q9967; A4216; C8929; J2405

== ENCOUNTER 2021-08-07 15:49 | Inpatient (IN) | payer MEDICARE, BC, SELFPAY ==
[2021-08-07 16:07] VITALS: BP 102/64; PULSE 109; RESP 20; TEMP 36.8; O2SAT 94
--- NOTE | 2021-08-07 16:09 | NURSING ---
Addendum entered by Lalitha Thurman 08/07/21 18:03: Spouse has decided to change patient to a DNRCC. Form signed by spouse and purple bracelet placed. Original Note: Code status discussed with spouse. Spouse want patient to be a full code.
[2021-08-07 16:10] VITALS: O2SAT 94
--- NOTE | 2021-08-07 16:58 | HP.PCM_ITS ---
HPI - General General Date of Admission: 08/07/21 HPI Narrative 07/31/2021 JAE STUART, is a 75 Male who presents to [facility] with neurologic signs/symptoms. 07/31/2021 EKG showed sinus tachycardia, septal infarct, age undetermined, inferior injury pattern, consider right ventricular involved in acute injury infarct. Stroke alert, nonverbal, right facial droop. Not moving arms or legs bilaterally. Fever 99 to 100, Flushot 1 day prior. Neurosurgery noted MOLD FINISHER shunt okay recently. CT head shows shunt, negative stroke, negative bleeding. CTA head/neck negative large vessel occlusion. Chest X-ray negative. WBC 14.2, Troponin okay, UA okay. Not TPA candidate due to timing. Stroke neurologist recommended Keppra for seizure. 07/31/2021 Admit to Hospital. MRI brain, PT/OT/ST for stroke. EEG to evaluate for seizure. Transition Xarelto to Lovenox. 07/31/2021 Echo normal LV size. Moderate concentric LVH. Left ventricular systolic function hyperdynamic. Stage 1 diastolic dysfunction. 08/01/2021 Upper airway secretions. Tachycardia, Tachypnea, WBC 16, Oxygen 2 liters per nasal cannula. Suspect aspiration pneumonia, treated with IV Zosyn. Continue Keppra for presumed seizures. 08/02/2021 Nonverbal, lethargic. EEG negative for seizure, EEG consistent with encephalopathy. MRI brain shows acute stroke, multiple foci. Keppra for seizures. Zosyn IV for aspiration pneumonia. 08/02/2021 JUANJO EF 55 - 60%. Normal Left ventricular systolic function with Left Ventricular Hypertrophy. Negative valvular vegetation. Small Patient Foramen Ovale. 08/03/2021 Alert, but confused. Lovenox for DVT/PE. Aspirin, statin for stroke. Keppra for seizures. Zosyn IV for aspiration pneumonia. 08/04/2021 NPO, Failed Modfied barium swallow. PT/OT for TCU. Hydralazine IV as needed for elevated blood pressure. 08/05/2021 PET scan for brain nodule. 08/06/[address] Topete performed EGD, PEG tube placement. Seroquel started for agitation. Replete potassium. Finished Zosyn IV course for aspiration pneumonia. 08/07/2021 Admit to TCU with debility, here for rehabilitation, strengthening, prior to discharge home with . [facility] Medical History (Updated 08/07/21 @ 17:[address] Dany Flanagan MD) Dementia Depression DVT (deep venous thrombosis) Former smoker Headache High cholesterol High triglycerides Hydrocephalus Migraine Non-Hodgkins lymphoma Thyroid disease Vision problems Home Medications atorvastatin 80 mg PO QHS 08/07/21 [History Last Taken Unknown] cholecalciferol (vitamin D3) 1,000 unit FEEDING TUBE BID #0 cap 08/07/21 [Rx Last Taken 07/30/21] cyanocobalamin (vitamin B-12) 500 mcg FEEDING TUBE DAILY #0 tab 08/07/21 [Rx Last Taken 07/30/21] donepezil 5 mg FEEDING TUBE DAILY #0 tab 08/07/21 [Rx Last Taken 07/30/21] folic acid 0.8 mg FEEDING TUBE DAILY #0 tab 08/07/21 [Rx Last Taken 07/30/21] levothyroxine 50 mcg FEEDING TUBE DAILY #0 tab 08/07/21 [Rx Last Taken 07/30/21] multivitamin 1 ea FEEDING TUBE DAILY #0 tab 08/07/21 [Rx Last Taken 07/30/21] nut.tx.impaired dige fxn-fiber [Vital AF 1.2 Mathew] 280 ml G-TUBE Q4 08/07/21 [History Last Taken Unknown] quetiapine 12.5 mg PO QHS 08/07/21 [History Last Taken Unknown] rivaroxaban 20 mg G-TUBE DAILY 08/07/21 [History Last Taken Unknown] sertraline 25 mg FEEDING TUBE DAILY #0 tab 08/07/21 [Rx Last Taken 07/30/21] vitamins A,C,Z-dchx-yyvzso 1 ea FEEDING TUBE BID #0 tab 08/07/21 [Rx Last Taken 07/30/21] Allergy/AdvReac Type Severity Reaction Status Date / Time No Known Allergies Allergy Verified 07/31/21 13:23 Family History Mother High cholesterol Father Skin cancer Surgical History (Updated 08/07/21 @ 17:[address] Dany Flanagan MD) Hx of hernia repair S/P hernia surgery S/P MOLD FINISHER shunt Status post insertion of percutaneous endoscopic gastrostomy (PEG) tube Social History (Updated 08/07/21 @ 17:[address] Dany Flanagan MD) household members: spouse Smoking Status: Unknown if ever smoked alcohol intake: current substance use type: does not use ROS Constitutional Constitutional: Denies chills, fever(s) or weight gain ENT HEENT: Denies headache(s), nasal congestion or nasal discharge Cardiovascular Cardiovascular: Denies chest pain or palpitations Respiratory/Chest Respiratory/Chest: Denies cough, excessive phlegm production or shortness of breath with exertion Gastrointestinal Gastrointestinal: Denies abdominal pain, nausea or vomiting Genitourinary Genitourinary: Denies dysuria Musculoskeletal Musculoskeletal: Denies joint pain or joint swelling Integumentary Integumentary: Denies rash or wounds Neurologic Neurologic: Denies focal weakness, numbness or tingling Psychiatric Psychiatric: Reports auditory hallucinations; Denies anxiety, depression, homicidal ideation or suicidal ideation Vital Signs Vital Signs Vital Signs: 08/07/21 16:07 08/07/21 16:10 Temperature 98.2 F Temperature Source Oral Pulse Rate 109 H Pulse Rhythm Regular Pulse Strength Normal (2+) Respiratory Rate 20 H Respiratory Effort Normal Non-Labored Respiratory Depth Normal Respiratory Pattern Normal Blood Pressure 102/64 Blood Pressure Mean 76 Blood Pressure Source Monitor Blood Pressure Position Semi-Fowlers Blood Pressure Location Left Arm Pulse Ox 94 94 Oxygen Delivery Method Room Air Room Air Physical Exam Const alert and oriented x3 General Appearance: cooperative HEENT normocephalic Eyes PERRL and EOMs intact bilaterally Neck supple, no JVD and no carotid bruits Resp normal respiratory effort, normal air movement and clear to auscultation bilaterally Cardio regular rate and regular rhythm GI normal to inspection, nondistended, normoactive bowel sounds, non-tender and non-distended GI Narrative: PEG present. Extremity normal capillary refill General Extremity: Negative for edema Skin no rashes or lesions noted General Skin Exam: no breakdown Neuro Neuro Narrative: Right hemiparesis. Psych affect normal Appearance: appropriate Results Lab / Micro Data Result Diagrams: 08/08/21 06:30 08/09/21 05:56 Assessment & Plan Assessment/Plan (1) Debility: (2) Encephalopathy acute: (3) Stroke: (4) Seizure disorder: (5) Dysphagia: (6) Aspiration pneumonia: (7) Depression: (8) Vitamin D deficiency: (9) Vitamin B12 deficiency: (10) Vascular dementia: (11) Hypothyroidism: (12) Normal pressure hydrocephalus: (13) Non-Hodgkin lymphoma: (14) Deep vein thrombosis: (15) Pulmonary embolism: PLAN: 75 year old male with below past medical history hospitalized for stroke, complicated by seizures, encephalopathy, dysphagia requiring PEG, aspiration pneumonia, admitted to TCU with debility, here for rehabilitation, strengthening, prior to discharge home with . * Debility - PT/OT. * Dysphagia - ST. * Pain - Tylenol 650mg q4h prn pain (1-10). * Bowel - Miralax 17gm daily, Senna/colace 1 tablet twice daily, Dulcolax 10mg pr daily prn. * Adult immunization - Administer prevnar 13, pneumovax 23, fluzone, covid19 vaccine as appropriate. * DVT prophylaxis - Not necessary, on Xarelto. * Hyperlipidemia - Atorvastatin 80mg qhs. * Vitamin D deficiency - D3 25mcg twice daily. * Vitamin B12 deficiency - B12 500mcg daily. * Vascular dementia - Donepezil 5mg daily. * Folate deficiency - Folic acid 1mg daily. * Hypothyroidism - Levothyroxine 50mcg daily. * Skin irritation - Calmoseptine topical twice daily. * Nutrition - MVI daily, Vital AF 1.2 280ml GT Q4H. * Agitation - Seroquel 12.5mg qhs, GDR when able. * DVT/PE/stroke - Xarelto 20mg daily. * Depression - Sertraline 12.5mg daily, stable chronic care home use, GDR not recommended.
[2021-08-07 17:01] VITALS: BMI 27.1
--- NOTE | 2021-08-07 18:04 | NURSING ---
Spouse expressed concern that when patient gets his strength back, he also gets motivation and desire to move. Patient with bed alarm. Spouse questioned nurse if there was a way to observe client at all times. Nurse informed spouse there are cameras if need for observation. Spouse informed nurse she is fine with the camera observation if needed.
[2021-08-07] MEDS: Polyethylene Glycol 3350 17 GM PACKET GT (18:25)
[2021-08-07] MEDS: Vital AF 1.2 Cal Liquid 1,000 ML 280 ML GT ×2 (18:25→23:22)
[2021-08-07] MEDS: Menthol/Lanolin/Calamine/Znox 113 GM Tube 1 APPLIC TOPICAL (18:25)
[2021-08-07] MEDS: Senna/Docusate Sodium 1 Tablet GT (18:25)
[2021-08-07] MEDS: Cholecalciferol (VIT D3) 25 MCG TABLET (1,000 UNITS) GT (23:20)
[2021-08-07] MEDS: QUEtiapine 25 MG Tablet 12.5 MG PO (23:21)
[2021-08-07] MEDS: Donepezil HCl 5 MG Tablet GT (23:21)
[2021-08-07] MEDS: Atorvastatin Calcium 80 MG Tablet GT (23:21)
--- NOTE | 2021-08-08 03:30 | NURSING ---
G-tube Residual 90 ml. Tube feed held at this time. Pt w/ occasional moist, productive cough. Pt swallows sputum instead of expectorating. Will continue to monitor.
[2021-08-08 04:38] VITALS: BP 105/63; PULSE 109; RESP 20; TEMP 36.3; O2SAT 93
[2021-08-08] MEDS: Polyethylene Glycol 3350 17 GM PACKET GT (04:42)
[2021-08-08] MEDS: Sertraline 50 MG Tablet 12.5 MG GT (04:43)
[2021-08-08] MEDS: Senna/Docusate Sodium 1 Tablet GT (04:43)
[2021-08-08] MEDS: Rivaroxaban 20 MG Tablet GT (04:45)
[2021-08-08] MEDS: Cyanocobalamin 500 MCG Tablet GT (04:45)
[2021-08-08] MEDS: Levothyroxine 50 MCG Tablet GT (04:45)
[2021-08-08] MEDS: Folic Acid 1 MG Tablet GT (04:45)
[2021-08-08] MEDS: Menthol/Lanolin/Calamine/Znox 113 GM Tube 1 APPLIC TOPICAL ×2 (04:46→17:44)
[2021-08-08] MEDS: Cholecalciferol (VIT D3) 25 MCG TABLET (1,000 UNITS) GT ×2 (04:47→17:40)
[2021-08-08 06:57] LABS: Absolute Neutrophil Count 13.8 X10^3/uL (2.0-7.7); Basophil# 0.07 X10^3/uL; Basophil% 0.3 % (0-1); Eosinophils% 0.9 % (0-5); Hematocrit 37.4 % (40-54); Hemoglobin 11.8 g/dL (13.0-16.5); Lymphocyte % 16.4 % (19-41); Mean Corp Hgb Conc 31.6 g/dL (32-36); Mean Corpuscular Hgb 31.1 pg (27.0-32.0); Mean Corpuscular Volume 98.4 fL (80-94); Mean Platelet Vol. 10.8 fl (6.2-12.0); Monocyte# 4.07 X10^3/uL; NRBC Flagged by Analyzer 0.2 % (0-5); Neutrophil # 13.83 X10^3/uL (2.7-7.7); Neutrophil % 61.3 % (47-70); POSITIVE DIFFERENTIAL YES; POSITIVE MORPHOLOGY YES; Platelet Count 657 K/mm3 (150-450); RBC Distribution Width CV 18.7 % (11.6-14.6); RBC Distribution Width SD 66.4 fl (35.1-43.9); White Blood Count 22.6 K/mm3 (4.4-11.0)
[2021-08-08 06:59] LABS: Differential Indicated SCAN CRITERIA MET
[2021-08-08 07:29] LABS: Anisocytosis 1+
[2021-08-08] MEDS: Multivitamins,Therapeutic Tablet 1 TABLET GT (07:47)
[2021-08-08 07:49] LABS: Anion Gap 9 (5-15); BUN 81 mg/dL (7-18); BUN/Creat Ratio 58.7 RATIO (10-20); Calcium,Total 8.8 mg/dL (8.5-10.1); Chloride 120 mmol/L (98-107); Creatinine, Serum 1.38 mg/dL (0.70-1.30); EST Glomerular Filtration Rate 53 mL/min (>60); Est Glom Filt Rate - Afr Amer 64 mL/min (>60); Estimated Creatinine Clearance 49.98 ml/min; Glucose 109 mg/dL (74-106); Potassium 3.3 mmol/L (3.5-5.1); Sodium Level 148 mmol/L (136-145)
[2021-08-08] MEDS: Vital AF 1.2 Cal Liquid 1,000 ML 280 ML GT ×4 (07:54→22:20)
--- NOTE | 2021-08-08 08:09 | NURSING ---
G-tube residul 10 ml. Tube feed and water flush administered per dr order. Pt tolerated well.
[2021-08-08] MEDS: Tuberculin,Purif.prot.deriv. 50 TU/ML Vial 0.1 ML ID (10:53)
[2021-08-08 13:38] VITALS: BP 106/57; PULSE 104; RESP 18; TEMP 35.8
[2021-08-08] MEDS: Potassium Chloride Oral Soln 20 MEQ/15 ML UDC GT (14:58)
--- NOTE | 2021-08-08 15:14 | NURSING ---
Peg tube residual 180cc. Feeding held at this time. K+ administered with 60cc sterile water. will continue to monitor.
--- NOTE | 2021-08-08 17:54 | NURSING ---
pt had 50cc residual, bolus given, HOB elevated. abdominal binder intact to protect PEG tube. pt remains NPO. at bedside. pt incont of urine and stool, incont care provided. will consult systems programmer d/t elevated residuals.
[2021-08-08] MEDS: QUEtiapine 25 MG Tablet 12.5 MG PO (22:12)
[2021-08-08] MEDS: Atorvastatin Calcium 80 MG Tablet GT (22:12)
--- NOTE | 2021-08-08 22:20 | NURSING ---
Patient had 30cc residual, bolus given per order, HOB elevated. Peg-Tube flushed. Abdominal binder intact to protect PEG tube. Patient tolerated well.
[2021-08-09] MEDS: Vital AF 1.2 Cal Liquid 1,000 ML 280 ML GT ×6 (02:31→20:26)
[2021-08-09] MEDS: Senna/Docusate Sodium 1 Tablet GT ×2 (05:40→18:36)
[2021-08-09] MEDS: Potassium Chloride Oral Soln 20 MEQ/15 ML UDC GT (05:40)
[2021-08-09] MEDS: Folic Acid 1 MG Tablet GT (05:40)
[2021-08-09] MEDS: Donepezil HCl 5 MG Tablet GT (05:40)
[2021-08-09] MEDS: Sertraline 50 MG Tablet 12.5 MG GT (05:41)
[2021-08-09] MEDS: Rivaroxaban 20 MG Tablet GT (05:41)
[2021-08-09] MEDS: Cyanocobalamin 500 MCG Tablet GT (05:41)
[2021-08-09] MEDS: Cholecalciferol (VIT D3) 25 MCG TABLET (1,000 UNITS) GT ×2 (05:41→18:36)
[2021-08-09] MEDS: Levothyroxine 50 MCG Tablet GT (05:41)
[2021-08-09] MEDS: Polyethylene Glycol 3350 17 GM PACKET GT (05:41)
[2021-08-09] MEDS: Menthol/Lanolin/Calamine/Znox 113 GM Tube 1 APPLIC TOPICAL ×2 (05:51→18:35)
[2021-08-09 07:06] LABS: Anion Gap 8 (5-15); BUN 51 mg/dL (7-18); BUN/Creat Ratio 47.7 RATIO (10-20); Calcium,Total 9.2 mg/dL (8.5-10.1); Chloride 120 mmol/L (98-107); Creatinine, Serum 1.07 mg/dL (0.70-1.30); EST Glomerular Filtration Rate 71 mL/min (>60); Est Glom Filt Rate - Afr Amer 86 mL/min (>60); Estimated Creatinine Clearance 64.47 ml/min; Glucose 108 mg/dL (74-106); Potassium 3.8 mmol/L (3.5-5.1); Sodium Level 150 mmol/L (136-145)
[2021-08-09 09:40] VITALS: PULSE 90; RESP 18; O2SAT 94
[2021-08-09] MEDS: Multivitamins,Therapeutic Tablet 1 TABLET GT (09:42)
--- NOTE | 2021-08-09 11:00 | NURSING ---
PT NPO, PLACEMENT VERIFIED,NO RESIDUAL. HOB ELEVATED. MED GIVEN AND BOLUS OF 280 AND 240 FLUSH GIVEN. PT TOLERATED WELL, IN ROOM. BINDER REAPPLIED.
--- NOTE | 2021-08-09 14:22 | NURSING ---
PT SITTING UP AT 60 DEGREES. 0 RESIDUAL,BOLUS 280 CC AND FLUSH 240 CC. PT TOLERATED WELL. ABDOMINAL BINDER REAPPLIED.
[2021-08-09 15:38] LABS: Pathologist Review Reviewed
--- NOTE | 2021-08-09 16:05 | CASEMGMT ---
Social Work Met with patient and for initial assessment. Pt has cognitive impairment, but pleasantly confused. answered assessment questions. Explained Medicare benefit. Encouraged to contact secondary insurance to ensure copay coverage. explained goal is for pt to return home with her, but she cannot extensively physically assist him. He would need to tx, toilet and mainly dress himself to return home. Inquired about alternative DC plan. explained she has a long-term care insurance policy pt could use at a SNF. Explained pt would pay privately to SNF then submit bill to insurance for potential reimbursement and that Medicare will not cover room and board for SNF stay. expressed understanding. Discussed code status. confirmed DNR-CC. recommended Palliative referral - referral made to [facility]. SW to continue to follow. Reena Nava MSW SUSPENDER CUTTER
--- NOTE | 2021-08-09 17:06 | NURSING ---
FINE CRACKLES TO LEFT LOWER POST. I.S ENCOURAGE AND FAMILY HELPS PT. RN AWARE.
--- NOTE | 2021-08-09 19:52 | NURSING ---
at 1830pt at 30 degrees, pt had a residual of 40 cc, bolus 280 and flush 240 given. pt tolerated well. dressing changed to peg site and binder put back on. rn aware
[2021-08-09] MEDS: Atorvastatin Calcium 80 MG Tablet GT (20:21)
[2021-08-09] MEDS: Nystatin Powder 15gm Bottle 1 APPLIC TOPICAL (20:21)
[2021-08-09] MEDS: QUEtiapine 25 MG Tablet 12.5 MG PO (20:22)
[2021-08-10] MEDS: Vital AF 1.2 Cal Liquid 1,000 ML 280 ML GT ×5 (02:43→22:12)
[2021-08-10] MEDS: Potassium Chloride Oral Soln 20 MEQ/15 ML UDC GT (05:16)
[2021-08-10] MEDS: Sertraline 50 MG Tablet 12.5 MG GT (05:17)
[2021-08-10] MEDS: Donepezil HCl 5 MG Tablet GT (05:17)
[2021-08-10] MEDS: Rivaroxaban 20 MG Tablet GT (05:17)
[2021-08-10] MEDS: Levothyroxine 50 MCG Tablet GT (05:17)
[2021-08-10] MEDS: Polyethylene Glycol 3350 17 GM PACKET GT (05:17)
[2021-08-10] MEDS: Cholecalciferol (VIT D3) 25 MCG TABLET (1,000 UNITS) GT ×2 (05:17→18:06)
[2021-08-10] MEDS: Cyanocobalamin 500 MCG Tablet GT (05:17)
[2021-08-10] MEDS: Nystatin Powder 15gm Bottle 1 APPLIC TOPICAL ×2 (05:18→18:06)
[2021-08-10] MEDS: Folic Acid 1 MG Tablet GT (05:18)
[2021-08-10] MEDS: Senna/Docusate Sodium 1 Tablet GT ×2 (05:18→18:05)
[2021-08-10] MEDS: Menthol/Lanolin/Calamine/Znox 113 GM Tube 1 APPLIC TOPICAL ×2 (05:18→18:06)
--- NOTE | 2021-08-10 07:23 | NURSING ---
All feeds given per order, Q4h 280ml with 240 flush, HOB elevated, residuals were, 150, 50, 210. Pt tolerated well.
--- NOTE | 2021-08-10 07:56 | RAD_ITS ---
STUDY: X-RAY CHEST REASON FOR EXAM: Male, 75 years old. Elevated WBC TECHNIQUE: PA and lateral views of the chest. COMPARISON: Comparison is made with prior study dated 08/01/2021. FINDINGS: A right-sided ventriculoperitoneal shunt tube is seen. The lungs are clear and expanded. There is no demonstrated pleural abnormality. Normal size heart. Normal mediastinum and issa. Normal visualized pulmonary arteries. There is atherosclerotic tortuosity of the aortic arch and descending thoracic aorta. Normal visualized thoracic spine. Normal visualized ribs, clavicles, and shoulders. There is no demonstrated abnormality of the visualized soft tissue structures of the upper abdomen. RAD/Chest PA and Lateral IMPRESSION: No acute abnormality is seen. Electronically Signed: Steven Bruce MD at 11:05 EDT , Service support ,
--- NOTE | 2021-08-10 08:00 | NURSING ---
U/a C&S and CXR ordered for elevated WBC
--- NOTE | 2021-08-10 08:35 | CON.PCM.PA_ITS ---
Assessment & Plan Assessment/Plan (1) Shortness of breath: (2) Altered mental status: QUALIFIERS: Altered mental status type: unspecified Qualified Code(s): R41.82 - Altered mental status, unspecified (3) CVA (cerebral vascular accident): QUALIFIERS: CVA mechanism: unspecified Qualified Code(s): I63.9 - Cerebral infarction, unspecified (4) Debility: (5) Vascular dementia: QUALIFIERS: Dementia behavioral disturbance: without behavioral disturbance Qualified Code(s): F01.50 - Vascular dementia without behavioral disturbance (6) Non-Hodgkin lymphoma: QUALIFIERS: Lymphoma site: unspecified region Non-Hodgkin lymphoma type: unspecified type Qualified Code(s): C85.90 - Non-Hodgkin lymphoma, unspecified, unspecified site (7) Normal pressure hydrocephalus: (8) Hypothyroidism: QUALIFIERS: Hypothyroidism type: acquired Qualified Code(s): E03.9 - Hypothyroidism, unspecified (9) Depression: QUALIFIERS: Depression Type: unspecified Qualified Code(s): F32.A - Depression, unspecified (10) Dysphagia: QUALIFIERS: Dysphagia type: oropharyngeal phase Qualified Code(s): R13.12 - Dysphagia, oropharyngeal phase (11) Seizure disorder: (12) Pituitary dysfunction: (13) Hyperlipidemia with target LDL less than 100: (14) Hypernatremia: PLAN: 75-year-old male with acute CVA and residual dysphagia, debility, weakness, seen today in TCU for palliative care consultation secondary to the above diagnoses. 1. Debility and weakness: Acute given CVA. NPO for dysphagia. Some confusion. He is getting therapy in TCU. Palliative for supportive care management. 2. Shortness of breath: stable, does not seem to be in any distress. No significant cough observed. Monitor for hypoxia given dysphagia. 3. Altered mental status in the setting of vascular dementia: intermittent confusion. worse since stroke. Fall precautions. 4. History of non-Hodgkin's lymphom a/hydrocephalus/hypothyroidism/depression/dysphagia/seizure/pituitary dysfunction/hyperlipidemia: Complicates overall care, management, recovery, and prognosis. Defer management to attending/PCP. It is unclear if patient will be returning home, will need to be able to transfer, toilet, and dress himself if he does. Otherwise, will require SNF. Lives at home with his , Shala. We will continue to follow his therapy and update plan of care as needed. Thank you for the opportunity to participate in this patient's care, please do not hesitate to contact [facility] with any further questions or concerns. Palliative direct line is [phone]. We will follow up after discharge and will discuss palliative services further at that time. Patient is DNR CC. Goals of care would be supportive management, reducing symptoms, and improving overall quality of life. The patient's is requesting a liaison visit as she wants to discuss it further with her family, but she does feel patient would benefit from services. Greater than 50% of F2F visit dedicated to education and counseling of palliative care services, medications, comorbid conditions and potential assistance with management, and plan of care moving forward. Start time: 834 End time: 952 F2F time: 35m other time includes counseling, coordination of care, discussion with family HPI Consult Data Date of Consult: 08/10/21 HPI Narrative HPI Narrative: JAE STUART, is a 75 M, [facility] as below, who presented to [facility] 07/31/2021 with altered mental status and stroke-like symptoms. He was found to have an acute CVA with residual dysphagia and dysarthria. He underwent a modified barium swallow and is now status post PEG tube placement with the initiation of tube feeds. He also had a JUANJO 08/03 demonstrated an EF of 55 to 60%, no valvular vegetation or thrombus, positive bilateral bubble study consistent with small PFO right to left shunt. He had some electrolyte replacement, antibiotics, and IV fluids. He has had some confusion. He has a shunt in place, MRI did not indicate any infection. Eventually, patient was transferred to TCU 08/07 for further rehab. While on TCU, patient has been participating in therapy. He remains i ntermittently confused. Denies any nausea or vomiting. Denies a significant cough, however staff report cough with any oral intake. He does have wet lung sounds intermittently. Denies any shortness of breath or chest pain. No lower extremity edema. He has a PEG tube and is getting bolus feedings every 4 hours. Patient is anticoagulated on Xarelto since June 2020 when he was found to have acute bilateral PEs and was in atrial flutter. Patient lives at home with his , Shala. He is retired. His drives and there are no issues with transportation. They live in a one-story home with 2 steps to enter. has been assisting patient with ADLs, however requiring minimal assist. Patient does have a living well and HCPOA. DME already in the home includes cane, BSC, shower chair, walker, and Rollator. They have been looking into getting a wheelchair. [facility] Medical History Dementia Depression DVT (deep venous thrombosis) Former smoker Headache High cholesterol High triglycerides Hydrocephalus Migraine Non-Hodgkins lymphoma Thyroid disease Vision problems Home Medications atorvastatin 80 mg PO QHS 08/07/21 [History Last Taken Unknown] cholecalciferol (vitamin D3) 1,000 unit FEEDING TUBE BID #0 cap 08/07/21 [Rx Last Taken 07/30/21] cyanocobalamin (vitamin B-12) 500 mcg FEEDING TUBE DAILY #0 tab 08/07/21 [Rx Last Taken 07/30/21] donepezil 5 mg FEEDING TUBE DAILY #0 tab 08/07/21 [Rx Last Taken 07/30/21] folic acid 0.8 mg FEEDING TUBE DAILY #0 tab 08/07/21 [Rx Last Taken 07/30/21] levothyroxine 50 mcg FEEDING TUBE DAILY #0 tab 08/07/21 [Rx Last Taken 07/30/21] multivitamin 1 ea FEEDING TUBE DAILY #0 tab 08/07/21 [Rx Last Taken 07/30/21] nut.tx.impaired dige fxn-fiber [Vital AF 1.2 Mathew] 280 ml G-TUBE Q4 08/07/21 [History Last Taken Unknown] quetiapine 12.5 mg PO QHS 08/07/21 [History Last Taken Unknown] rivaroxaban 20 mg G-TUBE DAILY 08/07/21 [History Last Taken Unknown] sertraline 25 mg FEEDING TUBE DAILY #0 tab 08/07/21 [Rx Last Taken 07/30/21] vitamins A,C,R-wnry-jqgvjd 1 ea FEEDING TUBE BID #0 tab 08/07/21 [Rx Last Taken 07/30/21] Allergy/AdvReac Type Severity Reaction Status Date / Time No Known Allergies Allergy Verified 07/31/21 13:23 Family History Mother High cholesterol Father Skin cancer Surgical History Hx of hernia repair S/P hernia surgery S/P [employer]ATOR shunt Status post insertion of percutaneous endoscopic gastrostomy (PEG) tube Social History household members: spouse Smoking Status: Unknown if ever smoked alcohol intake: current substance use type: does not use ROS ROS Narrative Review of systems otherwise negative from a constitutional, HEENT, respiratory, cardiovascular, GI, genitourinary, musculoskeletal, skin, neurologic, psychiatric and hematologic system unless stated above. Physical Exam Const alert and no apparent distress General Appearance: cooperative HEENT normocephalic and head/scalp atraumatic Neck supple Resp normal respiratory effort Effort and Inspection: able to speak in complete sentences and symmetric chest movement Auscultation: diminished lung sounds; Negative for rales, rhonchi or wheezes Cardio regular rate, regular rhythm, S1 normal heart sound and S2 normal heart sound GI GI Narrative: soft, mild generalized tenderness. hyperactive BS. Abdominal binder. PEG Extremity no clubbing, cyanosis or edema Neuro moves all extremities Neuro Narrative: speech slow, somewhat slurred. Psych cooperative and affect normal Attitude: calm Activity / Motor Behavior: appropriate eye contact Speech: slow and slurred Memory / Cognition: cognition impaired
[2021-08-10] MEDS: Multivitamins,Therapeutic Tablet 1 TABLET GT (09:40)
--- NOTE | 2021-08-10 10:00 | NURSING ---
peg tube residual 350cc, 10am bolus held per policy.
--- NOTE | 2021-08-10 11:37 | PCM.PN.RX ---
Progress Note - Pharmacy Subjective: TCU Admission Objective: Allergies No Known Allergies Allergy (Verified 07/31/21 13:23) Current Medications Generic Name Dose Route Start Last Admin Trade Name Freq PRN Reason Stop Dose Admin Acetaminophen 650 mg 08/07/21 17:26 Acetaminophen 650 Mg/20 Ml Udc GT Q4H PRN PRN Pain Score 1-10 Atorvastatin Calcium 80 mg 08/07/21 22:00 08/09/21 20:21 Atorvastatin Calcium 80 Mg Tablet GT 80 mg QHS DANIEL Administration Bisacodyl 10 mg 08/07/21 16:43 Bisacodyl 10 Mg Suppository RC DAILY PRN CONSTIPATION Calamine/Phenol 1 applic 08/07/21 18:00 08/10/21 05:18 Menthol/Lanolin/Calamine/Znox 113 Gm Tube TOPICAL 1 applic BID DANIEL Administration Protocol Cholecalciferol 25 mcg 08/07/21 18:00 08/10/21 05:17 Cholecalciferol (Vit D3) 25 Mcg Tablet (1,000 Units) GT 25 mcg BID DANIEL Administration Cyanocobalamin 500 mcg 08/08/21 06:00 08/10/21 05:17 Cyanocobalamin 500 Mcg Tablet GT 500 mcg DAILY DANIEL Administration Donepezil HCl 5 mg 08/08/21 06:00 08/10/21 05:17 Donepezil Hcl 5 Mg Tablet GT 5 mg DAILY DANIEL Administration Enteral Nutritional Formula 280 ml 08/07/21 18:30 08/10/21 10:00 Vital Af 1.2 Mathew Liquid 1,000 Ml GT Not Given Q4 DANIEL Folic Acid 1 mg 08/08/21 06:00 08/10/21 05:18 Folic Acid 1 Mg Tablet GT 1 mg DAILY DANIEL Administration Hydrocortisone 1 applic 08/09/21 17:23 Hydrocortisone 2.5% Crm TOPICAL BID PRN PRN Rash Protocol Levothyroxine Sodium 50 mcg 08/08/21 06:00 08/10/21 05:17 Levothyroxine 50 Mcg Tablet GT 50 mcg DAILY DANIEL Administration Multivitamins 1 tablet 08/08/21 08:00 08/10/21 09:40 Multivitamins,Therapeutic Tablet GT 1 tablet DAILYCM DANIEL Administration Nystatin 1 applic 08/09/21 18:00 08/10/21 05:18 Nystatin Powder 15gm Bottle TOPICAL 1 applic BID DANIEL Administration Protocol Polyethylene Glycol 17 gm 08/07/21 17:30 08/10/21 05:17 Polyethylene Glycol 3350 17 Gm Packet GT 17 gm DAILY DANIEL Administration Potassium Chloride 20 meq 08/09/21 06:00 08/10/21 05:16 Potassium Chloride Oral Soln 20 Meq/15 Ml Udc GT 20 meq DAILY DANIEL Administration Quetiapine Fumarate 12.5 mg 08/07/21 22:00 08/09/21 20:22 Quetiapine 25 Mg Tablet PO 12.5 mg QHS DANIEL Administration Rivaroxaban 20 mg 08/08/21 06:00 08/10/21 05:17 Rivaroxaban 20 Mg Tablet GT 20 mg DAILY DANIEL Administration Senna/Docusate Sodium 1 tablet 08/07/21 18:00 08/10/21 05:18 Senna/Docusate Sodium 1 Tablet GT 1 tablet BID DANIEL Administration Sertraline HCl 12.5 mg 08/08/21 06:00 08/10/21 05:17 Sertraline 50 Mg Tablet GT 12.5 mg DAILY DANIEL Administration Tuberculin PPD 0.1 ml 08/15/21 10:00 Tuberculin,Purif.Prot.Deriv. 50 Tu/Ml Vial ID 08/15/21 10:01 X1 ONE Problem List (Last Reviewed 08/10/21 @ 08:35 by Heidi Ty NP-C) Hypernatremia (Acute) Pulmonary embolism (Acute) Deep vein thrombosis (Acute) Non-Hodgkin lymphoma (Acute) Normal pressure hydrocephalus (Acute) Hypothyroidism (Acute) Vascular dementia (Acute) Vitamin B12 deficiency (Acute) Vitamin D deficiency (Acute) Depression (Acute) Aspiration pneumonia (Acute) Dysphagia (Acute) Seizure disorder (Acute) Stroke (Acute) Encephalopathy acute (Acute) Debility (Acute) CVA (cerebral vascular accident) (Acute) Hyperlipidemia with target LDL less than 100 (Chronic) Pituitary dysfunction (Chronic) Shortness of breath (Acute) Altered mental status (Acute) Vital Signs Temp Pulse Resp BP Pulse Ox 96.5 F L 90 18 106/57 L 94 08/08/21 13:38 08/09/21 09:40 08/09/21 09:40 08/08/21 13:38 08/09/21 09:40 Oxygen Delivery Method Room Air Weight: 90.6 kg Body Mass Index (BMI) 27.1 Sodium 150 mmol/L (136-145) H 08/09/21 05:56 Potassium 3.8 mmol/L (3.5-5.1) 08/09/21 05:56 Chloride 120 mmol/L (98-107) H 08/09/21 05:56 Carbon Dioxide 22.0 mmol/L (21.0-32.0) 08/09/21 05:56 Anion Gap 8 (5-15) 08/09/21 05:56 BUN 51 mg/dL (7-18) H 08/09/21 05:56 Creatinine 1.07 mg/dL (0.70-1.30) 08/09/21 05:56 Est GFR (MDRD) Af Amer 86 mL/min (>60) 08/09/21 05:56 Est GFR (MDRD) Non-Af 71 mL/min (>60) 08/09/21 05:56 BUN/Creatinine Ratio 47.7 RATIO (10-20) H 08/09/21 05:56 Glucose 108 mg/dL (74-106) H 08/09/21 05:56 Assessment/Plan: 1. Pain: acetaminophen liquid 650mg GT Q4H PRN pain 1-10. Please continue to monitor for increased pain and PRN usage. 2. Hyperlipidemia: atorvastatin 80mg GT QHS. Please continue to monitor lipid panel (last 08/03/21) and muscle pain. 3. Vascular dementia: donepezil 5mg GT daily. Please continue to monitor for GI side effects. 4. Hypothyroidism: levothyroxine 50mcg GT daily. Please continue to monitor TSH (last 08/01/21) and for S/S of hypo/hyperthyroidism. 5. DVT/PE/stroke: rivaroxaban 20mg GT daily. Please continue to monitor for S/S of bleeding/VTE, hemoglobin (last 11.8g/dL) and renal function. 6. Nutrition: multivitamin 1T GT DAILYCM. Please continue to monitor. *7. Vitamin deficiencies/folate deficiency: cholecalciferol 25mcg GT BID, cyanocobalamin 500mcg GT daily and folic acid 1mg GT daily. Please continue to monitor vitamin D levels (last 05/25/21). Please consider ordering a vitamin B12 level (last 01/24/19) if clinically appropriate. Thanks. 8. Hypokalemia: potassium chloride solution 20mEq GT daily. Please continue to monitor potassium levels (last 3.8mmol/L). Psychotropic Medications: *1. Agitation: quetiapine 12.5mg GT QHS. Please consider a GDR by 01/2022 or sooner as clinically appropriate. Thanks. 2. Depression: sertraline 12.5mg GT daily. Please see physician note regarding GDR. Unnecessary Medications: None Bowel Regimen: Miralax 17gm GT daily, senna/docusate 1T GT BID and bisacodyl 10mg RC daily PRN constipation. Please continue to monitor for constipation and PRN usage. Date of Note:: 08/10/21
--- NOTE | 2021-08-10 12:32 | NURSING ---
This Nurse Received call from Dr. Flanagan Regarding patient would like a Lumbar Puncture d/t increased WBC. Also, Okay to use Coudae to collect urine Specimen.
[2021-08-10 13:07] LABS: Bacteria 0 SEEN /hpf (None Seen); Mucous, Urine 0 SEEN /hpf (<or=2+); Squamous Epithelial Cells - UA 0 SEEN /hpf (0-5)
[2021-08-10 13:10] LABS: Color, Urine Yellow (Yellow); Glucose, Dipstick Normal (Normal); Ketone-Dipstick Negative (Negative); Leukocyte Esterase-Dipstick Negative /ul (Negative); Nitrite-Dipstick Negative (Negative); Occult Blood-Urine Negative /ul (Negative); Protein-Dipstick Negative (Negative); Urine Bilirubin Dipstick Negative (Negative); Urine Clarity Clear (Clear); Urine Urobilinogen Normal (Normal)
[2021-08-10 13:16] LABS: Red Blood Cells-Urine 0-5 SEEN /hpf (0-5); White Blood Cells 0-5 SEEN /hpf (0-5)
--- NOTE | 2021-08-10 13:58 | NURSING ---
Radiology called regarding lumbar puncture stating they need orders from Dr. Flanagan regarding what he would like done with the CSF, and also pt needs to be off Xarelto x2 days before they can perform puncture so if order is given to hold Xarelto they are looking at performing puncture 08/12/21., message left for Dr. Flanagan.
[2021-08-10 15:09] VITALS: BP 152/75; PULSE 88; RESP 16; TEMP 36.1
[2021-08-10 15:42] LABS: Anion Gap 7 (5-15); BUN 28 mg/dL (7-18); Calcium,Total 8.9 mg/dL (8.5-10.1); Chloride 112 mmol/L (98-107); Creatinine, Serum 0.87 mg/dL (0.70-1.30); EST Glomerular Filtration Rate 90 mL/min (>60); Est Glom Filt Rate - Afr Amer 109 mL/min (>60); Estimated Creatinine Clearance 79.28 ml/min; Glucose 117 mg/dL (74-106); Potassium 4.1 mmol/L (3.5-5.1); Sodium Level 145 mmol/L (136-145)
[2021-08-10] MEDS: QUEtiapine 25 MG Tablet 12.5 MG PO (22:02)
[2021-08-10] MEDS: Atorvastatin Calcium 80 MG Tablet GT (22:02)
--- NOTE | 2021-08-10 22:15 | NURSING ---
Addendum entered by Martha Purdy 08/11/21 01:39: Patient had 155cc residual, 240mL bolus given per order and flushed with 240 mL. HOB elevated. Abdominal binder intact to protect PEG tube. Patient tolerated well. Original Note: Patient had 110cc residual, 240mL bolus given per order and flushed with 240 mL. HOB elevated. Abdominal binder intact to protect PEG tube. Patient tolerated well.
--- NOTE | 2021-08-10 22:15 | NURSING ---
Patient had 110mL residual, 280mL bolus given per order and flushed with 240 mL. HOB elevated. Abdominal binder intact to protect PEG tube. Patient tolerated well.
[2021-08-11] MEDS: Vital AF 1.2 Cal Liquid 1,000 ML 280 ML GT ×6 (01:39→22:49)
--- NOTE | 2021-08-11 01:39 | NURSING ---
Patient had 150mL residual, 280mL bolus given per order and flushed with 240 mL. HOB elevated. Abdominal binder intact to protect PEG tube. Patient tolerated well.
[2021-08-11] MEDS: Senna/Docusate Sodium 1 Tablet GT ×2 (05:14→18:14)
[2021-08-11] MEDS: Potassium Chloride Oral Soln 20 MEQ/15 ML UDC GT (05:14)
[2021-08-11] MEDS: Levothyroxine 50 MCG Tablet GT (05:14)
[2021-08-11] MEDS: Cholecalciferol (VIT D3) 25 MCG TABLET (1,000 UNITS) GT ×2 (05:14→18:14)
[2021-08-11] MEDS: Sertraline 50 MG Tablet 12.5 MG GT (05:14)
[2021-08-11] MEDS: Cyanocobalamin 500 MCG Tablet GT (05:14)
[2021-08-11] MEDS: Donepezil HCl 5 MG Tablet GT (05:15)
[2021-08-11] MEDS: Nystatin Powder 15gm Bottle 1 APPLIC TOPICAL ×2 (05:15→22:36)
[2021-08-11] MEDS: Polyethylene Glycol 3350 17 GM PACKET GT (05:15)
[2021-08-11] MEDS: Folic Acid 1 MG Tablet GT (05:15)
[2021-08-11] MEDS: Menthol/Lanolin/Calamine/Znox 113 GM Tube 1 APPLIC TOPICAL ×2 (05:28→18:13)
--- NOTE | 2021-08-11 05:32 | NURSING ---
Patient had 140cc residual, 280mL bolus given per order and flushed with 240 mL. HOB elevated. Abdominal binder intact to protect PEG tube. Peg dressing changed. Patient tolerated well.
[2021-08-11] MEDS: Multivitamins,Therapeutic Tablet 1 TABLET GT (09:13)
--- NOTE | 2021-08-11 09:30 | NURSING ---
PLACEMENT VERIFIED WITH PEG TUBE,NO RESIDUAL. MED AND VITAL AF 280 AND FLUSH OF 120 GIVEN. PT TOLERATED WELL. IN ROOM. ALSO STATED SHE WANTED PT TO BE CHECKED FOR INCONSTANCE DUE TO PT DOESN'T KNOW WHEN HE HAS TO PEE AND WET. BUT DOES KNOW WHEN HE NEEDS BM. RN AWARE
--- NOTE | 2021-08-11 10:24 | CASEMGMT ---
Social Work IDT met with patient and for care plan meeting. Discussed patient's progress in therapy and nursing. Explained Medicare benefit. Pt has peg tube. Encouraged to begin considering alternative DC options. Provided SNF list with quality and resource data. reexplained pt has long-term care insurance policy to potentially cover SNF. Reiterated about reimbursement and may not cover 100%. expressed understanding. Palliative care involved with pt as well. SW to continue to follow. Reena Nava, [employer]
--- NOTE | 2021-08-11 15:27 | NURSING ---
AT 1400, O RESIDUAL, 280CC VITAL AF AND 120 FLUSH GIVEN. PT TOLERATED WELL. BINDER REAPPLIED.
[2021-08-11 16:00] VITALS: BP 134/60; PULSE 92; RESP 18; TEMP 36.4; O2SAT 95
--- NOTE | 2021-08-11 16:42 | NURSING ---
IN TO SEE PT. HAD QUESTIONS AND WAS ANSWERED BY THIS NURSE. NO NEW ORDERS AT THIS TIME.
--- NOTE | 2021-08-11 18:35 | NURSING ---
PT SITTING UP 60 DEGREES, 0 RESIDUAL. MED GIVEN, 280 VITAL AF AND 120 FLUSH GIVEN THREW PEG TUBE . BINDER REAPPLYED.PT TOLERATED WELL.
[2021-08-11 22:33] VITALS: PULSE 91; RESP 16; O2SAT 95
[2021-08-11] MEDS: Atorvastatin Calcium 80 MG Tablet GT (22:35)
[2021-08-11] MEDS: QUEtiapine 25 MG Tablet 12.5 MG PO (22:35)
--- NOTE | 2021-08-11 22:49 | NURSING ---
Addendum entered by Martha Purdy 08/12/21 05:09: Patient had 170mL residual, 280mL bolus given per order and flushed with 120mL. HOB elevated. Abdominal binder intact to protect PEG tube. Patient tolerated well. Addendum entered by Martha Purdy 08/12/21 02:11: Patient had 180mL residual, 280mL bolus given per order and flushed with 120mL. HOB elevated. Abdominal binder intact to protect PEG tube. Patient tolerated well. Original Note: Patient had 190mL residual, 280mL bolus given per order and flushed with 120mL. HOB elevated. Abdominal binder intact to protect PEG tube. Patient tolerated well.
[2021-08-12] MEDS: Acetaminophen 650 MG/20 ML UDC GT (01:57)
[2021-08-12] MEDS: Vital AF 1.2 Cal Liquid 1,000 ML 280 ML GT ×6 (02:07→22:16)
[2021-08-12] MEDS: Polyethylene Glycol 3350 17 GM PACKET GT (04:55)
[2021-08-12] MEDS: Cholecalciferol (VIT D3) 25 MCG TABLET (1,000 UNITS) GT ×2 (04:55→18:04)
[2021-08-12] MEDS: Senna/Docusate Sodium 1 Tablet GT ×2 (04:55→18:04)
[2021-08-12] MEDS: Levothyroxine 50 MCG Tablet GT (04:55)
[2021-08-12] MEDS: Cyanocobalamin 500 MCG Tablet GT (04:55)
[2021-08-12] MEDS: Folic Acid 1 MG Tablet GT (04:55)
[2021-08-12] MEDS: Sertraline 50 MG Tablet 12.5 MG GT (04:56)
[2021-08-12] MEDS: Nystatin Powder 15gm Bottle 1 APPLIC TOPICAL ×2 (04:56→18:05)
[2021-08-12] MEDS: Potassium Chloride Oral Soln 20 MEQ/15 ML UDC GT (04:56)
[2021-08-12] MEDS: Donepezil HCl 5 MG Tablet GT (04:56)
[2021-08-12] MEDS: Menthol/Lanolin/Calamine/Znox 113 GM Tube 1 APPLIC TOPICAL ×2 (04:58→18:05)
[2021-08-12] MEDS: Multivitamins,Therapeutic Tablet 1 TABLET GT (08:56)
--- NOTE | 2021-08-12 09:12 | NURSING ---
Medications and Vital 1.2 given at this time via peg tube, placement verified by aspiration, residual fluid benjamin/straw colored and measure 130cc. 280cc bolus feed given and flushed with 240cc sterile water, securement device in place and abdominal binder replaced. Pt tolerated well.
--- NOTE | 2021-08-12 09:42 | SP.MBSS_ITS ---
Modified Barium Swallow - Patient Information Study Date: 08/12/21 Study Time: 09:35 Direct Billable Minutes: 135 Total Minutes procedure & reportin Diagnosis: dysphagia Referring Physician: Dany Flanagan Chi Reason for Referral: Repeat MBS recommended for objective assessment of swallow function under fluoroscopy following subjective improvement in swallow function and mentation to determine appropriateness for diet texture/liquid consistency upgrade and to further elucidate compensatory strategy recommendations and therapeutic interventions selected for maximum benefit from treatment received. 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 states this has happened twice since his shunt was placed in April. He recently followed with neurosurgery who stated these episodes are not related to an issue with his shunt. She reports episodes typically last 2 days and then he comes out of it. She states patient has had a wet cough, she is concerned he has had difficulty swallowing. 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 A tiny acute cortical infarct is also seen at the junction of the left frontal and parietal lobes superiorly. MBS completed 08/05/21 w/ recommendation for NPO and repeat MBS w/in the week if mentation improved. A PEG was placed 08/06/21. The patient was admitted to [facility] TCU for rehabilitation on 08/07/21. Current Diet Ordered: NPO w/ PEG Mental Status: Impaired - slowed processing and response time, requiring repetitions/verbal cues at times Respiratory Status: Oxygenating on Room Air - Penetration-Aspiration Scale Penetration-Aspiration Scale: OBJECTIVE ASSESSMENT OF SWALLOW FUNCTION (QUANTITATIVE ? PER TRIAL): PENETRATION / ASPIRATION SCALE (LANG[place]): 1 = does not enter airway 2 = enters airway/above vocal folds/ejected 3 = enters airway/above vocal folds/not ejected 4 = enters airway/contacts vocal folds/ejected 5 = enters airway/contacts vocal folds/not ejected 6 = enters airway/below vocal folds/ejected 7 = enters airway/below vocal folds/not ejected despite effort 8 = enters airway/below vocal folds/no effort VIDEOFLOROSCOPIC SCALE SCORE (LANG[place]ON): Grade I = aspiration of material that has penetrated into the laryngeal vestibule, intact cough reflex Grade II = aspiration < 10 % of the bolus, intact cough reflex Grade III = aspiration of < 10 % of the bolus, reduced cough reflex or aspiration of > 10 % of the bolus, intact cough reflex Grade IV = aspiration of > 10 % of the bolus, reduced cough reflex - Penetration-Aspiration Scale Score Thin Liquid via teaspoon Result: 1= does not enter airway Thin Liquid via teaspoon Trial 2 Result: 1= does not enter airway Thin Liquid via small single sip from cup Result: 2= enter airway/above vocal folds/ejected - penetration of contrast from pyriforms spilling into the posterior laryngeal vestibule, ejected Thin Liquid via single sip from straw Result: 2= enter airway/above vocal folds/ejected - transiently undercoated the posterior laryngeal surface of the epiglottis Thin Liquid via sequential sips from cup Result: 2= enter airway/above vocal folds/ejected [place] Thick Liquid via small single sip from cup Result: 3= enters airways/above vocal folds/not ejected - trace retention; able to eject w/ cued throat clearing and re-swallow Pudding Result: 1= does not enter airway Pudding - esophageal clearance screening Result: 1= does not enter airway Cookie Result: 1= does not enter airway Thin Liquid via small single sip from cup Trial 2 Result: 2= enter airway/above vocal folds/ejected - transient prandial penetration, addition penetration w/ second swallow utilized to clear pharyngeal residue; penetration completely ejected - Oral Phase Labial Seal: No Labial Escape Tongue Control During Bolus Hold: Cohesive bolus between tongue to palatal seal Bolus Preparation/Mastication: Slow prolonged chewing/mashing with complete recollection Bolus Transport/Lingual Motion: Slowed tongue motion Oral Residue: Residue collection on oral structures - Pharyngeal Phase Initiation of Pharyngeal Swallow: Bolus head in valleculae Soft Palate Elevation: Trace column of contrast/air between soft palate and pharyngeal wall Laryngeal Elevation: Partial superior movement thyroid cart/partial apprx aryt- epig petiole Anterior Hyoid Excursion: Partial anterior movement Epiglottic Movement: Partial inversion Laryngeal Vestibule Closure at Height of Swallow: Incomplete; narrow column of air/contrast in laryngeal vestibule Pharyngeal Stripping Wave: Present - diminished Pharyngoesophageal Segment Opening: Parital distension and partial duration; parital obstruction of flow Tongue Base Retraction: Narrow column of contrast between tongue base & post. pharyngeal wall Pharyngeal Residue: Collection of residue within or on pharyngeal structures - Esophageal Phase Esophageal Clearance: Esophageal retention w/ retrograde flow through pharyngoesophageal seg - Diagnosis/Impression Diagnosis: mild-moderate oropharyngeal (R13.12)/pharyngoesophageal dysphagia(R13.14) Impression: The oral phase is characterized by: * slow but effective mastication of solids * slowed lingual motion for A-P bolus transportation * mild oral residue retention post deglutition The pharyngeal phase is characterized by: * reduced closure of the airway during deglutition attributed to reduced laryngeal elevation and anterior hyoid excursion which resulted in * insufficient epiglottic inversion * reduced laryngeal vestibule closure/pressure * reduced distention and duration of pharyngoesophageal segment opening * significantly delayed swallow onset w/ solid texture trial w/ bolus entering into the pharynx and pooling in the valleculae w/ some spillage over the epiglottic tip without pharyngeal swallow onset * required verbal cues to initiate swallow * reduced tongue based retraction and posterior pharyngeal stripping wave action in conjunction w/ incomplete epiglottic inversion resulted in poor pharyngeal clearance w/ vallecular residue retention * double swallow was effective to to reduce post-prandial pharyngeal stasis * velopharyngeal insufficiency/soft palate elevation w/ trace contrast penetrating between the velum and posterior pharyngeal wall without nasal cavity penetration The esophageal phase is characterized by: * esophageal retention w/in the upper 1/3rd of the esophagus w/ visible retrograde bolus flow through the PES into the pyriforms Diet Recommended: * Pureed Texture (IDDSI: 4) * Thin Liquid (IDDSI: 0) * continue NPO w/ PEG, frequent oral hygiene and sips/chips until 08/13/21 * ST to supervise w/ first puree/thin liquid meal on for meal on 08/13/21 before advancing diet Compensatory Strategies Recommended: * 1:1 supervision w/ PO intake * Provide verbal cues to use compensatory strategies (cue to swallow/double swallow) * Small bites * Small sips * Alternate bites of solids w/ sips of liquids * Double swallow w/ every bite/sip to clear pharyngeal residue * Cue to cough/clear throat and re-swallow as needed/if vocal quality cahnges noted w/ PO intake * Sit upright w/ hip flexion at 90 degrees during PO intake * Remain seated upright for 30-60 minutes after PO intake (GERD precautions) Additional Speech Therapy Services Recommended: Yes Patient requires intensive skilled speech-language intervention targeting * continued diet texture management w/ advancement beyond purees as alertness improves * training and implementation of recommended compensatory strategies * training and implementation of recommended oropharyngeal strengthening exercises to facilitate improved * lingual control / strength * laryngeal vestibule closure / pressure * pharyngeal motility * velopharyngeal competence * Patient and caregiver training targeting meal preparation w/ pureed textures if unable to advance to baseline diet texture prior to discharge Referrals Recommended: Yes * Consider additional assessment of the Patients esophageal functioning, as it is outside the scope of the modified barium swallow study to objectively assess esophageal functioning, may additionally consider further workup via cupola melter helper. Education Provided: * Images were reviewed w/ the patient, along w/ Shala () and Tracie (daughter) immediately following MBS conclusion. * Extended time spent providing education re: anatomy/physiology of swallow function and of the deficits identified. * Results, recommendation and plan of care going forward were discussed in detail with the patient and his family all expressing understanding and agreement with the recommendations/education provided. - Status Active ST Patient: Active - Contact Information [facility] Speech Therapy:: Ana Richards M.A., CCC-POLICEWOMAN [address] [place] [address] x [phone] [email or web address] 08/12/21 17:07
--- NOTE | 2021-08-12 13:57 | CASEMGMT ---
Social Work SW met with pt and dgt Tracie. Questions regarding senior living placement answered. Shala indicates that she does not believe she can take pt home and would prefer ECF. She does have a list of facilities and will be looking into options and notify SW of choices. SW offered support. Will continue to follow for d/c planning. IDALIA Lamb
--- NOTE | 2021-08-12 15:00 | NURSING ---
Vital 1.2 given at this time via peg tube, placement verified by aspiration, residual fluid benjamin/straw colored and measure 120cc. 280cc bolus feed given and flushed with 240cc sterile water, securement device in place and abdominal binder replaced. Pt tolerated well.
[2021-08-12 15:12] VITALS: BP 130/71; PULSE 88; RESP 16; TEMP 36.4; O2SAT 95
--- NOTE | 2021-08-12 19:27 | NURSING ---
Vital 1.2 given at this time via peg tube, placement verified by aspiration, residual fluid benjamin/straw colored and measured 210cc. 280cc bolus feed given and flushed with 240cc sterile water, securement device in place and abdominal binder replaced. Pt tolerated well.
[2021-08-12] MEDS: Atorvastatin Calcium 80 MG Tablet GT (22:04)
[2021-08-12] MEDS: QUEtiapine 25 MG Tablet 12.5 MG PO (22:04)
--- NOTE | 2021-08-12 23:41 | NURSING ---
Vital 1.2 given at 2220 via peg tube. Placement checked by aspiration, 150 mL of benjamin residual noted, 280 mL vital given with 120 mL flush afterwards. HOB elevate, pt tolerated well. Performed oral care afterwards.
[2021-08-13] MEDS: Vital AF 1.2 Cal Liquid 1,000 ML 280 ML GT ×3 (02:28→09:10)
--- NOTE | 2021-08-13 02:28 | NURSING ---
Vital 1.2 given via peg tube. verified placement by aspiration, 125 as residual. HOB elevated while 280 mL given bolus feeding with 120 mL flush. Oral care given afterwards, pt tolerated well.
[2021-08-13] MEDS: Polyethylene Glycol 3350 17 GM PACKET GT (06:10)
[2021-08-13] MEDS: Donepezil HCl 5 MG Tablet GT (06:11)
[2021-08-13] MEDS: Sertraline 50 MG Tablet 12.5 MG GT (06:11)
[2021-08-13] MEDS: Senna/Docusate Sodium 1 Tablet GT ×2 (06:11→18:11)
[2021-08-13] MEDS: Nystatin Powder 15gm Bottle 1 APPLIC TOPICAL ×2 (06:11→18:13)
[2021-08-13] MEDS: Folic Acid 1 MG Tablet GT (06:11)
[2021-08-13] MEDS: Levothyroxine 50 MCG Tablet GT (06:11)
[2021-08-13] MEDS: Cholecalciferol (VIT D3) 25 MCG TABLET (1,000 UNITS) GT ×2 (06:11→18:11)
[2021-08-13] MEDS: Cyanocobalamin 500 MCG Tablet GT (06:11)
[2021-08-13] MEDS: Potassium Chloride Oral Soln 20 MEQ/15 ML UDC GT (06:11)
[2021-08-13] MEDS: Menthol/Lanolin/Calamine/Znox 113 GM Tube 1 APPLIC TOPICAL ×2 (06:12→18:13)
--- NOTE | 2021-08-13 06:33 | NURSING ---
Vital 1.2 given via peg tube. position verified by aspiration, 125 mL of benjamin fl, a bolus of 280 mL given with 120 mL flush, oral care afterwards, pt tolerated well.
[2021-08-13] MEDS: Multivitamins,Therapeutic Tablet 1 TABLET GT (08:55)
--- NOTE | 2021-08-13 09:14 | NURSING ---
Vital 1.2 given at this time via peg tube, placement verified by aspiration, residual fluid benjamin/straw colored and measure 230cc. 280cc bolus feed given and flushed with 120cc sterile water, securement device in place and abdominal binder replaced. Pt tolerated well.
--- NOTE | 2021-08-13 13:28 | CASEMGMT ---
Social Work BIMS and PHQ9 interviews completed on this date for MDS assessment. IDALIA Lamb
--- NOTE | 2021-08-13 14:00 | NURSING ---
Vital 1.2 given at this time via peg tube, placement verified by aspiration, residual fluid benjamin/straw colored and measure 110cc. 350cc bolus feed given and flushed with 135cc sterile water, securement device in place and abdominal binder replaced. Pt tolerated well.
--- NOTE | 2021-08-13 14:12 | CASEMGMT ---
Social Work Pt stating she has toured some ECF's and is now considering home with private duty aids. List of private duty companies provided and SW updated Shala that insurance does not cover this service. She is understanding. SW to continue to follow for d/c planning and support. IDALIA Lamb
--- NOTE | 2021-08-13 14:24 | MDS.RN ---
Completed pain interview for elliot 08/14/21
[2021-08-13] MEDS: Vital AF 1.2 Cal Liquid 1,000 ML 350 ML GT (15:04)
[2021-08-13 15:11] VITALS: BP 127/74; PULSE 88; RESP 18; TEMP 36.3; O2SAT 91
--- NOTE | 2021-08-13 18:43 | NURSING ---
Pt ate 25% of supper, residual amount was 350cc, tube feed held per protocol.
[2021-08-13] MEDS: QUEtiapine 25 MG Tablet 12.5 MG PO (22:13)
[2021-08-13] MEDS: Atorvastatin Calcium 80 MG Tablet GT (22:13)
[2021-08-13] MEDS: Vital AF 1.2 Cal Liq 1,500 ML 350 ML GT (22:14)
[2021-08-14] MEDS: Polyethylene Glycol 3350 17 GM PACKET GT (05:08)
[2021-08-14] MEDS: Sertraline 50 MG Tablet 12.5 MG GT (05:10)
[2021-08-14] MEDS: Cyanocobalamin 500 MCG Tablet GT (05:10)
[2021-08-14] MEDS: Potassium Chloride Oral Soln 20 MEQ/15 ML UDC GT (05:10)
[2021-08-14] MEDS: Senna/Docusate Sodium 1 Tablet GT ×2 (05:14→17:32)
[2021-08-14] MEDS: Rivaroxaban 20 MG Tablet GT (05:14)
[2021-08-14] MEDS: Cholecalciferol (VIT D3) 25 MCG TABLET (1,000 UNITS) GT ×2 (05:14→17:32)
[2021-08-14] MEDS: Donepezil HCl 5 MG Tablet GT (05:14)
[2021-08-14] MEDS: Menthol/Lanolin/Calamine/Znox 113 GM Tube 1 APPLIC TOPICAL ×2 (05:15→22:02)
[2021-08-14] MEDS: Nystatin Powder 15gm Bottle 1 APPLIC TOPICAL ×2 (05:15→22:00)
[2021-08-14] MEDS: Folic Acid 1 MG Tablet GT (05:15)
[2021-08-14] MEDS: Levothyroxine 50 MCG Tablet GT (05:15)
[2021-08-14] MEDS: Multivitamins,Therapeutic Tablet 1 TABLET GT (08:28)
[2021-08-14 09:30] VITALS: PULSE 81; RESP 18; O2SAT 91
[2021-08-14] MEDS: Vital AF 1.2 Cal Liquid 1,000 ML 350 ML GT ×2 (09:45→18:56)
--- NOTE | 2021-08-14 10:27 | NURSING ---
PT ATE 25% FOR BREAKFAST. NO RESIDUAL,VITAL AF 350ML AND 135 FLUSH GIVEN. PT TOLERATED WELL. DRESSING TO PEG SITE CHANGED. IN ROOM. ASKED WHAT PT LIKES TO EAT AND HAD FILL OUT [employer] FOR STAFF TO GO BY WHEN ORDERING IN HOPES PT WILL EAT MORE. ASKED IF SHE COULD BRING IN A MILK SHAKE FOR LUNCH. THIS NURSE STATED IT WOULD BE OK AND THAT SHE COULD HELP IN FEEDING PT TO SEE IF HE WOULD EAT MORE FOR HER UNDER SUPERVISION OF STAFF. RN AWARE
--- NOTE | 2021-08-14 12:30 | PCA ---
Patients brought him a milkshake, patient drank half
[2021-08-14] MEDS: NYSTATIN 500,000 UNIT/5 ML UDC 500000 UNIT PO ×3 (14:01→22:03)
--- NOTE | 2021-08-14 14:04 | NURSING ---
BOLUS NOT GIVEN,PT ATE 50%. RN AWARE
[2021-08-14 16:00] VITALS: BP 129/69; PULSE 86; RESP 18; TEMP 36.7; O2SAT 94
--- NOTE | 2021-08-14 18:57 | NURSING ---
PT ONLY ATE 25% FOR SUPPER. 0 RESIDUAL, VITAL AF 350 AND 135 FLUSH GIVEN. PT TOLERATED WELL. BINDER REAPPLIED. PT RESTING.
[2021-08-14] MEDS: Atorvastatin Calcium 80 MG Tablet GT (22:03)
[2021-08-14] MEDS: QUEtiapine 25 MG Tablet 12.5 MG PO (22:03)
[2021-08-14] MEDS: Vital AF 1.2 Cal Liq 1,500 ML 350 ML GT (22:08)
[2021-08-15] MEDS: Senna/Docusate Sodium 1 Tablet GT ×2 (05:30→17:36)
[2021-08-15] MEDS: Donepezil HCl 5 MG Tablet GT (05:30)
[2021-08-15] MEDS: Sertraline 50 MG Tablet 12.5 MG GT (05:30)
[2021-08-15] MEDS: Cholecalciferol (VIT D3) 25 MCG TABLET (1,000 UNITS) GT ×2 (05:30→17:36)
[2021-08-15] MEDS: Rivaroxaban 20 MG Tablet GT (05:30)
[2021-08-15] MEDS: Levothyroxine 50 MCG Tablet GT (05:30)
[2021-08-15] MEDS: Polyethylene Glycol 3350 17 GM PACKET GT (05:30)
[2021-08-15] MEDS: Cyanocobalamin 500 MCG Tablet GT (05:31)
[2021-08-15] MEDS: Menthol/Lanolin/Calamine/Znox 113 GM Tube 1 APPLIC TOPICAL ×2 (05:32→19:30)
[2021-08-15] MEDS: Nystatin Powder 15gm Bottle 1 APPLIC TOPICAL ×2 (05:32→19:30)
[2021-08-15] MEDS: NYSTATIN 500,000 UNIT/5 ML UDC 500000 UNIT PO ×4 (05:34→20:47)
[2021-08-15 07:46] LABS: Hematocrit 36.2 % (40-54); Hemoglobin 11.4 g/dL (13.0-16.5); Mean Corp Hgb Conc 31.5 g/dL (32-36); Mean Corpuscular Hgb 31.2 pg (27.0-32.0); Mean Corpuscular Volume 99.2 fL (80-94); Mean Platelet Vol. 10.4 fl (6.2-12.0); POSITIVE COUNT YES; POSITIVE DIFFERENTIAL YES; POSITIVE MORPHOLOGY YES; Platelet Count 750 K/mm3 (150-450); RBC Distribution Width CV 19.6 % (11.6-14.6); RBC Distribution Width SD 66.6 fl (35.1-43.9); Red Blood Count 3.65 M/mm3 (4.6-6.2); White Blood Count 24.7 K/mm3 (4.4-11.0)
[2021-08-15 07:50] LABS: Differential Indicated MANUAL DIFF
[2021-08-15 08:05] LABS: Anion Gap 6 (5-15); BUN 21 mg/dL (7-18); BUN/Creat Ratio 20.8 RATIO (10-20); Calcium,Total 9.5 mg/dL (8.5-10.1); Chloride 104 mmol/L (98-107); Creatinine, Serum 1.01 mg/dL (0.70-1.30); EST Glomerular Filtration Rate 76 mL/min (>60); Est Glom Filt Rate - Afr Amer 92 mL/min (>60); Estimated Creatinine Clearance 68.29 ml/min; Glucose 106 mg/dL (74-106); Potassium 4.3 mmol/L (3.5-5.1); Sodium Level 139 mmol/L (136-145)
[2021-08-15] MEDS: Folic Acid 1 MG Tablet GT (08:11)
[2021-08-15] MEDS: Multivitamins,Therapeutic Tablet 1 TABLET GT (08:12)
[2021-08-15 08:35] LABS: Eosinophil 1 % (0-5); Lymphocyte 19 % (19-41); Monocyte 14 % (0-10); Myelocyte 4 % (0-0); Neutrophil-Band 3 % (0-5); Neutrophil-Segmented 59 % (47-70); Nucleated Red Bld Cells,Manual 4 % (0-5); Total Cells Counted 100 (MANUAL DIFF)
[2021-08-15 08:36] LABS: Anisocytosis 2+; Macrocytosis 1+; Microcytosis 1+; Platelet Estimate ADEQUATE (ADEQ)
[2021-08-15 08:39] LABS: Absolute Lymphocyte Count 4.69 X10^3/uL (0.83-4.51); Absolute Neutrophil Count 15.3 X10^3/uL (2.0-7.7)
[2021-08-15] MEDS: Potassium Chloride Oral Soln 20 MEQ/15 ML UDC GT (09:27)
[2021-08-15] MEDS: Vital AF 1.2 Cal Liquid 1,000 ML 350 ML GT ×3 (09:29→18:25)
[2021-08-15] MEDS: Tuberculin,Purif.prot.deriv. 50 TU/ML Vial 0.1 ML ID (09:44)
--- NOTE | 2021-08-15 10:25 | NURSING ---
PT ATE 25%, PT SITTING UP 60 DEGREES, 0 RESIDUAL, VITAL AF 350CC AND 135 FLUSH. PT TOLERATED WELL. DRESSING CHANGED TO PEG AREA DO TO MODERATE DRAINAGE,AREA CLEANED. BINDER REAPPLIED.
--- NOTE | 2021-08-15 13:36 | NURSING ---
PT ATE 25% OF LUNCH. 0 RESIDUAL,VITAL AF 350CC GIVEN AND 135 FLUSH. PT TOLERATED WELL. SITTING UP IN RECLINER VISITING WITH FAMILY. STATED THAT PT STATED TO HER THAT HE CANT TASTE ANY THING EVEN IF SHE PUTS ALOT OF PEPPER ON HIS FOOD WHICH SHE SAID HE LIKES. RN AWARE.
[2021-08-15 15:44] VITALS: BP 115/66; PULSE 94; RESP 18; TEMP 36.7; O2SAT 94
--- NOTE | 2021-08-15 18:45 | NURSING ---
PT ATE 25%. PT UP 60 DEGREES IN RECLINER. 0 RESIDUAL. 350CC VITAL AF AND 135CC FLUSH GIVEN. PT TOLERATED WELL. REAPPLIED BINDER.
[2021-08-15] MEDS: Acetaminophen 650 MG/20 ML UDC GT (20:42)
[2021-08-15] MEDS: Atorvastatin Calcium 80 MG Tablet GT (20:43)
[2021-08-15] MEDS: QUEtiapine 25 MG Tablet 12.5 MG PO (20:43)
[2021-08-15] MEDS: Vital AF 1.2 Cal Liq 1,500 ML 350 ML GT (20:56)
[2021-08-16] MEDS: Sertraline 50 MG Tablet 12.5 MG GT (04:50)
[2021-08-16] MEDS: Polyethylene Glycol 3350 17 GM PACKET GT (04:50)
[2021-08-16] MEDS: Rivaroxaban 20 MG Tablet GT (04:51)
[2021-08-16] MEDS: Cholecalciferol (VIT D3) 25 MCG TABLET (1,000 UNITS) GT ×2 (04:51→17:55)
[2021-08-16] MEDS: Levothyroxine 50 MCG Tablet GT (04:51)
[2021-08-16] MEDS: Donepezil HCl 5 MG Tablet GT (04:51)
[2021-08-16] MEDS: Senna/Docusate Sodium 1 Tablet GT ×2 (04:52→17:55)
[2021-08-16] MEDS: Menthol/Lanolin/Calamine/Znox 113 GM Tube 1 APPLIC TOPICAL ×2 (04:52→17:56)
[2021-08-16] MEDS: Nystatin Powder 15gm Bottle 1 APPLIC TOPICAL ×2 (04:52→17:56)
[2021-08-16] MEDS: Cyanocobalamin 500 MCG Tablet GT (04:52)
[2021-08-16] MEDS: NYSTATIN 500,000 UNIT/5 ML UDC 500000 UNIT PO ×4 (04:53→21:18)
[2021-08-16] MEDS: Folic Acid 1 MG Tablet GT (08:57)
[2021-08-16] MEDS: Multivitamins,Therapeutic Tablet 1 TABLET GT (08:57)
[2021-08-16] MEDS: Potassium Chloride Oral Soln 20 MEQ/15 ML UDC GT (08:57)
[2021-08-16] MEDS: Clotrimazole 1 APPLIC Tube TOPICAL ×2 (09:38→18:11)
[2021-08-16] MEDS: Vital AF 1.2 Cal Liquid 1,000 ML 350 ML GT ×3 (09:39→18:00)
--- NOTE | 2021-08-16 09:51 | NURSING ---
Pt ate 25% of breakfast, residual 210cc, 350cc tube feed bolus given and flushed with 135cc sterile water per order, pt tolerated well
--- NOTE | 2021-08-16 10:01 | CASEMGMT ---
Social Work Telephone call to patient spouse, Shala. This psychotherapist social worker checking in to see what Shala is thinking about discharge planning after looking into private pay options. Shala reports to now be back to thinking about fci for patient, I just don't know. Emotional support and active listening provided. Shala reports to have gotten a call from Palliative care and to also be thinking about Hospice. Shala reports current nursing homes that are at the top of the list are [facility], [facility] and [facility]. Shala then request to meet with this psychotherapist social worker today at 3:00pm to discuss things further. Support provided. PLAN: Meet with Shala at 3:00pm today. Will continue to follow. Simon BARLOW, GIBRAN
--- NOTE | 2021-08-16 12:45 | NURSING ---
Pt continues to have rash on groin and nystatin powder does not seem to be effective, Dr. Flanagan updated and N.O. lotrimin cream
--- NOTE | 2021-08-16 13:36 | NURSING ---
Pt refused lunch, residual 60cc, 350cc tube feed bolus given and flushed with 135cc sterile water per order, pt tolerated well, abdominal binder in place.
[2021-08-16 13:39] LABS: Pathologist Review Reviewed
--- NOTE | 2021-08-16 15:48 | CASEMGMT ---
Addendum entered by Gabriella Whitmore 08/16/21 16:19: This social sciences instructor also speaking with Shala about Palliative Care. Shala reports to have received phone call from Palliative Care but to have not received a call back. Shala agreeable to this social sciences instructor contacting Palliative Care to see if a phone call could be made to Shala. Telephone call to [facility]. Martha to contact Shala. Original Note: Social Work Met with patient spouse, Shala. Shala reports to have decided to have patient transition to a alf home with first choice being [facility] and second being [facility]. Shala reports to be able to afford private pay if needed and to have a Life Insurance policy for patient. This social sciences instructor encouraged Shala to look into application process for activating Life Insurance policy. Support provided. Social Work to continue to follow. Simon BARLOW, GIBRAN
[2021-08-16 16:00] VITALS: BP 107/61; PULSE 90; RESP 18; TEMP 37.1; O2SAT 93
--- NOTE | 2021-08-16 18:16 | NURSING ---
Pt ate 25% of dinner, residual 210cc, 350cc tube feed bolus given and flushed with 135cc sterile water per order, pt tolerated well, abdominal binder in place.
[2021-08-16] MEDS: Atorvastatin Calcium 80 MG Tablet GT (21:18)
[2021-08-16] MEDS: QUEtiapine 25 MG Tablet 12.5 MG PO (21:18)
--- NOTE | 2021-08-16 21:22 | NURSING ---
Patient had 330mL residual. Held Vital AF at HS per protocol. Abdominal binder intact to protect PEG tube. Patient tolerated well.
[2021-08-17] MEDS: Rivaroxaban 20 MG Tablet GT (05:17)
[2021-08-17] MEDS: Polyethylene Glycol 3350 17 GM PACKET GT (05:17)
[2021-08-17] MEDS: NYSTATIN 500,000 UNIT/5 ML UDC 500000 UNIT PO ×4 (05:17→21:52)
[2021-08-17] MEDS: Donepezil HCl 5 MG Tablet GT (05:17)
[2021-08-17] MEDS: Sertraline 50 MG Tablet 12.5 MG GT (05:17)
[2021-08-17] MEDS: Clotrimazole 1 APPLIC Tube TOPICAL ×2 (05:17→21:52)
[2021-08-17] MEDS: Cyanocobalamin 500 MCG Tablet GT (05:17)
[2021-08-17] MEDS: Levothyroxine 50 MCG Tablet GT (05:17)
[2021-08-17] MEDS: Senna/Docusate Sodium 1 Tablet GT ×2 (05:17→18:21)
[2021-08-17] MEDS: Cholecalciferol (VIT D3) 25 MCG TABLET (1,000 UNITS) GT ×2 (05:17→18:21)
[2021-08-17] MEDS: Menthol/Lanolin/Calamine/Znox 113 GM Tube 1 APPLIC TOPICAL ×2 (05:25→22:06)
[2021-08-17] MEDS: Folic Acid 1 MG Tablet GT (07:52)
[2021-08-17] MEDS: Multivitamins,Therapeutic Tablet 1 TABLET GT (07:52)
[2021-08-17] MEDS: Potassium Chloride Oral Soln 20 MEQ/15 ML UDC GT (09:36)
[2021-08-17] MEDS: Vital AF 1.2 Cal Liquid 1,000 ML 350 ML GT (09:38)
--- NOTE | 2021-08-17 09:52 | NURSING ---
PT HAD 150CC RESIDUAL. BOLUS 350CC AND FLUSH 135CC GIVEN.PT TOLERATED WELL. DRESSING AROUND PEG TUBE CHANGED AND CLEANED. BINDER REAPPLIED. RN AWARE. IN ROOM.
--- NOTE | 2021-08-17 10:14 | CASEMGMT ---
Addendum entered by Reena Nava 08/17/21 16:54: Hospice meeting scheduled with for 08/19 at 1 pm, however, was unclear that pt would stop with therapy services. Spoke with to clarify - she does want therapy but does not want to take the chance for no beds at [facility]. 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 Left message with [facility] to confirm. Notified hospice. Addendum entered by Reena Nava 08/17/21 12:14: [facility] can accept pt with a private room. Spoke with and that is first choice. Inquired about meeting with hospice. has not heard from them yet. Contacted [facility] to schedule meeting with . Once they can open, pt can DC to [facility]. Notified Chintan Garcia. Will continue to follow. Original Note: Social Work Referrals made to [facility] and Chintan Garcia, per 's request. No DC date at this time. Will continue to follow. CAIN GreenbergW
--- NOTE | 2021-08-17 12:46 | NURSING ---
PT ATE 50% FOR LUNCH. NO BOLUS NEEDED TO BE GIVEN PER PROTOCOL.
--- NOTE | 2021-08-17 14:17 | NURSING ---
Spoke with regarding [employer]a Booster, she does not want to get it at this time.
[2021-08-17 14:22] VITALS: BP 126/72; PULSE 87; RESP 16; TEMP 36.4; O2SAT 95
--- NOTE | 2021-08-17 17:06 | CHAPLAIN ---
Type of Pastoral Visit ___ Initial Visit ___ Follow-up Visit ___ On-call Visit ___ General Patient Visit ___ Spiritual Assessment ___ Family Conference ___ Bereavement ___ Rapid Response ___ Code Blue ___ Other (describe below) Pastoral Care Referral From ___ Patient ___ Family ___ Nurse ___ Physician ___ Veteran Appeals Reviewer ___ Rehab Liaison ___ Other (describe below) Sacrament/Intervention ___ Active listening ___ Anointing ___ Latter Day ___ Bereavement ___ Communion ___ Elda exploration ___ ___ Life review ___ Prayer ___ Reconciliation ___ Sacrament of Sick ___ Supportive presence ___ Wedding ___ Other (describe below) Pastoral Comments patient was sleeping, did not awaken to knock on door; left a calling card
--- NOTE | 2021-08-17 18:36 | NURSING ---
PT ATE 75%. BOLUS NOT GIVEN PER ORDER.
[2021-08-17 21:51] VITALS: PULSE 89; RESP 16; O2SAT 92
[2021-08-17] MEDS: QUEtiapine 25 MG Tablet 12.5 MG PO (21:52)
[2021-08-17] MEDS: Atorvastatin Calcium 80 MG Tablet GT (21:52)
[2021-08-17] MEDS: Vital AF 1.2 Cal Liq 1,500 ML 350 ML GT (21:57)
--- NOTE | 2021-08-18 02:39 | NURSING ---
Patient had 10mL residual. Vital AF 1.2 given per order. Abdominal binder intact to protect PEG tube. Peg tube dressing changed. Minimal drainage noted. Patient tolerated well.
[2021-08-18] MEDS: Donepezil HCl 5 MG Tablet GT (06:02)
[2021-08-18] MEDS: Sertraline 50 MG Tablet 12.5 MG GT (06:02)
[2021-08-18] MEDS: Levothyroxine 50 MCG Tablet GT (06:02)
[2021-08-18] MEDS: Polyethylene Glycol 3350 17 GM PACKET GT (06:02)
[2021-08-18] MEDS: Senna/Docusate Sodium 1 Tablet GT ×2 (06:02→18:36)
[2021-08-18] MEDS: Rivaroxaban 20 MG Tablet GT (06:02)
[2021-08-18] MEDS: Cyanocobalamin 500 MCG Tablet GT (06:02)
[2021-08-18] MEDS: NYSTATIN 500,000 UNIT/5 ML UDC 500000 UNIT PO ×4 (06:02→22:47)
[2021-08-18] MEDS: Cholecalciferol (VIT D3) 25 MCG TABLET (1,000 UNITS) GT ×2 (06:02→18:36)
[2021-08-18] MEDS: Menthol/Lanolin/Calamine/Znox 113 GM Tube 1 APPLIC TOPICAL ×2 (06:05→18:39)
[2021-08-18] MEDS: Clotrimazole 1 APPLIC Tube TOPICAL ×2 (08:46→22:47)
[2021-08-18] MEDS: Multivitamins,Therapeutic Tablet 1 TABLET GT (08:46)
[2021-08-18] MEDS: Potassium Chloride Oral Soln 20 MEQ/15 ML UDC GT (08:46)
[2021-08-18] MEDS: Folic Acid 1 MG Tablet GT (08:46)
[2021-08-18] MEDS: Vital AF 1.2 Cal Liquid 1,000 ML 350 ML GT ×3 (09:45→18:36)
--- NOTE | 2021-08-18 09:50 | CASEMGMT ---
Social Work [facility] confirmed DC 08/19, skilled. Scheduled cot transport through [facility]. PASRR completed. Plan: DC to [facility] 08/19, skilled Reena Nava MSW MANAGER ENTERPRISE
--- NOTE | 2021-08-18 09:51 | NURSING ---
Pt ate 25% for breakfast, peg tube residual 80cc, 350cc peg tube bolus given at this time per order and flushed with 135cc sterile water. pt tolerated well, abdominal binder in place
--- NOTE | 2021-08-18 14:29 | NURSING ---
Pt ate 25% for lunch, peg tube residual 180cc, 350cc peg tube bolus given at this time per order and flushed with 135cc sterile water. pt tolerated well, abdominal binder in place
[2021-08-18 16:00] VITALS: BP 131/66; PULSE 83; RESP 20; TEMP 36.9; O2SAT 91
[2021-08-18] MEDS: Nystatin Powder 15gm Bottle 1 APPLIC TOPICAL (18:40)
--- NOTE | 2021-08-18 18:42 | NURSING ---
Pt ate 25% for dinner, peg tube residual 230cc, 350cc peg tube bolus given at this time per order and flushed with 135cc sterile water. pt tolerated well, abdominal binder in place
--- NOTE | 2021-08-18 18:50 | DS.PCM_ITS ---
Providers Date of Admission: 08/07/21 Primary Care Physician: Dr. Zoya Mason MD Consultations 08/09/21 16:09 Consult: Hospice / Palliative Care Routine Consulting Provider: [facility] Reason for Consult: Palliative - stroke, Dementia EMERGENT Consult: No MD Notified: Yes Date Notified: 08/09/21 Time Notified: 16:09 Method of Notification: Provider Initiated Reason For Visit: ACUTE TIA/ CVA Diagnosis Discharge Diagnosis (1) Shortness of breath: Status: Acute Code(s): R06.02 - Shortness of breath (2) Altered mental status: Status: Acute Code(s): R41.82 - Altered mental status, unspecified Qualifiers: Altered mental status type: unspecified Qualified Code(s): R41.82 - Altered mental status, unspecified (3) CVA (cerebral vascular accident): Status: Acute Code(s): I63.9 - Cerebral infarction, unspecified Qualifiers: CVA mechanism: unspecified Qualified Code(s): I63.9 - Cerebral infarction, unspecified (4) Debility: Status: Acute Code(s): R53.81 - Other malaise (5) Vascular dementia: Status: Acute Code(s): F01.50 - Vascular dementia without behavioral disturbance Qualifiers: Dementia behavioral disturbance: without behavioral disturbance Qualified Code(s): F01.50 - Vascular dementia without behavioral disturbance (6) Non-Hodgkin lymphoma: Status: Acute Code(s): C85.90 - Non-Hodgkin lymphoma, unspecified, unspecified site Qualifiers: Non-Hodgkin lymphoma type: unspecified type Lymphoma site: unspecified region Qualified Code(s): C85.90 - Non-Hodgkin lymphoma, unspecified, unspecified site (7) Normal pressure hydrocephalus: Status: Acute Code(s): G91.2 - (Idiopathic) normal pressure hydrocephalus (8) Hypothyroidism: Status: Acute Code(s): E03.9 - Hypothyroidism, unspecified Qualifiers: Hypothyroidism type: acquired Qualified Code(s): E03.9 - Hypothyroidism, unspecified (9) Depression: Status: Acute Code(s): F32.A - Depression, unspecified Qualifiers: Depression Type: unspecified Qualified Code(s): F32.A - Depression, unspecified (10) Dysphagia: Status: Acute Code(s): R13.10 - Dysphagia, unspecified Qualifiers: Dysphagia type: oropharyngeal phase Qualified Code(s): R13.12 - Dysphagia, oropharyngeal phase (11) Seizure disorder: Status: Acute Code(s): G40.909 - Epilepsy, unspecified, not intractable, without status epilepticus (12) Pituitary dysfunction: Status: Chronic Code(s): E23.7 - Disorder of pituitary gland, unspecified (13) Hyperlipidemia with target LDL less than 100: Status: Chronic Code(s): E78.5 - Hyperlipidemia, unspecified (14) Hypernatremia: Status: Acute Code(s): E87.0 - Hyperosmolality and hypernatremia Medications at Discharge Home Medications atorvastatin 80 mg PO QHS 08/07/21 cholecalciferol (vitamin D3) 1,000 unit FEEDING TUBE BID #0 cap 08/07/21 cyanocobalamin (vitamin B-12) 500 mcg FEEDING TUBE DAILY #0 tab 08/07/21 donepezil 5 mg FEEDING TUBE DAILY #0 tab 08/07/21 levothyroxine 50 mcg FEEDING TUBE DAILY #0 tab 08/07/21 multivitamin 1 ea FEEDING TUBE DAILY #0 tab 08/07/21 quetiapine 12.5 mg PO QHS 08/07/21 acetaminophen 650 mg G-TUBE Q4H PRN PRN #0 ml 08/18/21 clotrimazole 1 applic TOPICAL BID #0 g 08/18/21 folic acid 1 mg G-TUBE DAILY@0800 #0 tab 08/18/21 hydrocortisone 1 applic TOPICAL BID PRN PRN #0 g 08/18/21 menthol-zinc oxide [Calmoseptine] 1 applic TOPICAL BID #0 g 08/18/21 nut.tx.impaired dige fxn-fiber [Vital AF 1.2 Yanna] 350 ml G-TUBE QHS #0 ml 08/18/21 nut.tx.impaired dige fxn-fiber [Vital AF 1.2 Yanna] 350 ml G-TUBE TIDPC #0 ml 08/18/21 nystatin 500,000 unit PO 4X/DAY 7 Days #140 ml 08/18/21 nystatin [Nyamyc] 1 applic TOPICAL BID #0 g 08/18/21 polyethylene glycol 3350 [HealthyLax] 17 g G-TUBE DAILY #0 ea 08/18/21 potassium chloride 20 meq G-TUBE DAILY@0800 #0 ml 08/18/21 rivaroxaban [Xarelto] 20 mg G-TUBE DAILY #0 tab 08/18/21 sennosides-docusate sodium [Stool Softener-Stimulant Laxat] 1 tab G-TUBE BID #0 tab 08/18/21 sertraline 12.5 mg G-TUBE DAILY #30 tab 08/18/21 Hospital Course Operations None Procedures Peg tube placement Summary of Care Provided Minutes Spent on Discharge: 35 Hospital Course: 75 year old male with below past medical history hospitalized for stroke, complicated by seizures, encephalopathy, dysphagia requiring PEG, aspiration pneumonia, admitted to TCU with debility, here for rehabilitation, strengthening, prior to discharge home with . Discharge to [facility] , Skilled PT/OT/ST. Physical Exam Const alert and oriented x3 General Appearance: cooperative HEENT normocephalic Eyes PERRL and EOMs intact bilaterally Neck supple, no JVD and no carotid bruits Resp normal respiratory effort, normal air movement and clear to auscultation bilaterally Cardio regular rate and regular rhythm GI normal to inspection, nondistended, normoactive bowel sounds, non-tender and non-distended GI Narrative: PEG tube. Extremity normal capillary refill General Extremity: Negative for edema Skin no rashes or lesions noted General Skin Exam: no breakdown Psych affect normal Appearance: appropriate Medical Records Data Medical Nutrition Assessment Dietitian: Malnutrition Criteria Met Start: 08/09/21 14:48 Freq: Status: Active Protocol: Document 08/16/21 11:13 ELY (Rec: 08/16/21 11:13 ELY [id number]) Nutrition Malnutrition Evidence of Malnutrition Exists Yes Malnutrition (severe): Acute Illness/Injury Evidenced By Suboptimal Energy Intake ( Severe),Weight Loss (Severe) Clinical Problem Biting/Chewing Difficulty Etiology swallowing difficulty d/t CVA Signs/Symptoms as evidenced by modified consistency po diet and supplemental TF to meet res estimated nutritional needs Status Active Problem Acute Disease or Injury Related Malnutrition Etiology related to CVA and difficulty chewing/swallowing making res unable to meet est nutrition needs Signs/Symptoms as evidenced by need for PEG and tf for nutritional and 4.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 Status Active Problem Recommendation Dietitian Recommendations/Changes Rec Vital AF 1.2: 350 ml bolus feeds 4x/day w/ 135 ml water flush after each bolus feed. Each bolus feed to provide ~ 420 yanna/26 gm pro/ 419 ml free water/day. Rec give feedings after breakfast, lunch and dinner ONLY IF po intake <50% at meals; give HS bolus nightly. Will liberalize diet to Regular puree/thin ( consistency per [employer]) Will provide chocolate ensure compact and fortified foods w/ meals for increased nutrition if consumed. Please check daily weights. Weight / BMI Weight Weight: 91.711 kg Body Mass Index (BMI) 27.1 ABG / Lab / Microbiology Data Result Diagrams: 08/15/21 07:19 08/15/21 07:19 Microbiology: Microbiology 08/18/21 15:55 Nasal Secretion SARS-CoV-2 Antigen (Rapid) - Final 08/10/21 12:55 Urine Catheter - Catheter Urine Culture - Final Culture exhibits no growth. D/C Instructions Discharge Diet: No restrictions Discharge Activity: Return to Normal Activity, May Shower and Use Walker Weight Bearing Status: Weight bearing as tolerated Call your doctor if you observe: Fever of 101 or Higher, Inability to urinate, Inability to have a bowel movement, Shortness of breath, Dizziness, Fainting spells, Swelling in the ankles, Chest pain and Uncontrolled pain Additional Instructions: Discharge to [facility] , Skilled PT/OT/ST. Please Follow Up With: Zoya Mason MD When: 1 week. Meaningful Use Info Meaningful Use Diagnoses (Choose all that apply): Ischemic CVA CVA Therapy Assessed for PT,OT and/or ST?: Yes Ischemic Stroke Antithrombotic order at d/c?: Yes Dx of Atrial fib/flutter?: No Statins at discharge?: Yes Primary Dx Acute Ischemic CVA?: Yes IV tPA ordered during stay?: No Reason IV t-PA not ordered: Treatment not Indicated Discharge Plan Admission Admit Date/Time: 08/07/21 15:49 Primary Reason for Your Visit: Debility. Attending Provider: Dany Flanagan Chi Primary Care Provider: Zoya Mason Consulting Providers: Kimberly Dunn ; Rolf Mitchell ; Yuki Em ; Heidi Ty ; Tatyana Hall ; Alma Delong ADVISOR [employer] F[employer]ER Instructions Additional Instructions / Restrictions: Discharge to [facility] , Skilled PT/OT/ST. Discharge Orders/Prescriptions Prescriptions: New folic acid 1 mg Tablet 1 mg G-tube DAILY@0800 Qty: 0 RF: 0 sertraline 50 mg Tablet 12.5 mg G-tube DAILY Qty: 30 RF: 0 acetaminophen 650 mg/20.3 mL Solution 650 mg G-tube Q4H PRN PRN (Reason: Pain Score 1-10) Qty: 0 RF: 0 Vital AF 1.2 Yanna 0.08 gram- 1.2 kcal/mL Liquid 350 ml G-tube TIDPC Qty: 0 RF: 0 Xarelto 20 mg Tablet 20 mg G-tube DAILY Qty: 0 RF: 0 nystatin 100,000 unit/mL Suspension 500,000 unit PO 4X/DAY 7 Days Qty: 140 RF: 0 polyethylene glycol 3350 [HealthyLax] 17 gram Powder In Packet 17 g G-tube DAILY Qty: 0 RF: 0 hydrocortisone 2.5 % Cream 1 applic topical BID PRN PRN (Reason: Rash ) Qty: 0 RF: 0 nystatin [Nyamyc] 100,000 unit/gram Powder 1 applic topical BID Qty: 0 RF: 0 clotrimazole 1 % Cream 1 applic topical BID Qty: 0 RF: 0 menthol-zinc oxide [Calmoseptine] 0.44-20.6 % Ointment 1 applic topical BID Qty: 0 RF: 0 sennosides-docusate sodium [Stool Softener-Stimulant Laxat] 8.6-50 mg Tablet 1 tab G-tube BID Qty: 0 RF: 0 potassium chloride 20 mEq/15 mL Liquid 20 meq G-tube DAILY@0800 Qty: 0 RF: 0 Vital AF 1.2 Yanna 0.08 gram- 1.2 kcal/mL Liquid 350 ml G-tube QHS Qty: 0 RF: 0 Continued multivitamin 1 EACH tablet 1 ea feeding tube DAILY Qty: 0 RF: 0 donepezil 5 MG tablet 5 mg feeding tube DAILY Qty: 0 RF: 0 cyanocobalamin (vitamin B-12) 500 MCG tablet 500 mcg feeding tube DAILY Qty: 0 RF: 0 levothyroxine 50 MCG tablet 50 mcg feeding tube DAILY Qty: 0 RF: 0 cholecalciferol (vitamin D3) 2,000 UNIT capsule 1,000 unit feeding tube BID Qty: 0 RF: 0 atorvastatin 80 mg tablet 80 mg PO QHS RF: 0 quetiapine 25 mg Tablet 12.5 mg PO QHS RF: 0 Discontinued sertraline 25 mg tablet 25 mg feeding tube DAILY Qty: 0 RF: 0 folic acid 0.8 MG tablet 0.8 mg feeding tube DAILY Qty: 0 RF: 0 vitamins A,C,R-gxoo-toqliz 1 EACH tablet 1 ea feeding tube BID Qty: 0 RF: 0 Vital AF 1.2 Yanna 0.08 gram- 1.2 kcal/mL liquid 280 ml G-tube Q4 RF: 0 rivaroxaban 15 MG tablet 20 mg G-tube DAILY RF: 0 Referrals / Follow Up: Zoya Mason MD [Primary Care Provider] - In 1 Week Disposition Disposition (needs filled in before D/C Order can be placed): [facility]
--- NOTE | 2021-08-18 19:00 | TREXTCAR_ITS ---
Diet 08/16/21 10:45 Diet: Regular - General Food consistency:: Pureed Liquid Consistency:: Regular/Thin Is pt able to select menu?: No Diet Comments: 120 ml chocolate ensure compact at all meals; Fortified foods Tube Feed: Vital AF 1.2 350ML GT TIDPC, 350ML GT QHS. Routine Orders/Code Status Suppository Type: Dulcolax 10mg Suppository Frequency: Daily PRN Code Status: DNRCC Therapies Weight Bearing: Weight bearing as tolerated Extremity Affected:: Bilateral Lower Physical Therapy: Eval and Treat Occupational Therapy: Eval and Treat Problem/Diagnosis (1) Shortness of breath: Status: Acute (2) Altered mental status: Status: Acute (3) CVA (cerebral vascular accident): Status: Acute (4) Debility: Status: Acute (5) Vascular dementia: Status: Acute (6) Non-Hodgkin lymphoma: Status: Acute (7) Normal pressure hydrocephalus: Status: Acute (8) Hypothyroidism: Status: Acute (9) Depression: Status: Acute (10) Dysphagia: Status: Acute (11) Seizure disorder: Status: Acute (12) Pituitary dysfunction: Status: Chronic Comment: Currently on thyroid replacement and testosterone replacement. labs rechecked. Prolactin level 16.2 which has decreased. Labs in 03/2017 notes testosterone level 180, currently 272.95. (13) Hyperlipidemia with target LDL less than 100: Status: Chronic Comment: On statin. No muscle aches or joint pain. Taking as directed. Managed by PCP. No labs in my chart for review (14) Hypernatremia: Status: Acute Allergies/Procedures Done in Hospital Allergies No Known Allergies Allergy (Verified 07/31/21 13:23) Procedures: Peg tube placement Type of Care/Length of Stay Estimated LOS: More Than 30 Days Type of Care Needed: Skilled Rehab Potential: Poor Prognosis: Poor Additional Orders/Day of Discharge Day of Discharge: 08/19/21 Dietary and Speech Recommendations Dietitian Recommendations/Changes: Rec Vital AF 1.2: 350 ml bolus feeds 4x/day w/ 135 ml water flush after each bolus feed. Each bolus feed to provide ~ 420 yanna/26 gm pro/419 ml free water/day. Rec give feedings after breakfast, lunch and dinner ONLY IF po intake <50% at meals; give HS bolus nightly. Will liberalize diet to Regular puree/thin (consistency per WELDER [employer]ENTICE [employer]ATION) Will provide chocolate ensure compact and fortified foods w/ meals for increased nutrition if consumed. Please check daily weights. Speech Linguistic Eval Summary: Completed brief informal cognitive exam on this date as Pt demonstrating intermittent fatigue throughout session and Pt's and RN, Lalitha, reporting cognitive deficits at baseline. Pt's reporting Pt having difficulty w/memory, people's names, and word finding. Pt's reporting Pt was independently managing his medications at home prior to admission, however suspect will be needing to assist at d/c; was in charge of the finances. RN reporting Pt disoriented at baseline. 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 Pt completed immediate memory task via recall of 3 words w/100% acc, however across a 5 min delay, Pt's short-term memory acc was 0%. Pt able to recall his family was in the room visiting him prior to speech therapy evaluation. Pt completed confrontation naming task w/100% acc independently. Pt completed divergent naming task within concrete category via naming 2 items in 1 minute. Pt's reporting his speech is not back to baseline as it is 'garbled' intermittently, especially when he is tired. Will plan to continue to monitor Pt's mental status and formally assess cognition as able. Follow Up Care Please follow up with your Primary Care Physician in: Zoya Mason Please Follow Up With: Zoya Mason MD Discharge Plan Admission Admit Date/Time: 08/07/21 15:49 Primary Reason for Your Visit: Debility. Attending Provider: Dany Flanagan Chi Primary Care Provider: Zoya Mason Consulting Providers: Kimberly Dunn ; Rolf Mitchell ; Yuki Em ; Heidi Ty ; Tatyana Hall ; Alma Delong PESTICIDE USE MEDICAL COORDINATOR Instructions Additional Instructions / Restrictions: Discharge to [facility] , Skilled PT/OT/ST. Discharge Orders/Prescriptions Prescriptions: New folic acid 1 mg Tablet 1 mg G-tube DAILY@0800 Qty: 0 RF: 0 sertraline 50 mg Tablet 12.5 mg G-tube DAILY Qty: 30 RF: 0 acetaminophen 650 mg/20.3 mL Solution 650 mg G-tube Q4H PRN PRN (Reason: Pain Score 1-10) Qty: 0 RF: 0 Vital AF 1.2 Yanna 0.08 gram- 1.2 kcal/mL Liquid 350 ml G-tube TIDPC Qty: 0 RF: 0 Xarelto 20 mg Tablet 20 mg G-tube DAILY Qty: 0 RF: 0 nystatin 100,000 unit/mL Suspension 500,000 unit PO 4X/DAY 7 Days Qty: 140 RF: 0 polyethylene glycol 3350 [HealthyLax] 17 gram Powder In Packet 17 g G-tube DAILY Qty: 0 RF: 0 hydrocortisone 2.5 % Cream 1 applic topical BID PRN PRN (Reason: Rash ) Qty: 0 RF: 0 nystatin [Nyamyc] 100,000 unit/gram Powder 1 applic topical BID Qty: 0 RF: 0 clotrimazole 1 % Cream 1 applic topical BID Qty: 0 RF: 0 menthol-zinc oxide [Calmoseptine] 0.44-20.6 % Ointment 1 applic topical BID Qty: 0 RF: 0 sennosides-docusate sodium [Stool Softener-Stimulant Laxat] 8.6-50 mg Tablet 1 tab G-tube BID Qty: 0 RF: 0 potassium chloride 20 mEq/15 mL Liquid 20 meq G-tube DAILY@0800 Qty: 0 RF: 0 Vital AF 1.2 Yanna 0.08 gram- 1.2 kcal/mL Liquid 350 ml G-tube QHS Qty: 0 RF: 0 Continued multivitamin 1 EACH tablet 1 ea feeding tube DAILY Qty: 0 RF: 0 donepezil 5 MG tablet 5 mg feeding tube DAILY Qty: 0 RF: 0 cyanocobalamin (vitamin B-12) 500 MCG tablet 500 mcg feeding tube DAILY Qty: 0 RF: 0 levothyroxine 50 MCG tablet 50 mcg feeding tube DAILY Qty: 0 RF: 0 cholecalciferol (vitamin D3) 2,000 UNIT capsule 1,000 unit feeding tube BID Qty: 0 RF: 0 atorvastatin 80 mg tablet 80 mg PO QHS RF: 0 quetiapine 25 mg Tablet 12.5 mg PO QHS RF: 0 Discontinued sertraline 25 mg tablet 25 mg feeding tube DAILY Qty: 0 RF: 0 folic acid 0.8 MG tablet 0.8 mg feeding tube DAILY Qty: 0 RF: 0 vitamins A,C,X-mhny-sifodh 1 EACH tablet 1 ea feeding tube BID Qty: 0 RF: 0 Vital AF 1.2 Yanna 0.08 gram- 1.2 kcal/mL liquid 280 ml G-tube Q4 RF: 0 rivaroxaban 15 MG tablet 20 mg G-tube DAILY RF: 0 Referrals / Follow Up: Zoya Mason MD [Primary Care Provider] - In 1 Week Disposition Disposition (needs filled in before D/C Order can be placed): [facility]
--- NOTE | 2021-08-18 22:03 | NURSING ---
Patient had 40mL residual. Vital AF 1.2 given per order. Flushed with 135 mL sterile water. Abdominal binder intact to protect PEG tube. Peg tube dressing changed. Minimal drainage noted. Patient tolerated well.
[2021-08-18] MEDS: Atorvastatin Calcium 80 MG Tablet GT (22:47)
[2021-08-18] MEDS: QUEtiapine 25 MG Tablet 12.5 MG PO (22:47)
[2021-08-18] MEDS: Vital AF 1.2 Cal Liq 1,500 ML 350 ML GT (22:50)
[2021-08-19] MEDS: Polyethylene Glycol 3350 17 GM PACKET GT (05:13)
[2021-08-19] MEDS: Sertraline 50 MG Tablet 12.5 MG GT (05:13)
[2021-08-19] MEDS: Levothyroxine 50 MCG Tablet GT (05:14)
[2021-08-19] MEDS: Cholecalciferol (VIT D3) 25 MCG TABLET (1,000 UNITS) GT (05:14)
[2021-08-19] MEDS: NYSTATIN 500,000 UNIT/5 ML UDC 500000 UNIT PO (05:14)
[2021-08-19] MEDS: Cyanocobalamin 500 MCG Tablet GT (05:14)
[2021-08-19] MEDS: Rivaroxaban 20 MG Tablet GT (05:14)
[2021-08-19] MEDS: Senna/Docusate Sodium 1 Tablet GT (05:14)
[2021-08-19] MEDS: Donepezil HCl 5 MG Tablet GT (05:14)
[2021-08-19] MEDS: Clotrimazole 1 APPLIC Tube TOPICAL (05:14)
[2021-08-19] MEDS: Menthol/Lanolin/Calamine/Znox 113 GM Tube 1 APPLIC TOPICAL (05:17)
[2021-08-19 05:18] VITALS: PULSE 86; RESP 16; O2SAT 94
[2021-08-19] MEDS: Folic Acid 1 MG Tablet GT (08:58)
[2021-08-19] MEDS: Potassium Chloride Oral Soln 20 MEQ/15 ML UDC GT (08:58)
[2021-08-19] MEDS: Multivitamins,Therapeutic Tablet 1 TABLET GT (08:58)
--- NOTE | 2021-08-19 09:17 | NURSING ---
pt ate 50%,no bolus given. pt also had 330 residual. meds and flush of 135cc given. pt tolerated well. rn aware
[2021-08-19 10:04] VITALS: BP 115/59; PULSE 83; RESP 18; TEMP 36.7; O2SAT 94
--- NOTE | 2021-08-19 10:31 | MDS.RN ---
Information for the mds was obtained from review of the clinical record, interview of resident, staff, and direct observation of resident's care.
--- NOTE | 2021-08-19 11:36 | NURSING ---
report called to Tiffanie at [facility].
== END 2021-08-19 10:30 | disposition skilled nursing facility (03) | DRG 56 ==
PROVIDERS: Admitting Provider Family Medicine Geriatric Medicine; PCP Internal Medicine; Visit Provider Family Medicine Geriatric Medicine
DX: I69.391 Dysphagia following cerebral infarction (principal); J69.0 Pneumonitis due to inhalation of food and vomit; Q21.1 Atrial septal defect; C85.90 Non-Hodgkin lymphoma, unspecified, unspecified site; G91.2 (Idiopathic) normal pressure hydrocephalus; E87.0 Hyperosmolality and hypernatremia; I69.392 Facial weakness following cerebral infarction; R13.10 Dysphagia, unspecified; F32.A Depression, unspecified; F01.50 Vascular dementia, unspecified severity, without behavioral disturbance, psychotic disturbance, mood disturbance, and anxiety; E55.9 Vitamin D deficiency, unspecified; E03.9 Hypothyroidism, unspecified; E53.8 Deficiency of other specified B group vitamins; G40.909 Epilepsy, unspecified, not intractable, without status epilepticus; E78.5 Hyperlipidemia, unspecified; Z87.891 Personal history of nicotine dependence; Z86.718 Personal history of other venous thrombosis and embolism; Z79.899 Other long term (current) drug therapy; Z79.01 Long term (current) use of anticoagulants; Z86.711 Personal history of pulmonary embolism; Z98.2 Presence of cerebrospinal fluid drainage device; Z93.1 Gastrostomy status
CPT/HCPCS: 36415; 71046; 74230; 80048; 81001; 85025; 87086; 87426; 92507; 92523; 92526; 92610; 92611; 97110; 97112; 97116; 97163; 97167; 97530; 97535; 97802; 97803

== ENCOUNTER → 2021-08-13 08:15 | Outpatient (CLI) | payer MEDICARE, BC, SELFPAY ==
--- NOTE | 2021-08-13 12:55 | RAD_ITS ---
PROCEDURE: Fluoroscopic guided Lumbar Puncture. DATE: 08/13/2021. CLINICAL INDICATION: Elevated white cell count. PHYSICIAN: Steven Bruce M.D. MEDICATIONS: 1% lidocaine administered subcutaneously for local anesthesia. ACCESS SITE: Lower posterior back. NEEDLE: 22-gauge spinal needle. SPECIMEN: Approximately 10 mL clear]CSF fluid. FLUOROSCOPY TIME (if supplied): (0:24) minutes/seconds COMPLICATIONS: None immediate. The risks, benefits, and alternatives to the procedure were explained to the patient. The specific risks of bleeding, infection, and neurovascular injury were detailed and accepted. Witnessed informed consent was obtained. The patient was placed on the fluoroscopic table in the prone position. The level for needle entry was determined and marked. The overlying skin was cleaned and prepped in the usual sterile fashion. 2% lidocaine was administered subcutaneously for local anesthesia. Under fluoroscopic guidance a 22-gauge spinal needle was advanced. The thecal sac was entered at the L3- L4 vertebral level. The inner stylet was removed. There was spontaneous flow of clear CSF fluid. The patient was placed in a reversed Trendelenburg position. Approximately 10 mL of cerebrospinal fluid was collected using gravity. The specimen was collected and submitted to the laboratory for further evaluation. The needle was withdrawn,. Hemostasis was achieved and a sterile dressing placed. The patient tolerated the procedure well without any immediate complications. The patient was placed supine with head elevated and returned to the floor in stable condition. RAD/Dx Lumbar Puncture w/IMG Guide IMPRESSION: Successful fluoroscopic-guided lumbar puncture. Electronically Signed: Steven Bruce MD at 14:03 EDT , Service support ,
[2021-08-13] MEDS: Lidocaine 2% (5ml sdv) 5 ML VIAL.MPF INFILT (13:00)
[2021-08-13 13:04] VITALS: BP 134/76; PULSE 91; RESP 16; O2SAT 94; BMI 27.1
[2021-08-13 13:35] VITALS: BP 141/75; PULSE 85; RESP 16; O2SAT 95
[2021-08-13 13:45] VITALS: BP 137/74; PULSE 85; RESP 18; O2SAT 93
[2021-08-13 14:00] VITALS: BP 134/73; PULSE 87; RESP 16; O2SAT 95
[2021-08-13 14:06] LABS: Glucose Spinal Fluid 65 mg/dL (40-75)
[2021-08-13 14:10] LABS: Auto B Fluid Analyzer BKGD Ct COUNTS W/IN LIMITS (W/IN LIMITS); CSF Color COLORLESS (Colorless); Tested Tube # 3
--- NOTE | 2021-08-13 14:10 | NURSING ---
Verbal report given to MARLENA Santos on TCU.
[2021-08-13 14:13] LABS: Body Fluid Mononuclear WBC # 0.007 10^3/uL; Body Fluid Mononuclear WBC % 87.5 %; Body Fluid Polynuclear WBC # 0.001 10^3/uL; Body Fluid Polynuclear WBC % 12.5 %; Total Cell Count CSF 0.008 10^3/uL; White Count, CSF 0.008 10^3/uL (0.000-0.005)
[2021-08-13 14:15] VITALS: BP 133/79; PULSE 87; RESP 16; O2SAT 93
[2021-08-13 14:30] VITALS: BP 139/80; PULSE 86; RESP 16; O2SAT 95
[2021-08-13 14:37] LABS: RBC Count, Spinal Fluid 1 /mm-3 (None seen)
[2021-08-13 14:38] LABS: Body Fluid QC Type(s) BF1QC
[2021-08-13 14:39] LABS: Appearance CSF (character) CLEAR (Clear)
[2021-08-16 13:31] LABS: Pathologist Review Reviewed
== END | disposition home or self-care (01) ==
PROVIDERS: PCP Internal Medicine; Visit Provider Family Medicine Geriatric Medicine
DX: D72.829 Elevated white blood cell count, unspecified (principal)
CPT/HCPCS: 62328; 82945; 84157; 87070; 87205; 89050; 89051

== ENCOUNTER → 2021-10-05 16:04 | Outpatient (REF) | payer MEDICARE, BC, SELFPAY ==
[2021-10-05 16:59] LABS: Absolute Lymphocyte Count 3.37 X10^3/uL (0.83-4.51); Absolute Neutrophil Count 6.1 X10^3/uL (2.0-7.7); Basophil# 0.03 X10^3/uL; Basophil% 0.2 % (0-1); Eosinophil# 0.08 X10^3/uL; Eosinophils% 0.7 % (0-5); Hemoglobin 14.2 g/dL (13.0-16.5); Lymphocyte # 3.37 X10^3/ul (0.83-4.51); Lymphocyte % 27.6 % (19-41); Mean Corp Hgb Conc 30.9 g/dL (32-36); Mean Corpuscular Hgb 27.5 pg (27.0-32.0); Mean Corpuscular Volume 89.1 fL (80-94); Mean Platelet Vol. 10.2 fl (6.2-12.0); Monocyte# 2.53 X10^3/uL; Monocyte% 20.7 % (0-10); NRBC Flagged by Analyzer 0.2 % (0-5); Neutrophil # 6.06 X10^3/uL (2.7-7.7); Neutrophil % 49.7 % (47-70); POSITIVE DIFFERENTIAL YES; Platelet Count 452 K/mm3 (150-450); RBC Distribution Width CV 17.6 % (11.6-14.6); Red Blood Count 5.16 M/mm3 (4.6-6.2); White Blood Count 12.2 K/mm3 (4.4-11.0)
[2021-10-05 17:11] LABS: Differential Indicated SCAN CRITERIA MET
[2021-10-05 17:18] LABS: Thyroid Stim Hormone (TSH) 0.65 uIU/mL (0.358-3.74)
[2021-10-05 17:32] LABS: Differential Comment SCANNED
[2021-10-05 23:32] LABS: ALB/GLOB Ratio 0.8 RATIO (0.9-2.4); AST(SGOT) 22 U/L (15-37); Alanine Aminotransfer ALT/SGPT 30 U/L (16-61); Albumin, Serum 3.4 g/dL (3.2-5.0); Alkaline Phosphatase 71 U/L (45-117); Anion Gap 7 (5-15); BUN 13 mg/dL (7-18); BUN/Creat Ratio 12.5 RATIO (10-20); Calcium,Total 8.9 mg/dL (8.5-10.1); Chloride 109 mmol/L (98-107); Creatinine, Serum 1.04 mg/dL (0.70-1.30); EST Glomerular Filtration Rate 74 mL/min (>60); Est Glom Filt Rate - Afr Amer 89 mL/min (>60); Globulin 4.1 g/dL (2.2-4.2); Glucose 90 mg/dL (74-106); Potassium 4.1 mmol/L (3.5-5.1); Protein, Total 7.5 g/dL (6.4-8.2); Sodium Level 141 mmol/L (136-145)
[2021-10-06 08:25] LABS: Color, Urine Yellow (Yellow); Glucose, Dipstick Normal (Normal); Ketone-Dipstick Negative (Negative); Leukocyte Esterase-Dipstick Negative /ul (Negative); Nitrite-Dipstick Negative (Negative); Occult Blood-Urine 25 /ul (Negative); Protein-Dipstick Negative (Negative); Specific Gravity, Urine 1.015 (1.002-1.030); Urine Bilirubin Dipstick Negative (Negative); Urine Clarity Clear (Clear); Urine Urobilinogen 1 mg/dl (Normal)
[2021-10-06 14:02] LABS: Pathologist Review Reviewed
== END ==
LOC: OLS.ACH 16:04
PROVIDERS: PCP Internal Medicine; Referring Provider Family Medicine; Visit Provider Family Medicine
DX: G91.2 (Idiopathic) normal pressure hydrocephalus (principal); M62.81 Muscle weakness (generalized); F01.51 Vascular dementia, unspecified severity, with behavioral disturbance; E23.6 Other disorders of pituitary gland; H53.461 Homonymous bilateral field defects, right side; R53.81 Other malaise
CPT/HCPCS: 36415; 80053; 81002; 84443; 85025; 87086

== ENCOUNTER → 2021-10-06 23:31 | Outpatient (REF) | payer MEDICARE, BC, SELFPAY ==
[2021-10-07 00:59] LABS: Absolute Neutrophil Count 31.4 X10^3/uL (2.0-7.7); Basophil% 0.2 % (0-1); Eosinophil# 0.01 X10^3/uL; Hematocrit 45.9 % (40-54); Hemoglobin 14.3 g/dL (13.0-16.5); Mean Corp Hgb Conc 31.2 g/dL (32-36); Mean Corpuscular Hgb 27.4 pg (27.0-32.0); Mean Corpuscular Volume 88.1 fL (80-94); Mean Platelet Vol. 10.3 fl (6.2-12.0); Monocyte# 6.58 X10^3/uL; Monocyte% 16.4 % (0-10); NRBC Flagged by Analyzer 1.1 % (0-5); Neutrophil # 31.38 X10^3/uL (2.7-7.7); Neutrophil % 78.2 % (47-70); POSITIVE COUNT YES; POSITIVE DIFFERENTIAL YES; Platelet Count 400 K/mm3 (150-450); RBC Distribution Width SD 56.1 fl (35.1-43.9); Red Blood Count 5.21 M/mm3 (4.6-6.2); White Blood Count 40.2 K/mm3 (4.4-11.0)
[2021-10-07 01:02] LABS: Differential Indicated SCAN CRITERIA MET
[2021-10-07 01:16] LABS: ALB/GLOB Ratio 0.9 RATIO (0.9-2.4); AST(SGOT) 23 U/L (15-37); Alanine Aminotransfer ALT/SGPT 31 U/L (16-61); Albumin, Serum 3.7 g/dL (3.2-5.0); Alkaline Phosphatase 86 U/L (45-117); Anion Gap 6 (5-15); BUN 17 mg/dL (7-18); BUN/Creat Ratio 13.5 RATIO (10-20); CPK Total, Creatine Kinase 148 U/L (39-308); Calcium,Total 9.1 mg/dL (8.5-10.1); Chloride 110 mmol/L (98-107); Creatinine, Serum 1.26 mg/dL (0.70-1.30); EST Glomerular Filtration Rate 59 mL/min (>60); Est Glom Filt Rate - Afr Amer 71 mL/min (>60); Globulin 4.3 g/dL (2.2-4.2); Glucose 124 mg/dL (74-106); Potassium 3.3 mmol/L (3.5-5.1); Sodium Level 144 mmol/L (136-145)
[2021-10-08 09:55] LABS: Pathologist Review Reviewed
== END ==
LOC: OLS.ACH 23:31
PROVIDERS: PCP Internal Medicine; Visit Provider Family Medicine
DX: R50.9 Fever, unspecified (principal); E03.9 Hypothyroidism, unspecified; E23.7 Disorder of pituitary gland, unspecified; S51.002A Unspecified open wound of left elbow, initial encounter
CPT/HCPCS: 36415; 80053; 82550; 85025; 87040; 87077; 87149; 87186